=== PATIENT | male | born 1960 | race African-American/Black ===

== ENCOUNTER 2017-07-19 12:00 | Inpatient (IN) | payer OTHER ==
[2017-07-19 12:31] VITALS: BMI 27.0
--- NOTE | 2017-07-19 17:15 | HP ---
COWS - Scale Resting Pulse: 1= [place] 81-100 Sweatin=Flushed/Facial Moisture Restless Observation: 1= Difficult to Sit Still Pupil Size: 2= Moderately Dilated Bone or Joint Aches: 2= Severe Diffuse Aches Runny Nose/ Eye Tearin= Runny Nose/Eyes GI Upset > 30mins: 2= Nausea/Diarrhea Tremor Observation: 2= Slight Tremor Visible Yawning Observation: 1= 1-2x During Session Anxiety or Irritability: 2=Irritable/Anxious Goose Flesh Skin: 0=Smooth Skin COWS Score: 17 CIWA Score - CIWA Score Nausea/Vomitin Muscle Tremors: 4-Moderate,w/Arms Extend Anxiety: 4-Mod. Anxious/Guarded Agitation: 4-Moderately Restless Paroxysmal Sweats: 3 Orientation: 0-Oriented Tacttile Disturbances: 0-None Auditory Disturbances: 0-None Visual Disturbances: 0-None Headache: 0-None Present CIWA-Ar Total Score: 18 Admission ROS BHS - HPI Chief Complaint: Withdrawal sx. Allergies/Adverse Reactions: Allergies Allergy/AdvReac Type Severity Reaction Status Date / Time penicillin G Allergy Severe Hives Verified 07/19/17 16:27 tomato Allergy Severe Hives Verified 07/19/17 16:27 liver Allergy Severe Hives Uncoded 07/19/17 16:27 History of Present Illness: 56 y/o man with a long hx. of drug & alcohol dependence is admitted for detox. Pt. has been in previous detox, reports 7 yrs. drug free. Exam Limitations: No Limitations - Ebola screening Have you traveled outside of the country in the last 21 days: No Have you had contact with anyone from an Ebola affected area: No Have you been sick,other than usual withdrawal symptoms: No Do you have a fever: No - Review of Systems Constitutional: Diaphoresis EENT: reports: Nose Congestion Respiratory: reports: No Symptoms reported Cardiac: reports: No Symptoms Reported GI: reports: Nausea, Abdominal cramping : reports: No Symptoms Reported Musculoskeletal: reports: Back Pain, Joint Pain, Muscle Pain Integumentary: reports: Sweating Neuro: reports: Tremors Endocrine: reports: No Symptoms Reported Hematology: reports: No Symptoms Reported Psychiatric: reports: No Sypmtoms Reported Other Systems: Reviewed and Negative Patient History - Patient Medical History Hx Anemia: No Hx Asthma: Yes Hx Chronic Obstructive Pulmonary Disease (COPD): No Hx Cancer: No Hx Cardiac Disorders: No Hx Congestive Heart Failure: No Hx Hypertension: No Hx Hypercholesterolemia: No Hx Pacemaker: No HX Cerebrovascular Accident: No Hx Seizures: Yes (4 yrs ago) Hx Dementia: No Hx Diabetes: No Hx Gastrointestinal Disorders: No Hx Liver Disease: No Hx Genitourinary Disorders: No Hx Sexually Transmitted Disorders: No Hx Renal Disease (ESRD): No Hx Thyroid Disease: No Hx Human Immunodeficiency Virus (HIV): No Hx Hepatitis C: No Hx Depression: Yes (refuses psych consult) Hx Suicide Attempt: No Hx Bipolar Disorder: No Hx Schizophrenia: No - Patient Surgical History Past Surgical History: No Hx Neurologic Surgery: No Hx Cataract Extraction: No Hx Cardiac Surgery: No Hx Lung Surgery: No Hx Breast Surgery: No Hx Breast Biopsy: No Hx Abdominal Surgery: No Hx Appendectomy: No Hx Cholecystectomy: No Hx Genitourinary Surgery: No Hx Section: No Hx Orthopedic Surgery: No Anesthesia Reaction: No - PPD History Previous Implant?: Yes Documented Results: Negative w/proof Implanted On Prior [facility] Admission?: Yes Date: 10/26/14 Results: 0 mm PPD to be Administered?: Yes - Smoking Cessation Smoking history: Current every day smoker Have you smoked in the past 12 months: Yes Aproximately how many cigarettes per day: 2 Cigars Per Day: 0 Hx Chewing Tobacco Use: No Initiated information on smoking cessation: Yes 'Breaking Loose' booklet given: 07/19/17 - Substance & Tx. History Hx Alcohol Use: Yes Hx Substance Use: Yes Substance Use Type: Alcohol, Cocaine, Tranquilizers Hx Substance Use Treatment: Yes (Detox 2014) - Substances Abused Heroin Route: Inhalation Frequency: Daily Amount used: 10 bags Age of first use: 26 Date of Last Use: 07/19/17 Alcohol Route: Oral Frequency: Daily Amount used: vodka 1 pint Age of first use: 26 Date of Last Use: 07/19/17 Benzodiazepine (Klonopin) Route: Oral Frequency: Daily Amount used: 6 mg Age of first use: 52 Date of Last Use: 07/19/17 Family Disease History - Family Disease History Family Disease History: Diabetes: Mother (HTN), Heart Disease: Mother, Other: Father (alcohol,) Admission Physical Exam BHS - Vital Signs Vital Signs: Vital Signs - 24 hr 07/19/17 12:29 Temperature 96 F L Pulse Rate 93 H Respiratory 20 Rate Blood Pressure 146/86 - Physical General Appearance: Yes: Tremorous, Irritable, Sweating, Anxious HEENTM: Yes: Nasal Congestion, Rhinorrhea Respiratory: Yes: Chest Non-Tender, Lungs Clear, Normal Breath Sounds Neck: Yes: Supple Breast: Yes: Breast Exam Deferred Cardiology: Yes: Regular Rhythm, Regular Rate, S1, S2 Abdominal: Yes: Normal Bowel Sounds, Non Tender, Soft Genitourinary: Yes: Within Normal Limits Back: Yes: Within Normal Limits Musculoskeletal: Yes: Within Normal Limits Extremities: Yes: Tremors Neurological: Yes: Fully Oriented, Alert Integumentary: Yes: Within Normal Limits Lymphatic: Yes: Within Normal Limits - Diagnostic (1) Opioid dependence with withdrawal Current Visit: Yes Status: Acute (2) Alcohol dependence with uncomplicated withdrawal Current Visit: Yes Status: Acute (3) Sedative, hypnotic or anxiolytic dependence with withdrawal, uncomplicated Current Visit: Yes Status: Acute (4) Asthma Current Visit: Yes Status: Acute Qualifiers: Asthma severity: mild Asthma persistence: intermittent Asthma complication type: uncomplicated Qualified Code(s): J45.20 - Mild intermittent asthma, uncomplicated; J45.20 - Mild intermittent asthma, uncomplicated; J45.20 - Mild intermittent asthma, uncomplicated Cleared for Admission [facility] - Detox or Rehab [facility] Level of Care: Medically Managed Detox Regimen/Protocol: Methadone/Librium S Breath Alcohol Content Breath Alcohol Content: 0 Urine Drug Screen - Results Drug Screen Negative: No Urine Drug Screen Results: OPI-Opiates, BZO-Benzodiazepines
[2017-07-19] MEDS ORDERED: METHADONE HCL 10 MG TABLET (FOR DETOX USE ONLY) PO ONE ×2 (17:24→23:00)
[2017-07-19] MEDS ORDERED: MENTHOL/PHENOL 1 EACH UD MM PRN (17:24)
[2017-07-19] MEDS ORDERED: guaiFENesin/D-METHORPHAN HB 10 ML UNIT-DOSE CUPS PO PRN (17:24)
[2017-07-19] MEDS ORDERED: chlordiazePOXIDE HCL 25 MG CAPSULE PO PRN (17:24)
[2017-07-19] MEDS ORDERED: ACETAMINOPHEN 325 MG TABLET (FP) PO PRN (17:24)
[2017-07-19] MEDS ORDERED: NICOTINE POLACRILEX 2 MG GUM BC PRN (17:24)
[2017-07-19] MEDS ORDERED: chlordiazePOXIDE HCL 25 MG CAPSULE PO ONE (17:24)
[2017-07-19] MEDS ORDERED: hydrOXYzine PAMOATE 50 MG CAPSULE (FP) PO PRN (17:24)
[2017-07-19] MEDS ORDERED: LOPERAMIDE HCL 2 MG CAPSULE PO PRN (17:24)
[2017-07-19] MEDS ORDERED: MAGNESIUM HYDROX 2400MG/30ML ORAL SUSPENSION 30 ML CUP PO PRN (17:24)
[2017-07-19] MEDS ORDERED: MAGNESIUM CITRATE 300 ML BOTTLE PO PRN (17:24)
[2017-07-19] MEDS ORDERED: P-EPHED 60MG/TRIPROLIDI 2.5MG TABLET PO PRN (17:24)
[2017-07-19] MEDS ORDERED: diphenhydrAMINE HCL 50 MG CAPSULE PO PRN (17:24)
[2017-07-19] MEDS ORDERED: MAG HYDROX/AL HYDROX/SIMETH 30 ML UNIT-DOSE CUP PO PRN (17:24)
[2017-07-19] MEDS ORDERED: NICOTINE 14 MG/24 HOURS TOPICAL PATCH TD SCH (17:30)
[2017-07-19 21:48] LABS: URINE APPEARANCE CLEAR; URINE BILIRUBIN NEGATIVE (NEGATIVE); URINE BLOOD NEGATIVE (NEGATIVE); URINE COLOR LTYELLOW; URINE GLUCOSE (UA) NEGATIVE (NEGATIVE); URINE KETONE NEGATIVE (NEGATIVE); URINE NITRITE NEGATIVE (NEGATIVE); URINE PROTEIN NEGATIVE (NEGATIVE); URINE UROBILINOGEN NEGATIVE mg/dL (0.2-1.0)
[2017-07-19] MEDS: chlordiazePOXIDE HCL 25 MG CAPSULE PO SCH (23:03)
[2017-07-19] MEDS: THIAMINE HCL 100 MG TABLET (FP) PO SCH (23:05)
[2017-07-20] MEDS: chlordiazePOXIDE HCL 25 MG CAPSULE PO SCH ×4 (05:46→22:08)
[2017-07-20] MEDS ORDERED: METHADONE HCL 10 MG TABLET (FOR DETOX USE ONLY) PO SCH (10:00)
[2017-07-20 10:39] LABS: MCH 27.8 pg (25.7-33.7); MCHC 32.1 g/dl (32.0-35.9); MEAN CELL VOLUME 86.5 fl (80-96); MEAN PLT VOLUME 9.5 fl (7.5-11.1); PLATELET COUNT 258 K/MM3 (134-434); RDW 14.5 % (11.9-15.9); WHITE BLOOD COUNT 10.4 K/mm3 (4.0-10.0)
[2017-07-20 10:44] LABS: ALBUMIN 2.9 g/dl (3.4-5.0); ANION GAP 5 (8-16); BILIRUBIN,TOTAL 0.3 mg/dL (0.2-1.0); CALCIUM 8.5 mg/dL (8.5-10.1); CO2 29 mmol/L (21-32); GLUCOSE,RANDOM 136 mg/dL (74-106); SGOT/AST 12 U/L (15-37); SGPT/ALT 29 U/L (12-78); TOT PROT 5.4 g/dl (6.4-8.2)
[2017-07-20 10:45] LABS: ALK PHOS 73 U/L (45-117)
[2017-07-20] MEDS: PRENATAL VITAMINS W/ FOLIC ACID TABLET (FP) PO SCH (10:45)
--- NOTE | 2017-07-20 12:44 | EKG ---
Test Reason : Blood Pressure : / mmHG Vent. Rate : 077 BPM Atrial Rate : 077 BPM P-R Int : 146 ms QRS Dur : 088 ms QT Int : 400 ms P-R-T Axes : 075 067 058 degrees QTc Int : 452 ms SINUS RHYTHM OTHERWISE NORMAL ECG NO PREVIOUS ECGS AVAILABLE Confirmed by REX REINOSO MD ([id number]) on 07/20/2017 12:44:18 PM Referred By: Confirmed By:REX REINOSO MD
--- NOTE | 2017-07-20 14:10 | PN ---
S CIWA - CIWA Score Nausea/Vomitin Muscle Tremors: 4-Moderate,w/Arms Extend Anxiety: 4-Mod. Anxious/Guarded Agitation: 4-Moderately Restless Paroxysmal Sweats: 3 Orientation: 0-Oriented Tacttile Disturbances: 0-None Auditory Disturbances: 0-None Visual Disturbances: 0-None Headache: 0-None Present CIWA-Ar Total Score: 18 BHS COWS - Scale Resting Pulse: 1= [place] 81-100 Sweatin= Chills/Flushing Restless Observation: 1= Difficult to Sit Still Pupil Size: 1= Pupils >than Normal Bone or Joint Aches: 1= Mild Discomfort Runny Nose/ Eye Tearin= Nasal Congestion GI Upset > 30mins: 2= Nausea/Diarrhea Tremor Observation of Outstretched Hands: 2= Slight Tremor Visible Yawning Observation: 1= 1-2x During Session Anxiety or Irritability: 2=Irritable/Anxious Goose Flesh Skin: 3=Piloerection COWS Score: 16 S Progress Note (SOAP) Subjective: nausea, sweats, interrupted sleep, anxiety, tremors Objective: 07/20/17 14:09 Vital Signs - 24 hr 07/19/17 07/20/17 07/20/17 21:52 00:57 03:33 Temperature 97.2 F L Pulse Rate 87 Respiratory 19 18 18 Rate Blood Pressure 143/82 07/20/17 07/20/17 07/20/17 06:26 10:45 13:36 Temperature 97.4 F L 98.6 F 96.2 F L Pulse Rate 76 82 89 Respiratory 18 20 18 Rate Blood Pressure 137/74 139/82 152/61 Laboratory Tests 07/19/17 07/20/17 07/20/17 17:35 07:30 07:30 WBC 10.4 H RBC 4.87 Hgb 13.5 Hct 42.1 MCV 86.5 MCH 27.8 MCHC 32.1 RDW 14.5 Plt Count 258 MPV 9.5 Sodium 140 Potassium 4.3 Chloride 106 Carbon Dioxide 29 Anion Gap 5 L BUN 16 Creatinine 1.0 D Creat Clearance w eGFR > 60 Random Glucose 136 H Calcium 8.5 Total Bilirubin 0.3 D AST 12 L D ALT 29 Alkaline Phosphatase 73 D Total Protein 5.4 L Albumin 2.9 L Urine Color Ltyellow Urine Appearance Clear Urine pH 8.0 D Urine Protein Negative Urine Glucose (UA) Negative Urine Ketones Negative Urine Blood Negative Urine Nitrite Negative Urine Bilirubin Negative Urine Urobilinogen Negative RPR Titer 07/20/17 07:30 WBC RBC Hgb Hct MCV MCH MCHC RDW Plt Count MPV Sodium Potassium Chloride Carbon Dioxide Anion Gap BUN Creatinine Creat Clearance w eGFR Random Glucose Calcium Total Bilirubin AST ALT Alkaline Phosphatase Total Protein Albumin Urine Color Urine Appearance Urine pH Urine Protein Urine Glucose (UA) Urine Ketones Urine Blood Urine Nitrite Urine Bilirubin Urine Urobilinogen RPR Titer Nonreactive Assessment: 07/20/17 14:10 withdrawal sx Plan: cont detosx, fluids, encourage ambulation
[2017-07-20 14:19] LABS: URINE LEUK ESTERASE Negative (NEGATIVE)
[2017-07-20] MEDS: THIAMINE HCL 100 MG TABLET (FP) PO SCH (22:08)
[2017-07-21] MEDS: chlordiazePOXIDE HCL 25 MG CAPSULE PO SCH ×3 (06:17→17:00)
[2017-07-21] MEDS: METHADONE HCL 5 MG TABLET (FOR DETOX USE ONLY) PO SCH (10:35)
[2017-07-21] MEDS: PRENATAL VITAMINS W/ FOLIC ACID TABLET (FP) PO SCH (10:35)
--- NOTE | 2017-07-21 11:30 | PN ---
S CIWA - CIWA Score Nausea/Vomitin (DIARRHEA) Muscle Tremors: 4-Moderate,w/Arms Extend Anxiety: 4-Mod. Anxious/Guarded Agitation: 4-Moderately Restless Paroxysmal Sweats: 1-Minimal Palms Moist Orientation: 0-Oriented Tacttile Disturbances: 3-Moderate Itch/Numb/Burn Auditory Disturbances: 0-None Visual Disturbances: 0-None Headache: 0-None Present CIWA-Ar Total Score: 19 BHS COWS - Scale Resting Pulse: 1= [place] 81-100 Sweatin= Chills/Flushing Restless Observation: 3= Extraneous Movement Pupil Size: 0= Normal to Room Light Bone or Joint Aches: 4=Acute Joint/Muscle Pain Runny Nose/ Eye Tearin= Nasal Congestion GI Upset > 30mins: 2= Nausea/Diarrhea (DIARRHEA) Tremor Observation of Outstretched Hands: 1= Tremor [place], Not Seen Yawning Observation: 1= 1-2x During Session Anxiety or Irritability: 2=Irritable/Anxious Goose Flesh Skin: 0=Smooth Skin COWS Score: 16 [facility] Progress Note (SOAP) Subjective: ANXIETY,SWEATS,TREMORS,NAUSEA, DIARRHEA. Objective: 07/21/17 11:29 Vital Signs Temperature 98.6 F 07/21/17 10:03 Pulse Rate 93 H 07/21/17 10:03 Respiratory Rate 20 07/21/17 10:03 Blood Pressure 144/87 07/21/17 10:03 O2 Sat by Pulse Oximetry (%) Laboratory Last Values WBC 10.4 K/mm3 (4.0-10.0) H 07/20/17 07:30 RBC 4.87 M/mm3 (4.00-5.60) 07/20/17 07:30 Hgb 13.5 GM/dL (11.7-16.9) 07/20/17 07:30 Hct 42.1 % (35.4-49) 07/20/17 07:30 MCV 86.5 fl (80-96) 07/20/17 07:30 MCH 27.8 pg (25.7-33.7) 07/20/17 07:30 MCHC 32.1 g/dl (32.0-35.9) 07/20/17 07:30 RDW 14.5 % (11.9-15.9) 07/20/17 07:30 Plt Count 258 K/MM3 (134-434) 07/20/17 07:30 MPV 9.5 fl (7.5-11.1) 07/20/17 07:30 Sodium 140 mmol/L (136-145) 07/20/17 07:30 Potassium 4.3 mmol/L (3.5-5.1) 07/20/17 07:30 Chloride 106 mmol/L (98-107) 07/20/17 07:30 Carbon Dioxide 29 mmol/L (21-32) 07/20/17 07:30 Anion Gap 5 (8-16) L 07/20/17 07:30 BUN 16 mg/dL (7-18) 07/20/17 07:30 Creatinine 1.0 mg/dL (0.7-1.3) D 07/20/17 07:30 Creat Clearance w eGFR > 60 (>60) 07/20/17 07:30 Random Glucose 136 mg/dL (74-106) H 07/20/17 07:30 Calcium 8.5 mg/dL (8.5-10.1) 07/20/17 07:30 Total Bilirubin 0.3 mg/dL (0.2-1.0) D 07/20/17 07:30 AST 12 U/L (15-37) L D 07/20/17 07:30 ALT 29 U/L (12-78) 07/20/17 07:30 Alkaline Phosphatase 73 U/L (45-117) D 07/20/17 07:30 Total Protein 5.4 g/dl (6.4-8.2) L 07/20/17 07:30 Albumin 2.9 g/dl (3.4-5.0) L 07/20/17 07:30 Urine Color Ltyellow 07/19/17 17:35 Urine Appearance Clear 07/19/17 17:35 Urine pH 8.0 (5.0-8.0) D 07/19/17 17:35 Ur Specific [place] 1.015 (1.005-1.025) 07/19/17 17:35 Urine Protein Negative (NEGATIVE) 07/19/17 17:35 Urine Glucose (UA) Negative (NEGATIVE) 07/19/17 17:35 Urine Ketones Negative (NEGATIVE) 07/19/17 17:35 Urine Blood Negative (NEGATIVE) 07/19/17 17:35 Urine Nitrite Negative (NEGATIVE) 07/19/17 17:35 Urine Bilirubin Negative (NEGATIVE) 07/19/17 17:35 Urine Urobilinogen Negative mg/dL (0.2-1.0) 07/19/17 17:35 Ur Leukocyte Esterase Negative (NEGATIVE) 07/19/17 17:35 RPR Titer Nonreactive (NONREACTIVE) 07/20/17 07:30 Assessment: 07/21/17 11:30 WITHDRAWAL SX Plan: CONTINUE DETOX
[2017-07-21] MEDS: ALBUTEROL SO4 18 GM HFA INHALER IH PRN (15:50)
[2017-07-21] MEDS: IBUPROFEN 400 MG TABLET (FP) PO PRN (17:00)
[2017-07-21] MEDS: THIAMINE HCL 100 MG TABLET (FP) PO SCH (22:10)
[2017-07-21] MEDS: chlordiazePOXIDE 5 MG CAPSULE PO SCH (22:10)
[2017-07-22] MEDS: chlordiazePOXIDE 5 MG CAPSULE PO SCH ×3 (06:45→17:42)
[2017-07-22] MEDS: PRENATAL VITAMINS W/ FOLIC ACID TABLET (FP) PO SCH (10:43)
[2017-07-22] MEDS: METHADONE HCL 5 MG TABLET (FOR DETOX USE ONLY) PO SCH (10:43)
--- NOTE | 2017-07-22 11:36 | PN ---
S CIWA - CIWA Score Nausea/Vomitin Muscle Tremors: 4-Moderate,w/Arms Extend Anxiety: 5 Agitation: 4-Moderately Restless Paroxysmal Sweats: 1-Minimal Palms Moist Orientation: 0-Oriented Tacttile Disturbances: 3-Moderate Itch/Numb/Burn Auditory Disturbances: 0-None Visual Disturbances: 0-None Headache: 0-None Present CIWA-Ar Total Score: 20 BHS COWS - Scale Resting Pulse: 1= [place] 81-100 Sweatin= Chills/Flushing Restless Observation: 3= Extraneous Movement Pupil Size: 0= Normal to Room Light Bone or Joint Aches: 4=Acute Joint/Muscle Pain Runny Nose/ Eye Tearin= Nasal Congestion GI Upset > 30mins: 2= Nausea/Diarrhea Tremor Observation of Outstretched Hands: 1= Tremor [place], Not Seen Yawning Observation: 0= None Anxiety or Irritability: 2=Irritable/Anxious Goose Flesh Skin: 0=Smooth Skin COWS Score: 15 BHS Progress Note (SOAP) Subjective: PT C/O NAUSEA/VOMITING/DIARRHEA,IRRITABILITY,RESTLESSNESS,STOMACH CRAMPS, SLEEPING DISORDER. PT WAS TOLD TO SEE PSYCH CONSULT TODAY BUT HE WAS NOT INTERESTED THE SECOND TIME AROUND. (SEE ADMITTING NOTES). PT IS VERY ARGUMENTATIVE WHEN REMINDED TO FOLLOW UP WITH HIS NURSE FOR ORDERED MEDS E.G FOR DIARRHEA. HE APOLOGIZES AFTERWARDS AND EXPRESSES AWARENESS OF THE DISCOMFORT OF HIS WITHDRAWAL SX THAT MAY BE CAUSING ANXIETY REACTIONS. PT WAS REMINDED OF THE THERAPEUTIC SUPPORT AVAILABLE ONCE COMMUNICATED TO STAFF. Objective: 07/22/17 11:36 Vital Signs Temperature 99.2 F 07/22/17 09:54 Pulse Rate 100 H 07/22/17 09:54 Respiratory Rate 20 07/22/17 09:54 Blood Pressure 144/83 07/22/17 09:54 O2 Sat by Pulse Oximetry (%) Laboratory Last Values WBC 10.4 K/mm3 (4.0-10.0) H 07/20/17 07:30 RBC 4.87 M/mm3 (4.00-5.60) 07/20/17 07:30 Hgb 13.5 GM/dL (11.7-16.9) 07/20/17 07:30 Hct 42.1 % (35.4-49) 07/20/17 07:30 MCV 86.5 fl (80-96) 07/20/17 07:30 MCH 27.8 pg (25.7-33.7) 07/20/17 07:30 MCHC 32.1 g/dl (32.0-35.9) 07/20/17 07:30 RDW 14.5 % (11.9-15.9) 07/20/17 07:30 Plt Count 258 K/MM3 (134-434) 07/20/17 07:30 MPV 9.5 fl (7.5-11.1) 07/20/17 07:30 Sodium 140 mmol/L (136-145) 07/20/17 07:30 Potassium 4.3 mmol/L (3.5-5.1) 07/20/17 07:30 Chloride 106 mmol/L (98-107) 07/20/17 07:30 Carbon Dioxide 29 mmol/L (21-32) 07/20/17 07:30 Anion Gap 5 (8-16) L 07/20/17 07:30 BUN 16 mg/dL (7-18) 07/20/17 07:30 Creatinine 1.0 mg/dL (0.7-1.3) D 07/20/17 07:30 Creat Clearance w eGFR > 60 (>60) 07/20/17 07:30 Random Glucose 136 mg/dL (74-106) H 07/20/17 07:30 Calcium 8.5 mg/dL (8.5-10.1) 07/20/17 07:30 Total Bilirubin 0.3 mg/dL (0.2-1.0) D 07/20/17 07:30 AST 12 U/L (15-37) L D 07/20/17 07:30 ALT 29 U/L (12-78) 07/20/17 07:30 Alkaline Phosphatase 73 U/L (45-117) D 07/20/17 07:30 Total Protein 5.4 g/dl (6.4-8.2) L 07/20/17 07:30 Albumin 2.9 g/dl (3.4-5.0) L 07/20/17 07:30 Urine Color Ltyellow 07/19/17 17:35 Urine Appearance Clear 07/19/17 17:35 Urine pH 8.0 (5.0-8.0) D 07/19/17 17:35 Ur Specific [place] 1.015 (1.005-1.025) 07/19/17 17:35 Urine Protein Negative (NEGATIVE) 07/19/17 17:35 Urine Glucose (UA) Negative (NEGATIVE) 07/19/17 17:35 Urine Ketones Negative (NEGATIVE) 07/19/17 17:35 Urine Blood Negative (NEGATIVE) 07/19/17 17:35 Urine Nitrite Negative (NEGATIVE) 07/19/17 17:35 Urine Bilirubin Negative (NEGATIVE) 07/19/17 17:35 Urine Urobilinogen Negative mg/dL (0.2-1.0) 07/19/17 17:35 Ur Leukocyte Esterase Negative (NEGATIVE) 07/19/17 17:35 RPR Titer Nonreactive (NONREACTIVE) 07/20/17 07:30 Assessment: 07/22/17 11:36 WITHDRAWAL SX Plan: CONTINUE DETOX AMBIEN 10 MG PO HS X 2 NIGHTS
[2017-07-22] MEDS ORDERED: CYCLOBENZAPRINE HCL 10 MG TABLET (FP) PO ONE (11:39)
[2017-07-22] MEDS: CYCLOBENZAPRINE HCL 10 MG TABLET (FP) PO SCH ×2 (13:08→22:13)
[2017-07-22] MEDS: chlordiazePOXIDE HCL 10 MG CAPSULE PO SCH (22:13)
[2017-07-22] MEDS: ZOLPIDEM TARTRATE 10 MG TABLET (PARK CARE ONLY) PO PRN (22:13)
[2017-07-22] MEDS: BUDESONIDE/FORMETEROL FUMARATE 80/4.5 mcg INHALER IH SCH (22:13)
[2017-07-22] MEDS: THIAMINE HCL 100 MG TABLET (FP) PO SCH (22:13)
[2017-07-22] MEDS: IBUPROFEN 400 MG TABLET (FP) PO PRN (23:01)
--- NOTE | 2017-07-22 23:30 | PN ---
BHS Progress Note Note: ASKED TO SEE PT FOR C/O CHEST PAIN. PT REPORTS C.P 6/10. POINT TO R CHEST WALL AND THEN POINTING TO L CHEST WALL. STATES PAIN IS CONSTANT WORSE WITH MOVEMENT. EKG NSR B/P 140/76 P 98 O2 SAT 98 % VRA SEEN LYING IN BED NAD/ A/OX 3 CV TACHY C/O OF WORSENING PAIN ON PALPATION OF L CHEST WALL MUSCLE MUSCULOSKELETAL PAIN MOTRIN ORDERED CONT TO MONITOR
[2017-07-23] MEDS: chlordiazePOXIDE HCL 10 MG CAPSULE PO SCH ×3 (05:15→17:49)
[2017-07-23] MEDS: CYCLOBENZAPRINE HCL 10 MG TABLET (FP) PO SCH ×3 (05:15→22:16)
[2017-07-23] MEDS ORDERED: METHADONE HCL 10 MG TABLET (FOR DETOX USE ONLY) PO SCH (10:00)
[2017-07-23] MEDS: BUDESONIDE/FORMETEROL FUMARATE 80/4.5 mcg INHALER IH SCH ×2 (10:30→22:16)
[2017-07-23] MEDS: PRENATAL VITAMINS W/ FOLIC ACID TABLET (FP) PO SCH (10:30)
--- NOTE | 2017-07-23 10:50 | PN ---
S Progress Note (SOAP) Subjective: ANXIETY,SWEATS,DECREASED AGITATION TODAY,C/O "NO SLEEP- BUT ON AMBIEN. Objective: 07/23/17 10:49 Vital Signs Temperature 98.5 F 07/23/17 09:42 Pulse Rate 97 H 07/23/17 09:42 Respiratory Rate 18 07/23/17 09:42 Blood Pressure 118/73 07/23/17 09:42 O2 Sat by Pulse Oximetry (%) Laboratory Last Values WBC 10.4 K/mm3 (4.0-10.0) H 07/20/17 07:30 RBC 4.87 M/mm3 (4.00-5.60) 07/20/17 07:30 Hgb 13.5 GM/dL (11.7-16.9) 07/20/17 07:30 Hct 42.1 % (35.4-49) 07/20/17 07:30 MCV 86.5 fl (80-96) 07/20/17 07:30 MCH 27.8 pg (25.7-33.7) 07/20/17 07:30 MCHC 32.1 g/dl (32.0-35.9) 07/20/17 07:30 RDW 14.5 % (11.9-15.9) 07/20/17 07:30 Plt Count 258 K/MM3 (134-434) 07/20/17 07:30 MPV 9.5 fl (7.5-11.1) 07/20/17 07:30 Sodium 140 mmol/L (136-145) 07/20/17 07:30 Potassium 4.3 mmol/L (3.5-5.1) 07/20/17 07:30 Chloride 106 mmol/L (98-107) 07/20/17 07:30 Carbon Dioxide 29 mmol/L (21-32) 07/20/17 07:30 Anion Gap 5 (8-16) L 07/20/17 07:30 BUN 16 mg/dL (7-18) 07/20/17 07:30 Creatinine 1.0 mg/dL (0.7-1.3) D 07/20/17 07:30 Creat Clearance w eGFR > 60 (>60) 07/20/17 07:30 Random Glucose 136 mg/dL (74-106) H 07/20/17 07:30 Calcium 8.5 mg/dL (8.5-10.1) 07/20/17 07:30 Total Bilirubin 0.3 mg/dL (0.2-1.0) D 07/20/17 07:30 AST 12 U/L (15-37) L D 07/20/17 07:30 ALT 29 U/L (12-78) 07/20/17 07:30 Alkaline Phosphatase 73 U/L (45-117) D 07/20/17 07:30 Total Protein 5.4 g/dl (6.4-8.2) L 07/20/17 07:30 Albumin 2.9 g/dl (3.4-5.0) L 07/20/17 07:30 Urine Color Ltyellow 07/19/17 17:35 Urine Appearance Clear 07/19/17 17:35 Urine pH 8.0 (5.0-8.0) D 07/19/17 17:35 Ur Specific [place] 1.015 (1.005-1.025) 07/19/17 17:35 Urine Protein Negative (NEGATIVE) 07/19/17 17:35 Urine Glucose (UA) Negative (NEGATIVE) 07/19/17 17:35 Urine Ketones Negative (NEGATIVE) 07/19/17 17:35 Urine Blood Negative (NEGATIVE) 07/19/17 17:35 Urine Nitrite Negative (NEGATIVE) 07/19/17 17:35 Urine Bilirubin Negative (NEGATIVE) 07/19/17 17:35 Urine Urobilinogen Negative mg/dL (0.2-1.0) 07/19/17 17:35 Ur Leukocyte Esterase Negative (NEGATIVE) 07/19/17 17:35 RPR Titer Nonreactive (NONREACTIVE) 07/20/17 07:30 Assessment: 07/23/17 10:49 WITHDRAWAL SX Plan: CONTINUE DETOX
[2017-07-23] MEDS: ZOLPIDEM TARTRATE 10 MG TABLET (PARK CARE ONLY) PO PRN (22:16)
[2017-07-23] MEDS: THIAMINE HCL 100 MG TABLET (FP) PO SCH (22:16)
[2017-07-24] MEDS: CYCLOBENZAPRINE HCL 10 MG TABLET (FP) PO SCH (05:29)
[2017-07-24] MEDS: ALBUTEROL SO4 18 GM HFA INHALER IH PRN (05:29)
[2017-07-24] MEDS ORDERED: METHADONE HCL 5 MG TABLET (FOR DETOX USE ONLY) PO SCH (06:00)
[2017-07-24 06:36] VITALS: BP 120/74; PULSE 91; TEMP 96.2
[2017-07-24] MEDS: PRENATAL VITAMINS W/ FOLIC ACID TABLET (FP) PO SCH (09:11)
[2017-07-24] MEDS: BUDESONIDE/FORMETEROL FUMARATE 80/4.5 mcg INHALER IH SCH (09:11)
--- NOTE | 2017-07-24 13:16 | DS ---
[facility] Detox Discharge Summary Admission Date: 07/19/17 Discharge Date: 07/24/17 - History Present History: Alcohol Dependence, Opioid Dependence, Sedative Dependence Additional Comments: PATIENT GOING TO [facility] ([place], [place] FOR AFTERCARE. PATIENT WAS DISCHARGED FROM DETOX UNIT IN STABLE MEDICAL CONDITION. Pertinent Past History: Asthma, History of Seizures, Depression. - Physical Exam Results Vital Signs: Vital Signs Temperature 96.2 F L 07/24/17 06:35 Pulse Rate 91 H 07/24/17 06:35 Respiratory Rate 18 07/24/17 06:35 Blood Pressure 120/74 07/24/17 06:35 O2 Sat by Pulse Oximetry (%) Pertinent Admission Physical Exam Findings: WITHDRAWAL SYMPTOMS. Laboratory Tests 07/19/17 07/20/17 07/20/17 17:35 07:30 07:30 WBC 10.4 H RBC 4.87 Hgb 13.5 Hct 42.1 MCV 86.5 MCH 27.8 MCHC 32.1 RDW 14.5 Plt Count 258 MPV 9.5 Sodium 140 Potassium 4.3 Chloride 106 Carbon Dioxide 29 Anion Gap 5 L BUN 16 Creatinine 1.0 D Creat Clearance w eGFR > 60 Random Glucose 136 H Calcium 8.5 Total Bilirubin 0.3 D AST 12 L D ALT 29 Alkaline Phosphatase 73 D Total Protein 5.4 L Albumin 2.9 L Urine Color Ltyellow Urine Appearance Clear Urine pH 8.0 D Ur Specific [place] 1.015 Urine Protein Negative Urine Glucose (UA) Negative Urine Ketones Negative Urine Blood Negative Urine Nitrite Negative Urine Bilirubin Negative Urine Urobilinogen Negative Ur Leukocyte Esterase Negative RPR Titer 07/20/17 07:30 WBC RBC Hgb Hct MCV MCH MCHC RDW Plt Count MPV Sodium Potassium Chloride Carbon Dioxide Anion Gap BUN Creatinine Creat Clearance w eGFR Random Glucose Calcium Total Bilirubin AST ALT Alkaline Phosphatase Total Protein Albumin Urine Color Urine Appearance Urine pH Ur Specific [place] Urine Protein Urine Glucose (UA) Urine Ketones Urine Blood Urine Nitrite Urine Bilirubin Urine Urobilinogen Ur Leukocyte Esterase RPR Titer Nonreactive LABS NOTED. - Treatment Hospital Course: Detox Protocol Followed, Detoxed Safely, Responded well, Discharged Condition Good, Rehab Referral Accepted Patient has Accepted a Rehab Referral to: [facility] ([place] , [place] - Medication Discharge Medications: Ambulatory Orders Albuterol Sulfate Inhaler - [Ventolin HFA Inhaler -] 2 inh PO Q4H PRN 10/24/14 - Diagnosis (1) Alcohol dependence with uncomplicated withdrawal Status: Acute (2) Asthma Status: Chronic Qualifiers: Asthma severity: mild Asthma persistence: intermittent Asthma complication type: uncomplicated Qualified Code(s): J45.20 - Mild intermittent asthma, uncomplicated; J45.20 - Mild intermittent asthma, uncomplicated; J45.20 - Mild intermittent asthma, uncomplicated (3) Opioid dependence with withdrawal Status: Acute (4) Sedative, hypnotic or anxiolytic dependence with withdrawal, uncomplicated Status: Acute - AMA Did Patient Leave Against Medical Advice: No
--- NOTE | 2017-07-25 12:55 | EKG ---
Test Reason : Blood Pressure : / mmHG Vent. Rate : 100 BPM Atrial Rate : 100 BPM P-R Int : 144 ms QRS Dur : 082 ms QT Int : 358 ms P-R-T Axes : 067 031 042 degrees QTc Int : 461 ms NORMAL SINUS RHYTHM NORMAL ECG WHEN COMPARED WITH ECG OF 19-JUL-2017 18:04, NO SIGNIFICANT CHANGE WAS FOUND Confirmed by LOU EDMONDSON MD ([id number]) on 07/25/2017 12:55:25 PM Referred By: Confirmed By:LOU EDMONDSON MD
== END 2017-07-24 09:51 | disposition home or self-care (01) | DRG 773 ==
LOC: YASAS 12:00 → Y3N 16:26
PROVIDERS: ADMIT Internal Medicine; ATTEND Internal Medicine
PROC: HZ2ZZZZ Detoxification Services for Substance Abuse Treatment (ICD-10-PCS; principal; 2017-07-19)
DX: F11.23 Opioid dependence with withdrawal (principal); F13.230 Sedative, hypnotic or anxiolytic dependence with withdrawal, uncomplicated; F10.230 Alcohol dependence with withdrawal, uncomplicated; F17.210 Nicotine dependence, cigarettes, uncomplicated; J45.20 Mild intermittent asthma, uncomplicated; K21.9 Gastro-esophageal reflux disease without esophagitis; R07.89 Other chest pain; Z86.69 Personal history of other diseases of the nervous system and sense organs; Z88.0 Allergy status to penicillin; Z91.018 Allergy to other foods
CPT/HCPCS: 36415; 80053; 81003; 85027; 86593; 93005; 93010

== ENCOUNTER 2018-10-13 12:14 | Inpatient (IN) | payer OTHER ==
[2018-10-13 12:44] VITALS: BMI 33.7
--- NOTE | 2018-10-13 15:15 | HP ---
CIWA Score Nausea/Vomitin Muscle Tremors: 2 Anxiety: 2 Agitation: 2 Paroxysmal Sweats: 1-Minimal Palms Moist Orientation: 0-Oriented Tacttile Disturbances: 1-Very Mild Itch/Numbness Auditory Disturbances: 1-Very Mild Visual Disturbances: 0-None Headache: 2-Mild CIWA-Ar Total Score: 13 - Admission Criteria OASAS Guidelines: Admission for Medically Managed Detox: Requires at least one of the followin. CIWA greater than 12 2. Seizures within the past 24 hours 3. Delirium tremens within the past 24 hours 4. Hallucinations within the past 24 hours 5. Acute intervention needed for co occurring medical disorder 6. Acute intervention needed for co occurring psychiatric disorder 7. Severe withdrawal that cannot be handled at a lower level of care (continued vomiting, continued diarrhea, abnormal vital signs) requiring intravenous medication and/or fluids 8. Patient presents the following: CIWA greater than 12 Admission Criteria Met: Admission criteria met Admission ROS S - HPI Chief Complaint: i need help to stop drinking alcohol and klonopin Allergies/Adverse Reactions: Allergies Allergy/AdvReac Type Severity Reaction Status Date / Time penicillin G Allergy Severe Hives Verified 10/13/18 13:23 pork derived (porcine) Allergy Severe Hives Verified 10/13/18 13:23 tomato Allergy Severe Hives Verified 10/13/18 13:23 liver Allergy Severe Hives Uncoded 10/13/18 13:23 History of Present Illness: this 57 years old male with alcohol and klonopin dependence seeking detox, withdrawal symptom,last detox 07/19/17 to 07/24/17 nicotine dependence longest period of sobriety 5 years asthma,copd plan for rehab after detox - Ebola screening Have you traveled outside of the country in the last 21 days: No Have you had contact with anyone from an Ebola affected area: No Have you been sick,other than usual withdrawal symptoms: No Do you have a fever: No - Review of Systems Constitutional: Loss of Appetite, Malaise, Night Sweats, Changes in sleep, Weakness EENT: reports: Nose Congestion Respiratory: reports: Other (asthma,copd) Cardiac: reports: Palpitations GI: reports: Nausea, Vomiting, Abdominal cramping : reports: No Symptoms Reported Musculoskeletal: reports: Back Pain, Muscle Pain Integumentary: reports: Dryness Neuro: reports: Tremors Endocrine: reports: No Symptoms Reported Hematology: reports: No Symptoms Reported Psychiatric: reports: No Sypmtoms Reported, Judgement Intact, Mood/Affect Appropiate, Orientated x3 Patient History - Patient Medical History Hx Anemia: No Hx Asthma: Yes (on albuterol and symbicort) Hx Chronic Obstructive Pulmonary Disease (COPD): Yes Hx Cancer: No Hx Cardiac Disorders: No Hx Congestive Heart Failure: No Hx Hypertension: No Hx Hypercholesterolemia: No Hx Pacemaker: No HX Cerebrovascular Accident: No Hx Seizures: No Hx Dementia: No Hx Diabetes: No Hx Gastrointestinal Disorders: No Hx Liver Disease: No Hx Genitourinary Disorders: No Hx Sexually Transmitted Disorders: No Hx Renal Disease (ESRD): No Hx Thyroid Disease: No Hx Human Immunodeficiency Virus (HIV): No (last 2018 negative) Hx Hepatitis C: No Hx Depression: No Hx Suicide Attempt: No Hx Bipolar Disorder: No Hx Schizophrenia: No Other Medical History: no suicidal,no homicidal - Patient Surgical History Past Surgical History: No Hx Neurologic Surgery: No Hx Cataract Extraction: No Hx Cardiac Surgery: No Hx Lung Surgery: No Hx Breast Surgery: No Hx Breast Biopsy: No Hx Abdominal Surgery: No Hx Appendectomy: No Hx Cholecystectomy: No Hx Genitourinary Surgery: No Hx Section: No Hx Orthopedic Surgery: No Anesthesia Reaction: No - PPD History Previous Implant?: Yes Documented Results: Negative w/o proof Date: 07/21/17 Results: 0 mm PPD to be Administered?: Yes - Smoking Cessation Smoking history: Current some day smoker Have you smoked in the past 12 months: Yes Aproximately how many cigarettes per day: 1 Cigars Per Day: 0 Hx Chewing Tobacco Use: No Initiated information on smoking cessation: Yes 'Breaking Loose' booklet given: 10/13/18 - Substance & Tx. History Hx Alcohol Use: Yes Hx Substance Use: Yes Substance Use Type: Alcohol, Tranquilizers Hx Substance Use Treatment: Yes ([facility] 07/14/17 to 07/24/17) - Substances Abused Alcohol-vodka/beer Route: Oral Frequency: Daily Amount used: 4 pts./2-6 pks. Age of first use: 17 Date of Last Use: 10/13/18 Klonopin Route: Oral Frequency: 3-6 times per week Amount used: 4-6 mg. Age of first use: 49 Date of Last Use: 10/11/18 Family Disease History - Family Disease History Family Disease History: Diabetes: Mother (HTN), Heart Disease: Mother, Other: Father (alcohol,) Admission Physical Exam [facility] - Vital Signs Vital Signs: Vital Signs - 24 hr 10/13/18 10/13/18 12:40 12:44 Temperature 98.7 F 98.7 F Pulse Rate 106 H 106 H Respiratory 18 18 Rate Blood Pressure 146/78 146/78 - Physical General Appearance: Yes: Moderate Distress, Tremorous, Irritable, Sweating, Anxious HEENTM: Yes: Normal ENT Inspection, RUBEN, Pharynx Normal Respiratory: Yes: Lungs Clear, Normal Breath Sounds, No Respiratory Distress Neck: Yes: Within Normal Limits, Supple, Trachea in good position Breast: Yes: Within Normal Limits Cardiology: Yes: Tachycardia Abdominal: Yes: Within Normal Limits, Normal Bowel Sounds, Non Tender, Soft Genitourinary: Yes: Within Normal Limits Back: Yes: Muscle Spasm Musculoskeletal: Yes: Back pain, Muscle Pain Extremities: Yes: Tremors Neurological: Yes: right of way appraiser II-XII NML intact, Fully Oriented, Alert, Motor Strength 5/5 Integumentary: Yes: Dry - Diagnostic (1) Alcohol dependence with uncomplicated withdrawal Current Visit: No Status: Acute (2) Sedative, hypnotic or anxiolytic dependence with withdrawal, uncomplicated Current Visit: No Status: Acute (3) Syncope Current Visit: No Status: Acute (4) Asthma Current Visit: No Status: Chronic Qualifiers: Asthma severity: mild Asthma persistence: intermittent Asthma complication type: uncomplicated Qualified Code(s): J45.20 - Mild intermittent asthma, uncomplicated (5) COPD (chronic obstructive pulmonary disease) Current Visit: Yes Status: Acute Cleared for Admission [facility] - Detox or Rehab [facility] Level of Care: Medically Managed Detox Regimen/Protocol: Valium [facility] Breath Alcohol Content Breath Alcohol Content: 0.006 Urine Drug Screen - Results Drug Screen Negative: No Urine Drug Screen Results: BZO-Benzodiazepines
[2018-10-13] MEDS ORDERED: ACETAMINOPHEN 325 MG TABLET (FP) PO PRN (15:20)
[2018-10-13] MEDS ORDERED: MAG HYDROX/AL HYDROX/SIMETH 30 ML UNIT-DOSE CUP PO PRN (15:20)
[2018-10-13] MEDS ORDERED: MAGNESIUM HYDROX 2400MG/30ML ORAL SUSPENSION 30 ML CUP PO PRN (15:20)
[2018-10-13] MEDS ORDERED: MAGNESIUM CITRATE 300 ML BOTTLE PO PRN (15:20)
[2018-10-13] MEDS ORDERED: P-EPHED 60MG/TRIPROLIDI 2.5MG TABLET PO PRN (15:20)
[2018-10-13] MEDS ORDERED: guaiFENesin/D-METHORPHAN HB 10 ML UNIT-DOSE CUPS PO PRN (15:20)
[2018-10-13] MEDS ORDERED: LOPERAMIDE HCL 2 MG CAPSULE PO PRN (15:20)
[2018-10-13] MEDS ORDERED: MENTHOL/PHENOL 1 EACH UD MM PRN (15:20)
[2018-10-13] MEDS ORDERED: IBUPROFEN 400 MG TABLET (FP) PO PRN (15:20)
[2018-10-13] MEDS ORDERED: diazePAM 5 MG TABLET PO ONE (17:00)
[2018-10-13] MEDS: THIAMINE HCL 100 MG TABLET (FP) PO SCH (22:27)
[2018-10-13] MEDS: diazePAM 5 MG TABLET PO SCH (22:27)
[2018-10-13] MEDS: BUDESONIDE/FORMETEROL FUMARATE 80/4.5 mcg INHALER IH SCH (22:27)
[2018-10-14] MEDS: diazePAM 5 MG TABLET PO PRN ×2 (04:45→17:54)
[2018-10-14] MEDS: diazePAM 5 MG TABLET PO SCH ×3 (07:17→22:22)
[2018-10-14] MEDS ORDERED: NICOTINE POLACRILEX 2 MG GUM BUC PRN (07:37)
[2018-10-14] MEDS ORDERED: DIPHENOXYLATE 2.5/ATROPINE.025 1 COMBO TABLET PO ONE (08:38)
--- NOTE | 2018-10-14 09:05 | PN ---
[facility] CIWA - CIWA Score Nausea/Vomitin Muscle Tremors: 2 Anxiety: 2 Agitation: 2 Paroxysmal Sweats: 1-Minimal Palms Moist Orientation: 0-Oriented Tacttile Disturbances: 1-Very Mild Itch/Numbness Auditory Disturbances: 1-Very Mild Visual Disturbances: 0-None Headache: 2-Mild CIWA-Ar Total Score: 13 BHS Progress Note (SOAP) Subjective: alert,irritable,anxious,interrupted sleep,pain in the body and back,diarrhea, vomiting mentioned also using heroin abused Objective: 10/14/18 09:03 Vital Signs Temperature 97.7 F 10/14/18 06:00 Pulse Rate 115 H 10/14/18 06:00 Respiratory Rate 20 10/14/18 06:00 Blood Pressure 105/70 10/14/18 06:00 O2 Sat by Pulse Oximetry (%) 10/14/18 09:03 Vital Signs Temperature 97.7 F 10/14/18 06:00 Pulse Rate 115 H 10/14/18 06:00 Respiratory Rate 20 10/14/18 06:00 Blood Pressure 105/70 10/14/18 06:00 O2 Sat by Pulse Oximetry (%) labs pending Assessment: 10/14/18 09:04 withdrawal symptom Plan: continue detox,changed immodium to lomotil,flexeril 10 mgs po tid prn,clonidine 0.1 mg po bid close monitoring
[2018-10-14] MEDS: cloNIDine HCL 0.1 MG TABLET PO SCH ×2 (09:32→22:23)
[2018-10-14] MEDS: PRENATAL VITAMINS W/ FOLIC ACID TABLET (FP) PO SCH (09:32)
[2018-10-14] MEDS: CYCLOBENZAPRINE HCL 10 MG TABLET (FP) PO PRN (09:32)
[2018-10-14] MEDS: BUDESONIDE/FORMETEROL FUMARATE 80/4.5 mcg INHALER IH SCH ×2 (09:34→22:22)
[2018-10-14] MEDS: ALBUTEROL SO4 8 GM HFA INHALER IH PRN ×2 (09:37→22:24)
[2018-10-14 10:19] LABS: HEMATOCRIT 43.1 % (35.4-49); HEMOGLOBIN 13.5 GM/dL (11.7-16.9); MCHC 31.3 g/dl (32.0-35.9); MEAN CELL VOLUME 80.1 fl (80-96); MEAN PLT VOLUME 10.5 fl (7.5-11.1); PLATELET COUNT 242 K/MM3 (134-434); RBC 5.39 M/mm3 (4.00-5.60); RDW 15.5 % (11.9-15.9); WHITE BLOOD COUNT 12.2 K/mm3 (4.0-10.0)
[2018-10-14 10:27] LABS: ALBUMIN 3.6 g/dl (3.4-5.0); ALK PHOS 74 U/L (45-117); ANION GAP 9 MMOL/L (8-16); BILIRUBIN,TOTAL 0.3 mg/dL (0.2-1); BLOOD UREA NITROGEN 17 mg/dL (7-18); CALCIUM 8.7 mg/dL (8.5-10.1); CHLORIDE 106 mmol/L (98-107); CO2 27 mmol/L (21-32); GLUCOSE,RANDOM 100 mg/dL (74-106); POTASSIUM 4.6 mmol/L (3.5-5.1); SGOT/AST 31 U/L (15-37); SGPT/ALT 48 U/L (13-61); SODIUM 142 mmol/L (136-145); TOT PROT 6.8 g/dl (6.4-8.2)
[2018-10-14] MEDS: NICOTINE 21 MG/24 HOURS TOPICAL PATCH TD SCH (11:19)
[2018-10-14] MEDS: THIAMINE HCL 100 MG TABLET (FP) PO SCH (22:22)
[2018-10-14] MEDS: MELATONIN 5 MG TABLETS PO PRN (22:24)
[2018-10-15] MEDS: diazePAM 5 MG TABLET PO PRN ×4 (03:38→19:35)
[2018-10-15] MEDS: CYCLOBENZAPRINE HCL 10 MG TABLET (FP) PO PRN ×2 (07:03→22:20)
[2018-10-15] MEDS: diazePAM 5 MG TABLET PO SCH ×2 (10:21→22:18)
[2018-10-15] MEDS: ASPIRIN 81 MG CHEWABLE TABLETS PO SCH (10:21)
[2018-10-15] MEDS: BUDESONIDE/FORMETEROL FUMARATE 80/4.5 mcg INHALER IH SCH ×2 (10:21→22:18)
[2018-10-15] MEDS: cloNIDine HCL 0.1 MG TABLET PO SCH ×2 (10:21→22:18)
[2018-10-15] MEDS: PRENATAL VITAMINS W/ FOLIC ACID TABLET (FP) PO SCH (10:21)
[2018-10-15] MEDS: NICOTINE 21 MG/24 HOURS TOPICAL PATCH TD SCH (10:22)
--- NOTE | 2018-10-15 16:32 | PN ---
[facility] CIWA - CIWA Score Nausea/Vomitin-No Nausea/No Vomiting Muscle Tremors: None Anxiety: 3 Agitation: 2 Paroxysmal Sweats: No Perspiration Orientation: 0-Oriented Tacttile Disturbances: 2-Mild Itch/Numbness/Burn Auditory Disturbances: 2-Mild Harshness/Frighten Visual Disturbances: 2-Mild Sensitivity Headache: 0-None Present CIWA-Ar Total Score: 11 S Progress Note (SOAP) Subjective: Fatigue, Anxious, Nausea. Objective: PATIENT A & O X 3, OBSERVED AMBULATING ON UNIT. IN NO ACUTE DISTRESS. 10/15/18 16:25 Laboratory Tests 10/14/18 10/14/18 10/14/18 06:00 06:00 06:00 WBC 12.2 H RBC 5.39 Hgb 13.5 Hct 43.1 MCV 80.1 MCH 25.0 L D MCHC 31.3 L RDW 15.5 Plt Count 242 MPV 10.5 D Sodium 142 Potassium 4.6 Chloride 106 Carbon Dioxide 27 Anion Gap 9 BUN 17 Creatinine 1.0 Creat Clearance w eGFR > 60 Random Glucose 100 Calcium 8.7 Total Bilirubin 0.3 AST 31 ALT 48 Alkaline Phosphatase 74 Total Protein 6.8 Albumin 3.6 RPR Titer Nonreactive LABS NOTED. Assessment: 10/15/18 16:27 WITHDRAWAL SYMPTOMS. LEUKOCYTOSIS. 10/15/18 16:36 Plan: CONTINUE DETOX. REPEAT CBC TOMORROW AM FOR ELEVATED WBC COUNT. DURING TODAY'S AM ROUNDS ASSESSMENT, PATIENT REPORTS RECENT HISTORY OF ' VASCULAR SURGERY' TO RIGHT LEG THAT TOOK PLACE IN 09/2018. PATIENT RPEORTS THAT HE HAD BEEN PRESCRIBED PLAVIX AND ASPIRIN FOR FOLLOW-UP BY SURGEON. PER PHARMACIST AT PATIENT'S PHARMACY ([address]), PATIENT HAD BEEN PRESCRIBED PLAVIX, 75 MG PO HS ON 09/30/2018. PLAVIX, 75 MG PO HS AND ASPIRIN, 81 MG PO DAILY ORDERED. PATIENT ADVISED TO FOLLOW-UP WITH SURGEON WHO PERFORMED VASCULAR SURGERY AT [facility] IN [place], [place] AFTER DISCHARGE FROM DETOX UNIT FOR FURTHER EVALUATION. PATIENT VERBALIZED UNDERSTANDING OF RECOMMENDATION. PATIENT ALSO REPORTS THAT HE HAS BEEN MADE AWARE THAT BED MIGHT BECOME AVAILABLE TOMORROW AT [facility]. PATIENT NOTES THAT IF BED DOES BECOME AVAILABLE, HE IS INTENT ON GOING TO REHAB TOMORROW CURRENT WITHDRAWAL SYMPTOMS ARE MINIMAL IN SEVERITY FOR HIM.
[2018-10-15] MEDS: CLOPIDOGREL BISULFATE 75 MG TABLET (FP) PO SCH (22:18)
[2018-10-15] MEDS: THIAMINE HCL 100 MG TABLET (FP) PO SCH (22:18)
[2018-10-15] MEDS: ALBUTEROL SO4 8 GM HFA INHALER IH PRN (22:19)
[2018-10-15] MEDS: MELATONIN 5 MG TABLETS PO PRN (22:19)
[2018-10-16] MEDS: diazePAM 5 MG TABLET PO PRN ×2 (05:47→13:51)
--- NOTE | 2018-10-16 10:15 | PN ---
S Progress Note (SOAP) Subjective: alert,irritable,anxious,interrupted sleep Objective: 10/16/18 10:14 Vital Signs Temperature 97.4 F L 10/16/18 06:53 Pulse Rate 107 H 10/16/18 06:53 Respiratory Rate 18 10/16/18 06:53 Blood Pressure 123/66 10/16/18 06:53 O2 Sat by Pulse Oximetry (%) Assessment: 10/16/18 10:14 withdrawal symptom Plan: continue detox,discharge in am
[2018-10-16] MEDS: NICOTINE 21 MG/24 HOURS TOPICAL PATCH TD SCH (10:36)
[2018-10-16] MEDS: ASPIRIN 81 MG CHEWABLE TABLETS PO SCH (10:36)
[2018-10-16] MEDS: diazePAM 5 MG TABLET PO SCH ×2 (10:36→22:07)
[2018-10-16] MEDS: PRENATAL VITAMINS W/ FOLIC ACID TABLET (FP) PO SCH (10:36)
[2018-10-16] MEDS: CYCLOBENZAPRINE HCL 10 MG TABLET (FP) PO PRN ×3 (10:36→22:07)
[2018-10-16] MEDS: cloNIDine HCL 0.1 MG TABLET PO SCH ×2 (10:36→22:08)
[2018-10-16] MEDS: BUDESONIDE/FORMETEROL FUMARATE 80/4.5 mcg INHALER IH SCH ×2 (10:37→22:06)
[2018-10-16] MEDS: ALBUTEROL SO4 8 GM HFA INHALER IH PRN ×2 (10:40→22:07)
[2018-10-16] MEDS: DIPHENOXYLATE 2.5/ATROPINE.025 1 COMBO TABLET PO PRN ×2 (13:53→22:08)
[2018-10-16] MEDS: CLOPIDOGREL BISULFATE 75 MG TABLET (FP) PO SCH (22:07)
[2018-10-16] MEDS: THIAMINE HCL 100 MG TABLET (FP) PO SCH (22:07)
[2018-10-16] MEDS: MELATONIN 5 MG TABLETS PO PRN (22:08)
[2018-10-17] MEDS: ALBUTEROL SO4 8 GM HFA INHALER IH PRN (05:15)
[2018-10-17 09:51] VITALS: BP 111/75; PULSE 99; TEMP 98.2
[2018-10-17] MEDS ORDERED: diazePAM 5 MG TABLET PO SCH (10:00)
[2018-10-17] MEDS: CYCLOBENZAPRINE HCL 10 MG TABLET (FP) PO PRN (10:02)
[2018-10-17] MEDS: cloNIDine HCL 0.1 MG TABLET PO SCH (10:02)
[2018-10-17] MEDS: NICOTINE 21 MG/24 HOURS TOPICAL PATCH TD SCH (10:02)
[2018-10-17] MEDS: ASPIRIN 81 MG CHEWABLE TABLETS PO SCH (10:02)
[2018-10-17] MEDS: PRENATAL VITAMINS W/ FOLIC ACID TABLET (FP) PO SCH (10:02)
[2018-10-17] MEDS: BUDESONIDE/FORMETEROL FUMARATE 80/4.5 mcg INHALER IH SCH (10:04)
--- NOTE | 2018-10-17 10:22 | DS ---
[facility] Detox Discharge Summary Admission Date: 10/13/18 Discharge Date: 10/17/18 - History Present History: Alcohol Dependence Additional Comments: 57 years old male admitted on 10/13/18 for alcohol withdrawal stabilization completed detox regimen tolerated well alert no acute distress aftercare [facility] Physical Exam Results Vital Signs: Vital Signs Temperature 98.2 F 10/17/18 09:50 Pulse Rate 99 H 10/17/18 09:50 Respiratory Rate 16 10/17/18 09:50 Blood Pressure 111/75 10/17/18 09:50 O2 Sat by Pulse Oximetry (%) Pertinent Admission Physical Exam Findings: alcohol withdrawal sx Laboratory Last Values WBC 12.2 K/mm3 (4.0-10.0) H 10/14/18 06:00 RBC 5.39 M/mm3 (4.00-5.60) 10/14/18 06:00 Hgb 13.5 GM/dL (11.7-16.9) 10/14/18 06:00 Hct 43.1 % (35.4-49) 10/14/18 06:00 MCV 80.1 fl (80-96) 10/14/18 06:00 MCH 25.0 pg (25.7-33.7) L D 10/14/18 06:00 MCHC 31.3 g/dl (32.0-35.9) L 10/14/18 06:00 RDW 15.5 % (11.9-15.9) 10/14/18 06:00 Plt Count 242 K/MM3 (134-434) 10/14/18 06:00 MPV 10.5 fl (7.5-11.1) D 10/14/18 06:00 Sodium 142 mmol/L (136-145) 10/14/18 06:00 Potassium 4.6 mmol/L (3.5-5.1) 10/14/18 06:00 Chloride 106 mmol/L (98-107) 10/14/18 06:00 Carbon Dioxide 27 mmol/L (21-32) 10/14/18 06:00 Anion Gap 9 MMOL/L (8-16) 10/14/18 06:00 BUN 17 mg/dL (7-18) 10/14/18 06:00 Creatinine 1.0 mg/dL (0.55-1.3) 10/14/18 06:00 Creat Clearance w eGFR > 60 (>60) 10/14/18 06:00 Random Glucose 100 mg/dL (74-106) 10/14/18 06:00 Calcium 8.7 mg/dL (8.5-10.1) 10/14/18 06:00 Total Bilirubin 0.3 mg/dL (0.2-1) 10/14/18 06:00 AST 31 U/L (15-37) 10/14/18 06:00 ALT 48 U/L (13-61) 10/14/18 06:00 Alkaline Phosphatase 74 U/L (45-117) 10/14/18 06:00 Total Protein 6.8 g/dl (6.4-8.2) 10/14/18 06:00 Albumin 3.6 g/dl (3.4-5.0) 10/14/18 06:00 RPR Titer Nonreactive (NONREACTIVE) 10/14/18 06:00 lab noted - Treatment Hospital Course: Detox Protocol Followed, Detoxed Safely, Responded well, Discharged Condition Good, Rehab Referral Accepted Patient has Accepted a Rehab Referral to: [facility] - Medication Discharge Medications: Ambulatory Orders Fluticasone/Salmeterol [Advair 250-50 Diskus] 1 each IH BID 10/13/18 Albuterol Sulfate Inhaler - [Ventolin HFA Inhaler -] 2 inh PO Q4H PRN #1 inhaler 10/17/18 Budesonide/Formeterol Fumarate [SYMBICORT 80/4.5mcg -] 1 inh IH BID #1 inhaler 10/17/18 Clopidogrel Bisulfate [Plavix] 75 mg PO HS #30 tablet 10/17/18 cloNIDine HCL [Catapres -] 0.1 mg PO BID #30 tablet 10/17/18 - Diagnosis (1) Hypertension Status: Chronic Qualifiers: Hypertension type: essential hypertension Qualified Code(s): I10 - Essential (primary) hypertension (2) Alcohol dependence with uncomplicated withdrawal Status: Acute (3) Asthma Status: Chronic Qualifiers: Asthma severity: mild Asthma persistence: intermittent Asthma complication type: uncomplicated Qualified Code(s): J45.20 - Mild intermittent asthma, uncomplicated (4) Nicotine dependence Status: Acute Qualifiers: Nicotine product type: cigarettes Substance use status: in withdrawal Qualified Code(s): F17.213 - Nicotine dependence, cigarettes, with withdrawal - AMA Did Patient Leave Against Medical Advice: No
== END 2018-10-17 11:06 | disposition other institution (70) | DRG 775 ==
LOC: YASAS 12:14 → Y6N 15:29
PROC: HZ2ZZZZ Detoxification Services for Substance Abuse Treatment (ICD-10-PCS; principal; 2018-10-13)
DX: F10.230 Alcohol dependence with withdrawal, uncomplicated (principal); F13.230 Sedative, hypnotic or anxiolytic dependence with withdrawal, uncomplicated; F17.210 Nicotine dependence, cigarettes, uncomplicated; I10 Essential (primary) hypertension; J45.20 Mild intermittent asthma, uncomplicated; J44.9 Chronic obstructive pulmonary disease, unspecified; D72.829 Elevated white blood cell count, unspecified; R55 Syncope and collapse; Z98.890 Other specified postprocedural states; Z88.0 Allergy status to penicillin; Z91.018 Allergy to other foods
CPT/HCPCS: 36415; 80053; 85027; 86593; J0735

== ENCOUNTER 2018-10-17 11:18 | Inpatient (IN) | payer OTHER ==
--- NOTE | 2018-10-17 11:52 | HP ---
[facility] Rehab Assess/Revision - Admission History Admitted to Rehab from: [facility] [place] Date of Admission to Rehab: 10/17/18 - Findings Detox History & Physical reviewed: Yes Concur with findings: Yes Comments/Additional Findings: transferred from detox to rehab as per protocol Inpatient Rehab Admission - Initial Determination Are CD services needed?: Yes Free of communicable disease: Yes Not in need of hospitalization: Yes - Rehab Admission Criteria Previous failed treatment: Yes Poor recovery environment: Yes Comorbidities: Yes Lacks judgement: No Patient is meeting Inpatient Rehab admission criteria:: Yes
[2018-10-17] MEDS ORDERED: NICOTINE 14 MG/24 HOURS TOPICAL PATCH TD PRN (11:53)
[2018-10-17] MEDS ORDERED: MAGNESIUM CITRATE 300 ML BOTTLE PO PRN (11:53)
[2018-10-17] MEDS ORDERED: P-EPHED 60MG/TRIPROLIDI 2.5MG TABLET PO PRN (11:53)
[2018-10-17] MEDS ORDERED: LOPERAMIDE HCL 2 MG CAPSULE PO PRN (11:53)
[2018-10-17] MEDS ORDERED: ACETAMINOPHEN 325 MG TABLET (FP) PO PRN (11:53)
[2018-10-17] MEDS ORDERED: NICOTINE POLACRILEX 2 MG GUM BUC PRN (11:53)
[2018-10-17] MEDS ORDERED: IBUPROFEN 400 MG TABLET (FP) PO PRN (11:53)
[2018-10-17] MEDS ORDERED: MENTHOL/PHENOL 1 EACH UD MM PRN (11:53)
[2018-10-17] MEDS ORDERED: guaiFENesin/D-METHORPHAN HB 10 ML UNIT-DOSE CUPS PO PRN (11:53)
[2018-10-17] MEDS ORDERED: MAGNESIUM HYDROX 2400MG/30ML ORAL SUSPENSION 30 ML CUP PO PRN (11:53)
[2018-10-17] MEDS ORDERED: MAG HYDROX/AL HYDROX/SIMETH 30 ML UNIT-DOSE CUP PO PRN (11:53)
--- NOTE | 2018-10-17 18:42 | PN ---
S Progress Note Note: Called by nursing staff to order medication for newly admitted patient. Medication reconciliation done. Seroquel 300 mg po HS ordered
[2018-10-17] MEDS: CLOPIDOGREL BISULFATE 75 MG TABLET (FP) PO SCH (21:20)
[2018-10-17] MEDS: cloNIDine HCL 0.1 MG TABLET PO SCH (21:20)
[2018-10-17] MEDS: THIAMINE HCL 100 MG TABLET (FP) PO SCH (21:20)
[2018-10-17] MEDS: QUEtiapine FUMARATE 300 MG TABLET PO SCH (21:20)
[2018-10-17] MEDS: BUDESONIDE/FORMETEROL FUMARATE 80/4.5 mcg INHALER IH SCH (21:21)
[2018-10-17] MEDS ORDERED: MELATONIN 5 MG TABLETS PO PRN (22:00)
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
[2018-10-18] MEDS: PRENATAL VITAMINS W/ FOLIC ACID TABLET (FP) PO SCH (09:57)
[2018-10-18] MEDS: cloNIDine HCL 0.1 MG TABLET PO SCH ×2 (09:57→21:21)
[2018-10-18] MEDS: BUDESONIDE/FORMETEROL FUMARATE 80/4.5 mcg INHALER IH SCH ×2 (09:58→21:22)
[2018-10-18] MEDS ORDERED: PT OWN MED DRAWER 7, Y5N ONE (09:59)
[2018-10-18] MEDS: ALBUTEROL SO4 8 GM HFA INHALER IH PRN (10:00)
[2018-10-18] MEDS ORDERED: COLLOIDAL OATMEAL 1 BAR EACH TP PRN (15:21)
[2018-10-18] MEDS: SELENIUM SULFIDE 2.5% LOTION 4 OZ. TP SCH (16:13)
[2018-10-18] MEDS: hydrOXYzine PAMOATE 50 MG CAPSULE (FP) PO PRN (18:22)
[2018-10-18] MEDS: QUEtiapine FUMARATE 300 MG TABLET PO SCH (21:21)
[2018-10-18] MEDS: CLOPIDOGREL BISULFATE 75 MG TABLET (FP) PO SCH (21:21)
[2018-10-18] MEDS: THIAMINE HCL 100 MG TABLET (FP) PO SCH (21:21)
[2018-10-19] MEDS: hydrOXYzine PAMOATE 50 MG CAPSULE (FP) PO PRN ×2 (06:27→21:29)
[2018-10-19] MEDS: BUDESONIDE/FORMETEROL FUMARATE 80/4.5 mcg INHALER IH SCH ×2 (09:45→21:29)
[2018-10-19] MEDS: SELENIUM SULFIDE 2.5% LOTION 4 OZ. TP SCH (09:45)
[2018-10-19] MEDS: PRENATAL VITAMINS W/ FOLIC ACID TABLET (FP) PO SCH (09:46)
[2018-10-19] MEDS: cloNIDine HCL 0.1 MG TABLET PO SCH ×2 (09:46→21:29)
[2018-10-19] MEDS ORDERED: COLLOIDAL OATMEAL 1 BAR EACH TP PRN (09:50)
[2018-10-19] MEDS ORDERED: SELENIUM SULFIDE 2.25% 180 ML SHAMPOO TP SCH (10:00)
[2018-10-19] MEDS: ALBUTEROL SO4 8 GM HFA INHALER IH PRN (19:21)
[2018-10-19] MEDS: CLOPIDOGREL BISULFATE 75 MG TABLET (FP) PO SCH (21:29)
[2018-10-19] MEDS: QUEtiapine FUMARATE 300 MG TABLET PO SCH (21:29)
[2018-10-19] MEDS: THIAMINE HCL 100 MG TABLET (FP) PO SCH (21:29)
[2018-10-19] MEDS ORDERED: PT OWN MED DRAWER 7, Y5N ONE (21:29)
[2018-10-20] MEDS: ALBUTEROL SO4 8 GM HFA INHALER IH PRN ×2 (06:51→20:26)
[2018-10-20] MEDS: cloNIDine HCL 0.1 MG TABLET PO SCH ×2 (10:27→21:23)
[2018-10-20] MEDS: PRENATAL VITAMINS W/ FOLIC ACID TABLET (FP) PO SCH (10:27)
[2018-10-20] MEDS: hydrOXYzine PAMOATE 50 MG CAPSULE (FP) PO PRN ×2 (10:28→21:23)
[2018-10-20] MEDS: BUDESONIDE/FORMETEROL FUMARATE 80/4.5 mcg INHALER IH SCH ×2 (10:29→21:23)
[2018-10-20] MEDS: SELENIUM SULFIDE 2.5% LOTION 4 OZ. TP SCH (10:30)
[2018-10-20 11:18] VITALS: TEMP 97.4
--- NOTE | 2018-10-20 15:15 | PN ---
[facility] COWS - Scale Resting Pulse: 2= NH 101-120 Sweatin= Chills/Flushing Restless Observation: 3= Extraneous Movement Pupil Size: 0= Normal to Room Light Bone or Joint Aches: 4=Acute Joint/Muscle Pain Runny Nose/ Eye Tearin= Nasal Congestion GI Upset > 30mins: 1= Stomach Cramp (AND NAUSEA) Tremor Observation of Outstretched Hands: 2= Slight Tremor Visible Yawning Observation: 0= None Anxiety or Irritability: 2=Irritable/Anxious Goose Flesh Skin: 0=Smooth Skin COWS Score: 16 BHS Progress Note (SOAP) Subjective: PT C/O WITHDRAWAL SX-NAUSEA,STOMACH FLIPPING AND CRAVINGS FOR OPIATES, IRRITABLE AND WANTS SUBOXONE. PT DETOXED HERE FROM 10/13/18 - 10/17/18 FROM ALCOHOL REPORTING THAT HE HAD NO MONEY TO BUY HEROIN AND WAS USING BENZOS AND ALCOHOL BEFORE DETOX HENCE HIS UDT WAS NEGATIVE. PT REPORTS HE WAS ON METHADONE 110 MG PO DAILY IN 2011 - 2014. PT'S HX OF MAT IS SEEN BELOW IN THE [facility]. PT MET WITH HIS COUNSELOR AND WHEEL ALIGNER TODAY WHO SPOKE TO THE REFERRAL PROGRAM AT [facility] WHERE PT WILL BE GOING AFTER REHAB AND WILL CONTINUE SUBOXONE TREATMENT. Others' Prescriptions Patient Name: Claudio Davison Date: 1960 Address: [address] [place] [address] Sex: Male Rx Written Rx Dispensed Drug Quantity Days Supply Prescriber Name 10/04/2018 10/04/2018 zubsolv 0.7-0.18 mg tablet sl 7 4 LaksCarlo MD 09/28/2018 09/29/2018 zubsolv 1.4-0.36 mg tablet sl 8 8 LaksCarlo MD 09/20/2018 09/20/2018 zubsolv 0.7-0.18 mg tablet sl 12 6 LaksCarlo MD 09/16/2018 09/16/2018 zubsolv 0.7-0.18 mg tablet sl 6 6 LaksCarlo MD Objective: 10/20/18 15:31 Vital Signs - 24 hr 10/19/18 10/20/18 10/20/18 21:09 00:30 03:30 Temperature Pulse Rate 111 H Respiratory 18 18 18 Rate Blood Pressure 137/79 10/20/18 10/20/18 06:56 09:10 Temperature 97.7 F 97.4 F L Pulse Rate 112 H 115 H Respiratory 20 18 Rate Blood Pressure 127/74 143/82 Assessment: 10/20/18 15:31 OPIATE WITHDRAWAL SX Plan: SUBOXONE 2MG/0.5 MG SL NOW AND AT 10 PM RE-EVALUATE PT'S SYMPTOM IN A.M.
[2018-10-20] MEDS ORDERED: BUPRENORPHINE/NALOXONE 2 MG/0.5 MG FILM PACKET SL ONE ×2 (15:55→22:00)
[2018-10-20] MEDS: CLOPIDOGREL BISULFATE 75 MG TABLET (FP) PO SCH (21:23)
[2018-10-20] MEDS: QUEtiapine FUMARATE 300 MG TABLET PO SCH (21:23)
[2018-10-20] MEDS: THIAMINE HCL 100 MG TABLET (FP) PO SCH (21:25)
[2018-10-21] MEDS: ALBUTEROL SO4 8 GM HFA INHALER IH PRN (00:40)
[2018-10-21] MEDS ORDERED: ALBUTEROL SO4 2.5/IPRATROPIUM 0.5 INH SOL 3 ML VIAL.NEB. NEB PRN (00:41)
--- NOTE | 2018-10-21 00:44 | PN ---
S Progress Note Note: Patient reports SOB and respiratory distress Vital Signs Temperature 97.4 F L 10/20/18 09:10 Pulse Rate 118 H 10/20/18 21:31 Respiratory Rate 20 10/20/18 21:31 Blood Pressure 149/79 10/20/18 21:31 O2 Sat by Pulse Oximetry (%) Action: Duoneb 1 amp nebulizer q6h as needed ordered
[2018-10-21] MEDS ORDERED: ALBUTEROL SO4 2.5/IPRATROPIUM 0.5 INH SOL 3 ML VIAL.NEB. NEB ONE (01:08)
[2018-10-21 01:37] VITALS: BP 128/110; PULSE 126
--- NOTE | 2018-10-21 01:40 | PN ---
[facility] Progress Note Note: Patient remains in respiratory distress and reports prior hospitalization for Asthma/COPD. He has past medical history of GERD, Asthma, COPD, Hypertension, Alcohol related Seizure, Alcohol and Benzo dependence. He is able to answer questions but appears v guerrero anxious. He is not relieved with administration of Duoneb x 2. He is tachycardic, tachypnic, in severe distress and complains of chest tightness and feeling dizzy. Patient is to be transferred to ER for further evaluation. Endorsed to Dr. Barraza Vital Signs Temperature 97.4 F L 10/20/18 09:10 Pulse Rate 126 H 10/21/18 01:36 Respiratory Rate 24 H 10/21/18 01:03 Blood Pressure 128/110 H 10/21/18 01:36 O2 Sat by Pulse Oximetry (%) 96% oxygen at 2l/minvia N/C
== END 2018-10-21 02:15 | disposition short-term general hospital (02) | DRG 772 ==
LOC: YASAS 11:18 → Y3W 11:19
PROVIDERS: ADMIT Psychiatry & Neurology Psychiatry; ATTEND Psychiatry & Neurology Psychiatry
PROC: HZ42ZZZ Group Counseling for Substance Abuse Treatment, Cognitive-Behavioral (ICD-10-PCS; principal; 2018-10-17)
DX: F10.20 Alcohol dependence, uncomplicated (principal); F11.23 Opioid dependence with withdrawal; F13.20 Sedative, hypnotic or anxiolytic dependence, uncomplicated; F43.10 Post-traumatic stress disorder, unspecified; F19.280 Other psychoactive substance dependence with psychoactive substance-induced anxiety disorder; F19.282 Other psychoactive substance dependence with psychoactive substance-induced sleep disorder; I10 Essential (primary) hypertension; K21.9 Gastro-esophageal reflux disease without esophagitis; J44.9 Chronic obstructive pulmonary disease, unspecified; J45.20 Mild intermittent asthma, uncomplicated; R06.03 Acute respiratory distress; R00.0 Tachycardia, unspecified; R06.82 Tachypnea, not elsewhere classified; Z88.0 Allergy status to penicillin
CPT/HCPCS: 94640; J0735

== ENCOUNTER 2018-10-21 02:33 | Inpatient (IN) | payer OTHER ==
[~2018-10-21 02:33] MED LIST: EPINEPHrine/PF 1 MG/1 ML (1:1,000) AMPULE IM ONE; KETAMINE HCL 200 MG/20 ML VIAL IVPUSH ONE
[2018-10-21] MEDS ORDERED: SUCCINYLCHOLINE CHLORIDE 200 MG/10 ML VIAL IVPUSH ONE (02:35)
[2018-10-21] MEDS: ALBUTEROL SO4 0.083% IH SOL 2.5 MG/3 ML VIAL.NEB. NEB SCH ×8 (03:00→05:45)
[2018-10-21 03:05] LABS: VENOUS PC02 67.7 mmHg (38-52); VENOUS PH 7.27 (7.32-7.42); VENOUS PO2 41.6 mmHg (28-48)
[2018-10-21 03:06] LABS: BASO % 0.4 % (0-2.0); EOS % 1.7 % (0-4.5); HEMATOCRIT 38.9 % (35.4-49); HEMOGLOBIN 13.1 GM/dL (11.7-16.9); LYMPH % 16.3 % (8-40); MCH 26.6 pg (25.7-33.7); MCHC 33.8 g/dl (32.0-35.9); MEAN CELL VOLUME 78.7 fl (80-96); MEAN PLT VOLUME 8.8 fl (7.5-11.1); MONO % 12.5 % (3.8-10.2); NEUT % 69.1 % (42.8-82.8); PLATELET COUNT 216 K/MM3 (134-434); RBC 4.94 M/mm3 (4.00-5.60); RDW 16.3 % (11.9-15.9); WHITE BLOOD COUNT 11.2 K/mm3 (4.0-10.0)
[2018-10-21 03:16] LABS: INR 0.87 (0.83-1.09); PROTHROMBIN TIME (PATIENT) 10.3 SEC (9.7-13.0)
[2018-10-21 03:19] LABS: ACTIVATED PTT 26.1 SECONDS (25.2-36.5)
[2018-10-21] MEDS ORDERED: PROPOFOL 200 MG/20 ML VIAL IVPUSH ONE (03:25)
[2018-10-21 03:27] LABS: ALBUMIN 3.6 g/dl (3.4-5.0); ALK PHOS 75 U/L (45-117); ANION GAP 8 MMOL/L (8-16); BILIRUBIN,TOTAL 0.2 mg/dL (0.2-1); BLOOD UREA NITROGEN 23 mg/dL (7-18); CALCIUM 8.7 mg/dL (8.5-10.1); CHLORIDE 104 mmol/L (98-107); CO2 30 mmol/L (21-32); CREATININE 1.2 mg/dL (0.55-1.3); GLUCOSE,RANDOM 141 mg/dL (74-106); POTASSIUM 4.6 mmol/L (3.5-5.1); SGOT/AST 14 U/L (15-37); SGPT/ALT 26 U/L (13-61); SODIUM 142 mmol/L (136-145); TOT PROT 6.9 g/dl (6.4-8.2)
[2018-10-21] MEDS ORDERED: ALBUTEROL SO4 0.083% IH SOL 2.5 MG/3 ML VIAL.NEB. NEB ONE ×3 (03:27→05:12)
--- NOTE | 2018-10-21 03:45 | PDOC ---
History of Present Illness - General Chief Complaint: Respiratory Stated Complaint: ASTHMA History Source: Patient Exam Limitations: Clinical Condition - History of Present Illness Initial Comments: 10/21/18 03:46 Patient is 57M with history of GERD, COPD and history of alcohol-related seizure coming from [facility] in respiratory distress. EMS reports that patient was given 2g mg, decadron, 3 duonebs and started on cpap in the field. Patient is able to give short one word answers to questions about history, limited by clinical condition. Endorses chest pain, denies fevers. Denies intubation history but does state he has been hospitalized for copd/asthma in the past. Records indicate patient is active smoker. Coming from [facility] detoxing from alcohol and benzos. Past History - Past Medical History Allergies/Adverse Reactions: Allergies Allergy/AdvReac Type Severity Reaction Status Date / Time penicillin G Allergy Severe Hives Verified 10/21/18 02:58 pork derived (porcine) Allergy Severe Hives Verified 10/21/18 02:58 tomato Allergy Severe Hives Verified 10/21/18 02:58 liver Allergy Severe Hives Uncoded 10/21/18 02:58 Home Medications: Ambulatory Orders Fluticasone/Salmeterol [Advair 250-50 Diskus] 1 each IH BID 10/13/18 Albuterol Sulfate Inhaler - [Ventolin HFA Inhaler -] 2 inh PO Q4H PRN #1 inhaler 10/17/18 Budesonide/Formeterol Fumarate [SYMBICORT 80/4.5mcg -] 1 inh IH BID #1 inhaler 10/17/18 Clopidogrel Bisulfate [Plavix] 75 mg PO HS #30 tablet 10/17/18 Quetiapine Fumarate [Seroquel -] 300 mg PO HS 10/17/18 cloNIDine HCL [Catapres -] 0.1 mg PO BID #30 tablet 10/17/18 Anemia: No Asthma: Yes Cancer: No Cardiac Disorders: No CVA: No COPD: Yes CHF: No Dementia: No Diabetes: No GI Disorders: No Disorders: No HTN: Yes Hypercholesterolemia: No Kidney Stones: No Liver Disease: No Seizures: No Thyroid Disease: No - Surgical History Abdominal Surgery: No Appendectomy: No Cardiac Surgery: No Cholecystectomy: No Lung Surgery: No Neurologic Surgery: No Orthopedic Surgery: No - Reproductive History Testicular Surgery: No - Suicide/Smoking/Psychosocial Hx Smoking History: Former smoker Have you smoked in the past 12 months: No Number of Cigarettes Smoked Daily: 1 Cigars Per Day: 0 Information on smoking cessation initiated: No 'Breaking Loose' booklet given: 10/13/18 Hx Alcohol Use: Yes Drug/Substance Use Hx: Yes Substance Use Type: Alcohol (Started drinking alcohol at age 17, consumes 4 pints of vodks & 2x 6pk of beer daily. Last drank on ), Tranquilizers ( Started using klonopin at age 49, consumes 4-6 mg 306 times weekly. Last used on 10/11/18) Hx Substance Use Treatment: Yes (3 previous inpt detox @ [facility]) Review of Systems - Review of Systems Able to Perform ROS?: No (2/2 clinical condition) *Physical Exam - Vital Signs Last Vital Signs Temp Pulse Resp BP Pulse Ox 96.6 F L 131 H 16 129/99 100 10/21/18 02:33 10/21/18 02:33 10/21/18 03:36 10/21/18 02:33 10/21/18 02:45 - Physical Exam Comments: 10/21/18 03:52 GENERAL: Awake, alert, sleepy, in acute distress HEAD: No signs of trauma, normocephalic, atraumatic EYES: PERRLA, EOMI, sclera anicteric, conjunctiva clear ENT: Auricles normal inspection, hearing grossly normal, nares patent, oropharynx clear without exudates. Moist mucosa NECK: Normal ROM, supple, no lymphadenopathy, JVD, or masses LUNGS: In distress, loud wheezing bilaterally with little air movement HEART: Tachycardic, peripheral pulses normal and equal bilaterally. ABDOMEN: Soft, nontender, normoactive bowel sounds. No guarding, no rebound. No masses EXTREMITIES: Normal inspection, Normal range of motion, no edema. No clubbing or cyanosis. NEUROLOGICAL: Cranial nerves II through XII grossly intact. Normal speech, no focal sensorimotor deficits SKIN: Warm, Dry, normal turgor, no rashes or lesions noted. Moderate Sedation - Procedure Monitoring Vital Signs: Procedure Monitoring Vital Signs Temperature 96.6 F L 10/21/18 02:33 Pulse Rate 131 H 10/21/18 02:33 Respiratory Rate 16 10/21/18 03:36 Blood Pressure 129/99 10/21/18 02:33 O2 Sat by Pulse Oximetry (%) 100 10/21/18 02:45 Procedures - Intubation Intubation Method: orotracheal Blade used: Mac Tube Size (Fr): 7.5 Medications: Ketamine, Succinylcholine Tube position @ lip (cm): 23 Tube position confirmed by: Direct visualization, CO2 detector, Chest x-ray, Breath sounds Breath Sounds after Intubation: equal Intubation Complications: oralbleed Post Intubation Xray: Yes (placed appropriately) ED Treatment Course - LABORATORY CBC & Chemistry Diagram: 10/21/18 02:53 10/21/18 02:53 - ADDITIONAL ORDERS Additional order review: Laboratory Results 10/21/18 10/21/18 10/21/18 02:53 02:53 02:53 PT with INR INR PTT (Actin FS) VBG pH POC VBG pCO2 POC VBG pO2 Mixed VBG HCO3 Sodium 142 Potassium 4.6 Chloride 104 Carbon Dioxide 30 Anion Gap 8 BUN 23 H Creatinine 1.2 Creat Clearance w eGFR > 60 Random Glucose 141 H Lactic Acid 1.1 Calcium 8.7 Total Bilirubin 0.2 AST 14 L ALT 26 Alkaline Phosphatase 75 Troponin I < 0.02 Total Protein 6.9 Albumin 3.6 10/21/18 10/21/18 02:53 02:53 PT with INR 10.30 INR 0.87 PTT (Actin FS) 26.1 VBG pH 7.27 L POC VBG pCO2 67.7 H* POC VBG pO2 41.6 Mixed VBG HCO3 29.8 H Sodium Potassium Chloride Carbon Dioxide Anion Gap BUN Creatinine Creat Clearance w eGFR Random Glucose Lactic Acid Calcium Total Bilirubin AST ALT Alkaline Phosphatase Troponin I Total Protein Albumin 10/21/18 02:53 RBC 4.94 MCV 78.7 L MCHC 33.8 RDW 16.3 H MPV 8.8 D Neutrophils % 69.1 Lymphocytes % 16.3 Monocytes % 12.5 H Eosinophils % 1.7 Basophils % 0.4 - RADIOLOGY Radiology Studies Ordered: Category Date Time Status CXRPORT [CHEST X-RAY PORTABLE*] [RAD] Stat Radiology 10/21/18 03:41 Ordered Medical Decision Making - Critical Care Time Total Critical Care Time (minutes): 90 Critical Care Statement: The care of this patient involved high complexity decision making to prevent further life threatening deterioration of the patient 's condition and/or to evaluate & treat vital organ system(s) failure or risk of failure. - Medical Decision Making 10/21/18 03:56 Patient is 57M with history of COPD, etoh abuse, benzo abuse here from [facility] with respiratory distress. Vitals notable for tachycarida, tachypnea, satting 100%. Patient eyes not open spontaneously, tiring out. Given duonebs, continuous albuterol through bipap, IM epi, decadron, mag. Intubated to protect airway as per procedure note. Obstructive strategy chosen for patient has I:E ratios prolonged before intubation. PEEP 3, Rate 7, 100% O2. Follow up ABG ordered. Plateau pressure at 21, etco2 70, spo2 100%. Continuous albuterol running. CBC normal, CMP reassuring. Trop neg, VBG shows increase in pCO2 with acidosis. CXR shows no infiltrate, will cover in the setting of patient requiring intubation coming from inpatient facility. ICU, hospitalist paged. 10/21/18 04:41 ABG shows elevated pO2, pCO2. pH low to 7.12. O2 lowered to 60%, satting 98% now. ETCO2 pattern less obstructive. 10/21/18 04:55 D/w Dr Abbott, Dr Briggs, accepted to ICU, Dr Farmer and Dr Perez attendings. *DC/Admit/Observation/Transfer Diagnosis at time of Disposition: Respiratory failure - Discharge Dispostion Condition at time of disposition: Critical Decision to Admit order: Yes - Referrals Referrals: Ian Padilla MD [Primary Care Provider] - - Patient Instructions - Post Discharge Activity
[2018-10-21] MEDS ORDERED: PROPOFOL 1,000,000 MCG/100 ML VIAL IVPB ONE (03:50)
[2018-10-21] MEDS ORDERED: SODIUM CHLORIDE 0.9% 500 ML INFUS.BAG IV ONE (04:00)
[2018-10-21 04:22] LABS: ARTERIAL BLD GAS O2 SATURATION 98.5 % (90-98.9); ARTERIAL BLOOD GAS BASE EXCESS -3.8 meq/l (-2-2)
[2018-10-21 04:23] LABS: ALLENS TEST POSITIVE
[2018-10-21 04:31] LABS: ARTERIAL BLOOD GAS pH 7.12 (7.35-7.45)
[2018-10-21 04:32] LABS: ARTERIAL BLOOD GAS PCO2 90.6 mmHg (35-45)
[2018-10-21] MEDS ORDERED: FENTANYL INJECTION 500 MCG in DEXTROSE 5%-WATER - 90 ML IVPB SCH (05:00)
[2018-10-21] MEDS ORDERED: CLINDAMYCIN 600MG PREMIX IVPB 600 MG/50 ML BAG IVPB ONE (05:08)
[2018-10-21] MEDS ORDERED: MIDAZOLAM 100 MG in SODIUM CHLORIDE 100 ML IVPB SCH (05:15)
[2018-10-21] MEDS ORDERED: MIDAZOLAM HCL 2 MG/2 ML SINGLE DOSE VIAL IVPUSH ONE (05:21)
--- NOTE | 2018-10-21 05:31 | CONSULT ---
Consult Consult Specialty:: Pulm/CCM Referred by:: Dr. Barraza Reason for Consultation:: acute on chronic resp. hypercapnic failure - History of Present Illness History of Present Illness: Briefly, 57 yo M h/o GERD, COPD, asthma, alcohol and benzo abuse from [facility] admitted for shortness of breath. He was given steroid, duonebs and CPAP en route to ED here. Per ED, he was tachycardic, tachypneic, and in severe distress. Patient received continuous albuterol thrugh BiPAP, IM epi, decadron, magnesium and subsequently intubated for airway protection. Patient is now intubated and sedated. - Alcohol/Substance Use Hx Alcohol Use: Yes - Smoking History Smoking history: Former smoker Have you smoked in the past 12 months: No Aproximately how many cigarettes per day: 1 <Bridger Briggs - Last Filed: 10/21/18 08:49> Home Medications <Bridger Brgigs - Last Filed: 10/21/18 08:49> <Ian Padilla - Last Filed: 10/27/18 06:22> - Allergies Allergies/Adverse Reactions: Allergies Allergy/AdvReac Type Severity Reaction Status Date / Time penicillin G Allergy Severe Hives Verified 10/26/18 17:33 pork derived (porcine) Allergy Severe Hives Verified 10/26/18 17:33 tomato Allergy Severe Hives Verified 10/26/18 17:33 liver Allergy Severe Hives Uncoded 10/26/18 17:33 - Home Medications Home Medications: Ambulatory Orders Fluticasone/Salmeterol [Advair 250-50 Diskus] 1 each IH BID 10/13/18 Albuterol Sulfate Inhaler - [Ventolin HFA Inhaler -] 2 inh PO Q4H PRN #1 inhaler 10/17/18 Budesonide/Formeterol Fumarate [SYMBICORT 80/4.5mcg -] 1 inh IH BID #1 inhaler 10/17/18 Clopidogrel Bisulfate [Plavix] 75 mg PO HS #30 tablet 10/17/18 Quetiapine Fumarate [Seroquel -] 300 mg PO HS 10/17/18 cloNIDine HCL [Catapres -] 0.1 mg PO BID #30 tablet 10/17/18 Cefuroxime Axetil [Ceftin -] 500 mg PO BID 8 Days tablet 10/26/18 metroNIDAZOLE [Flagyl -] 500 mg PO TID 8 Days tablet 10/26/18 Family Disease History - Family Disease History Family Disease History: Diabetes: Mother (HTN), Heart Disease: Mother, Other: Father (alcohol,) <Bridger Briggs - Last Filed: 10/21/18 08:49> Review of Systems Unable to obtain ROS, reason: intubated and sedated <Bridger Briggs - Last Filed: 10/21/18 08:49> Physical Exam Vital Signs: Vital Signs Temperature 96.6 F L 10/21/18 02:33 Pulse Rate 135 H 10/21/18 04:49 Respiratory Rate 12 10/21/18 04:49 Blood Pressure 196/154 H 10/21/18 04:49 O2 Sat by Pulse Oximetry (%) 97 10/21/18 04:49 Constitutional: Yes: Severe Distress Eyes: Yes: Other (fixed, non-reactive) Cardiovascular: Yes: Tachycardia, Murmur, S1, S2 Respiratory: Yes: Mechanically Ventilated Gastrointestinal: Yes: Abdomen, Obese, Distention Edema: No Labs: CBC, BMP 10/21/18 02:53 10/21/18 02:53 <Bridger Briggs - Last Filed: 10/21/18 08:49> Vital Signs: Vital Signs Temperature 97.5 F L 10/26/18 14:35 Pulse Rate 83 10/26/18 14:35 Respiratory Rate 20 10/26/18 09:00 Blood Pressure 139/73 10/26/18 14:35 O2 Sat by Pulse Oximetry (%) 94 L 10/26/18 12:08 Labs: CBC, BMP 10/26/18 06:00 10/26/18 06:00 <Ian Padilla - Last Filed: 10/27/18 06:22> Assessment/Plan 57 yo M h/o GERD, COPD, asthma, alcohol and benzo abuse from [facility] admitted to the ICU s/p intubation due to acute on chronic hypercapnic respiratory failure. Pulm: Acute on chronic hypercapnic resp. failure 1. asthma vs. COPD exacerbation 2. ET tube re-positioned (26 to 23) and vent settings adjusted (increased flow rate and reduced Vt and RR) 3. add versed to achieve RASS -4 for vent synchrony 4. f/u repeat ABG, monitor PIP and Pplat 5. d/c continuous albuterol, start standing and PRN duonebs 6. medrol 60mg Q6H 7. receive levoquin and clindamycin in ED Neuro: sedated, intubated, alcohol withdrawal 1. maintain appropriately sedated 2. banana bag + daily folic and thiamine ppx: SCDS Dispo: admit to ICU Bridger Briggs PGY3 ICU resident <Bridger Briggs - Last Filed: 10/21/18 08:49> Visit type - Emergency Visit Emergency Visit: Yes ED Registration Date: 10/21/18 Care time: The patient presented to the Emergency Department on the above date and was hospitalized for further evaluation of their emergent condition. - New Patient This patient is new to me today: Yes Date on this admission: 10/21/18 - Critical Care Critical Care patient: Yes Total Critical Care Time (in minutes): 50 Critical Care Statement: The care of this patient involved high complexity decision making to prevent further life threatening deterioration of the patient 's condition and/or to evaluate & treat vital organ system(s) failure or risk of failure. <Bridger Briggs - Last Filed: 10/21/18 08:49>
--- NOTE | 2018-10-21 05:45 | PDOC ---
Attending Attestation - Resident Resident Name: Derick Barraza - ED Attending Attestation I have performed the following: I have examined & evaluated the patient, The case was reviewed & discussed with the resident, I agree w/resident's findings & plan, Exceptions are as noted - HPI HPI: 10/21/18 05:42 57M from [facility], pmh of GERD, COPD, etoh sz, arrived in severe acute respiratory distress. Mag 2gm, dex, combinebs x3 and cpap by EMS. Pt was visibly lethargic and in severe respiratory distress on arrival. - Physicial Exam PE: 10/21/18 05:43 Severe distress Increased wob Poor air intake +retractions Faint, diffuse wheezing - Critical Care Time Total Critical Care Time: 90 Critical Care Statement: The care of this patient involved high complexity decision making to prevent further life threatening deterioration of the patient 's condition and/or to evaluate & treat vital organ system(s) failure or risk of failure. - Medical Decision Making 10/21/18 05:44 Respiratory failure 2/2 copd exacerbation intubated/sedated f/u labs abx admit to icu
--- NOTE | 2018-10-21 05:57 | HP ---
CHIEF COMPLAINT: Chest Tightness, SOB PCP: HISTORY OF PRESENT ILLNESS: 57 y/o M with PMHx of Asthma, HTN, EtOH related Seizure, EtOH and Benzo dependence presents from [facility] after experiencing SOB. As per nursing staff at [facility] and EMR review, around 00:30 this morning, patient was found to be wheezing and given 2 Duoneb tx's; She was 96% on RA, BP 128/110, HR 126 at this time. Shortly after, patient felt chest tightness and dizziness and was sent to the ED for evaluation. Patient was given 2g Mag, Decadron, Duonebs x 2 and CPap by EMS. In the ED, the patient was using accessory muscles and intubated. Patient has denied any hx of intubations however has had multiple hospitalizations in the past for COPD and Asthma. Patient was already intubated and sedated prior to my interview. ER course was notable for: (1) Intubated, Sedated via Propofol (2) (3) Recent Travel: Unknown PAST MEDICAL HISTORY: GERD, Asthma, COPD, HTN, EtOH related Seizure, EtOH and Benzo dependence PAST SURGICAL HISTORY: Unknown Social History: Smoking: Unknown Alcohol: Unknown Drugs: Unknown Family History: Unknown Allergies penicillin G Allergy (Severe, Verified 10/21/18 02:58) Hives pork derived (porcine) Allergy (Severe, Verified 10/21/18 02:58) Hives tomato Allergy (Severe, Verified 10/21/18 02:58) Hives liver Allergy (Severe, Uncoded 10/21/18 02:58) Hives HOME MEDICATIONS: Home Medications Medication Instructions Recorded Fluticasone/Salmeterol [Advair 1 each IH BID 10/13/18 250-50 Diskus] Albuterol Sulfate Inhaler - 2 inh PO Q4H PRN #1 inhaler 10/17/18 [Ventolin HFA Inhaler -] Budesonide/Formeterol Fumarate 1 inh IH BID #1 inhaler 10/17/18 [SYMBICORT 80/4.5mcg -] Clopidogrel Bisulfate [Plavix] 75 mg PO HS #30 tablet 10/17/18 Quetiapine Fumarate [Seroquel -] 300 mg PO HS 10/17/18 cloNIDine HCL [Catapres -] 0.1 mg PO BID #30 tablet 10/17/18 REVIEW OF SYSTEMS Unable to Obtain PHYSICAL EXAMINATION Vital Signs - 24 hr 10/21/18 10/21/18 10/21/18 02:33 02:45 03:36 Temperature 96.6 F L Pulse Rate 131 H Pulse Rate [ Left] Respiratory 14 16 Rate Blood Pressure 129/99 Blood Pressure [Right Arm] O2 Sat by Pulse 100 100 Oximetry (%) 10/21/18 10/21/18 04:49 05:34 Temperature Pulse Rate Pulse Rate [ 135 H 134 H Left] Respiratory 12 12 Rate Blood Pressure Blood Pressure 196/154 H 202/181 H [Right Arm] O2 Sat by Pulse 97 98 Oximetry (%) GENERAL: Intubated and Sedated HEAD: NCAT EYES: Pupils Fixed and nonreactive LUNGS: Mechanical ventilation HEART: Tachycardic, normal S1 and S2 without murmur ABDOMEN: Obese, Soft, nontender, distended, + bowel sounds EXTREMITIES: No peripheral edema SKIN: Warm, dry Laboratory Results - last 24 hr 10/21/18 10/21/18 10/21/18 02:53 02:53 02:53 WBC 11.2 H RBC 4.94 Hgb 13.1 Hct 38.9 MCV 78.7 L MCH 26.6 MCHC 33.8 RDW 16.3 H Plt Count 216 MPV 8.8 D Absolute Neuts (auto) 7.8 Neutrophils % 69.1 Lymphocytes % 16.3 Monocytes % 12.5 H Eosinophils % 1.7 Basophils % 0.4 Nucleated RBC % 0 PT with INR 10.30 INR 0.87 PTT (Actin FS) 26.1 Anticoagulation Therapy Puncture Site ABG pH ABG pCO2 at Pt Temp ABG pO2 at Pt Temp ABG HCO3 ABG O2 Sat (Measured) ABG O2 Content ABG Base Excess Madhav Test VBG pH 7.27 L POC VBG pCO2 67.7 H* POC VBG pO2 41.6 Mixed VBG HCO3 29.8 H Carboxyhemoglobin Methemoglobin O2 Delivery Device Oxygen Flow Rate Vent Mode Vent Rate Mechanical Rate PEEP Pressure Support Vent Sodium Potassium Chloride Carbon Dioxide Anion Gap BUN Creatinine Creat Clearance w eGFR Random Glucose Lactic Acid Calcium Total Bilirubin AST ALT Alkaline Phosphatase Troponin I Total Protein Albumin Influenza A (Rapid) Influenza B (Rapid) 10/21/18 10/21/18 10/21/18 02:53 02:53 02:53 WBC RBC Hgb Hct MCV MCH MCHC RDW Plt Count MPV Absolute Neuts (auto) Neutrophils % Lymphocytes % Monocytes % Eosinophils % Basophils % Nucleated RBC % PT with INR INR PTT (Actin FS) Anticoagulation Therapy Puncture Site ABG pH ABG pCO2 at Pt Temp ABG pO2 at Pt Temp ABG HCO3 ABG O2 Sat (Measured) ABG O2 Content ABG Base Excess Madhav Test VBG pH POC VBG pCO2 POC VBG pO2 Mixed VBG HCO3 Carboxyhemoglobin Methemoglobin O2 Delivery Device Oxygen Flow Rate Vent Mode Vent Rate Mechanical Rate PEEP Pressure Support Vent Sodium 142 Potassium 4.6 Chloride 104 Carbon Dioxide 30 Anion Gap 8 BUN 23 H Creatinine 1.2 Creat Clearance w eGFR > 60 Random Glucose 141 H Lactic Acid 1.1 Calcium 8.7 Total Bilirubin 0.2 AST 14 L ALT 26 Alkaline Phosphatase 75 Troponin I < 0.02 Total Protein 6.9 Albumin 3.6 Influenza A (Rapid) Influenza B (Rapid) 10/21/18 10/21/18 10/21/18 03:51 03:52 04:58 WBC RBC Hgb Hct MCV MCH MCHC RDW Plt Count MPV Absolute Neuts (auto) Neutrophils % Lymphocytes % Monocytes % Eosinophils % Basophils % Nucleated RBC % PT with INR INR PTT (Actin FS) Anticoagulation Therapy No Result Required. Puncture Site Right radial ABG pH 7.12 L* ABG pCO2 at Pt Temp 90.6 H* ABG pO2 at Pt Temp 201.0 H* ABG HCO3 28.0 H ABG O2 Sat (Measured) 98.5 ABG O2 Content 18.4 ABG Base Excess -3.8 L Madhav Test Positive VBG pH POC VBG pCO2 POC VBG pO2 Mixed VBG HCO3 Carboxyhemoglobin 0.0 L Methemoglobin 0.7 O2 Delivery Device Vent Oxygen Flow Rate 100 Vent Mode A/c Vent Rate 7 Mechanical Rate No Result Required. PEEP 3.0 Pressure Support Vent No Result Required. Sodium Potassium Chloride Carbon Dioxide Anion Gap BUN Creatinine Creat Clearance w eGFR Random Glucose Lactic Acid Calcium Total Bilirubin AST ALT Alkaline Phosphatase Troponin I Total Protein Albumin Influenza A (Rapid) Negative Influenza B (Rapid) Negative ASSESSMENT/PLAN: 57 y/o M with PMHx of Asthma, HTN, EtOH related Seizure, EtOH and Benzo dependence presents from [facility] after experiencing SOB #Acute Hypercarpnic Respiratory Failure -Intubated and sedated (versed, propofol) in ED -Given Clindamycin 600, Levaquin 750 -Consult Pulmonology for vent management -Repeat ABG in AM -Duoneb QID and PRN, Solu-Medrol 60mg Q6H #Hx of EtOH and Benzo dependence -Was recently admitted to [facility] for detox on 10/13/18 -Start Thiamine, Folate, Banana bag -Consider Detox consult when appropriate -Sedation with Versed drip for continued asynchrony on vent and continued withdrawals #Chest Pain -Reported prior to intubation -Trop < 0.02 -EKG reveals sinus tachycardia, VR 135, QTc 435, No ARTI/STD -Consider ECHO, Trend Trops, EKG #Leukocytosis -In the setting of chronic Advair use; Possibly reactive to critical condition -Less likely infectious given AFebrile however Blood cx pending -Given Clindamycin 600, Levaquin 750 in ED -Trend #Elevated Blood Glucose -Consider checking A1c -Continue to monitor -Start ISS BGM's ACHS if remains elevated #FEN -Consider starting banana bag -Lytes WNL -NPO #PPx -DVT: SCDs -GI: Protonix Dispo: admit to ICU Visit type - Emergency Visit Emergency Visit: Yes ED Registration Date: 10/21/18 Care time: The patient presented to the Emergency Department on the above date and was hospitalized for further evaluation of their emergent condition. - New Patient This patient is new to me today: Yes Date on this admission: 10/25/18 - Critical Care Critical Care patient: No
[2018-10-21] MEDS ORDERED: fentaNYL CITRATE 250 MCG/5 ML VIAL ONE ×3 (06:03→21:11)
[2018-10-21] MEDS ORDERED: ALBUTEROL SO4 2.5/IPRATROPIUM 0.5 INH SOL 3 ML VIAL.NEB. NEB PRN (06:17)
[2018-10-21] MEDS ORDERED: MAGNESIUM SULF 50% (8.12 MEQ/2 ML-1 GM VIAL) IVPB ONE (06:21)
[2018-10-21] MEDS ORDERED: MIDAZOLAM 100 MG/100 ML MG IVPB ONE ×2 (06:26→20:59)
--- NOTE | 2018-10-21 06:33 | PN ---
Teaching Attending Note Name of Resident: Mau Mccarthy ATTENDING PHYSICIAN STATEMENT I saw and evaluated the patient. I reviewed the resident's note and discussed the case with the resident. I agree with the resident's findings and plan as documented. SUBJECTIVE: Seen and examined; please refer to resident note for further documentation. Briefly, this is a 57 y/o AAM presenting from [facility]. He has a h/o GERD, COPD, BZD Abuse, Alcohol abuse with seizure. He presented from [facility] with respiratory distress getting continuous albuterol through bipap. He was given 3 duonebs and a dose of dexamethasone en route. Couldn't provide any history due to clinical condition. Traumatic intubation with bougie in the ER with likely aspiration and on propofol; adding versed and following repeat ABG. ICU called and will be taking patient. Dx would be respiratory failure due to COPD exacerbation vs. withdrawal (though was NOT seizing and per ER documentation was able to answer questions). ER resident note states that he endorsed chest pain. Couldn't obtain ROS, FH, or confirm social history PMH and PSH reviwed OBJECTIVE: VS, labs, imaging reviewed Moderate distress on vent with abdominal flexion; vent settings in flux due to ICU consult so will update with new settings Tachycardic, no juliann murmurs Appears euvolemic NC AT EOMI PERRLA Moves all 4 extremities; per documentation was answering questions with one word answers prior to intubation. Labs, ABG, imaging personally reviewed ASSESSMENT AND PLAN: Patient presents for acute respiratory failure with hypercarbia and likely EtOH/ BZD WD, acidosis. Going to ICU 1) Acute Hypercarbic Respiratory Failure with likely aspiration during intubation 2) Likely EtOH/BZD WD 3) GERD 4) Chest Pain He will be admitted to the ICU; QTc is OK so IV abx and IV steroids for likely COPD exacebation underlying this; also with ATC nebs. Deferring vent management to pulmonary. Will place on clindamycin due to likely aspiration and levaquin due to his being intubated with COPD. He is on sedation with versed and propofol; titrate to RASS of 4 given his fighting the vent in the ER. Will place him on thiamine and folate; when extubated needs to talk to [facility] again for his substance abuse issues. IV protonix for GI ppx which will also help with his underlying GERD. In terms of the chest pain, this is all that we have on it (that it was mentioend to the ER). No significant ST-T changes. Can repeat EKG, trend trops, check echo for wmas.
[2018-10-21] MEDS: methylPREDNISolone NA SUCC 40 MG/1 ML VIAL IVPB SCH ×4 (06:46→21:01)
[2018-10-21 06:56] LABS: ARTERIAL BLOOD GAS BASE EXCESS -1.5 meq/l (-2-2)
[2018-10-21 06:57] LABS: ALLENS TEST POSITIVE
[2018-10-21 06:59] LABS: ARTERIAL BLOOD GAS PCO2 77.5 mmHg (35-45); ARTERIAL BLOOD GAS pH 7.19 (7.35-7.45)
[2018-10-21] MEDS ORDERED: FOLIC ACID INJECTION - 1 MG, THIAMINE HCL 100 MG, MULTIVIT INJECTION ADULT 10 ML in SOD... IVPB ONE (07:00)
[2018-10-21] MEDS: FENTANYL INJECTION 500 MCG in DEXTROSE 5%-WATER - 90 ML IVPB SCH ×2 (07:06→15:23)
[2018-10-21] MEDS: MIDAZOLAM 100 MG in SODIUM CHLORIDE 100 ML IVPB SCH (07:07)
--- NOTE | 2018-10-21 07:26 | PN ---
Physical Exam: SUBJECTIVE: Patient seen and examined. Intubated, sedated. OBJECTIVE: Vital Signs Period Temp Pulse Resp BP Sys/Whatley Pulse Ox Last 24 Hr 96.6 F 131-135 12-17 129-202/99-181 97-100 GENERAL: Intubated, sedated HEAD: No signs of trauma, normocephalic, atraumati EYES: EOMI, sclera anicteric, conjunctiva clear ENT: Hearing grossly normal, nares patent, oropharynx clear without exudates. ETT and OGT in place LUNGS: equal breath sounds, clear to auscultation bilaterally HEART: Tachycardic rate and regular rhythm, normal S1 and S2, no murmurs appreciated, peripheral pulses normal and equal bilaterally ABDOMEN: Soft, protuberant, non-distended, normoactive bowel sounds EXTREMITIES : Normal inspection, no edema. No clubbing or cyanosis NEUROLOGICAL: Sedated, pupils equal, pinpoint SKIN: Warm, Dry ASSESSMENT/PLAN: The pt is a 57M w/ a PMH of GERD, COPD, EtOH and benzo abuse from [facility] admitted to the ICU s/p intubation due to acute on chronic hypercapnic respiratory failure Neuro Sedation -Propofol -Fentanyl -Versed HEENT ETT in place CV HDS HTN -Clonidine 0.1mg PO BID PULM Acute on chronic respiratory failure -s/p intubation 10/21/2018 -Duoneb 1amp NEB RQID -Duoneb 1amp NEB Q4H PRN -Methylprednisolone 60mg IV Q6H GI Nutrition -NPO -Folate 1mg GT daily -Thiamine 100mg PO daily GERD -Protonix 40mg IV BID Lytes -S/p Banana bag and 1L LR -LR @ [address] HEME DVT Ppx -Heparin 5000u SQ TID ID Afebrile, no leukocytosis LTD ETT- 10/21/2018 [place]- 10/21/2018 PIV Dispo: Patient continues to require ICU level of care. Visit type - Emergency Visit Emergency Visit: Yes ED Registration Date: 10/21/18 Care time: The patient presented to the Emergency Department on the above date and was hospitalized for further evaluation of their emergent condition. - New Patient This patient is new to me today: Yes Date on this admission: 10/21/18 - Critical Care Critical Care patient: Yes Total Critical Care Time (in minutes): 40 Critical Care Statement: The care of this patient involved high complexity decision making to prevent further life threatening deterioration of the patient 's condition and/or to evaluate & treat vital organ system(s) failure or risk of failure.
[2018-10-21] MEDS ORDERED: PT OWN MED DRAWER 7, Y5N ONE ×2 (08:39→21:10)
[2018-10-21 09:00] LABS: BASO % 0.2 % (0-2.0); EOS % 0.1 % (0-4.5); HEMATOCRIT 40.9 % (35.4-49); HEMOGLOBIN 13.6 GM/dL (11.7-16.9); LYMPH % 2.8 % (8-40); MCH 26.4 pg (25.7-33.7); MCHC 33.3 g/dl (32.0-35.9); MEAN CELL VOLUME 79.3 fl (80-96); NEUT % 94.9 % (42.8-82.8); PLATELET COUNT 233 K/MM3 (134-434); RBC 5.15 M/mm3 (4.00-5.60); RDW 16.2 % (11.9-15.9); WHITE BLOOD COUNT 21.6 K/mm3 (4.0-10.0)
[2018-10-21] MEDS: ALBUTEROL SO4 2.5/IPRATROPIUM 0.5 INH SOL 3 ML VIAL.NEB. NEB SCH ×4 (09:06→20:50)
[2018-10-21 09:27] LABS: ANION GAP 6 MMOL/L (8-16); BLOOD UREA NITROGEN 25 mg/dL (7-18); CALCIUM 8.8 mg/dL (8.5-10.1); CHLORIDE 104 mmol/L (98-107); CO2 29 mmol/L (21-32); CREATININE 1.2 mg/dL (0.55-1.3); GLUCOSE,RANDOM 177 mg/dL (74-106); MAGNESIUM 2.8 mg/dL (1.8-2.4); POTASSIUM 5.6 mmol/L (3.5-5.1); SODIUM 139 mmol/L (136-145)
[2018-10-21] MEDS ORDERED: CLOPIDOGREL BISULFATE 75 MG TABLET (FP) PO SCH (10:00)
[2018-10-21] MEDS: PROPOFOL 1,000,000 MCG/100 ML VIAL IVPB SCH ×4 (10:40→19:12)
[2018-10-21 10:43] LABS: URINE APPEARANCE CLEAR; URINE BILIRUBIN NEGATIVE (<2.0 mg/dL); URINE COLOR LTYELLOW; URINE GLUCOSE (UA) 3+ (NEGATIVE); URINE KETONE NEGATIVE (NEGATIVE); URINE LEUK ESTERASE NEGATIVE (NEGATIVE); URINE NITRITE NEGATIVE (NEGATIVE); URINE PROTEIN NEGATIVE (NEGATIVE); URINE UROBILINOGEN NEGATIVE mg/dL (0.2-1.0)
[2018-10-21 10:46] LABS: ANISOCYTOSIS 1+; MACROCYTOSIS 0; PLATELET ESTIMATE NORMAL
[2018-10-21] MEDS ORDERED: PROPOFOL 2,000,000 MCG/200 ML VIAL ONE (10:53)
[2018-10-21] MEDS ORDERED: LACTATED RINGERS SOLUTION 1000 ML INFUS.BAG IV ONE (12:20)
[2018-10-21] MEDS ORDERED: LACTATED RINGERS SOLUTION 1,000 ML/1,000 ML INFUS.BAG IV SCH (12:30)
--- NOTE | 2018-10-21 12:45 | EKG ---
Test Reason : Blood Pressure : / mmHG Vent. Rate : 135 BPM Atrial Rate : 135 BPM P-R Int : 150 ms QRS Dur : 078 ms QT Int : 290 ms P-R-T Axes : 066 061 011 degrees QTc Int : 435 ms SINUS TACHYCARDIA OTHERWISE NORMAL ECG WHEN COMPARED WITH ECG OF 22-JUL-2017 22:55, T WAVE INVERSION NOW EVIDENT IN INFERIOR LEADS Confirmed by MESSI ARGUELLES MD ([id number]) on 10/21/2018 12:44:46 PM Referred By: Confirmed By:MESSI ARGUELLES MD
[2018-10-21] MEDS: PANTOPRAZOLE SODIUM 40 MG VIAL IVPUSH SCH ×2 (12:55→21:01)
--- NOTE | 2018-10-21 13:04 | PN ---
Teaching Attending Note Name of Resident: Prince Camacho ATTENDING PHYSICIAN STATEMENT I saw and evaluated the patient. I reviewed the resident's note and discussed the case with the resident. I agree with the resident's findings and plan as documented. SUBJECTIVE: Pt seen and examined in the ICU. Remains intubated, sedated. Last ABG still with acute on chronic respiratory acidosis. Vent settings adjusted. OBJECTIVE: Vital Signs Period Temp Pulse Resp BP Sys/Whatley Pulse Ox Last 24 Hr 96.6 F-99.2 F 122-135 12-20 129-202/94-181 97-100 Intake & Output 10/18/18 10/19/18 10/20/18 10/21/18 23:59 23:59 23:59 23:59 Intake Total 99.7 Balance 99.7 Weight 104.3 kg Gen: intubated, sedated Heart: tachycardic, regular Lung: distant breath sounds Abd: soft, nontender Ext: no edema CBC, BMP 10/21/18 08:30 10/21/18 08:30 Active Medications Albuterol/Ipratropium (Duoneb -) 1 amp NEB RQID KATH Last Admin: 10/21/18 09:06 Dose: 1 amp Albuterol/Ipratropium (Duoneb -) 1 amp NEB Q4H PRN PRN Reason: SHORTNESS OF BREATH Chlorhexidine Gluconate (Hibiclens For Decolonization -) 1 applic TP HS KATH Clonidine (Catapres -) 0.1 mg PO BID KATH Folic Acid (Folic Acid -) 1 mg GT DAILY [facility] Heparin Sodium (Porcine) (Heparin -) 5,000 unit SQ TID [facility] Propofol (Diprivan -) 1,000,000 mcg in 100 mls @ 7.484 mls/hr IVPB TITR ONE; Protocol Stop: 10/21/18 17:11 Last Titration: 10/21/18 12:06 Dose: 50 mcg/kg/min, 37.421 mls/hr Fentanyl 500 mcg/ Dextrose 100 mls @ 5 mls/hr IVPB TITR KATH; Protocol Last Titration: 10/21/18 07:24 Dose: 50 mcg/hr, 10 mls/hr Midazolam HCl 100 mg/ Sodium (Chloride) 100 mls @ 1 mls/hr IVPB TITR KATH; Protocol Last Titration: 10/21/18 12:07 Dose: 7 mg/hr, 7 mls/hr Folic Acid 1 mg/ Thiamine HCl 100 mg/ Multivitamins/Minerals 10 ml/ Sodium Chloride 1,000 mls @ 125 mls/hr IVPB ONCE ONE Stop: 10/21/18 14:59 Last Admin: 10/21/18 12:44 Dose: 125 mls/hr Lactated Ringer's (Lactated Ringers Solution) 1,000 ml in 1,000 mls @ 75 mls/ hr IV ASDIR KATH Lactated Ringer's (Lactated Ringers Solution) 1,000 ml IV ONCE ONE Stop: 10/21/18 12:21 Last Admin: 10/21/18 12:50 Dose: 1,000 ml Methylprednisolone Sodium Succinate (Solu-Medrol -) 60 mg IVPB Q6H-IV KATH Last Admin: 10/21/18 12:55 Dose: 60 mg Mupirocin (Bactroban Ointment (For Decolonization) -) 1 applic NS BID [facility] Stop: 10/26/18 09:59 Pantoprazole Sodium (Protonix Iv) 40 mg IVPUSH BID [facility] Last Admin: 10/21/18 12:55 Dose: 40 mg Thiamine HCl (Vitamin B1 -) 100 mg PO DAILY [facility] ASSESSMENT AND PLAN: Acute on Chronic Hypercapneic Respiratory Failure Acute COPD Exacerbation r/o Pneumonia Lactic Acidosis Alcohol/Benzo Abuse GERD - adjusted vent settings - monitor ABG - continue medrol - inhaled bronchodilators standing and PRN - taper Fio2 to keep SpO2 88-92% - sedate for better vent synchrony - monitor Ppeak, Pplat - IVF resuscitation - monitor urine output, creatinine - empiric antibiotics - f/u cultures - when ABG improved, can lighten sedation to assess mental status - spontaneous breathing trials as tolerated when mental status improved - DVT/GI prophylaxis - continue ICU monitoring critical care time spent in reviewing chart, evaluating patient and formulating plan 35 min
[2018-10-21 14:37] LABS: ARTERIAL BLOOD GAS BASE EXCESS 0.4 meq/l (-2-2); ARTERIAL BLOOD GAS PCO2 59.1 mmHg (35-45); ARTERIAL BLOOD GAS PO2 77.2 mmHg (80-100); ARTERIAL BLOOD GAS pH 7.29 (7.35-7.45)
--- NOTE | 2018-10-21 14:37 | PN ---
Physical Exam: SUBJECTIVE: Patient seen and examined this AM. Intubated and sedated. Does not follow commands or track around room. OBJECTIVE: Vital Signs Period Temp Pulse Resp BP Sys/Whatley Pulse Ox Last 24 Hr 96.6 F-99.8 F 112-135 12-20 129-202/94-181 97-100 GENERAL: Intubated and Sedated, HEAD: Normocephalic, atraumatic. EYES: PERRL, no scleral icterus EARS, NOSE, THROAT: oropharynx clear without exudates. Moist mucous membranes. NECK: supple without lymphadenopathy LUNGS: diffuse wheezes, delayed expiration, decreased breath sounds/air movement throughout HEART: Tachycardic, normal S1 and S2 without murmur ABDOMEN: Mild distension noted, though relaxes some on inspiration, normoactive bowel sounds EXTREMITIES: 2+ pulses, warm, well-perfused. No peripheral edema. NEUROLOGICAL: Sedated, nonresponsive to verbal or tactile SKIN: Warm, dry, no rashes or lesions noted Laboratory Results - last 24 hr 10/21/18 10/21/18 10/21/18 02:53 02:53 02:53 WBC 11.2 H RBC 4.94 Hgb 13.1 Hct 38.9 MCV 78.7 L MCH 26.6 MCHC 33.8 RDW 16.3 H Plt Count 216 MPV 8.8 D Absolute Neuts (auto) 7.8 Neutrophils % 69.1 Neutrophils % (Manual) Band Neutrophils % Lymphocytes % 16.3 Lymphocytes % (Manual) Monocytes % 12.5 H Monocytes % (Manual) Eosinophils % 1.7 Eosinophils % (Manual) Basophils % 0.4 Basophils % (Manual) Myelocytes % (Man) Promyelocytes % (Man) Blast Cells % (Manual) Nucleated RBC % 0 Metamyelocytes Hypochromia Platelet Estimate Polychromasia Poikilocytosis Anisocytosis Microcytosis Macrocytosis PT with INR 10.30 INR 0.87 PTT (Actin FS) 26.1 Anticoagulation Therapy Puncture Site ABG pH ABG pCO2 at Pt Temp ABG pO2 at Pt Temp ABG HCO3 ABG O2 Sat (Measured) ABG O2 Content ABG Base Excess Madhav Test VBG pH 7.27 L POC VBG pCO2 67.7 H* POC VBG pO2 41.6 Mixed VBG HCO3 29.8 H Carboxyhemoglobin Methemoglobin O2 Delivery Device Oxygen Flow Rate Vent Mode Vent Rate Mechanical Rate PEEP Pressure Support Vent Sodium Potassium Chloride Carbon Dioxide Anion Gap BUN Creatinine Creat Clearance w eGFR Random Glucose Lactic Acid Calcium Magnesium Total Bilirubin AST ALT Alkaline Phosphatase Troponin I Total Protein Albumin Urine Color Urine Appearance Urine pH Ur Specific Hamer Urine Protein Urine Glucose (UA) Urine Ketones Urine Blood Urine Nitrite Urine Bilirubin Urine Urobilinogen Ur Leukocyte Esterase Influenza A (Rapid) Influenza B (Rapid) 10/21/18 10/21/18 10/21/18 02:53 02:53 02:53 WBC RBC Hgb Hct MCV MCH MCHC RDW Plt Count MPV Absolute Neuts (auto) Neutrophils % Neutrophils % (Manual) Band Neutrophils % Lymphocytes % Lymphocytes % (Manual) Monocytes % Monocytes % (Manual) Eosinophils % Eosinophils % (Manual) Basophils % Basophils % (Manual) Myelocytes % (Man) Promyelocytes % (Man) Blast Cells % (Manual) Nucleated RBC % Metamyelocytes Hypochromia Platelet Estimate Polychromasia Poikilocytosis Anisocytosis Microcytosis Macrocytosis PT with INR INR PTT (Actin FS) Anticoagulation Therapy Puncture Site ABG pH ABG pCO2 at Pt Temp ABG pO2 at Pt Temp ABG HCO3 ABG O2 Sat (Measured) ABG O2 Content ABG Base Excess Madhav Test VBG pH POC VBG pCO2 POC VBG pO2 Mixed VBG HCO3 Carboxyhemoglobin Methemoglobin O2 Delivery Device Oxygen Flow Rate Vent Mode Vent Rate Mechanical Rate PEEP Pressure Support Vent Sodium 142 Potassium 4.6 Chloride 104 Carbon Dioxide 30 Anion Gap 8 BUN 23 H Creatinine 1.2 Creat Clearance w eGFR > 60 Random Glucose 141 H Lactic Acid 1.1 Calcium 8.7 Magnesium Total Bilirubin 0.2 AST 14 L ALT 26 Alkaline Phosphatase 75 Troponin I < 0.02 Total Protein 6.9 Albumin 3.6 Urine Color Urine Appearance Urine pH Ur Specific Hamer Urine Protein Urine Glucose (UA) Urine Ketones Urine Blood Urine Nitrite Urine Bilirubin Urine Urobilinogen Ur Leukocyte Esterase Influenza A (Rapid) Influenza B (Rapid) 10/21/18 10/21/18 10/21/18 03:51 03:52 04:58 WBC RBC Hgb Hct MCV MCH MCHC RDW Plt Count MPV Absolute Neuts (auto) Neutrophils % Neutrophils % (Manual) Band Neutrophils % Lymphocytes % Lymphocytes % (Manual) Monocytes % Monocytes % (Manual) Eosinophils % Eosinophils % (Manual) Basophils % Basophils % (Manual) Myelocytes % (Man) Promyelocytes % (Man) Blast Cells % (Manual) Nucleated RBC % Metamyelocytes Hypochromia Platelet Estimate Polychromasia Poikilocytosis Anisocytosis Microcytosis Macrocytosis PT with INR INR PTT (Actin FS) Anticoagulation Therapy No Result Required. Puncture Site Right radial ABG pH 7.12 L* ABG pCO2 at Pt Temp 90.6 H* ABG pO2 at Pt Temp 201.0 H* ABG HCO3 28.0 H ABG O2 Sat (Measured) 98.5 ABG O2 Content 18.4 ABG Base Excess -3.8 L Madhav Test Positive VBG pH POC VBG pCO2 POC VBG pO2 Mixed VBG HCO3 Carboxyhemoglobin 0.0 L Methemoglobin 0.7 O2 Delivery Device Vent Oxygen Flow Rate 100 Vent Mode A/c Vent Rate 7 Mechanical Rate No Result Required. PEEP 3.0 Pressure Support Vent No Result Required. Sodium Potassium Chloride Carbon Dioxide Anion Gap BUN Creatinine Creat Clearance w eGFR Random Glucose Lactic Acid Calcium Magnesium Total Bilirubin AST ALT Alkaline Phosphatase Troponin I Total Protein Albumin Urine Color Urine Appearance Urine pH Ur Specific Hamer Urine Protein Urine Glucose (UA) Urine Ketones Urine Blood Urine Nitrite Urine Bilirubin Urine Urobilinogen Ur Leukocyte Esterase Influenza A (Rapid) Negative Influenza B (Rapid) Negative 10/21/18 10/21/18 10/21/18 06:50 08:30 08:30 WBC 21.6 H RBC 5.15 Hgb 13.6 Hct 40.9 MCV 79.3 L MCH 26.4 MCHC 33.3 RDW 16.2 H Plt Count 233 MPV 9.0 Absolute Neuts (auto) 20.5 H Neutrophils % 94.9 H D Neutrophils % (Manual) 93.3 H Band Neutrophils % 0.9 Lymphocytes % 2.8 L D Lymphocytes % (Manual) 2.9 L Monocytes % 2.0 L D Monocytes % (Manual) 3 L Eosinophils % 0.1 D Eosinophils % (Manual) 0.0 Basophils % 0.2 Basophils % (Manual) 0.0 Myelocytes % (Man) 0 Promyelocytes % (Man) 0 Blast Cells % (Manual) 0 Nucleated RBC % 0 Metamyelocytes 0 Hypochromia 0 Platelet Estimate Normal Polychromasia 1+ Poikilocytosis 0 Anisocytosis 1+ Microcytosis 1+ Macrocytosis 0 PT with INR INR PTT (Actin FS) Anticoagulation Therapy Puncture Site Right radial ABG pH 7.19 L* ABG pCO2 at Pt Temp 77.5 H* ABG pO2 at Pt Temp 103.0 H D ABG HCO3 28.5 H ABG O2 Sat (Measured) 96.0 ABG O2 Content 17.7 ABG Base Excess -1.5 Madhav Test Positive VBG pH POC VBG pCO2 POC VBG pO2 Mixed VBG HCO3 Carboxyhemoglobin Methemoglobin O2 Delivery Device M.vent Oxygen Flow Rate 60 Vent Mode A/c Vent Rate 12 Mechanical Rate Y PEEP 5.0 Pressure Support Vent 400 Sodium Potassium Chloride Carbon Dioxide Anion Gap BUN Creatinine Creat Clearance w eGFR Random Glucose Lactic Acid 2.1 H Calcium Magnesium Total Bilirubin AST ALT Alkaline Phosphatase Troponin I Total Protein Albumin Urine Color Urine Appearance Urine pH Ur Specific Hamer Urine Protein Urine Glucose (UA) Urine Ketones Urine Blood Urine Nitrite Urine Bilirubin Urine Urobilinogen Ur Leukocyte Esterase Influenza A (Rapid) Influenza B (Rapid) 10/21/18 10/21/18 08:30 08:50 WBC RBC Hgb Hct MCV MCH MCHC RDW Plt Count MPV Absolute Neuts (auto) Neutrophils % Neutrophils % (Manual) Band Neutrophils % Lymphocytes % Lymphocytes % (Manual) Monocytes % Monocytes % (Manual) Eosinophils % Eosinophils % (Manual) Basophils % Basophils % (Manual) Myelocytes % (Man) Promyelocytes % (Man) Blast Cells % (Manual) Nucleated RBC % Metamyelocytes Hypochromia Platelet Estimate Polychromasia Poikilocytosis Anisocytosis Microcytosis Macrocytosis PT with INR INR PTT (Actin FS) Anticoagulation Therapy Puncture Site ABG pH ABG pCO2 at Pt Temp ABG pO2 at Pt Temp ABG HCO3 ABG O2 Sat (Measured) ABG O2 Content ABG Base Excess Madhav Test VBG pH POC VBG pCO2 POC VBG pO2 Mixed VBG HCO3 Carboxyhemoglobin Methemoglobin O2 Delivery Device Oxygen Flow Rate Vent Mode Vent Rate Mechanical Rate PEEP Pressure Support Vent Sodium 139 Potassium 5.6 H Chloride 104 Carbon Dioxide 29 Anion Gap 6 L BUN 25 H Creatinine 1.2 Creat Clearance w eGFR > 60 Random Glucose 177 H Lactic Acid Calcium 8.8 Magnesium 2.8 H Total Bilirubin AST ALT Alkaline Phosphatase Troponin I Total Protein Albumin Urine Color Ltyellow Urine Appearance Clear Urine pH 5.0 D Ur Specific Hamer 1.013 Urine Protein Negative Urine Glucose (UA) 3+ H Urine Ketones Negative Urine Blood Negative Urine Nitrite Negative Urine Bilirubin Negative Urine Urobilinogen Negative Ur Leukocyte Esterase Negative Influenza A (Rapid) Influenza B (Rapid) Active Medications Generic Name Dose Route Start Last Admin Trade Name Miguel A PRN Reason Stop Dose Admin Albuterol/Ipratropium 1 amp 10/21/18 08:00 10/21/18 09:06 Duoneb - NEB 1 amp RQID KATH Administration Albuterol/Ipratropium 1 amp 10/21/18 06:17 Duoneb - NEB Q4H PRN SHORTNESS OF BREATH Chlorhexidine Gluconate 1 applic 10/21/18 22:00 Hibiclens For Decolonization - TP HS KATH Clonidine 0.1 mg 10/21/18 14:15 Catapres - PO BID KATH Folic Acid 1 mg 10/22/18 10:00 Folic Acid - GT DAILY [facility] Heparin Sodium (Porcine) 5,000 unit 10/21/18 14:30 Heparin - SQ TID [facility] Fentanyl 500 mcg/ Dextrose 100 mls @ 5 mls/hr 10/21/18 06:00 10/21/18 07:24 IVPB 50 mcg/hr TITR KATH 10 mls/hr Titration Protocol 25 MCG/HR Midazolam HCl 100 mg/ Sodium 100 mls @ 1 mls/hr 10/21/18 06:30 10/21/18 12:07 Chloride IVPB 7 mg/hr TITR KATH 7 mls/hr Titration Protocol 1 MG/HR Folic Acid 1 mg/ Thiamine HCl 1,000 mls @ 125 mls/hr 10/21/18 07:00 10/21/18 12:44 100 mg/ Multivitamins/Minerals IVPB 10/21/18 14:59 125 mls/hr 10 ml/ Sodium Chloride ONCE ONE Administration Lactated Ringer's 1,000 ml in 1,000 mls @ 75 mls/hr 10/21/18 12:30 10/21/18 13:58 Lactated Ringers Solution IV 75 mls/hr ASDIR KATH Administration Propofol 1,000,000 mcg in 100 mls @ 31.29 mls/hr 10/21/18 13:30 10/21/18 13: 31 Diprivan - IVPB 50 mcg/kg/min TITR KATH 31.29 mls/hr Administration Protocol 50 MCG/KG/MIN Methylprednisolone Sodium Succinate 60 mg 10/21/18 06:30 10/21/18 12:55 Solu-Medrol - IVPB 60 mg Q6H-IV KATH Administration Mupirocin 1 applic 10/21/18 10:00 Bactroban Ointment (For Decolonization) - NS 10/26/18 09:59 BID KATH Pantoprazole Sodium 40 mg 10/21/18 10:00 10/21/18 12:55 Protonix Iv IVPUSH 40 mg BID KATH Administration Thiamine HCl 100 mg 10/22/18 10:00 Vitamin B1 - PO DAILY KATH ASSESSMENT/PLAN: 57 y/o M with PMHx of Asthma, HTN, EtOH related Seizure, EtOH and Benzo dependence from [facility] admitted with asthma vs COPD exacerbation and SIRS with unknown source required intubation in ED for increased work of breathing. SIRS, source unknown -Elevated WBC count 21, Temp 96.6 on admission now improved, Tachycardic to 130s -Possible aspiration pneumonitis with possible traumatic intubation. Monitor CXR for worsening -Possible aspiration pneumonia early in development if pt aspirated prior to [facility] admission, known alcohol abuse -With possible abdominal distension, monitor and consider KUB if worsens -UA negative -Blood cultures pending Asthma vs COPD -Intubated, will attempt to wean once ABG improves and pt more likely to sustain extubation -DuoNebs RQID -Albuterol NEBs Q4 PRN -SoluMedrol 60 mg Q6 IV HTN -Clonidine 0.1 mg PO BID can receive via OG Tube -Initial HTN urgency could have been due to reactive HTN without clonidine being given -Continue to monitor b.p. (improved for now) EtOH/Benzo dependence/abuse -Presented from [facility], had completed detox on this admission -Urine toxicology pending -Monitor for further signs of benzo withdrawal as could be anticipated > 1 week after last use DVT Prophylaxis -Heparin 5000 units SQ TID FEN -Fluids: LR @ 75 cc/hr -Electrolytes: No electrolyte abnormalities, BMP in AM -Nutrition: NPO Disposition ICU Visit type - Emergency Visit Emergency Visit: Yes ED Registration Date: 10/21/18 Care time: The patient presented to the Emergency Department on the above date and was hospitalized for further evaluation of their emergent condition. - New Patient This patient is new to me today: Yes Date on this admission: 10/21/18 - Critical Care Critical Care patient: Yes Total Critical Care Time (in minutes): 40 Critical Care Statement: The care of this patient involved high complexity decision making to prevent further life threatening deterioration of the patient 's condition and/or to evaluate & treat vital organ system(s) failure or risk of failure.
[2018-10-21] MEDS ORDERED: ALBUTEROL SO4 0.042% IH SOL 1.25 MG/3 ML VIAL.NEB NEB PRN (14:58)
[2018-10-21 15:23] LABS: ALLENS TEST POSITIVE
[2018-10-21] MEDS: cloNIDine HCL 0.1 MG TABLET PO SCH ×2 (15:26→21:01)
[2018-10-21] MEDS: HEPARIN NA (PORCINE) 5,000 UNITS/ML 1ML VIAL SQ SCH ×2 (15:26→21:01)
[2018-10-21] MEDS ORDERED: SODIUM POLYSTYRENE SULFONATE 15 GM/60 ML BOTTLE PO ONE (16:30)
[2018-10-21] MEDS: SODIUM CHLORIDE 1,000 ML IV SCH (16:59)
--- NOTE | 2018-10-21 18:22 | PN ---
Teaching Attending Note Name of Resident: Chito Mitchell ATTENDING PHYSICIAN STATEMENT I saw and evaluated the patient. I reviewed the resident's note and discussed the case with the resident. I agree with the resident's findings and plan as documented. SUBJECTIVE: Patient is intubated and sedated. OBJECTIVE: Vital Signs Period Temp Pulse Resp BP Sys/Whatley Pulse Ox Last 24 Hr 96.6 F-99.8 F 112-135 12-22 115-202/83-181 97-100 HEART: S1S2, tachycardic LUNGS: Clear anteriorly ABDOMEN: Obese, soft, distended, normal BS EXTREMITIES: No edema Laboratory Results - last 24 hr 10/21/18 10/21/18 10/21/18 02:53 02:53 02:53 WBC 11.2 H RBC 4.94 Hgb 13.1 Hct 38.9 MCV 78.7 L MCH 26.6 MCHC 33.8 RDW 16.3 H Plt Count 216 MPV 8.8 D Absolute Neuts (auto) 7.8 Neutrophils % 69.1 Neutrophils % (Manual) Band Neutrophils % Lymphocytes % 16.3 Lymphocytes % (Manual) Monocytes % 12.5 H Monocytes % (Manual) Eosinophils % 1.7 Eosinophils % (Manual) Basophils % 0.4 Basophils % (Manual) Myelocytes % (Man) Promyelocytes % (Man) Blast Cells % (Manual) Nucleated RBC % 0 Metamyelocytes Hypochromia Platelet Estimate Polychromasia Poikilocytosis Anisocytosis Microcytosis Macrocytosis PT with INR 10.30 INR 0.87 PTT (Actin FS) 26.1 Anticoagulation Therapy Puncture Site ABG pH ABG pCO2 at Pt Temp ABG pO2 at Pt Temp ABG HCO3 ABG O2 Sat (Measured) ABG O2 Content ABG Base Excess Madhav Test VBG pH 7.27 L POC VBG pCO2 67.7 H* POC VBG pO2 41.6 Mixed VBG HCO3 29.8 H Carboxyhemoglobin Methemoglobin O2 Delivery Device Oxygen Flow Rate Vent Mode Vent Rate Mechanical Rate PEEP Pressure Support Vent Sodium Potassium Chloride Carbon Dioxide Anion Gap BUN Creatinine Creat Clearance w eGFR Random Glucose Lactic Acid Calcium Magnesium Total Bilirubin AST ALT Alkaline Phosphatase Troponin I Total Protein Albumin Urine Color Urine Appearance Urine pH Ur Specific [place] Urine Protein Urine Glucose (UA) Urine Ketones Urine Blood Urine Nitrite Urine Bilirubin Urine Urobilinogen Ur Leukocyte Esterase Influenza A (Rapid) Influenza B (Rapid) 10/21/18 10/21/18 10/21/18 02:53 02:53 02:53 WBC RBC Hgb Hct MCV MCH MCHC RDW Plt Count MPV Absolute Neuts (auto) Neutrophils % Neutrophils % (Manual) Band Neutrophils % Lymphocytes % Lymphocytes % (Manual) Monocytes % Monocytes % (Manual) Eosinophils % Eosinophils % (Manual) Basophils % Basophils % (Manual) Myelocytes % (Man) Promyelocytes % (Man) Blast Cells % (Manual) Nucleated RBC % Metamyelocytes Hypochromia Platelet Estimate Polychromasia Poikilocytosis Anisocytosis Microcytosis Macrocytosis PT with INR INR PTT (Actin FS) Anticoagulation Therapy Puncture Site ABG pH ABG pCO2 at Pt Temp ABG pO2 at Pt Temp ABG HCO3 ABG O2 Sat (Measured) ABG O2 Content ABG Base Excess Madhav Test VBG pH POC VBG pCO2 POC VBG pO2 Mixed VBG HCO3 Carboxyhemoglobin Methemoglobin O2 Delivery Device Oxygen Flow Rate Vent Mode Vent Rate Mechanical Rate PEEP Pressure Support Vent Sodium 142 Potassium 4.6 Chloride 104 Carbon Dioxide 30 Anion Gap 8 BUN 23 H Creatinine 1.2 Creat Clearance w eGFR > 60 Random Glucose 141 H Lactic Acid 1.1 Calcium 8.7 Magnesium Total Bilirubin 0.2 AST 14 L ALT 26 Alkaline Phosphatase 75 Troponin I < 0.02 Total Protein 6.9 Albumin 3.6 Urine Color Urine Appearance Urine pH Ur Specific [place] Urine Protein Urine Glucose (UA) Urine Ketones Urine Blood Urine Nitrite Urine Bilirubin Urine Urobilinogen Ur Leukocyte Esterase Influenza A (Rapid) Influenza B (Rapid) 10/21/18 10/21/18 10/21/18 03:51 03:52 04:58 WBC RBC Hgb Hct MCV MCH MCHC RDW Plt Count MPV Absolute Neuts (auto) Neutrophils % Neutrophils % (Manual) Band Neutrophils % Lymphocytes % Lymphocytes % (Manual) Monocytes % Monocytes % (Manual) Eosinophils % Eosinophils % (Manual) Basophils % Basophils % (Manual) Myelocytes % (Man) Promyelocytes % (Man) Blast Cells % (Manual) Nucleated RBC % Metamyelocytes Hypochromia Platelet Estimate Polychromasia Poikilocytosis Anisocytosis Microcytosis Macrocytosis PT with INR INR PTT (Actin FS) Anticoagulation Therapy No Result Required. Puncture Site Right radial ABG pH 7.12 L* ABG pCO2 at Pt Temp 90.6 H* ABG pO2 at Pt Temp 201.0 H* ABG HCO3 28.0 H ABG O2 Sat (Measured) 98.5 ABG O2 Content 18.4 ABG Base Excess -3.8 L Madhav Test Positive VBG pH POC VBG pCO2 POC VBG pO2 Mixed VBG HCO3 Carboxyhemoglobin 0.0 L Methemoglobin 0.7 O2 Delivery Device Vent Oxygen Flow Rate 100 Vent Mode A/c Vent Rate 7 Mechanical Rate No Result Required. PEEP 3.0 Pressure Support Vent No Result Required. Sodium Potassium Chloride Carbon Dioxide Anion Gap BUN Creatinine Creat Clearance w eGFR Random Glucose Lactic Acid Calcium Magnesium Total Bilirubin AST ALT Alkaline Phosphatase Troponin I Total Protein Albumin Urine Color Urine Appearance Urine pH Ur Specific [place] Urine Protein Urine Glucose (UA) Urine Ketones Urine Blood Urine Nitrite Urine Bilirubin Urine Urobilinogen Ur Leukocyte Esterase Influenza A (Rapid) Negative Influenza B (Rapid) Negative 10/21/18 10/21/18 10/21/18 06:50 08:30 08:30 WBC 21.6 H RBC 5.15 Hgb 13.6 Hct 40.9 MCV 79.3 L MCH 26.4 MCHC 33.3 RDW 16.2 H Plt Count 233 MPV 9.0 Absolute Neuts (auto) 20.5 H Neutrophils % 94.9 H D Neutrophils % (Manual) 93.3 H Band Neutrophils % 0.9 Lymphocytes % 2.8 L D Lymphocytes % (Manual) 2.9 L Monocytes % 2.0 L D Monocytes % (Manual) 3 L Eosinophils % 0.1 D Eosinophils % (Manual) 0.0 Basophils % 0.2 Basophils % (Manual) 0.0 Myelocytes % (Man) 0 Promyelocytes % (Man) 0 Blast Cells % (Manual) 0 Nucleated RBC % 0 Metamyelocytes 0 Hypochromia 0 Platelet Estimate Normal Polychromasia 1+ Poikilocytosis 0 Anisocytosis 1+ Microcytosis 1+ Macrocytosis 0 PT with INR INR PTT (Actin FS) Anticoagulation Therapy Puncture Site Right radial ABG pH 7.19 L* ABG pCO2 at Pt Temp 77.5 H* ABG pO2 at Pt Temp 103.0 H D ABG HCO3 28.5 H ABG O2 Sat (Measured) 96.0 ABG O2 Content 17.7 ABG Base Excess -1.5 Madhav Test Positive VBG pH POC VBG pCO2 POC VBG pO2 Mixed VBG HCO3 Carboxyhemoglobin Methemoglobin O2 Delivery Device M.vent Oxygen Flow Rate 60 Vent Mode A/c Vent Rate 12 Mechanical Rate Y PEEP 5.0 Pressure Support Vent 400 Sodium Potassium Chloride Carbon Dioxide Anion Gap BUN Creatinine Creat Clearance w eGFR Random Glucose Lactic Acid 2.1 H Calcium Magnesium Total Bilirubin AST ALT Alkaline Phosphatase Troponin I Total Protein Albumin Urine Color Urine Appearance Urine pH Ur Specific [place] Urine Protein Urine Glucose (UA) Urine Ketones Urine Blood Urine Nitrite Urine Bilirubin Urine Urobilinogen Ur Leukocyte Esterase Influenza A (Rapid) Influenza B (Rapid) 10/21/18 10/21/18 10/21/18 08:30 08:50 15:00 WBC RBC Hgb Hct MCV MCH MCHC RDW Plt Count MPV Absolute Neuts (auto) Neutrophils % Neutrophils % (Manual) Band Neutrophils % Lymphocytes % Lymphocytes % (Manual) Monocytes % Monocytes % (Manual) Eosinophils % Eosinophils % (Manual) Basophils % Basophils % (Manual) Myelocytes % (Man) Promyelocytes % (Man) Blast Cells % (Manual) Nucleated RBC % Metamyelocytes Hypochromia Platelet Estimate Polychromasia Poikilocytosis Anisocytosis Microcytosis Macrocytosis PT with INR INR PTT (Actin FS) Anticoagulation Therapy Puncture Site No Result Required. ABG pH 7.29 L ABG pCO2 at Pt Temp 59.1 H D ABG pO2 at Pt Temp 77.2 L D ABG HCO3 27.6 H ABG O2 Sat (Measured) 94.0 ABG O2 Content 16.5 ABG Base Excess 0.4 Madhav Test Positive VBG pH POC VBG pCO2 POC VBG pO2 Mixed VBG HCO3 Carboxyhemoglobin Methemoglobin O2 Delivery Device Oxygen Flow Rate 30 Vent Mode Vent Rate Mechanical Rate PEEP Pressure Support Vent Sodium 139 Potassium 5.6 H Chloride 104 Carbon Dioxide 29 Anion Gap 6 L BUN 25 H Creatinine 1.2 Creat Clearance w eGFR > 60 Random Glucose 177 H Lactic Acid Calcium 8.8 Magnesium 2.8 H Total Bilirubin AST ALT Alkaline Phosphatase Troponin I Total Protein Albumin Urine Color Ltyellow Urine Appearance Clear Urine pH 5.0 D Ur Specific [place] 1.013 Urine Protein Negative Urine Glucose (UA) 3+ H Urine Ketones Negative Urine Blood Negative Urine Nitrite Negative Urine Bilirubin Negative Urine Urobilinogen Negative Ur Leukocyte Esterase Negative Influenza A (Rapid) Influenza B (Rapid) Current Medications Generic Name Dose Route Start Last Admin Trade Name Freq PRN Reason Stop Dose Admin Albuterol Sulfate 1 amp 10/21/18 14:58 Ventolin 0.042trength) - NEB Q4H PRN SHORT OF BREATH/WHEEZING Albuterol/Ipratropium 1 amp 10/21/18 08:00 10/21/18 17:47 Duoneb - NEB 1 amp RQID KATH Administration Chlorhexidine Gluconate 1 applic 10/21/18 22:00 Hibiclens For Decolonization - TP HS KATH Clonidine 0.1 mg 10/21/18 14:15 10/21/18 15:26 Catapres - PO 0.1 mg BID KATH Administration Folic Acid 1 mg 10/22/18 10:00 Folic Acid - GT DAILY [facility] Heparin Sodium (Porcine) 5,000 unit 10/21/18 14:30 10/21/18 15:26 Heparin - SQ 5,000 unit TID KATH Administration Fentanyl 500 mcg/ Dextrose 100 mls @ 5 mls/hr 10/21/18 06:00 10/21/18 15:23 IVPB 50 mcg/hr TITR KATH 10 mls/hr Administration Protocol 25 MCG/HR Midazolam HCl 100 mg/ Sodium 100 mls @ 1 mls/hr 10/21/18 06:30 10/21/18 12:07 Chloride IVPB 7 mg/hr TITR KATH 7 mls/hr Titration Protocol 1 MG/HR Propofol 1,000,000 mcg in 100 mls @ 31.29 mls/hr 10/21/18 13:30 10/21/18 16: 49 Diprivan - IVPB 50 mcg/kg/min TITR KATH 31.29 mls/hr Administration Protocol 50 MCG/KG/MIN Sodium Chloride 1,000 mls @ 75 mls/hr 10/21/18 17:00 10/21/18 16:59 Normal Saline - IV 75 mls/hr ASDIR [facility] Administration Methylprednisolone Sodium Succinate 60 mg 10/21/18 06:30 10/21/18 17:50 Solu-Medrol - IVPB 60 mg Q6H-IV KATH Administration Mupirocin 1 applic 10/21/18 10:00 Bactroban Ointment (For Decolonization) - NS 10/26/18 09:59 BID KATH Pantoprazole Sodium 40 mg 10/21/18 10:00 10/21/18 12:55 Protonix Iv IVPUSH 40 mg BID KATH Administration Thiamine HCl 100 mg 10/22/18 10:00 Vitamin B1 - PO DAILY KATH ASSESSMENT AND PLAN: This is a 57 year old man with a history of asthma, HTN, alcohol related seizure , alcohol and benzodiazepine dependence who presented to the ED from [facility] with SOB. 1. Acute on chronic hypercapnic respiratory failure secondary to acute exacerbation of COPD, possible pneumonia - Intubated - vent management as per ICU team - Sedated with Versed, Propofol, Fentanyl - Continue SoluMedrol, DuoNeb, albuterol as needed 2. Possible sepsis secondary to pneumonia - Levaquin, Clindamycin given in ED - No definite infiltrate seen on CXR - Blood, urine cultures pending 3. Lactic acidosis - IV fluid - Monitor lactic acid 4. Alcohol and benzodiazepine dependence - Completed detox and started rehab at [facility] on 10/17 - Continue thiamine, folic acid - On Versed IV drip 5. HTN - Possibly secondary to withdrawal, rebound from discontinuing Clonidine - Restart Clonidine 6. GERD - Continue Protonix 7. DVT prophylaxis - SCDs, heparin subq 8. Stress ulcer prophylaxis - On Protonix The care of this patient involved high complexity decision making to prevent further life threatening deterioration of the patient's condition and/or to evaluate & treat vital organ system(s) failure or risk of failure. Critical care time spent in reviewing chart, evaluating patient and formulating plan - 35 minutes.
[2018-10-21 19:08] LABS: COCAINE, UR NEGATIVE ng/ml (CUTOFF=300); METHADONE, UR NEGATIVE ng/ml (CUTOFF=300); OPIATES, URI NEGATIVE ng/ml (CUTOFF=300); PHENCYCLIDINE,URINE NEGATIVE ng/ml (CUTOFF=25); URINE AMPHETAMINES NEGATIVE ng/ml (CUTOFF=500); URINE BARBITURATES NEGATIVE ng/ml (CUTOFF=200)
[2018-10-21 19:14] LABS: URINE BENZODIAZEPINES POSITIVE ng/ml (CUTOFF=200)
[2018-10-21] MEDS: MUPIROCIN 2% TOPICAL OINTMENT FOR DECOLONIZATION NS SCH (21:13)
[2018-10-21] MEDS: CHLORHEXIDINE GLUCONATE 4% CLEANSER FOR DECOLONIZATION TP SCH (21:13)
[2018-10-22] MEDS: methylPREDNISolone NA SUCC 40 MG/1 ML VIAL IVPB SCH ×4 (03:52→21:35)
[2018-10-22] MEDS ORDERED: PT OWN MED DRAWER 7, Y5N ONE (06:00)
[2018-10-22] MEDS: HEPARIN NA (PORCINE) 5,000 UNITS/ML 1ML VIAL SQ SCH ×3 (06:30→21:42)
[2018-10-22] MEDS: FENTANYL INJECTION 500 MCG in DEXTROSE 5%-WATER - 90 ML IVPB SCH ×2 (06:30→14:27)
[2018-10-22] MEDS: MIDAZOLAM 100 MG in SODIUM CHLORIDE 100 ML IVPB SCH (06:31)
[2018-10-22 06:32] LABS: BASO % 0.3 % (0-2.0); EOS % 0.1 % (0-4.5); HEMATOCRIT 37.4 % (35.4-49); HEMOGLOBIN 11.7 GM/dL (11.7-16.9); LYMPH % 4.1 % (8-40); MCH 25.1 pg (25.7-33.7); MCHC 31.4 g/dl (32.0-35.9); MEAN CELL VOLUME 79.9 fl (80-96); MEAN PLT VOLUME 9.1 fl (7.5-11.1); MONO % 5.7 % (3.8-10.2); NEUT % 89.8 % (42.8-82.8); PLATELET COUNT 204 K/MM3 (134-434); RBC 4.68 M/mm3 (4.00-5.60); RDW 16.4 % (11.9-15.9); WHITE BLOOD COUNT 17.2 K/mm3 (4.0-10.0)
[2018-10-22 07:13] LABS: ALBUMIN 2.8 g/dl (3.4-5.0); ALK PHOS 64 U/L (45-117); ANION GAP 4 MMOL/L (8-16); BILIRUBIN,TOTAL 0.2 mg/dL (0.2-1); BLOOD UREA NITROGEN 26 mg/dL (7-18); CHLORIDE 104 mmol/L (98-107); CO2 31 mmol/L (21-32); CREATININE 1.2 mg/dL (0.55-1.3); GLUCOSE,RANDOM 160 mg/dL (74-106); MAGNESIUM 2.5 mg/dL (1.8-2.4); PHOSPHOROUS 3.6 mg/dL (2.5-4.9); POTASSIUM 4.7 mmol/L (3.5-5.1); SGOT/AST 15 U/L (15-37); SGPT/ALT 32 U/L (13-61); SODIUM 139 mmol/L (136-145); TOT PROT 5.9 g/dl (6.4-8.2)
[2018-10-22 07:16] LABS: ARTERIAL BLD GAS O2 SATURATION 92.7 % (90-98.9); ARTERIAL BLOOD GAS BASE EXCESS 1.8 meq/l (-2-2); ARTERIAL BLOOD GAS PCO2 50.7 mmHg (35-45); ARTERIAL BLOOD GAS PO2 68.7 mmHg (80-100); ARTERIAL BLOOD GAS pH 7.35 (7.35-7.45)
[2018-10-22 07:21] LABS: ALLENS TEST POSITIVE
[2018-10-22] MEDS: ALBUTEROL SO4 2.5/IPRATROPIUM 0.5 INH SOL 3 ML VIAL.NEB. NEB SCH ×4 (07:30→21:29)
--- NOTE | 2018-10-22 08:03 | PN ---
Physical Exam: SUBJECTIVE: Patient seen and examined. intubated, sedated OBJECTIVE: Vital Signs Period Temp Pulse Resp BP Sys/Whatley Pulse Ox Last 24 Hr 98.1 F-99.8 F 109-128 10-26 115-158/66-100 92 GENERAL: Intubated, sedated HEAD: No signs of trauma, normocephalic, atraumati EYES: EOMI, sclera anicteric, conjunctiva clear ENT: Hearing grossly normal, nares patent, oropharynx clear without exudates. ETT and OGT in place LUNGS: equal breath sounds, clear to auscultation bilaterally HEART: Tachycardic rate and regular rhythm, normal S1 and S2, no murmurs appreciated, peripheral pulses normal and equal bilaterally ABDOMEN: Soft, protuberant, non-distended, normoactive bowel sounds EXTREMITIES : Normal inspection, no edema. No clubbing or cyanosis NEUROLOGICAL: Sedated, pupils equal, pinpoint SKIN: Warm, Dry ASSESSMENT/PLAN: The pt is a 57M w/ a PMH of GERD, COPD, EtOH and benzo abuse from [facility] admitted to the ICU s/p intubation due to acute on chronic hypercapnic respiratory failure Neuro Sedation -Propofol -Fentanyl -Versed HEENT ETT in place CV HTN -Clonidine 0.1mg PO BID -Improved from yesterday PULM Acute on chronic respiratory failure -s/p intubation 10/21/2018 -Duoneb 1amp NEB RQID -Duoneb 1amp NEB Q4H PRN -Methylprednisolone 60mg IV Q6H -Plan to wean towards extubaiton today Likely aspiration during intubation -Empiric abx --Rocephin and Flagyl GI Nutrition -NPO -Folate 1mg GT daily -Thiamine 100mg PO daily GERD -Protonix 40mg IV BID Lytes -LR @ [address] Adequate Uop Tox screen neg HEME DVT Ppx -Heparin 5000u SQ TID ID Afebrile -Blood cultures neg @ 24hrs LTD ETT- 10/21/2018 OGT- 10/21/2018 [place]- 10/21/2018 PIV Dispo: Patient continues to require ICU level of care. Visit type - Emergency Visit Emergency Visit: Yes ED Registration Date: 10/21/18 Care time: The patient presented to the Emergency Department on the above date and was hospitalized for further evaluation of their emergent condition. - New Patient This patient is new to me today: No - Critical Care Critical Care patient: Yes Total Critical Care Time (in minutes): 35 Critical Care Statement: The care of this patient involved high complexity decision making to prevent further life threatening deterioration of the patient 's condition and/or to evaluate & treat vital organ system(s) failure or risk of failure.
[2018-10-22] MEDS ORDERED: DEXTROSE 5%-WATER - 50 ML IVPB ONE (08:54)
[2018-10-22] MEDS ORDERED: cefTRIAXone SODIUM 1 GM VIAL ONE (08:54)
[2018-10-22 09:24] LABS: ACANTHOCYTES 1+; ANISOCYTOSIS 2+; MACROCYTOSIS 0; OVALOCYTE 1+; PLATELET ESTIMATE NORMAL; TEAR DROP CELLS 1+
[2018-10-22] MEDS: CEFTRIAXONE 1 GM in DEXTROSE 5%-WATER - 50 ML IVPB SCH (09:46)
[2018-10-22] MEDS: PANTOPRAZOLE SODIUM 40 MG VIAL IVPUSH SCH ×2 (09:49→21:43)
[2018-10-22] MEDS: MUPIROCIN 2% TOPICAL OINTMENT FOR DECOLONIZATION NS SCH ×2 (09:49→21:42)
[2018-10-22] MEDS: FOLIC ACID 1 MG TABLET (FP) GT SCH (09:49)
[2018-10-22] MEDS: cloNIDine HCL 0.1 MG TABLET PO SCH ×2 (09:49→21:42)
[2018-10-22] MEDS: THIAMINE HCL 100 MG TABLET (FP) PO SCH (09:50)
[2018-10-22] MEDS: PROPOFOL 1,000,000 MCG/100 ML VIAL IVPB SCH ×2 (10:00→16:52)
[2018-10-22] MEDS ORDERED: CLINDAMYCIN 600MG PREMIX IVPB 600 MG/50 ML BAG IVPB SCH (10:00)
[2018-10-22] MEDS ORDERED: THIAMINE HCL 200 MG/2 ML VIAL IVPB SCH (10:00)
[2018-10-22 12:36] LABS: CARBOXYHEMOGLOBIN 1.1 gm% (0.5-2.0)
--- NOTE | 2018-10-22 13:02 | PN ---
Teaching Attending Note Name of Resident: Prince Camacho ATTENDING PHYSICIAN STATEMENT I saw and evaluated the patient. I reviewed the resident's note and discussed the case with the resident. I agree with the resident's findings and plan as documented. SUBJECTIVE: Patient seen and examined in the ICU. Remains intubated, sedated. ABGs are improving. No pressors. AC Mode of vent, 30% FiO2. CXR: ETT in place / RLL infiltrates OBJECTIVE: Intake & Output 10/19/18 10/20/18 10/21/18 10/22/18 23:59 23:59 23:59 23:59 Intake Total 2621.7 1324.3 Output Total 1999 1850 Balance 621.7 -525.7 Weight 229 lb 15.074 oz 233 lb 3.985 oz Last Vital Signs Temp Pulse Resp BP Pulse Ox 99.7 F H 106 H 17 126/77 95 10/22/18 10:00 10/22/18 11:57 10/22/18 11:57 10/22/18 11:57 10/22/18 11:51 Active Medications Albuterol Sulfate (Ventolin 0.042trength) -) 1 amp NEB Q4H PRN PRN Reason: SHORT OF BREATH/WHEEZING Albuterol/Ipratropium (Duoneb -) 1 amp NEB RQID [facility] Last Admin: 10/22/18 11:30 Dose: 1 amp Chlorhexidine Gluconate (Hibiclens For Decolonization -) 1 applic TP HS [facility] Last Admin: 10/21/18 21:13 Dose: 1 applic Clonidine (Catapres -) 0.1 mg PO BID [facility] Last Admin: 10/22/18 09:49 Dose: 0.1 mg Folic Acid (Folic Acid -) 1 mg GT DAILY [facility] Last Admin: 10/22/18 09:49 Dose: 1 mg Heparin Sodium (Porcine) (Heparin -) 5,000 unit SQ TID [facility] Last Admin: 10/22/18 06:30 Dose: 5,000 unit Fentanyl 500 mcg/ Dextrose 100 mls @ 5 mls/hr IVPB TITR [facility]; Protocol Last Titration: 10/22/18 06:32 Dose: 50 mcg/hr, 10 mls/hr Midazolam HCl 100 mg/ Sodium (Chloride) 100 mls @ 1 mls/hr IVPB TITR [facility]; Protocol Last Titration: 10/22/18 06:31 Dose: 5 mg/hr, 5 mls/hr Propofol (Diprivan -) 1,000,000 mcg in 100 mls @ 31.29 mls/hr IVPB TITR KATH; Protocol Last Admin: 10/21/18 19:12 Dose: 50 mcg/kg/min, 31.29 mls/hr Sodium Chloride (Normal Saline -) 1,000 mls @ 75 mls/hr IV ASDIR KATH Last Admin: 10/21/18 16:59 Dose: 75 mls/hr Ceftriaxone Sodium 1 gm/ (Dextrose) 50 mls @ 100 mls/hr IVPB DAILY [facility] Last Admin: 10/22/18 09:46 Dose: 100 mls/hr Metronidazole (Flagyl 500mg Premixed Ivpb -) 500 mg in 100 mls @ 100 mls/hr IVPB Q8H-IV KATH Last Admin: 10/22/18 09:46 Dose: 100 mls/hr Methylprednisolone Sodium Succinate (Solu-Medrol -) 60 mg IVPB Q6H-IV [facility] Last Admin: 10/22/18 09:45 Dose: 60 mg Mupirocin (Bactroban Ointment (For Decolonization) -) 1 applic NS BID [facility] Stop: 10/26/18 09:59 Last Admin: 10/22/18 09:49 Dose: 1 applic Pantoprazole Sodium (Protonix Iv) 40 mg IVPUSH BID [facility] Last Admin: 10/22/18 09:49 Dose: 40 mg Thiamine HCl (Vitamin B1 -) 100 mg PO DAILY [facility] Last Admin: 10/22/18 09:50 Dose: 100 mg Gen: intubated, sedated Heart: tachycardic, regular Lung: distant breath sounds Abd: soft, nontender Ext: no edema Laboratory Results - last 24 hr 10/21/18 10/21/18 10/21/18 08:50 15:00 17:00 WBC RBC Hgb Hct MCV MCH MCHC RDW Plt Count MPV Absolute Neuts (auto) Neutrophils % Neutrophils % (Manual) Band Neutrophils % Lymphocytes % Lymphocytes % (Manual) Monocytes % Monocytes % (Manual) Eosinophils % Eosinophils % (Manual) Basophils % Basophils % (Manual) Myelocytes % (Man) Promyelocytes % (Man) Blast Cells % (Manual) Nucleated RBC % Metamyelocytes Hypochromia Platelet Estimate Polychromasia Poikilocytosis Anisocytosis Microcytosis Macrocytosis Tear Drop Cells Ovalocytes Acanthocytes (Spur) Puncture Site No Result Required. ABG pH 7.29 L ABG pCO2 at Pt Temp 59.1 H D ABG pO2 at Pt Temp 77.2 L D ABG HCO3 27.6 H ABG O2 Sat (Measured) 94.0 ABG O2 Content 16.5 ABG Base Excess 0.4 Madhav Test Positive Carboxyhemoglobin 1.1 Methemoglobin 0.6 O2 Delivery Device Oxygen Flow Rate 30 Vent Rate Mechanical Rate PEEP Pressure Support Vent Sodium Potassium Chloride Carbon Dioxide Anion Gap BUN Creatinine Creat Clearance w eGFR Random Glucose Calcium Phosphorus Magnesium Total Bilirubin AST ALT Alkaline Phosphatase Total Protein Albumin Opiates Screen Negative Methadone Screen Negative Barbiturate Screen Negative Phencyclidine Screen Negative Ur Amphetamines Screen Negative MDMA (Ecstasy) Screen Negative Benzodiazepines Screen Positive A* Cocaine Screen Negative U Marijuana (THC) Screen Negative 10/22/18 10/22/18 10/22/18 05:30 05:30 06:00 WBC 17.2 H RBC 4.68 Hgb 11.7 Hct 37.4 MCV 79.9 L MCH 25.1 L MCHC 31.4 L RDW 16.4 H Plt Count 204 MPV 9.1 Absolute Neuts (auto) 15.4 H Neutrophils % 89.8 H Neutrophils % (Manual) 92.9 H Band Neutrophils % 0.0 Lymphocytes % 4.1 L D Lymphocytes % (Manual) 2.0 L D Monocytes % 5.7 D Monocytes % (Manual) 4 Eosinophils % 0.1 Eosinophils % (Manual) 0.0 Basophils % 0.3 Basophils % (Manual) 0.0 Myelocytes % (Man) 0 Promyelocytes % (Man) 0 Blast Cells % (Manual) 0 Nucleated RBC % 0 Metamyelocytes 0 Hypochromia 0 Platelet Estimate Normal Polychromasia 1+ Poikilocytosis 0 Anisocytosis 2+ Microcytosis 0 Macrocytosis 0 Tear Drop Cells 1+ Ovalocytes 1+ Acanthocytes (Spur) 1+ Puncture Site Right radial ABG pH 7.35 ABG pCO2 at Pt Temp 50.7 H ABG pO2 at Pt Temp 68.7 L ABG HCO3 27.5 H ABG O2 Sat (Measured) 92.7 ABG O2 Content 14.6 L ABG Base Excess 1.8 Madhav Test Positive Carboxyhemoglobin Methemoglobin O2 Delivery Device Vent Oxygen Flow Rate 30% Vent Rate 20 Mechanical Rate Yes PEEP 5.0 Pressure Support Vent 400 Sodium 139 Potassium 4.7 Chloride 104 Carbon Dioxide 31 Anion Gap 4 L BUN 26 H Creatinine 1.2 Creat Clearance w eGFR > 60 Random Glucose 160 H Calcium 8.0 L Phosphorus 3.6 Magnesium 2.5 H Total Bilirubin 0.2 AST 15 ALT 32 Alkaline Phosphatase 64 Total Protein 5.9 L Albumin 2.8 L Opiates Screen Methadone Screen Barbiturate Screen Phencyclidine Screen Ur Amphetamines Screen MDMA (Ecstasy) Screen Benzodiazepines Screen Cocaine Screen U Marijuana (THC) Screen ASSESSMENT AND PLAN: Acute on Chronic Hypercapneic Respiratory Failure Acute COPD Exacerbation r/o Pneumonia Lactic Acidosis Alcohol/Benzo Abuse GERD - SBTs as tolerated - continue medrol - inhaled bronchodilators standing and PRN - taper Fio2 to keep SpO2 88-92% - Sedation vacations - IVF resuscitation - monitor urine output, creatinine - empiric antibiotics - Will need to monitor for withdrawal - DVT/GI prophylaxis - continue ICU monitoring Dr Rodriguez Critical care time spent in reviewing chart, evaluating patient and formulating plan 35 min
[2018-10-22] MEDS ORDERED: fentaNYL CITRATE 250 MCG/5 ML VIAL ONE (14:15)
[2018-10-22] MEDS: SODIUM CHLORIDE 1,000 ML IV SCH (17:28)
--- NOTE | 2018-10-22 18:06 | PN ---
Teaching Attending Note Name of Resident: Chito Mitchell ATTENDING PHYSICIAN STATEMENT I saw and evaluated the patient. I reviewed the resident's note and discussed the case with the resident. I agree with the resident's findings and plan as documented. SUBJECTIVE: Patient is sedated on vent. OBJECTIVE: Vital Signs Period Temp Pulse Resp BP Sys/Whatley Pulse Ox Last 24 Hr 98.1 F-99.8 F 102-117 10-26 121-159/66-86 92-95 HEART: S1S2, tachycardic LUNGS: Clear anteriorly ABDOMEN: Obese, soft, non-distended, normal BS EXTREMITIES: No edema Laboratory Results - last 24 hr 10/21/18 10/21/18 10/22/18 08:50 17:00 05:30 WBC 17.2 H RBC 4.68 Hgb 11.7 Hct 37.4 MCV 79.9 L MCH 25.1 L MCHC 31.4 L RDW 16.4 H Plt Count 204 MPV 9.1 Absolute Neuts (auto) 15.4 H Neutrophils % 89.8 H Neutrophils % (Manual) 92.9 H Band Neutrophils % 0.0 Lymphocytes % 4.1 L D Lymphocytes % (Manual) 2.0 L D Monocytes % 5.7 D Monocytes % (Manual) 4 Eosinophils % 0.1 Eosinophils % (Manual) 0.0 Basophils % 0.3 Basophils % (Manual) 0.0 Myelocytes % (Man) 0 Promyelocytes % (Man) 0 Blast Cells % (Manual) 0 Nucleated RBC % 0 Metamyelocytes 0 Hypochromia 0 Platelet Estimate Normal Polychromasia 1+ Poikilocytosis 0 Anisocytosis 2+ Microcytosis 0 Macrocytosis 0 Tear Drop Cells 1+ Ovalocytes 1+ Acanthocytes (Spur) 1+ Puncture Site ABG pH ABG pCO2 at Pt Temp ABG pO2 at Pt Temp ABG HCO3 ABG O2 Sat (Measured) ABG O2 Content ABG Base Excess Madhav Test Carboxyhemoglobin 1.1 Methemoglobin 0.6 O2 Delivery Device Oxygen Flow Rate Vent Rate Mechanical Rate PEEP Pressure Support Vent Sodium Potassium Chloride Carbon Dioxide Anion Gap BUN Creatinine Creat Clearance w eGFR Random Glucose Calcium Phosphorus Magnesium Total Bilirubin AST ALT Alkaline Phosphatase Total Protein Albumin Opiates Screen Negative Methadone Screen Negative Barbiturate Screen Negative Phencyclidine Screen Negative Ur Amphetamines Screen Negative MDMA (Ecstasy) Screen Negative Benzodiazepines Screen Positive A* Cocaine Screen Negative U Marijuana (THC) Screen Negative 10/22/18 10/22/18 05:30 06:00 WBC RBC Hgb Hct MCV MCH MCHC RDW Plt Count MPV Absolute Neuts (auto) Neutrophils % Neutrophils % (Manual) Band Neutrophils % Lymphocytes % Lymphocytes % (Manual) Monocytes % Monocytes % (Manual) Eosinophils % Eosinophils % (Manual) Basophils % Basophils % (Manual) Myelocytes % (Man) Promyelocytes % (Man) Blast Cells % (Manual) Nucleated RBC % Metamyelocytes Hypochromia Platelet Estimate Polychromasia Poikilocytosis Anisocytosis Microcytosis Macrocytosis Tear Drop Cells Ovalocytes Acanthocytes (Spur) Puncture Site Right radial ABG pH 7.35 ABG pCO2 at Pt Temp 50.7 H ABG pO2 at Pt Temp 68.7 L ABG HCO3 27.5 H ABG O2 Sat (Measured) 92.7 ABG O2 Content 14.6 L ABG Base Excess 1.8 Madhav Test Positive Carboxyhemoglobin Methemoglobin O2 Delivery Device Vent Oxygen Flow Rate 30% Vent Rate 20 Mechanical Rate Yes PEEP 5.0 Pressure Support Vent 400 Sodium 139 Potassium 4.7 Chloride 104 Carbon Dioxide 31 Anion Gap 4 L BUN 26 H Creatinine 1.2 Creat Clearance w eGFR > 60 Random Glucose 160 H Calcium 8.0 L Phosphorus 3.6 Magnesium 2.5 H Total Bilirubin 0.2 AST 15 ALT 32 Alkaline Phosphatase 64 Total Protein 5.9 L Albumin 2.8 L Opiates Screen Methadone Screen Barbiturate Screen Phencyclidine Screen Ur Amphetamines Screen MDMA (Ecstasy) Screen Benzodiazepines Screen Cocaine Screen U Marijuana (THC) Screen Current Medications Generic Name Dose Route Start Last Admin Trade Name Freq PRN Reason Stop Dose Admin Albuterol Sulfate 1 amp 10/21/18 14:58 Ventolin 0.042trength) - NEB Q4H PRN SHORT OF BREATH/WHEEZING Albuterol/Ipratropium 1 amp 10/21/18 08:00 10/22/18 15:45 Duoneb - NEB 1 amp RQID KATH Administration Chlorhexidine Gluconate 1 applic 10/21/18 22:00 10/21/18 21:13 Hibiclens For Decolonization - TP 1 applic HS KATH Administration Clonidine 0.1 mg 10/21/18 14:15 10/22/18 09:49 Catapres - PO 0.1 mg BID KATH Administration Folic Acid 1 mg 10/22/18 10:00 10/22/18 09:49 Folic Acid - GT 1 mg DAILY KATH Administration Heparin Sodium (Porcine) 5,000 unit 10/21/18 14:30 10/22/18 14:28 Heparin - SQ 5,000 unit TID KATH Administration Fentanyl 500 mcg/ Dextrose 100 mls @ 5 mls/hr 10/21/18 06:00 10/22/18 14:27 IVPB 50 mcg/hr TITR KATH 10 mls/hr Administration Protocol 25 MCG/HR Midazolam HCl 100 mg/ Sodium 100 mls @ 1 mls/hr 10/21/18 06:30 10/22/18 06:31 Chloride IVPB 5 mg/hr TITR KATH 5 mls/hr Titration Protocol 1 MG/HR Propofol 1,000,000 mcg in 100 mls @ 31.29 mls/hr 10/21/18 13:30 10/22/18 16: 52 Diprivan - IVPB 50 mcg/kg/min TITR KATH 31.29 mls/hr Administration Protocol 50 MCG/KG/MIN Sodium Chloride 1,000 mls @ 75 mls/hr 10/21/18 17:00 10/22/18 17:28 Normal Saline - IV 75 mls/hr ASDIR KATH Administration Ceftriaxone Sodium 1 gm/ 50 mls @ 100 mls/hr 10/22/18 10:00 10/22/18 09:46 Dextrose IVPB 100 mls/hr DAILY KATH Administration Metronidazole 500 mg in 100 mls @ 100 mls/hr 10/22/18 10:00 10/22/18 17:26 Flagyl 500mg Premixed Ivpb - IVPB 100 mls/hr Q8H-IV KATH Administration Methylprednisolone Sodium Succinate 60 mg 10/21/18 06:30 10/22/18 16:00 Solu-Medrol - IVPB 60 mg Q6H-IV KATH Administration Mupirocin 1 applic 10/21/18 10:00 10/22/18 09:49 Bactroban Ointment (For Decolonization) - NS 10/26/18 09:59 1 applic BID KATH Administration Pantoprazole Sodium 40 mg 10/21/18 10:00 10/22/18 09:49 Protonix Iv IVPUSH 40 mg BID KATH Administration Thiamine HCl 100 mg 10/22/18 10:00 10/22/18 09:50 Vitamin B1 - PO 100 mg DAILY KATH Administration ASSESSMENT AND PLAN: This is a 57 year old man with a history of asthma, HTN, alcohol related seizure , alcohol and benzodiazepine dependence who presented to the ED from [facility] with SOB. 1. Acute on chronic hypercapnic respiratory failure secondary to acute exacerbation of COPD, possible pneumonia - Intubated - vent management as per ICU team - Sedated with Versed, Propofol, Fentanyl - Continue SoluMedrol, DuoNeb, albuterol as needed - Continue ceftriaxone, Flagyl for possible aspiration pneumonia 2. Possible sepsis secondary to pneumonia - Levaquin, Clindamycin given in ED - Continue ceftriaxone, Flagyl for possible aspiration pneumonia - Blood cultures negative after 24 hrs - Urine culture negative 3. Lactic acidosis - Continue IV fluid - Monitor lactic acid 4. Alcohol and benzodiazepine dependence - Completed detox and started rehab at [facility] on 10/17 - Continue thiamine, folic acid - On Versed IV drip 5. HTN - Possibly secondary to withdrawal, rebound from discontinuing Clonidine - Restart Clonidine 6. GERD - Continue Protonix 7. DVT prophylaxis - SCDs, heparin subq 8. Stress ulcer prophylaxis - On Protonix The care of this patient involved high complexity decision making to prevent further life threatening deterioration of the patient's condition and/or to evaluate & treat vital organ system(s) failure or risk of failure. Critical care time spent in reviewing chart, evaluating patient and formulating plan - 30 minutes.
[2018-10-22] MEDS ORDERED: MIDAZOLAM 100 MG/100 ML MG IVPB ONE (18:24)
[2018-10-22] MEDS: CHLORHEXIDINE GLUCONATE 4% CLEANSER FOR DECOLONIZATION TP SCH (21:47)
[2018-10-23] MEDS ORDERED: fentaNYL CITRATE 250 MCG/5 ML VIAL ONE (02:14)
[2018-10-23] MEDS: methylPREDNISolone NA SUCC 40 MG/1 ML VIAL IVPB SCH ×3 (03:20→17:57)
[2018-10-23] MEDS: HEPARIN NA (PORCINE) 5,000 UNITS/ML 1ML VIAL SQ SCH ×3 (06:50→22:16)
[2018-10-23 06:55] LABS: BASO % 0.2 % (0-2.0); HEMATOCRIT 35.3 % (35.4-49); HEMOGLOBIN 11.1 GM/dL (11.7-16.9); LYMPH % 2.7 % (8-40); MCH 25.2 pg (25.7-33.7); MCHC 31.4 g/dl (32.0-35.9); MEAN CELL VOLUME 80.4 fl (80-96); MEAN PLT VOLUME 9.3 fl (7.5-11.1); MONO % 5.4 % (3.8-10.2); NEUT % 91.7 % (42.8-82.8); PLATELET COUNT 171 K/MM3 (134-434); RDW 16.5 % (11.9-15.9); WHITE BLOOD COUNT 17.8 K/mm3 (4.0-10.0)
[2018-10-23 07:12] LABS: ALBUMIN 2.5 g/dl (3.4-5.0); ALK PHOS 54 U/L (45-117); ANION GAP 7 MMOL/L (8-16); BILIRUBIN,TOTAL 0.2 mg/dL (0.2-1); BLOOD UREA NITROGEN 26 mg/dL (7-18); CALCIUM 7.5 mg/dL (8.5-10.1); CHLORIDE 105 mmol/L (98-107); CO2 29 mmol/L (21-32); CREATININE 0.9 mg/dL (0.55-1.3); GLUCOSE,RANDOM 153 mg/dL (74-106); MAGNESIUM 2.7 mg/dL (1.8-2.4); PHOSPHOROUS 4.2 mg/dL (2.5-4.9); POTASSIUM 4.7 mmol/L (3.5-5.1); SGOT/AST 15 U/L (15-37); SGPT/ALT 23 U/L (13-61); SODIUM 140 mmol/L (136-145); TOT PROT 5.4 g/dl (6.4-8.2)
[2018-10-23] MEDS: ALBUTEROL SO4 2.5/IPRATROPIUM 0.5 INH SOL 3 ML VIAL.NEB. NEB SCH ×4 (07:25→20:30)
[2018-10-23] MEDS: SODIUM CHLORIDE 1,000 ML IV SCH ×2 (07:32→18:06)
[2018-10-23 09:13] LABS: ANISOCYTOSIS 1+; MACROCYTOSIS 0; PLATELET ESTIMATE NORMAL
[2018-10-23] MEDS ORDERED: DEXTROSE 5%-WATER - 50 ML IVPB ONE (09:30)
[2018-10-23] MEDS ORDERED: cefTRIAXone SODIUM 1 GM VIAL ONE (09:30)
[2018-10-23] MEDS: PROPOFOL 1,000,000 MCG/100 ML VIAL IVPB SCH (09:36)
[2018-10-23] MEDS: THIAMINE HCL 100 MG TABLET (FP) PO SCH (09:37)
[2018-10-23] MEDS: FOLIC ACID 1 MG TABLET (FP) GT SCH (09:37)
[2018-10-23] MEDS: cloNIDine HCL 0.1 MG TABLET PO SCH ×2 (09:37→22:22)
[2018-10-23] MEDS: PANTOPRAZOLE SODIUM 40 MG VIAL IVPUSH SCH ×2 (09:37→22:16)
[2018-10-23] MEDS: MUPIROCIN 2% TOPICAL OINTMENT FOR DECOLONIZATION NS SCH ×3 (09:39→22:22)
[2018-10-23] MEDS: FENTANYL INJECTION 500 MCG in DEXTROSE 5%-WATER - 90 ML IVPB SCH (10:07)
[2018-10-23] MEDS: CEFTRIAXONE 1 GM in DEXTROSE 5%-WATER - 50 ML IVPB SCH (10:08)
--- NOTE | 2018-10-23 11:37 | PN ---
Progress Note (short form) - Note Progress Note: Seen and examined in ICU Remains intubated deeply sedated BP stable low grade fever Current Medications Albuterol Sulfate (Ventolin 0.042trength) -) 1 amp NEB Q4H PRN PRN Reason: SHORT OF BREATH/WHEEZING Albuterol/Ipratropium (Duoneb -) 1 amp NEB RQID KATH Last Admin: 10/23/18 07:25 Dose: 1 amp Chlorhexidine Gluconate (Hibiclens For Decolonization -) 1 applic TP HS [facility] Last Admin: 10/22/18 21:47 Dose: 1 applic Clonidine (Catapres -) 0.1 mg PO BID KATH Last Admin: 10/23/18 09:37 Dose: 0.1 mg Folic Acid (Folic Acid -) 1 mg GT DAILY [facility] Last Admin: 10/23/18 09:37 Dose: 1 mg Heparin Sodium (Porcine) (Heparin -) 5,000 unit SQ TID KATH Last Admin: 10/23/18 06:50 Dose: 5,000 unit Fentanyl 500 mcg/ Dextrose 100 mls @ 5 mls/hr IVPB TITR [facility]; Protocol Last Admin: 10/23/18 10:07 Dose: Not Given Midazolam HCl 100 mg/ Sodium (Chloride) 100 mls @ 1 mls/hr IVPB TITR [facility]; Protocol Last Titration: 10/22/18 06:31 Dose: 5 mg/hr, 5 mls/hr Propofol (Diprivan -) 1,000,000 mcg in 100 mls @ 31.29 mls/hr IVPB TITR [facility]; Protocol Last Admin: 10/23/18 09:36 Dose: 50 mcg/kg/min, 31.29 mls/hr Sodium Chloride (Normal Saline -) 1,000 mls @ 75 mls/hr IV ASDIR KATH Last Admin: 10/23/18 07:32 Dose: 75 mls/hr Ceftriaxone Sodium 1 gm/ (Dextrose) 50 mls @ 100 mls/hr IVPB DAILY [facility] Last Admin: 10/23/18 10:08 Dose: 100 mls/hr Metronidazole (Flagyl 500mg Premixed Ivpb -) 500 mg in 100 mls @ 100 mls/hr IVPB Q8H-IV KATH Last Admin: 10/23/18 09:37 Dose: 100 mls/hr Methylprednisolone Sodium Succinate (Solu-Medrol -) 60 mg IVPB Q6H-IV [facility] Last Admin: 10/23/18 09:46 Dose: 60 mg Mupirocin (Bactroban Ointment (For Decolonization) -) 1 applic NS BID [facility] Stop: 10/26/18 09:59 Last Admin: 10/23/18 09:41 Dose: 1 applic Pantoprazole Sodium (Protonix Iv) 40 mg IVPUSH BID [facility] Last Admin: 10/23/18 09:37 Dose: 40 mg Thiamine HCl (Vitamin B1 -) 100 mg PO DAILY [facility] Last Admin: 10/23/18 09:37 Dose: 100 mg Vital Signs Period Temp Pulse Resp BP Sys/Whatley Pulse Ox Last 24 Hr 97.6 F-99.8 F 79-113 16-24 126-149/67-77 95-98 Intake & Output 10/20/18 10/21/18 10/22/18 10/23/18 23:59 23:59 23:59 23:59 Intake Total 2621.7 2822.3 971.5 Output Total 1999 3350 900 Balance 621.7 -527.7 71.5 Weight 104.3 kg 105.8 kg 105.2 kg Exam: General: intubated and sedated w/o distress HEENT: PERRL, ETT secure Pulm: diminished in bases otherwise clear CV: RRR Abd: SNTND, obese Neuro: RASS -5 CBC, BMP 10/23/18 05:30 10/23/18 05:30 CXR: bilateral LL consolidation. ETT in ok position. ASSESSMENT AND PLAN: Acute on Chronic Hypercapneic Respiratory Failure Acute COPD Exacerbation r/o Pneumonia Lactic Acidosis Alcohol/Benzo Abuse GERD - SBTs as tolerated, hopefully extubation today - wean medrol q6->8 - inhaled bronchodilators standing and PRN - taper Fio2 to keep SpO2 88-92% - Sedation vacation today - cont IVF - cont thiamine and folic acid - cont antiHTN meds - monitor urine output, creatinine - empiric antibiotics for aspiration PNA - Will need to monitor for withdrawal - DVT/GI prophylaxis - continue ICU monitoring Boerem ACNP Critical care time spent in reviewing chart, evaluating patient and formulating plan 35 min
[2018-10-23] MEDS ORDERED: PROPOFOL 1,000,000 MCG/100 ML VIAL ONE (12:07)
--- NOTE | 2018-10-23 13:26 | PN ---
Progress Note (short form) - Note Progress Note: patent is extubated he is on ventimask no distress and breathing comfortably at this time v Vital Signs Period Temp Pulse Resp BP Sys/Whatley Pulse Ox Last 24 Hr 97.6 F-99.8 F 79-113 16-24 127-149/67-77 93-98 Heent mask on face neck supple lungs elizabeth rales and coarse bs elizabeth heart normal heart sounds ext no edema neuro he is alert and awake and moving all extremities CBC, BMP 10/23/18 05:30 10/23/18 05:30 Laboratory Results - last 24 hr 10/23/18 10/23/18 10/23/18 05:30 05:30 05:30 WBC 17.8 H RBC 4.40 Hgb 11.1 L Hct 35.3 L MCV 80.4 MCH 25.2 L MCHC 31.4 L RDW 16.5 H Plt Count 171 MPV 9.3 Absolute Neuts (auto) 16.3 H Neutrophils % 91.7 H Neutrophils % (Manual) 90.8 H Band Neutrophils % 0.0 Lymphocytes % 2.7 L D Lymphocytes % (Manual) 6.1 L D Monocytes % 5.4 Monocytes % (Manual) 3 L Eosinophils % 0.0 D Eosinophils % (Manual) 0.0 Basophils % 0.2 Basophils % (Manual) 0.0 Myelocytes % (Man) 0 Promyelocytes % (Man) 0 Blast Cells % (Manual) 0 Nucleated RBC % 0 Metamyelocytes 0 Hypochromia 0 Platelet Estimate Normal Polychromasia 1+ Poikilocytosis 0 Anisocytosis 1+ Microcytosis 1+ Macrocytosis 0 Sodium 140 Potassium 4.7 Chloride 105 Carbon Dioxide 29 Anion Gap 7 L BUN 26 H Creatinine 0.9 Creat Clearance w eGFR > 60 Random Glucose 153 H Lactic Acid 2.3 H* Calcium 7.5 L Phosphorus 4.2 Magnesium 2.7 H Total Bilirubin 0.2 AST 15 ALT 23 Alkaline Phosphatase 54 Total Protein 5.4 L Albumin 2.5 L chest x rays noted and it is before the extubation Current Medications Albuterol Sulfate (Ventolin 0.042trength) -) 1 amp NEB Q4H PRN PRN Reason: SHORT OF BREATH/WHEEZING Albuterol/Ipratropium (Duoneb -) 1 amp NEB RQID KATH Last Admin: 10/23/18 11:35 Dose: 1 amp Chlorhexidine Gluconate (Hibiclens For Decolonization -) 1 applic TP HS [facility] Last Admin: 10/22/18 21:47 Dose: 1 applic Clonidine (Catapres -) 0.1 mg PO BID [facility] Last Admin: 10/23/18 09:37 Dose: 0.1 mg Folic Acid (Folic Acid -) 1 mg GT DAILY [facility] Last Admin: 10/23/18 09:37 Dose: 1 mg Heparin Sodium (Porcine) (Heparin -) 5,000 unit SQ TID [facility] Last Admin: 10/23/18 06:50 Dose: 5,000 unit Sodium Chloride (Normal Saline -) 1,000 mls @ 75 mls/hr IV ASDIR [facility] Last Admin: 10/23/18 07:32 Dose: 75 mls/hr Ceftriaxone Sodium 1 gm/ (Dextrose) 50 mls @ 100 mls/hr IVPB DAILY [facility] Last Admin: 10/23/18 10:08 Dose: 100 mls/hr Metronidazole (Flagyl 500mg Premixed Ivpb -) 500 mg in 100 mls @ 100 mls/hr IVPB Q8H-IV [facility] Last Admin: 10/23/18 09:37 Dose: 100 mls/hr Lorazepam (Ativan Injection -) 2 mg IVPUSH Q4H PRN PRN Reason: moderate withdrawal/ Anxiety Methylprednisolone Sodium Succinate (Solu-Medrol -) 60 mg IVPB Q8H-IV [facility] Mupirocin (Bactroban Ointment (For Decolonization) -) 1 applic NS BID [facility] Stop: 10/26/18 09:59 Last Admin: 10/23/18 09:41 Dose: 1 applic Pantoprazole Sodium (Protonix Iv) 40 mg IVPUSH BID [facility] Last Admin: 10/23/18 09:37 Dose: 40 mg Thiamine HCl (Vitamin B1 -) 100 mg PO DAILY [facility] Last Admin: 10/23/18 09:37 Dose: 100 mg ASSESSMENT AND PLAN: This is a 57 year old man with a history of asthma, HTN, alcohol related seizure , alcohol and benzodiazepine dependence who presented to the ED from [facility] with SOB. 1. Acute on chronic hypercapnic respiratory failure secondary to acute exacerbation of COPD, possible pneumonia - Continue SoluMedrol, DuoNeb, albuterol as needed - Continue ceftriaxone, Flagyl 2. Possible sepsis secondary to pneumonia - Levaquin, Clindamycin given in ED - Continue ceftriaxone, Flagyl for possible aspiration pneumonia 3. Lactic acidosis - Continue IV fluid - Monitor lactic acid 4. Alcohol and benzodiazepine dependence - Completed detox and started rehab at [facility] on 10/17 - Continue thiamine, folic acid 5. HTN - Possibly secondary to withdrawal, rebound from discontinuing Clonidine - Restart Clonidine 6. GERD - Continue Protonix 7. DVT prophylaxis - SCDs, heparin subq 8. Stress ulcer prophylaxis - On Protonix
[2018-10-23 14:59] VITALS: BMI 35.1
[2018-10-23] MEDS ORDERED: LORazepam 2 MG/ML SDV VIAL IVPUSH PRN (15:09)
[2018-10-23] MEDS: CHLORHEXIDINE GLUCONATE 4% CLEANSER FOR DECOLONIZATION TP SCH (22:22)
[2018-10-24] MEDS: methylPREDNISolone NA SUCC 40 MG/1 ML VIAL IVPB SCH (02:27)
[2018-10-24] MEDS: HEPARIN NA (PORCINE) 5,000 UNITS/ML 1ML VIAL SQ SCH ×3 (06:31→21:17)
[2018-10-24 06:54] LABS: HEMATOCRIT 36.6 % (35.4-49); HEMOGLOBIN 11.6 GM/dL (11.7-16.9); MCH 25.3 pg (25.7-33.7); MCHC 31.7 g/dl (32.0-35.9); MEAN CELL VOLUME 79.7 fl (80-96); MEAN PLT VOLUME 9.4 fl (7.5-11.1); PLATELET COUNT 170 K/MM3 (134-434); RBC 4.59 M/mm3 (4.00-5.60); RDW 16.2 % (11.9-15.9); WHITE BLOOD COUNT 14.9 K/mm3 (4.0-10.0)
[2018-10-24 06:59] LABS: ANION GAP 7 MMOL/L (8-16); BLOOD UREA NITROGEN 32 mg/dL (7-18); CALCIUM 7.6 mg/dL (8.5-10.1); CHLORIDE 108 mmol/L (98-107); CO2 28 mmol/L (21-32); CREATININE 0.9 mg/dL (0.55-1.3); GLUCOSE,RANDOM 148 mg/dL (74-106); MAGNESIUM 2.8 mg/dL (1.8-2.4); PHOSPHOROUS 2.8 mg/dL (2.5-4.9); POTASSIUM 4.2 mmol/L (3.5-5.1); SODIUM 142 mmol/L (136-145)
[2018-10-24] MEDS: ALBUTEROL SO4 2.5/IPRATROPIUM 0.5 INH SOL 3 ML VIAL.NEB. NEB SCH ×3 (07:03→15:54)
--- NOTE | 2018-10-24 07:33 | PN ---
Progress Note (short form) - Note Progress Note: Seen and examined in the ICU Patient extubated yesterday and weaned to NC weaned steroids required ativan prn for agitation Current Medications Albuterol Sulfate (Ventolin 0.042trength) -) 1 amp NEB Q4H PRN PRN Reason: SHORT OF BREATH/WHEEZING Albuterol/Ipratropium (Duoneb -) 1 amp NEB RQID [facility] Last Admin: 10/24/18 07:03 Dose: 1 amp Chlorhexidine Gluconate (Hibiclens For Decolonization -) 1 applic TP HS [facility] Last Admin: 10/23/18 22:22 Dose: 1 applic Clonidine (Catapres -) 0.1 mg PO BID [facility] Last Admin: 10/23/18 22:22 Dose: 0.1 mg Folic Acid (Folic Acid -) 1 mg GT DAILY [facility] Last Admin: 10/23/18 09:37 Dose: 1 mg Heparin Sodium (Porcine) (Heparin -) 5,000 unit SQ TID [facility] Last Admin: 10/24/18 06:31 Dose: 5,000 unit Sodium Chloride (Normal Saline -) 1,000 mls @ 75 mls/hr IV ASDIR [facility] Last Admin: 10/23/18 18:06 Dose: 75 mls/hr Ceftriaxone Sodium 1 gm/ (Dextrose) 50 mls @ 100 mls/hr IVPB DAILY [facility] Last Admin: 10/23/18 10:08 Dose: 100 mls/hr Metronidazole (Flagyl 500mg Premixed Ivpb -) 500 mg in 100 mls @ 100 mls/hr IVPB Q8H-IV [facility] Last Admin: 10/24/18 02:26 Dose: 100 mls/hr Lorazepam (Ativan Injection -) 2 mg IVPUSH Q4H PRN PRN Reason: moderate withdrawal/ Anxiety Mupirocin (Bactroban Ointment (For Decolonization) -) 1 applic NS BID [facility] Stop: 10/26/18 09:59 Last Admin: 10/23/18 22:22 Dose: 1 applic Thiamine HCl (Vitamin B1 -) 100 mg PO DAILY [facility] Last Admin: 10/23/18 09:37 Dose: 100 mg Vital Signs Period Temp Pulse Resp BP Sys/Whatley Pulse Ox Last 24 Hr 98 F-98.9 F 52-112 11-24 128-161/69-91 93-97 Intake & Output 10/21/18 10/22/18 10/23/18 10/24/18 23:59 23:59 23:59 23:59 Intake Total 2621.7 2822.3 2789.5 1240 Output Total 1999 3350 3430 1100 Balance 621.7 -527.7 -640.5 140 Weight 104.3 kg 105.8 kg 104.78 kg Exam: General:awake, alert w/o distress HEENT: PERRL, ETT secure Pulm: CTA CV: RRR Abd: SNTND, obese Neuro: RASS -0, CN grossly intact CBC, BMP 10/24/18 05:30 10/24/18 05:30 CXR: bilateral LL consolidation ASSESSMENT AND PLAN: Resolved Acute on Chronic Hypercapneic Respiratory Failure Acute COPD Exacerbation r/o Pneumonia Lactic Acidosis Alcohol/Benzo Abuse GERD - o2 as need for sat 88-90% - incentive purvi - wean medrol off today - inhaled bronchodilators standing and PRN - ativan prn for withdrawal - cont IVF - cont thiamine and folic acid - cont antiHTN meds - monitor urine output, creatinine - empiric antibiotics for aspiration PNA - d/c GI prophylaxis now that he is extubated - PT--> OOB to chair - DVT prophylaxis - stable for floor transfer Alex ACNP Critical care time spent in reviewing chart, evaluating patient and formulating plan 35 min
[2018-10-24] MEDS ORDERED: DEXTROSE 5%-WATER - 50 ML IVPB ONE (09:28)
[2018-10-24] MEDS ORDERED: cefTRIAXone SODIUM 1 GM VIAL ONE (09:28)
[2018-10-24] MEDS: CEFTRIAXONE 1 GM in DEXTROSE 5%-WATER - 50 ML IVPB SCH (09:37)
[2018-10-24] MEDS: FOLIC ACID 1 MG TABLET (FP) GT SCH (09:37)
[2018-10-24] MEDS: cloNIDine HCL 0.1 MG TABLET PO SCH ×2 (09:37→21:16)
[2018-10-24] MEDS: THIAMINE HCL 100 MG TABLET (FP) PO SCH (09:37)
[2018-10-24] MEDS: MUPIROCIN 2% TOPICAL OINTMENT FOR DECOLONIZATION NS SCH (09:38)
--- NOTE | 2018-10-24 11:11 | PN ---
Physical Exam: SUBJECTIVE: Patient seen and examined. Off ventimask, now on NC. Awake, tolerating diet. Unsure why he presented in hospital. C/o of sorethroat (post intubation) and generalized weakness. OBJECTIVE: Vital Signs Period Temp Pulse Resp BP Sys/Whatley Pulse Ox Last 24 Hr 98 F-98.9 F 52-112 11-24 128-161/69-91 93-94 Vital Signs Temp 97.6 F 10/24/18 17:00 Pulse 79 10/24/18 17:00 Resp 20 10/24/18 17:00 BP 149/70 10/24/18 17:00 Pulse Ox 94 L 10/24/18 09:00 Intake & Output 10/23/18 10/24/18 10/24/18 23:59 11:59 23:59 Intake Total 1818 1240 1240 Output Total 2530 1100 1100 Balance -712 140 140 Weight 104.78 kg Intake: IV 1158 900 700 DIPRIVAN - 1,000,000 mcg 170 In 100 ml @ 50 MCG/KG/MIN 31.29 mls/hr IVPB TITR KATH Rx#:[id number] Normal Saline - 1,000 ml 900 900 700 @ 75 mls/hr IV ASDIR KATH Rx#:[id number] Sublimaze Injection - 500 50 Mcg In D5w - 90 ml @ 25 MCG/HR 5 mls/hr IVPB TITR KATH Rx#:[id number] Versed - 100 mg In Normal 28 Saline - 100 ml @ 1 MG/ HR 1 mls/hr IVPB TITR KATH Rx#:[id number] saline lock 10 IVPB 300 100 300 Oral 360 240 240 Output: Urine 2530 1100 1100 [place] 2500 Void 30 1100 1100 Other: Voiding Method Urinal Urinal Urinal Bowel Movement No No No Height 1.73 m Body Mass Index (BMI) 35.1 GENERAL: The patient is awake, alert, and fully oriented, in no acute respiratory distress. HEAD: Normal with no signs of trauma. EYES: PERRL, extraocular movements intact ENT: moist mucous membranes. NECK: full range of motion, supple. LUNGS: Breath sounds equal, clear to auscultation bilaterally, no wheezes, no crackles HEART: Regular rate and rhythm, S1, S2 without murmur ABDOMEN: Firm, nontender, nondistended, normoactive bowel sounds, no guarding EXTREMITIES: 2+ pulses, warm, well-perfused, no edema. NEUROLOGICAL: Cranial nerves II through XII grossly intact. No facial asymmetry , 5/5 muscle strength B/L UE and LE. Normal speech, gait not observed. Normal tone and sensations. CBC, BMP 10/24/18 05:30 10/24/18 05:30 Laboratory Results - last 24 hr 10/24/18 10/24/18 05:30 05:30 WBC 14.9 H RBC 4.59 Hgb 11.6 L Hct 36.6 MCV 79.7 L MCH 25.3 L MCHC 31.7 L RDW 16.2 H Plt Count 170 MPV 9.4 Sodium 142 Potassium 4.2 Chloride 108 H Carbon Dioxide 28 Anion Gap 7 L BUN 32 H Creatinine 0.9 Creat Clearance w eGFR > 60 Random Glucose 148 H Calcium 7.6 L Phosphorus 2.8 Magnesium 2.8 H Active Medications Generic Name Dose Route Start Last Admin Trade Name Freq PRN Reason Stop Dose Admin Albuterol Sulfate 1 amp 10/21/18 14:58 Ventolin 0.042trength) - NEB Q4H PRN SHORT OF BREATH/WHEEZING Albuterol/Ipratropium 1 amp 10/21/18 08:00 10/24/18 07:03 Duoneb - NEB 1 amp RQID KATH Administration Benzocaine/Menthol 1 each 10/24/18 11:06 Cepacol Lozenge - MM Q6H PRN SORE THROAT Chlorhexidine Gluconate 1 applic 10/21/18 22:00 10/23/18 22:22 Hibiclens For Decolonization - TP 1 applic HS KATH Administration Clonidine 0.1 mg 10/21/18 14:15 10/24/18 09:37 Catapres - PO 0.1 mg BID KATH Administration Folic Acid 1 mg 10/22/18 10:00 10/24/18 09:37 Folic Acid - GT 1 mg DAILY KATH Administration Heparin Sodium (Porcine) 5,000 unit 10/21/18 14:30 10/24/18 06:31 Heparin - SQ 5,000 unit TID KATH Administration Ceftriaxone Sodium 1 gm/ 50 mls @ 100 mls/hr 10/22/18 10:00 10/24/18 09:37 Dextrose IVPB 100 mls/hr DAILY KATH Administration Metronidazole 500 mg in 100 mls @ 100 mls/hr 10/22/18 10:00 10/24/18 09:37 Flagyl 500mg Premixed Ivpb - IVPB 100 mls/hr Q8H-IV KATH Administration Lorazepam 2 mg 10/23/18 15:09 Ativan Injection - IVPUSH Q4H PRN moderate withdrawal/ Anxiety Mupirocin 1 applic 10/21/18 10:00 10/24/18 09:38 Bactroban Ointment (For Decolonization) - NS 10/26/18 09:59 1 applic BID KATH Administration Thiamine HCl 100 mg 10/22/18 10:00 10/24/18 09:37 Vitamin B1 - PO 100 mg DAILY KATH Administration Ambulatory Orders Fluticasone/Salmeterol [Advair 250-50 Diskus] 1 each IH BID 10/13/18 Albuterol Sulfate Inhaler - [Ventolin HFA Inhaler -] 2 inh PO Q4H PRN #1 inhaler 10/17/18 Budesonide/Formeterol Fumarate [SYMBICORT 80/4.5mcg -] 1 inh IH BID #1 inhaler 10/17/18 Clopidogrel Bisulfate [Plavix] 75 mg PO HS #30 tablet 10/17/18 Quetiapine Fumarate [Seroquel -] 300 mg PO HS 10/17/18 cloNIDine HCL [Catapres -] 0.1 mg PO BID #30 tablet 10/17/18 Current Medications Albuterol Sulfate (Ventolin 0.042trength) -) 1 amp NEB Q4H PRN PRN Reason: SHORT OF BREATH/WHEEZING Albuterol/Ipratropium (Duoneb -) 1 amp NEB RQID [facility] Last Admin: 10/24/18 15:54 Dose: 1 amp Benzocaine/Menthol (Cepacol Lozenge -) 1 each MM Q6H PRN PRN Reason: SORE THROAT Chlorhexidine Gluconate (Hibiclens For Decolonization -) 1 applic TP HS [facility] Last Admin: 10/23/18 22:22 Dose: 1 applic Clonidine (Catapres -) 0.1 mg PO BID [facility] Last Admin: 10/24/18 09:37 Dose: 0.1 mg Folic Acid (Folic Acid -) 1 mg GT DAILY [facility] Last Admin: 10/24/18 09:37 Dose: 1 mg Heparin Sodium (Porcine) (Heparin -) 5,000 unit SQ TID [facility] Last Admin: 10/24/18 14:11 Dose: 5,000 unit Ceftriaxone Sodium 1 gm/ (Dextrose) 50 mls @ 100 mls/hr IVPB DAILY [facility] Last Admin: 10/24/18 09:37 Dose: 100 mls/hr Metronidazole (Flagyl 500mg Premixed Ivpb -) 500 mg in 100 mls @ 100 mls/hr IVPB Q8H-IV [facility] Last Admin: 10/24/18 17:20 Dose: 100 mls/hr Mupirocin (Bactroban Ointment (For Decolonization) -) 1 applic NS BID [facility] Stop: 10/26/18 09:59 Last Admin: 10/24/18 09:38 Dose: 1 applic Thiamine HCl (Vitamin B1 -) 100 mg PO DAILY [facility] Last Admin: 10/24/18 09:37 Dose: 100 mg CXR- B/l basal atelectasis/infiltrates ASSESSMENT/PLAN: 57 y/o M with PMHx of Asthma, HTN, EtOH related Seizure, EtOH and Benzo dependence from [facility] admitted with asthma vs COPD exacerbation and SIRS with unknown source required intubation in ED for increased work of breathing. #Acute on chronic hypercapnic hypoxic respiratory failure secondary to likely aspiration PNA -Improved, S/p extubation -Cont antibiotics -Stop IVf #SIRS, Likely aspiration PNA -Elevated WBC count 21, Temp 96.6 on admission now improved, Tachycardic to 130s -Possible aspiration pneumonitis with possible traumatic intubation. Monitor CXR for worsening -Possible aspiration pneumonia early in development if pt aspirated prior to [facility] admission, known alcohol abuse -With possible abdominal distension, monitor and consider KUB if worsens -UA negative -Blood cultures pending #Sorethroat -s/p extubation -cepachol lozenges #Asthma vs COPD -Intubated, will attempt to wean once ABG improves and pt more likely to sustain extubation -DuoNebs RQID -Albuterol NEBs Q4 PRN -SoluMedrol 60 mg Q6 IV #HTN -Clonidine 0.1 mg PO BID can receive via OG Tube -Initial HTN urgency could have been due to reactive HTN without clonidine being given -Continue to monitor b.p. (improved for now) #EtOH/Benzo dependence/abuse -Presented from [facility] rehab, had completed detox on this admission -Urine toxicology pending -Monitor for further signs of benzo withdrawal as could be anticipated > 1 week after last use #DVT Prophylaxis -Heparin 5000 units SQ TID #FEN -Fluids stop fluids pt tolerating PO -Electrolytes:monitor lytes replete as needed -Nutrition: Diet #Dispo -Transfer to floors Visit type - Emergency Visit Emergency Visit: Yes ED Registration Date: 10/21/18 Care time: The patient presented to the Emergency Department on the above date and was hospitalized for further evaluation of their emergent condition. - New Patient This patient is new to me today: Yes Date on this admission: 10/24/18 - Critical Care Critical Care patient: No - Discharge Referral Referred to [facility] No
--- NOTE | 2018-10-24 11:53 | PN ---
Teaching Attending Note Name of Resident: Nicole Grace ATTENDING PHYSICIAN STATEMENT I saw and evaluated the patient. I reviewed the resident's note and discussed the case with the resident. I agree with the resident's findings and plan as documented. SUBJECTIVE:He is extubated talking and eating and c/o weakness no sob OBJECTIVE: Vital Signs Period Temp Pulse Resp BP Sys/Whatley Pulse Ox Last 24 Hr 98 F-98.9 F 52-112 11-22 128-161/69-91 93-94 Heent nad neck supple lungs coarse bs elizabeth heart no change ext no edema neuro non focal Laboratory Results - last 24 hr 10/24/18 10/24/18 05:30 05:30 WBC 14.9 H RBC 4.59 Hgb 11.6 L Hct 36.6 MCV 79.7 L MCH 25.3 L MCHC 31.7 L RDW 16.2 H Plt Count 170 MPV 9.4 Sodium 142 Potassium 4.2 Chloride 108 H Carbon Dioxide 28 Anion Gap 7 L BUN 32 H Creatinine 0.9 Creat Clearance w eGFR > 60 Random Glucose 148 H Calcium 7.6 L Phosphorus 2.8 Magnesium 2.8 H Current Medications Albuterol Sulfate (Ventolin 0.042trength) -) 1 amp NEB Q4H PRN PRN Reason: SHORT OF BREATH/WHEEZING Albuterol/Ipratropium (Duoneb -) 1 amp NEB RQID [facility] Last Admin: 10/24/18 11:49 Dose: 1 amp Benzocaine/Menthol (Cepacol Lozenge -) 1 each MM Q6H PRN PRN Reason: SORE THROAT Chlorhexidine Gluconate (Hibiclens For Decolonization -) 1 applic TP HS [facility] Last Admin: 10/23/18 22:22 Dose: 1 applic Clonidine (Catapres -) 0.1 mg PO BID [facility] Last Admin: 10/24/18 09:37 Dose: 0.1 mg Folic Acid (Folic Acid -) 1 mg GT DAILY [facility] Last Admin: 10/24/18 09:37 Dose: 1 mg Heparin Sodium (Porcine) (Heparin -) 5,000 unit SQ TID [facility] Last Admin: 10/24/18 06:31 Dose: 5,000 unit Ceftriaxone Sodium 1 gm/ (Dextrose) 50 mls @ 100 mls/hr IVPB DAILY [facility] Last Admin: 01/13/19 09:37 Dose: 100 mls/hr Metronidazole (Flagyl 500mg Premixed Ivpb -) 500 mg in 100 mls @ 100 mls/hr IVPB Q8H-IV [facility] Last Admin: 10/24/18 09:37 Dose: 100 mls/hr Lorazepam (Ativan Injection -) 2 mg IVPUSH Q4H PRN PRN Reason: moderate withdrawal/ Anxiety Mupirocin (Bactroban Ointment (For Decolonization) -) 1 applic NS BID [facility] Stop: 10/26/18 09:59 Last Admin: 10/24/18 09:38 Dose: 1 applic Thiamine HCl (Vitamin B1 -) 100 mg PO DAILY [facility] Last Admin: 10/24/18 09:37 Dose: 100 mg ASSESSMENT AND PLAN: Resolved Acute on Chronic Hypercapneic Respiratory Failure Acute COPD Exacerbation possible aspiration Pneumonia or atalectesis on cxr Lactic Acidosis Alcohol/Benzo Abuse GERD he is much better , his cxr is no pneumonia he ate well wbc is coming down continue abx and transfer to floor and start pt
[2018-10-24] MEDS ORDERED: ALBUTEROL SO4 0.083% IH SOL 2.5 MG/3 ML VIAL.NEB. NEB PRN (20:01)
[2018-10-24] MEDS ORDERED: PT OWN MED DRAWER 7, Y5N ONE (20:53)
[2018-10-24] MEDS: BENZOCAINE/MENTH/CETYLPYRD CL 1 EACH LOZENGE MM PRN (21:17)
[2018-10-24] MEDS ORDERED: CHLORHEXIDINE GLUCONATE 4% CLEANSER FOR DECOLONIZATION TP SCH (22:00)
[2018-10-24] MEDS ORDERED: MUPIROCIN 2% TOPICAL OINTMENT FOR DECOLONIZATION NS SCH (22:00)
[2018-10-25] MEDS ORDERED: PT OWN MED DRAWER 7, Y5N ONE ×2 (05:53→20:49)
[2018-10-25] MEDS: BENZOCAINE/MENTH/CETYLPYRD CL 1 EACH LOZENGE MM PRN ×2 (05:56→21:07)
[2018-10-25] MEDS: HEPARIN NA (PORCINE) 5,000 UNITS/ML 1ML VIAL SQ SCH ×3 (05:58→21:05)
[2018-10-25] MEDS: ALBUTEROL SO4 2.5/IPRATROPIUM 0.5 INH SOL 3 ML VIAL.NEB. NEB SCH ×4 (07:15→21:18)
[2018-10-25 07:22] LABS: HEMATOCRIT 37.6 % (35.4-49); HEMOGLOBIN 11.7 GM/dL (11.7-16.9); MCH 24.8 pg (25.7-33.7); MCHC 31.1 g/dl (32.0-35.9); MEAN CELL VOLUME 79.6 fl (80-96); MEAN PLT VOLUME 8.7 fl (7.5-11.1); PLATELET COUNT 148 K/MM3 (134-434); RBC 4.72 M/mm3 (4.00-5.60); RDW 16.3 % (11.9-15.9); WHITE BLOOD COUNT 11.5 K/mm3 (4.0-10.0)
[2018-10-25 08:29] LABS: ALBUMIN 2.7 g/dl (3.4-5.0); ALK PHOS 54 U/L (45-117); ANION GAP 3 MMOL/L (8-16); BILIRUBIN,TOTAL 0.5 mg/dL (0.2-1); BLOOD UREA NITROGEN 30 mg/dL (7-18); CHLORIDE 108 mmol/L (98-107); CO2 33 mmol/L (21-32); CREATININE 0.9 mg/dL (0.55-1.3); GLUCOSE,RANDOM 91 mg/dL (74-106); POTASSIUM 3.9 mmol/L (3.5-5.1); SGOT/AST 20 U/L (15-37); SGPT/ALT 27 U/L (13-61); SODIUM 144 mmol/L (136-145); TOT PROT 5.4 g/dl (6.4-8.2)
[2018-10-25] MEDS ORDERED: DEXTROSE 5%-WATER - 50 ML IVPB ONE (09:17)
[2018-10-25] MEDS ORDERED: cefTRIAXone SODIUM 1 GM VIAL ONE (09:17)
[2018-10-25] MEDS: CEFTRIAXONE 1 GM in DEXTROSE 5%-WATER - 50 ML IVPB SCH (09:24)
[2018-10-25] MEDS: FOLIC ACID 1 MG TABLET (FP) GT SCH (09:25)
[2018-10-25] MEDS: cloNIDine HCL 0.1 MG TABLET PO SCH ×2 (09:25→21:05)
[2018-10-25] MEDS: THIAMINE HCL 100 MG TABLET (FP) PO SCH (09:25)
--- NOTE | 2018-10-25 12:56 | PN ---
Progress Note (short form) - Note Progress Note: PULMONARY States breathing better but not at baseline. Still some chest tightness. c/o throat discomfort. Vital Signs Period Temp Pulse Resp BP Sys/Whatley Pulse Ox Last 24 Hr 97.6 F-98.0 F 69-82 20-22 123-150/66-95 94-94 Gen: NAD at rest Heart: RRR Lung: decreased breath sounds at the bases Abd: soft, nontender Ext: no edema CBC, BMP 10/25/18 06:45 10/25/18 06:45 ABG Results ABG pH 7.35 (7.35-7.45) 10/22/18 06:00 ABG pCO2 at Pt Temp 50.7 mmHg (35-45) H 10/22/18 06:00 ABG pO2 at Pt Temp 68.7 mmHg (80-100) L 10/22/18 06:00 ABG HCO3 27.5 meq/L (22-26) H 10/22/18 06:00 ABG O2 Sat (Measured) 92.7 % (90-98.9) 10/22/18 06:00 ABG O2 Content 14.6 % vol (15-22) L 10/22/18 06:00 ABG Base Excess 1.8 meq/l (-2-2) 10/22/18 06:00 Active Medications Albuterol Sulfate (Ventolin 0.083% Nebulizer Soln -) 1 amp NEB Q4H PRN PRN Reason: SHORT OF BREATH/WHEEZING Albuterol/Ipratropium (Duoneb -) 1 amp NEB RQID [facility] Last Admin: 10/25/18 11:20 Dose: 1 amp Benzocaine/Menthol (Cepacol Lozenge -) 1 each MM Q6H PRN PRN Reason: SORE THROAT Last Admin: 10/25/18 05:56 Dose: 1 each Clonidine (Catapres -) 0.1 mg PO BID [facility] Last Admin: 10/25/18 09:25 Dose: 0.1 mg Folic Acid (Folic Acid -) 1 mg GT DAILY [facility] Last Admin: 10/25/18 09:25 Dose: 1 mg Heparin Sodium (Porcine) (Heparin -) 5,000 unit SQ TID [facility] Last Admin: 10/25/18 05:58 Dose: 5,000 unit Ceftriaxone Sodium 1 gm/ (Dextrose) 50 mls @ 100 mls/hr IVPB DAILY [facility] Last Admin: 10/25/18 09:24 Dose: 100 mls/hr Metronidazole (Flagyl 500mg Premixed Ivpb -) 500 mg in 100 mls @ 100 mls/hr IVPB Q8H-IV [facility] Last Admin: 10/25/18 09:24 Dose: 100 mls/hr Thiamine HCl (Vitamin B1 -) 100 mg PO DAILY [facility] Last Admin: 10/25/18 09:25 Dose: 100 mg A/P Acute on Chronic Hypercapneic Respiratory Failure Acute COPD Exacerbation Pneumonia Alcohol/Benzo Abuse GERD - will continue medrol - inhaled bronchodilators standing and PRN - O2 to keep SpO2 88-92% - complete antibiotics - when ready for discharge, will need to check ambulatory SpO2 on room air to assess for home O2 - DVT prophylaxis
[2018-10-25] MEDS: methylPREDNISolone NA SUCC 40 MG/1 ML VIAL IVPUSH SCH ×2 (13:36→21:07)
--- NOTE | 2018-10-25 14:36 | PN ---
Physical Exam: SUBJECTIVE: Patient seen and examined this AM. He states he is feeling better but is still fairly SOB and weak. OBJECTIVE: Vital Signs Period Temp Pulse Resp BP Sys/Whatley Pulse Ox Last 24 Hr 97.6 F-98.0 F 69-82 20-22 123-150/69-95 94-94 GENERAL: Alert and Oriented, no acute distress HEAD: Normocephalic, atraumatic. EYES: PERRL, no scleral icterus EARS, NOSE, THROAT: oropharynx clear without exudates. Moist mucous membranes. NECK: supple without lymphadenopathy LUNGS: diffuse wheezes, delayed expiration HEART: Tachycardic, normal S1 and S2 without murmur ABDOMEN: Soft nontender, nondistended, normoactive bowel sounds EXTREMITIES: warm, well-perfused. No peripheral edema. SKIN: Warm, dry, no rashes or lesions noted Laboratory Results - last 24 hr 10/25/18 10/25/18 10/25/18 06:45 06:45 10:55 WBC 11.5 H RBC 4.72 Hgb 11.7 Hct 37.6 MCV 79.6 L MCH 24.8 L MCHC 31.1 L RDW 16.3 H Plt Count 148 MPV 8.7 Sodium 144 Potassium 3.9 Chloride 108 H Carbon Dioxide 33 H Anion Gap 3 L BUN 30 H Creatinine 0.9 Creat Clearance w eGFR > 60 Random Glucose 91 Lactic Acid 1.0 Calcium 8.0 L Total Bilirubin 0.5 AST 20 ALT 27 Alkaline Phosphatase 54 Total Protein 5.4 L Albumin 2.7 L Active Medications Generic Name Dose Route Start Last Admin Trade Name Freq PRN Reason Stop Dose Admin Albuterol Sulfate 1 amp 10/24/18 20:01 Ventolin 0.083% Nebulizer Soln - NEB Q4H PRN SHORT OF BREATH/WHEEZING Albuterol/Ipratropium 1 amp 10/25/18 08:00 10/25/18 11:20 Duoneb - NEB 1 amp RQID KATH Administration Benzocaine/Menthol 1 each 10/24/18 11:06 10/25/18 05:56 Cepacol Lozenge - MM 1 each Q6H PRN Administration SORE THROAT Clonidine 0.1 mg 10/24/18 22:00 10/25/18 09:25 Catapres - PO 0.1 mg BID KATH Administration Folic Acid 1 mg 10/25/18 10:00 10/25/18 09:25 Folic Acid - GT 1 mg DAILY KATH Administration Heparin Sodium (Porcine) 5,000 unit 10/24/18 22:00 10/25/18 13:36 Heparin - SQ 5,000 unit TID KATH Administration Ceftriaxone Sodium 1 gm/ 50 mls @ 100 mls/hr 10/25/18 10:00 10/25/18 09:24 Dextrose IVPB 100 mls/hr DAILY KATH Administration Metronidazole 500 mg in 100 mls @ 100 mls/hr 10/25/18 02:00 10/25/18 09:24 Flagyl 500mg Premixed Ivpb - IVPB 100 mls/hr Q8H-IV KATH Administration Methylprednisolone Sodium Succinate 40 mg 10/25/18 13:45 10/25/18 13:36 Solu-Medrol - IVPUSH 40 mg BID KATH Administration Thiamine HCl 100 mg 10/25/18 10:00 10/25/18 09:25 Vitamin B1 - PO 100 mg DAILY KATH Administration ASSESSMENT/PLAN: 57 y/o M with PMHx of Asthma, HTN, EtOH related Seizure, EtOH and Benzo dependence from [facility] admitted with asthma vs COPD exacerbation and SIRS with unknown source required intubation in ED for increased work of breathing. SIRS, source unknown -Elevated WBC count 21 (improved to 11), Temp 96.6 on admission now improved, Tachycardic to 130s (improved) -Possible aspiration pneumonitis with possible traumatic intubation. Monitor CXR for worsening -Possible aspiration pneumonia early in development if pt aspirated prior to [facility] admission, known alcohol abuse -UA negative -Blood cultures negative Asthma vs COPD -Successfully extubated and saturating well on 2L NC, will attempt to wean -DuoNebs RQID -Albuterol NEBs Q4 PRN -SoluMedrol 40 mg BID IV HTN -Clonidine 0.1 mg PO BID can receive via OG Tube -Initial HTN urgency could have been due to reactive HTN without clonidine being given -Continue to monitor b.p. (improved for now) EtOH/Benzo dependence/abuse -Presented from [facility] rehab, had completed detox on this admission -Urine toxicology only positive for benzo, but on versed drip at that time as Utox was uncollected in ED -Monitor for further signs of benzo withdrawal as could be anticipated > 1 week after last use DVT Prophylaxis -Heparin 5000 units SQ TID FEN -Fluids: none -Electrolytes: No electrolyte abnormalities, BMP in AM -Nutrition: Regular Diet Disposition Med/Surg Visit type - Emergency Visit Emergency Visit: Yes ED Registration Date: 10/21/18 Care time: The patient presented to the Emergency Department on the above date and was hospitalized for further evaluation of their emergent condition. - New Patient This patient is new to me today: No - Critical Care Critical Care patient: No
--- NOTE | 2018-10-25 18:26 | PN ---
Teaching Attending Note Name of Resident: Chito Mitchell ATTENDING PHYSICIAN STATEMENT I saw and evaluated the patient. I reviewed the resident's note and discussed the case with the resident. I agree with the resident's findings and plan as documented. SUBJECTIVE: Feels better, some mild SOB. No fever/chills. OBJECTIVE: Afebrile, Hemodynamically Stable. Last Vital Signs Temp Pulse Resp BP Pulse Ox 98.1 F 90 20 129/90 94 L 10/25/18 14:33 10/25/18 14:33 10/25/18 10:00 10/25/18 14:33 10/25/18 10:00 HEENT - Atraumatic, Normocephalic. Heart - S1, S2, RRR Lungs few basal crackles. Abdomen - High BMI, soft, non-tender. Extremities - no calf tenderness. Laboratory Results - last 24 hr 10/25/18 10/25/18 10/25/18 06:45 06:45 10:55 WBC 11.5 H RBC 4.72 Hgb 11.7 Hct 37.6 MCV 79.6 L MCH 24.8 L MCHC 31.1 L RDW 16.3 H Plt Count 148 MPV 8.7 Sodium 144 Potassium 3.9 Chloride 108 H Carbon Dioxide 33 H Anion Gap 3 L BUN 30 H Creatinine 0.9 Creat Clearance w eGFR > 60 Random Glucose 91 Lactic Acid 1.0 Calcium 8.0 L Total Bilirubin 0.5 AST 20 ALT 27 Alkaline Phosphatase 54 Total Protein 5.4 L Albumin 2.7 L Current Medications Generic Name Dose Route Start Last Admin Trade Name Freq PRN Reason Stop Dose Admin Albuterol Sulfate 1 amp 10/24/18 20:01 Ventolin 0.083% Nebulizer Soln - NEB Q4H PRN SHORT OF BREATH/WHEEZING Albuterol/Ipratropium 1 amp 10/25/18 08:00 10/25/18 16:00 Duoneb - NEB 1 amp RQID KATH Administration Benzocaine/Menthol 1 each 10/24/18 11:06 10/25/18 05:56 Cepacol Lozenge - MM 1 each Q6H PRN Administration SORE THROAT Clonidine 0.1 mg 10/24/18 22:00 10/25/18 09:25 Catapres - PO 0.1 mg BID KATH Administration Folic Acid 1 mg 10/25/18 10:00 10/25/18 09:25 Folic Acid - GT 1 mg DAILY KATH Administration Heparin Sodium (Porcine) 5,000 unit 10/24/18 22:00 10/25/18 13:36 Heparin - SQ 5,000 unit TID KATH Administration Ceftriaxone Sodium 1 gm/ 50 mls @ 100 mls/hr 10/25/18 10:00 10/25/18 09:24 Dextrose IVPB 100 mls/hr DAILY KATH Administration Metronidazole 500 mg in 100 mls @ 100 mls/hr 10/25/18 02:00 10/25/18 17:04 Flagyl 500mg Premixed Ivpb - IVPB 100 mls/hr Q8H-IV KATH Administration Methylprednisolone Sodium Succinate 40 mg 10/25/18 13:45 10/25/18 13:36 Solu-Medrol - IVPUSH 40 mg BID KATH Administration Thiamine HCl 100 mg 10/25/18 10:00 10/25/18 09:25 Vitamin B1 - PO 100 mg DAILY KATH Administration ASSESSMENT AND PLAN: 57 year old Male with a history of asthma, HTN, alcohol related seizure, alcohol and benzodiazepine dependence who presented to the ED from [facility] with SOB. 1. Acute on chronic hypercapnic respiratory failure and severe sepsis secondary to acute exacerbation of COPD, possible pneumonia - Resolved. Intubated/Extubated Continue SoluMedrol, DuoNeb, albuterol as needed Continue ceftriaxone, Flagyl for possible aspiration pneumonia - for switch to po Abx tomorrow. SpO2 94% on 2L - for slow weaning off O2. 2. History of Alcohol and benzodiazepine dependence Completed detox and started rehab at [facility] on 10/17 Continue thiamine, folic acid 3. HTN - resumed on Clonidine. 4. GERD - Continue Protonix kyra while on steroid. DVT Px - Heparin SQ Dispo - consider [facility].
[2018-10-25] MEDS: PANTOPRAZOLE 40 MG TABLET (FP) PO SCH (18:35)
[2018-10-26] MEDS: HEPARIN NA (PORCINE) 5,000 UNITS/ML 1ML VIAL SQ SCH ×2 (06:08→14:17)
[2018-10-26] MEDS: ALBUTEROL SO4 2.5/IPRATROPIUM 0.5 INH SOL 3 ML VIAL.NEB. NEB SCH ×3 (07:30→17:42)
[2018-10-26 07:52] LABS: HEMATOCRIT 40.3 % (35.4-49); HEMOGLOBIN 13.5 GM/dL (11.7-16.9); MCH 26.3 pg (25.7-33.7); MCHC 33.6 g/dl (32.0-35.9); MEAN CELL VOLUME 78.4 fl (80-96); MEAN PLT VOLUME 9.2 fl (7.5-11.1); PLATELET COUNT 160 K/MM3 (134-434); RBC 5.14 M/mm3 (4.00-5.60); RDW 16.2 % (11.9-15.9); WHITE BLOOD COUNT 13.8 K/mm3 (4.0-10.0)
[2018-10-26 08:20] LABS: ANION GAP 10 MMOL/L (8-16); BLOOD UREA NITROGEN 25 mg/dL (7-18); CALCIUM 8.6 mg/dL (8.5-10.1); CHLORIDE 102 mmol/L (98-107); CO2 27 mmol/L (21-32); CREATININE 0.8 mg/dL (0.55-1.3); GLUCOSE,RANDOM 106 mg/dL (74-106); POTASSIUM 4.5 mmol/L (3.5-5.1); SODIUM 139 mmol/L (136-145)
[2018-10-26] MEDS ORDERED: cefTRIAXone SODIUM 1 GM VIAL ONE (09:48)
[2018-10-26] MEDS ORDERED: DEXTROSE 5%-WATER - 50 ML IVPB ONE (09:48)
[2018-10-26] MEDS: CEFTRIAXONE 1 GM in DEXTROSE 5%-WATER - 50 ML IVPB SCH (09:53)
[2018-10-26] MEDS: PANTOPRAZOLE 40 MG TABLET (FP) PO SCH (09:55)
[2018-10-26] MEDS: THIAMINE HCL 100 MG TABLET (FP) PO SCH (09:55)
[2018-10-26] MEDS: FOLIC ACID 1 MG TABLET (FP) GT SCH (09:55)
[2018-10-26] MEDS: methylPREDNISolone NA SUCC 40 MG/1 ML VIAL IVPUSH SCH (09:55)
[2018-10-26] MEDS: cloNIDine HCL 0.1 MG TABLET PO SCH (09:56)
--- NOTE | 2018-10-26 12:22 | PN ---
Progress Note (short form) - Note Progress Note: PULMONARY States breathing better with steroids. Feels unsteady on feet. Vital Signs Period Temp Pulse Resp BP Sys/Whatley Pulse Ox Last 24 Hr 97.4 F-98.7 F 77-90 20-20 129-140/68-90 94-97 Gen: NAD at rest Heart: RRR Lung: decreased breath sounds at the bases Abd: soft, nontender Ext: no edema CBC, BMP 10/26/18 06:00 10/26/18 06:00 Active Medications Albuterol Sulfate (Ventolin 0.083% Nebulizer Soln -) 1 amp NEB Q4H PRN PRN Reason: SHORT OF BREATH/WHEEZING Albuterol/Ipratropium (Duoneb -) 1 amp NEB RQID [facility] Last Admin: 10/25/18 21:18 Dose: 1 amp Benzocaine/Menthol (Cepacol Lozenge -) 1 each MM Q6H PRN PRN Reason: SORE THROAT Last Admin: 10/25/18 21:07 Dose: 1 each Clonidine (Catapres -) 0.1 mg PO BID [facility] Last Admin: 10/26/18 09:56 Dose: 0.1 mg Folic Acid (Folic Acid -) 1 mg GT DAILY [facility] Last Admin: 10/26/18 09:55 Dose: 1 mg Heparin Sodium (Porcine) (Heparin -) 5,000 unit SQ TID [facility] Last Admin: 10/26/18 06:08 Dose: 5,000 unit Ceftriaxone Sodium 1 gm/ (Dextrose) 50 mls @ 100 mls/hr IVPB DAILY [facility] Last Admin: 10/26/18 09:53 Dose: 100 mls/hr Metronidazole (Flagyl 500mg Premixed Ivpb -) 500 mg in 100 mls @ 100 mls/hr IVPB Q8H-IV [facility] Last Admin: 10/26/18 09:56 Dose: 100 mls/hr Methylprednisolone Sodium Succinate (Solu-Medrol -) 40 mg IVPUSH BID [facility] Last Admin: 10/26/18 09:55 Dose: 40 mg Pantoprazole Sodium (Protonix -) 40 mg PO DAILY [facility] Last Admin: 10/26/18 09:55 Dose: 40 mg Thiamine HCl (Vitamin B1 -) 100 mg PO DAILY [facility] Last Admin: 10/26/18 09:55 Dose: 100 mg A/P Acute on Chronic Hypercapneic Respiratory Failure Acute COPD Exacerbation Pneumonia Alcohol/Benzo Abuse GERD - continue medrol, can likely change to PO prednisone 40mg daily in AM if continues to improve - inhaled bronchodilators standing and PRN - O2 to keep SpO2 88-92% - complete antibiotics - when ready for discharge, will need to check ambulatory SpO2 on room air to assess for home O2 - rehab/PT - DVT prophylaxis
[2018-10-26 14:36] VITALS: BP 139/73; PULSE 83; TEMP 97.5
--- NOTE | 2018-10-26 15:05 | PN ---
Teaching Attending Note Name of Resident: Chito Mitchell ATTENDING PHYSICIAN STATEMENT I saw and evaluated the patient. I reviewed the resident's note and discussed the case with the resident. I agree with the resident's findings and plan as documented. SUBJECTIVE: Feels better. No fever/chills. OBJECTIVE: Afebrile, Hemodynamically Stable. Last Vital Signs Temp Pulse Resp BP Pulse Ox 97.5 F L 83 20 139/73 94 L 10/26/18 14:35 10/26/18 14:35 10/26/18 09:00 10/26/18 14:35 10/26/18 12:08 HEENT - Atraumatic, Normocephalic. Heart - S1, S2, RRR Lungs few basal crackles. Abdomen - High BMI, soft, non-tender. Extremities - no calf tenderness. Laboratory Results - last 24 hr 10/26/18 10/26/18 06:00 06:00 WBC 13.8 H RBC 5.14 Hgb 13.5 Hct 40.3 MCV 78.4 L MCH 26.3 MCHC 33.6 RDW 16.2 H Plt Count 160 MPV 9.2 Sodium 139 Potassium 4.5 Chloride 102 Carbon Dioxide 27 Anion Gap 10 BUN 25 H Creatinine 0.8 Creat Clearance w eGFR > 60 Random Glucose 106 Calcium 8.6 Current Medications Generic Name Dose Route Start Last Admin Trade Name Freq PRN Reason Stop Dose Admin Albuterol Sulfate 1 amp 10/24/18 20:01 Ventolin 0.083% Nebulizer Soln - NEB Q4H PRN SHORT OF BREATH/WHEEZING Albuterol/Ipratropium 1 amp 10/25/18 08:00 10/26/18 13:07 Duoneb - NEB 1 amp RQID KATH Administration Benzocaine/Menthol 1 each 10/24/18 11:06 10/25/18 21:07 Cepacol Lozenge - MM 1 each Q6H PRN Administration SORE THROAT Cefuroxime Axetil 500 mg 10/26/18 22:00 Ceftin - PO BID KATH Clonidine 0.1 mg 10/24/18 22:00 10/26/18 09:56 Catapres - PO 0.1 mg BID KATH Administration Folic Acid 1 mg 10/25/18 10:00 10/26/18 09:55 Folic Acid - GT 1 mg DAILY KATH Administration Heparin Sodium (Porcine) 5,000 unit 10/24/18 22:00 10/26/18 14:17 Heparin - SQ 5,000 unit TID KATH Administration Methylprednisolone Sodium Succinate 40 mg 10/25/18 13:45 10/26/18 09:55 Solu-Medrol - IVPUSH 40 mg BID KATH Administration Metronidazole 500 mg 10/26/18 22:00 Flagyl - PO TID KATH Pantoprazole Sodium 40 mg 10/25/18 18:30 10/26/18 09:55 Protonix - PO 40 mg DAILY KATH Administration Thiamine HCl 100 mg 10/25/18 10:00 10/26/18 09:55 Vitamin B1 - PO 100 mg DAILY KATH Administration ASSESSMENT AND PLAN: 57 year old Male with a history of asthma, HTN, alcohol related seizure, alcohol and benzodiazepine dependence who presented to the ED from [facility] with SOB. 1. Acute on Chronic Hypercapnic respiratory failure and severe sepsis secondary to acute exacerbation of COPD, possible pneumonia - Resolved. Intubated/Extubated 10/23 Continue DuoNebs. Solumedrol changed to Prednisone for 5 additional days. Received ceftriaxone, Flagyl for possible aspiration pneumonia - for switch to po cephalosporin and Flagyl for total 10 days. Weaned off O2 and medically stable for discharge with Pulmonary follow up. 2. History of Alcohol and benzodiazepine dependence Completed detox and started rehab at [facility] on 10/17 Continue thiamine, folic acid 3. HTN - resumed on Clonidine. This can be weaned and other anti-hypertensive meds introduced slowly as out-patient. 4. GERD - Continue Protonix kyra while on steroid. 5. Leukocytosis - sec to steroid. Afebrile/Hemodynamically Stable, clinically improved, medically optimized for discharge.
--- NOTE | 2018-10-26 15:15 | DS ---
Physical Exam: SUBJECTIVE: Patient seen and examined this AM. He states he is feeling much better today than yesterday. says he is feeling less weak and would like to return to [facility] rehab. OBJECTIVE: Vital Signs Period Temp Pulse Resp BP Sys/Whatley Pulse Ox Last 24 Hr 97.4 F-98.7 F 77-88 20-20 138-140/68-88 94-97 PHYSICAL EXAM GENERAL: Alert and Oriented, no acute distress HEAD: Normocephalic, atraumatic. EYES: PERRL, no scleral icterus EARS, NOSE, THROAT: oropharynx clear without exudates. Moist mucous membranes. NECK: supple without lymphadenopathy LUNGS: minimal diffuse wheezes, improved from yesterday HEART: Tachycardic, normal S1 and S2 without murmur ABDOMEN: Soft nontender, nondistended, normoactive bowel sounds EXTREMITIES: warm, well-perfused. No peripheral edema. SKIN: Warm, dry, no rashes or lesions noted LABS Laboratory Results - last 24 hr 10/26/18 10/26/18 06:00 06:00 WBC 13.8 H RBC 5.14 Hgb 13.5 Hct 40.3 MCV 78.4 L MCH 26.3 MCHC 33.6 RDW 16.2 H Plt Count 160 MPV 9.2 Sodium 139 Potassium 4.5 Chloride 102 Carbon Dioxide 27 Anion Gap 10 BUN 25 H Creatinine 0.8 Creat Clearance w eGFR > 60 Random Glucose 106 Calcium 8.6 HOSPITAL COURSE: Date of Admission:10/21/18 Date of Discharge: 10/26/18 HPI on Admission: 57 y/o M with PMHx of Asthma, HTN, EtOH related Seizure, EtOH and Benzo dependence presents from [facility] after experiencing SOB. As per nursing staff at [facility] and EMR review, around 00:30 this morning, patient was found to be wheezing and given 2 Duoneb tx's; She was 96% on RA, BP 128/110, HR 126 at this time. Shortly after, patient felt chest tightness and dizziness and was sent to the ED for evaluation. Patient was given 2g Mag, Decadron, Duonebs x 2 and CPap by EMS. In the ED, the patient was using accessory muscles and intubated. Patient has denied any hx of intubations however has had multiple hospitalizations in the past for COPD and Asthma. Patient was already intubated and sedated prior to my interview. Hospital Course: He was intubated in the ED due to concerns of increased work of breathing and accessory muscle use. He was treated in the ICU and given inhaled bronchodilators. There was a concern that he may have had an aspiration pneumonia, and he was started on Ceftriaxone and Flagyl which was converted to PO Flagyl and Ceftin for a total of 10 days abx once tolerated. He clinically improved and requested to return to [facility] Rehab upon discharge. He was instructed to follow up with primary doctor and pulmonology upon discharge. Minutes to complete discharge: 40 Discharge Summary Reason For Visit: RESPIRATORY FAILURE Current Active Problems Alcohol dependence (Chronic) Condition: Stable - Instructions Diet, Activity, Other Instructions: You were admitted for an exacerbation of your asthma likely secondary to a pneumonia. You were initially intubated and put on a breathing machine in the ICU, however after two days the breathing tube was successfully removed. You were treated with antibiotics and breathing treatments and weaned off of your supplemental oxygen. At this time you are medically stable for discharge and can return back to [facility] rehab. You should continue all of your home medications as they are prescribed You should also take Ceftin (antibiotic) 500 mg BID (once in the morning and once at night) for 8 more days. You should also take Flagyl (antibiotic) 500 mg Q8H (3 times a day, once early in the morning, once in the middle of the day and once at night) for 8 more days as well. You should be seen by your primary doctor within one week of discharge from the hospital You should follow up with a fabric cutter (lung doctor) within 2 weeks of discharge for further management of your asthma/COPD. If you have any high fevers or difficulty breathing you should be evaluated by a doctor or return to the emergency department. Referrals: Anders Bolanos MD [Staff Physician] - Ian Padilla MD [Primary Care Provider] - Harman Farmer MD, MD [Staff Physician] - 2 Weeks Disposition: HOME - Home Medications Comprehensive Discharge Medication List: Ambulatory Orders Fluticasone/Salmeterol [Advair 250-50 Diskus] 1 each IH BID 10/13/18 Albuterol Sulfate Inhaler - [Ventolin HFA Inhaler -] 2 inh PO Q4H PRN #1 inhaler 10/17/18 Budesonide/Formeterol Fumarate [SYMBICORT 80/4.5mcg -] 1 inh IH BID #1 inhaler 10/17/18 Clopidogrel Bisulfate [Plavix] 75 mg PO HS #30 tablet 10/17/18 Quetiapine Fumarate [Seroquel -] 300 mg PO HS 10/17/18 cloNIDine HCL [Catapres -] 0.1 mg PO BID #30 tablet 10/17/18 Cefuroxime Axetil [Ceftin -] 500 mg PO BID 8 Days tablet 10/26/18 metroNIDAZOLE [Flagyl -] 500 mg PO TID 8 Days tablet 10/26/18 This patient is new to me today: No Emergency Visit: Yes ED Registration Date: 10/21/18 Care time: The patient presented to the Emergency Department on the above date and was hospitalized for further evaluation of their emergent condition. Critical Care patient: No - Discharge Referral Referred to [facility] Med P.C.: No
[2018-10-26] MEDS ORDERED: BISACODYL 10 MG SUPP.RECT PR PRN (15:25)
[2018-10-26] MEDS ORDERED: metroNIDAZOLE 250 MG TABLET PO SCH (22:00)
[2018-10-26] MEDS ORDERED: CEFUROXIME AXETIL 500 MG TABLET PO SCH (22:00)
--- NOTE | 2018-10-27 08:11 | PN ---
[facility] Progress Note Note: PT RETURNED FROM THE [facility] YESTERDAY AFTER HOSPITALIZATION FROM TO 10/26/18. PT COMPLETED DETOX ON [address] [place] [address] ON 10/17/18 THEN REFERRED TO REHAB [facility] WHERE HE HAD RESPIRATORY DISTRESS AND WAS TRANSFERRED TO [facility] ER.
== END 2018-10-26 16:58 | disposition home or self-care (01) | DRG 133 ==
LOC: JER 02:33 → JERBED 04:56 → JICU 05:46 → J6S 10-24 16:50
PROVIDERS: ADMIT Internal Medicine
PROC: 5A1945Z Respiratory Ventilation, 24-96 Consecutive Hours (ICD-10-PCS; principal; 2018-10-21)
PROC: 0CHY7BZ Insertion of Airway into Mouth and Throat, Via Natural or Artificial Opening (ICD-10-PCS; 2018-10-21)
PROC: 3E0F7GC Introduction of Other Therapeutic Substance into Respiratory Tract, Via Natural or Artificial Opening (ICD-10-PCS; 2018-10-21)
PROC: 5A09357 Assistance with Respiratory Ventilation, Less than 24 Consecutive Hours, Continuous Positive Airway Pressure (ICD-10-PCS; 2018-10-21)
DX: J96.22 Acute and chronic respiratory failure with hypercapnia (principal); J69.0 Pneumonitis due to inhalation of food and vomit; J96.21 Acute and chronic respiratory failure with hypoxia; J44.1 Chronic obstructive pulmonary disease with (acute) exacerbation; E87.2 Acidosis; F13.20 Sedative, hypnotic or anxiolytic dependence, uncomplicated; K21.9 Gastro-esophageal reflux disease without esophagitis; I10 Essential (primary) hypertension; Z87.891 Personal history of nicotine dependence; F10.230 Alcohol dependence with withdrawal, uncomplicated; E66.9 Obesity, unspecified; Z68.33 Body mass index [BMI] 33.0-33.9, adult; J02.9 Acute pharyngitis, unspecified
CPT/HCPCS: 36415; 36600; 70450-TC; 71045-TC-FY; 80048; 80053; 80307; 81003; 82375; 82803; 83050; 83605; 83735; 84100; 84484; 85025; 85027; 85610; 85730; 87040; 87086; 87804; 93005; 93010; 94640; 94761; 97116-GP; 97161-GP; 99285-25; J0735; J1644; J7030

== ENCOUNTER 2018-10-26 17:16 | Inpatient (IN) | payer OTHER ==
--- NOTE | 2018-10-26 21:26 | HP ---
[facility] Rehab Assess/Revision - Admission History Ad[facility]hab [facility]: [facility]
[2018-10-26] MEDS ORDERED: LOPERAMIDE HCL 2 MG CAPSULE PO PRN (21:30)
[2018-10-26] MEDS ORDERED: guaiFENesin/D-METHORPHAN HB 10 ML UNIT-DOSE CUPS PO PRN (21:30)
[2018-10-26] MEDS ORDERED: P-EPHED 60MG/TRIPROLIDI 2.5MG TABLET PO PRN (21:30)
[2018-10-26] MEDS ORDERED: IBUPROFEN 400 MG TABLET (FP) PO PRN (21:30)
[2018-10-26] MEDS ORDERED: NICOTINE POLACRILEX 2 MG GUM BUC PRN (21:30)
[2018-10-26] MEDS ORDERED: MENTHOL/PHENOL 1 EACH UD MM PRN (21:30)
[2018-10-26] MEDS ORDERED: MAG HYDROX/AL HYDROX/SIMETH 30 ML UNIT-DOSE CUP PO PRN (21:30)
[2018-10-26] MEDS ORDERED: MAGNESIUM CITRATE 300 ML BOTTLE PO PRN (21:30)
[2018-10-26] MEDS ORDERED: MAGNESIUM HYDROX 2400MG/30ML ORAL SUSPENSION 30 ML CUP PO PRN (21:30)
--- NOTE | 2018-10-26 21:30 | HP ---
[facility] Rehab Assess/Revision - Admission History Admitted to Rehab from: [facility] - Vital signs Vital Signs: Vital Signs Temperature 98 F 10/26/18 21:31 Pulse Rate 65 10/26/18 21:31 Respiratory Rate 18 10/26/18 21:31 Blood Pressure 125/74 10/26/18 21:31 O2 Sat by Pulse Oximetry (%) - Findings Detox History & Physical reviewed: Yes Concur with findings: Yes
[2018-10-26] MEDS ORDERED: MELATONIN 5 MG TABLETS PO PRN (22:00)
[2018-10-26] MEDS: CLOPIDOGREL BISULFATE 75 MG TABLET (FP) PO SCH (22:06)
[2018-10-26] MEDS: cloNIDine HCL 0.1 MG TABLET PO SCH (22:06)
[2018-10-26] MEDS: THIAMINE HCL 100 MG TABLET (FP) PO SCH (22:06)
[2018-10-26] MEDS: BUDESONIDE/FORMETEROL FUMARATE 80/4.5 mcg INHALER IH SCH (22:06)
[2018-10-27] MEDS: ACETAMINOPHEN 325 MG TABLET (FP) PO PRN (06:17)
--- NOTE | 2018-10-27 08:13 | PN ---
[facility] Progress Note Note: PT RETURNED FROM THE [facility] YESTERDAY AFTER HOSPITALIZATION FROM TO 10/26/18. PT COMPLETED DETOX ON [address] [place] [address] ON 10/17/18 THEN REFERRED TO REHAB [facility] WHERE HE HAD RESPIRATORY DISTRESS AND WAS TRANSFERRED TO [facility] ER.
[2018-10-27] MEDS: NICOTINE 14 MG/24 HOURS TOPICAL PATCH TD SCH (10:24)
[2018-10-27] MEDS: PRENATAL VITAMINS W/ FOLIC ACID TABLET (FP) PO SCH (10:25)
[2018-10-27] MEDS: cloNIDine HCL 0.1 MG TABLET PO SCH ×2 (10:25→21:45)
[2018-10-27] MEDS: BUDESONIDE/FORMETEROL FUMARATE 80/4.5 mcg INHALER IH SCH ×2 (10:25→21:45)
--- NOTE | 2018-10-27 11:53 | PN ---
Psychiatric Progress Note Vital Signs: Vital Signs Period Temp Pulse Resp BP Sys/Whatley Pulse Ox Last 24 Hr 97.3 F-98 F 65-87 18-18 115-125/74-74 Date of Session: 10/27/18 Chief Complaint:: Readmission Note HPI: Patient addressing Alcohol and Sedative Dependence comorbid with Posttraumatic Stress Disorder, Substance-Induced Anxiety Disorder and Substance- Induced Sleep Disorder ROS: Asthma/COPD, HTN, GERD Current Medications: Active Medications Generic Name Dose Route Start Last Admin Trade Name Freq PRN Reason Stop Dose Admin Acetaminophen 650 mg 10/26/18 21:30 10/27/18 06:17 Tylenol - PO 650 mg Q4H PRN Administration FEVER Al Hydroxide/Mg Hydroxide 30 ml 10/26/18 21:30 Mylanta Oral Suspension - PO Q6H PRN DYSPEPSIA Albuterol Sulfate 2 puff 10/26/18 21:31 Ventolin Hfa Inhaler - IH Q4H PRN ASTHMA Budesonide/Formoterol Fumarate 1 puff 10/26/18 22:00 10/27/18 10:25 Symbicort 80/4.5mcg - IH 1 puff BID KATH Administration Clonidine 0.1 mg 10/26/18 22:00 10/27/18 10:25 Catapres - PO 0.1 mg BID KATH Administration Clopidogrel Bisulfate 75 mg 10/26/18 22:00 10/26/18 22:06 Plavix - PO 75 mg HS KATH Administration Eucalyptus/Menthol/Phenol/Sorbitol 1 each 10/26/18 21:30 10/27/18 03:39 Cepastat Lozenge - MM 1 each Q4H PRN Administration SORE THROAT Guaifenesin 10 ml 10/26/18 21:30 Robitussin Dm - PO Q6H PRN COUGH Loperamide HCl 4 mg 10/26/18 21:30 Imodium - PO Q6H PRN DIARRHEA Magnesium Citrate 300 ml 10/26/18 21:30 Citroma - PO Q48H PRN CONSTIPATION Magnesium Hydroxide 30 ml 10/26/18 21:30 Milk Of Magnesia - PO DAILY PRN CONSTIPATION Melatonin 5 mg 10/26/18 22:00 Melatonin PO HS PRN INSOMNIA Nicotine 14 mg 10/27/18 10:00 10/27/18 10:24 Nicoderm Patch - TD Not Given DAILY KATH Nicotine Polacrilex 2 mg 10/26/18 21:30 Nicorette Gum - BUC Q2H PRN NICOTINE REPLACEMENT RX Multivit/Folic Acid/Iron 1 tab 10/27/18 10:00 10/27/18 10:25 Vitamins (Sjr) - PO 1 tab DAILY KATH Administration Pseudoephedrine/Triprolidine 1 combo 10/26/18 21:30 Actifed - PO TID PRN NASAL CONGESTION Quetiapine Fumarate 300 mg 10/27/18 22:00 Seroquel - PO HS KATH Thiamine HCl 100 mg 10/26/18 22:00 10/26/18 22:06 Vitamin B1 - PO 100 mg HS KATH Administration Current Side Effect: No Lab tests ordered: Yes Lab tests reviewed: Yes Provider note:: Patient was transferred back from [facility] where he ws referred on 10/21/18 for respiratory distress. After evaluation and treatment, he was transferred back with the diagnosis of exacerbation of asthma likely secondary to pneumonia. Total face to face time:: 25 Mental Status Exam - Mental Status Exam Alert and Oriented to: Time, Place, Person Cognitive Function: Fair Patient Appearance: Well Groomed Mood: Hopeful, Euthymic Affect: Appropriate Patient Behavior: Cooperative Speech Pattern: Clear Voice Loudness: Normal Thought Process: Intact Thought Disorder: Not Present Hallucinations: Denies Suicidal Ideation: Denies Homicidal Ideation: Denies Insight/Judgement: Fair Sleep: Poorly Muscle strength/Tone: Normal Gait/Station: Normal Psychiatric Treatment Plan - Problem List (1) Alcohol dependence Current Visit: No (2) Sedative hypnotic or anxiolytic dependence Current Visit: Yes (3) PTSD (post-traumatic stress disorder) Current Visit: No (4) Substance-induced anxiety disorder Current Visit: Yes (5) Substance-induced sleep disorder Current Visit: Yes (6) Asthma Current Visit: No Qualifiers: Asthma severity: mild Asthma persistence: intermittent Asthma complication type: uncomplicated Qualified Code(s): J45.20 - Mild intermittent asthma, uncomplicated (7) COPD (chronic obstructive pulmonary disease) Current Visit: No Qualifiers: COPD type: unspecified COPD Qualified Code(s): J44.9 - Chronic obstructive pulmonary disease, unspecified (8) Hypertension Current Visit: No Qualifiers: Hypertension type: essential hypertension Qualified Code(s): I10 - Essential (primary) hypertension Initial treatment plan: 1) Continue Seroquel 300 mg po HS. 2) Monitor progress
[2018-10-27] MEDS: CLOPIDOGREL BISULFATE 75 MG TABLET (FP) PO SCH (21:45)
[2018-10-27] MEDS: THIAMINE HCL 100 MG TABLET (FP) PO SCH (21:45)
[2018-10-27] MEDS: QUEtiapine FUMARATE 300 MG TABLET PO SCH (21:45)
[2018-10-28] MEDS: ACETAMINOPHEN 325 MG TABLET (FP) PO PRN (07:00)
[2018-10-28] MEDS: PRENATAL VITAMINS W/ FOLIC ACID TABLET (FP) PO SCH (10:47)
[2018-10-28] MEDS: NICOTINE 14 MG/24 HOURS TOPICAL PATCH TD SCH (10:47)
[2018-10-28] MEDS: BUDESONIDE/FORMETEROL FUMARATE 80/4.5 mcg INHALER IH SCH ×2 (10:47→22:06)
[2018-10-28] MEDS: cloNIDine HCL 0.1 MG TABLET PO SCH ×2 (10:47→21:55)
[2018-10-28] MEDS ORDERED: CEFUROXIME AXETIL 500 MG TABLET PO ONE (11:03)
--- NOTE | 2018-10-28 11:32 | PN ---
[facility] Progress Note Note: PT REPORTS HE IS A LITTLE FATIGUED TODAY AND WANTS TO TAKE IT EASY. PT WANTS TO GO TO GROUP BUT ALSO WANTS TO REST NEEDED. PT IS OOB AMBULATING WITH NAD. DENIES SOB. Vital Signs - 24 hr 10/27/18 10/28/18 10/28/18 21:00 00:30 03:30 Temperature Pulse Rate 89 Respiratory 20 18 Rate Blood Pressure 128/75 10/28/18 07:19 Temperature 98.9 F Pulse Rate 112 H Respiratory 18 Rate Blood Pressure 134/66 LUNGS;CTA CARDIAC S! S2 RRR DI:S/O INTUBATION PNEUMONIA PLAN: MONITOR PT'S STATUE ALLOW PT REST NEEDED ORAL HYDRATION TOLERATED CONTINUE WITH ANTIBIOTICS RECOMMENDED AT [facility] ON DISCHARGE.
[2018-10-28] MEDS: ASPIRIN COATED 81 MG TABLET.EC PO SCH (12:12)
[2018-10-28] MEDS: metroNIDAZOLE 250 MG TABLET PO SCH ×2 (14:21→21:58)
[2018-10-28] MEDS: QUEtiapine FUMARATE 300 MG TABLET PO SCH (21:55)
[2018-10-28] MEDS: CLOPIDOGREL BISULFATE 75 MG TABLET (FP) PO SCH (21:55)
[2018-10-28] MEDS: THIAMINE HCL 100 MG TABLET (FP) PO SCH (21:55)
[2018-10-28] MEDS: CEFUROXIME AXETIL 500 MG TABLET PO SCH (22:00)
[2018-10-29] MEDS: metroNIDAZOLE 250 MG TABLET PO SCH ×3 (06:26→22:03)
[2018-10-29] MEDS: BUDESONIDE/FORMETEROL FUMARATE 80/4.5 mcg INHALER IH SCH ×2 (10:34→22:03)
[2018-10-29] MEDS: PRENATAL VITAMINS W/ FOLIC ACID TABLET (FP) PO SCH (10:35)
[2018-10-29] MEDS: cloNIDine HCL 0.1 MG TABLET PO SCH ×2 (10:35→22:02)
[2018-10-29] MEDS: ASPIRIN COATED 81 MG TABLET.EC PO SCH (10:35)
[2018-10-29] MEDS: NICOTINE 14 MG/24 HOURS TOPICAL PATCH TD SCH (10:36)
[2018-10-29] MEDS: CEFUROXIME AXETIL 500 MG TABLET PO SCH ×2 (10:36→22:04)
[2018-10-29] MEDS: QUEtiapine FUMARATE 300 MG TABLET PO SCH (22:02)
[2018-10-29] MEDS: CLOPIDOGREL BISULFATE 75 MG TABLET (FP) PO SCH (22:02)
[2018-10-29] MEDS: THIAMINE HCL 100 MG TABLET (FP) PO SCH (22:02)
[2018-10-30] MEDS: metroNIDAZOLE 250 MG TABLET PO SCH ×3 (06:56→22:09)
[2018-10-30] MEDS: BUDESONIDE/FORMETEROL FUMARATE 80/4.5 mcg INHALER IH SCH ×2 (10:26→22:09)
[2018-10-30] MEDS: NICOTINE 14 MG/24 HOURS TOPICAL PATCH TD SCH (10:26)
[2018-10-30] MEDS: CEFUROXIME AXETIL 500 MG TABLET PO SCH ×2 (10:27→22:24)
[2018-10-30] MEDS: ASPIRIN COATED 81 MG TABLET.EC PO SCH (10:27)
[2018-10-30] MEDS: cloNIDine HCL 0.1 MG TABLET PO SCH ×2 (10:27→22:07)
[2018-10-30] MEDS: PRENATAL VITAMINS W/ FOLIC ACID TABLET (FP) PO SCH (10:27)
[2018-10-30] MEDS: ACETAMINOPHEN 325 MG TABLET (FP) PO PRN (11:52)
[2018-10-30] MEDS ORDERED: QUEtiapine FUMARATE 100 MG TABLET (FP) ONE (20:33)
[2018-10-30] MEDS: CLOPIDOGREL BISULFATE 75 MG TABLET (FP) PO SCH (22:07)
[2018-10-30] MEDS: QUEtiapine FUMARATE 300 MG TABLET PO SCH (22:08)
[2018-10-30] MEDS: THIAMINE HCL 100 MG TABLET (FP) PO SCH (22:24)
[2018-10-31] MEDS: ACETAMINOPHEN 325 MG TABLET (FP) PO PRN (05:14)
[2018-10-31] MEDS: metroNIDAZOLE 250 MG TABLET PO SCH ×3 (07:07→21:47)
[2018-10-31] MEDS: PRENATAL VITAMINS W/ FOLIC ACID TABLET (FP) PO SCH (10:43)
[2018-10-31] MEDS: cloNIDine HCL 0.1 MG TABLET PO SCH ×2 (10:43→21:46)
[2018-10-31] MEDS: BUDESONIDE/FORMETEROL FUMARATE 80/4.5 mcg INHALER IH SCH ×2 (10:43→21:47)
[2018-10-31] MEDS: CEFUROXIME AXETIL 500 MG TABLET PO SCH ×2 (10:44→21:47)
[2018-10-31] MEDS: NICOTINE 14 MG/24 HOURS TOPICAL PATCH TD SCH (10:45)
[2018-10-31] MEDS: ASPIRIN COATED 81 MG TABLET.EC PO SCH (10:57)
[2018-10-31] MEDS ORDERED: QUEtiapine FUMARATE 100 MG TABLET (FP) ONE (20:29)
[2018-10-31] MEDS: THIAMINE HCL 100 MG TABLET (FP) PO SCH (21:46)
[2018-10-31] MEDS: CLOPIDOGREL BISULFATE 75 MG TABLET (FP) PO SCH (21:46)
[2018-10-31] MEDS: QUEtiapine FUMARATE 300 MG TABLET PO SCH (21:47)
[2018-11-01] MEDS: metroNIDAZOLE 250 MG TABLET PO SCH ×3 (06:20→22:11)
[2018-11-01] MEDS: ALBUTEROL SO4 8 GM HFA INHALER IH PRN (06:22)
[2018-11-01] MEDS: cloNIDine HCL 0.1 MG TABLET PO SCH ×2 (10:20→22:11)
[2018-11-01] MEDS: PRENATAL VITAMINS W/ FOLIC ACID TABLET (FP) PO SCH (10:20)
[2018-11-01] MEDS: NICOTINE 14 MG/24 HOURS TOPICAL PATCH TD SCH (10:20)
[2018-11-01] MEDS: ASPIRIN COATED 81 MG TABLET.EC PO SCH (10:20)
[2018-11-01] MEDS: BUDESONIDE/FORMETEROL FUMARATE 80/4.5 mcg INHALER IH SCH ×2 (10:21→22:12)
[2018-11-01] MEDS: CEFUROXIME AXETIL 500 MG TABLET PO SCH ×2 (12:22→22:18)
[2018-11-01] MEDS ORDERED: QUEtiapine FUMARATE 100 MG TABLET (FP) ONE (20:45)
[2018-11-01] MEDS ORDERED: PT OWN MED DRAWER 7, Y5N ONE (20:46)
[2018-11-01] MEDS: CLOPIDOGREL BISULFATE 75 MG TABLET (FP) PO SCH (22:11)
[2018-11-01] MEDS: QUEtiapine FUMARATE 300 MG TABLET PO SCH (22:12)
[2018-11-01] MEDS: THIAMINE HCL 100 MG TABLET (FP) PO SCH (22:12)
[2018-11-02] MEDS: metroNIDAZOLE 250 MG TABLET PO SCH ×3 (06:51→21:57)
[2018-11-02] MEDS: NICOTINE 14 MG/24 HOURS TOPICAL PATCH TD SCH (10:42)
[2018-11-02] MEDS: CEFUROXIME AXETIL 500 MG TABLET PO SCH ×2 (10:42→21:56)
[2018-11-02] MEDS: PRENATAL VITAMINS W/ FOLIC ACID TABLET (FP) PO SCH (10:42)
[2018-11-02] MEDS: cloNIDine HCL 0.1 MG TABLET PO SCH (10:42)
[2018-11-02] MEDS: BUDESONIDE/FORMETEROL FUMARATE 80/4.5 mcg INHALER IH SCH ×2 (10:42→21:57)
[2018-11-02] MEDS: ASPIRIN COATED 81 MG TABLET.EC PO SCH (10:42)
[2018-11-02] MEDS ORDERED: cloNIDine HCL 0.1 MG TABLET PO PRN (11:09)
[2018-11-02] MEDS: QUEtiapine FUMARATE 300 MG TABLET PO SCH (21:56)
[2018-11-02] MEDS: CLOPIDOGREL BISULFATE 75 MG TABLET (FP) PO SCH (21:56)
[2018-11-02] MEDS: THIAMINE HCL 100 MG TABLET (FP) PO SCH (21:56)
[2018-11-03] MEDS: metroNIDAZOLE 250 MG TABLET PO SCH ×3 (06:42→21:57)
[2018-11-03] MEDS ORDERED: PT OWN MED DRAWER 7, Y5N ONE (10:17)
[2018-11-03] MEDS: BUDESONIDE/FORMETEROL FUMARATE 80/4.5 mcg INHALER IH SCH ×2 (10:37→21:57)
[2018-11-03] MEDS: CEFUROXIME AXETIL 500 MG TABLET PO SCH ×2 (10:38→21:57)
[2018-11-03] MEDS: PRENATAL VITAMINS W/ FOLIC ACID TABLET (FP) PO SCH (10:38)
[2018-11-03] MEDS: ASPIRIN COATED 81 MG TABLET.EC PO SCH (10:38)
[2018-11-03] MEDS: NICOTINE 14 MG/24 HOURS TOPICAL PATCH TD SCH (10:38)
[2018-11-03] MEDS: THIAMINE HCL 100 MG TABLET (FP) PO SCH (21:56)
[2018-11-03] MEDS: CLOPIDOGREL BISULFATE 75 MG TABLET (FP) PO SCH (21:56)
[2018-11-03] MEDS: QUEtiapine FUMARATE 300 MG TABLET PO SCH (21:56)
[2018-11-04] MEDS: metroNIDAZOLE 250 MG TABLET PO SCH (06:50)
[2018-11-04] MEDS: ACETAMINOPHEN 325 MG TABLET (FP) PO PRN (06:52)
[2018-11-04] MEDS: NICOTINE 14 MG/24 HOURS TOPICAL PATCH TD SCH (10:51)
[2018-11-04] MEDS: CEFUROXIME AXETIL 500 MG TABLET PO SCH (10:51)
[2018-11-04] MEDS: ASPIRIN COATED 81 MG TABLET.EC PO SCH (10:51)
[2018-11-04] MEDS: PRENATAL VITAMINS W/ FOLIC ACID TABLET (FP) PO SCH (10:52)
[2018-11-04] MEDS: BUDESONIDE/FORMETEROL FUMARATE 80/4.5 mcg INHALER IH SCH ×2 (10:52→21:54)
[2018-11-04] MEDS: QUEtiapine FUMARATE 300 MG TABLET PO SCH (21:54)
[2018-11-04] MEDS: THIAMINE HCL 100 MG TABLET (FP) PO SCH (21:54)
[2018-11-04] MEDS: CLOPIDOGREL BISULFATE 75 MG TABLET (FP) PO SCH (21:54)
[2018-11-05] MEDS: ACETAMINOPHEN 325 MG TABLET (FP) PO PRN (06:56)
[2018-11-05] MEDS: ALBUTEROL SO4 8 GM HFA INHALER IH PRN (06:57)
[2018-11-05] MEDS: NICOTINE 14 MG/24 HOURS TOPICAL PATCH TD SCH (10:48)
[2018-11-05] MEDS: PRENATAL VITAMINS W/ FOLIC ACID TABLET (FP) PO SCH (10:48)
[2018-11-05] MEDS: ASPIRIN COATED 81 MG TABLET.EC PO SCH (10:48)
[2018-11-05] MEDS: BUDESONIDE/FORMETEROL FUMARATE 80/4.5 mcg INHALER IH SCH ×2 (10:50→21:59)
[2018-11-05] MEDS: CLOPIDOGREL BISULFATE 75 MG TABLET (FP) PO SCH (21:59)
[2018-11-05] MEDS: QUEtiapine FUMARATE 300 MG TABLET PO SCH (21:59)
[2018-11-05] MEDS: THIAMINE HCL 100 MG TABLET (FP) PO SCH (21:59)
[2018-11-06] MEDS: BUDESONIDE/FORMETEROL FUMARATE 80/4.5 mcg INHALER IH SCH ×2 (10:43→21:47)
[2018-11-06] MEDS: ASPIRIN COATED 81 MG TABLET.EC PO SCH (10:43)
[2018-11-06] MEDS: NICOTINE 14 MG/24 HOURS TOPICAL PATCH TD SCH (10:43)
[2018-11-06] MEDS: PRENATAL VITAMINS W/ FOLIC ACID TABLET (FP) PO SCH (10:43)
[2018-11-06] MEDS: QUEtiapine FUMARATE 300 MG TABLET PO SCH (21:47)
[2018-11-06] MEDS: THIAMINE HCL 100 MG TABLET (FP) PO SCH (21:47)
[2018-11-06] MEDS: CLOPIDOGREL BISULFATE 75 MG TABLET (FP) PO SCH (21:47)
[2018-11-07] MEDS: BUDESONIDE/FORMETEROL FUMARATE 80/4.5 mcg INHALER IH SCH ×2 (10:24→21:44)
[2018-11-07] MEDS: ASPIRIN COATED 81 MG TABLET.EC PO SCH (10:24)
[2018-11-07] MEDS: PRENATAL VITAMINS W/ FOLIC ACID TABLET (FP) PO SCH (10:24)
[2018-11-07] MEDS: NICOTINE 14 MG/24 HOURS TOPICAL PATCH TD SCH (10:24)
[2018-11-07] MEDS: THIAMINE HCL 100 MG TABLET (FP) PO SCH (21:45)
[2018-11-07] MEDS: CLOPIDOGREL BISULFATE 75 MG TABLET (FP) PO SCH (21:45)
[2018-11-07] MEDS: QUEtiapine FUMARATE 300 MG TABLET PO SCH (21:45)
[2018-11-08] MEDS ORDERED: ONDANSETRON *ODT* 4 MG TABLET SL PRN (09:28)
[2018-11-08] MEDS: BUDESONIDE/FORMETEROL FUMARATE 80/4.5 mcg INHALER IH SCH ×2 (10:51→21:54)
[2018-11-08] MEDS: PRENATAL VITAMINS W/ FOLIC ACID TABLET (FP) PO SCH (10:55)
[2018-11-08] MEDS: NICOTINE 14 MG/24 HOURS TOPICAL PATCH TD SCH (10:55)
[2018-11-08] MEDS: ASPIRIN COATED 81 MG TABLET.EC PO SCH (11:04)
[2018-11-08] MEDS: CLOPIDOGREL BISULFATE 75 MG TABLET (FP) PO SCH (21:54)
[2018-11-08] MEDS: THIAMINE HCL 100 MG TABLET (FP) PO SCH (21:54)
[2018-11-08] MEDS: QUEtiapine FUMARATE 300 MG TABLET PO SCH (21:54)
[2018-11-09 06:58] VITALS: BP 127/74; PULSE 112; TEMP 97.3
--- NOTE | 2018-11-09 08:29 | PN ---
[facility] Progress Note Note: PT COMPLETED REHAB. ALERT O X 3. PT MET WITH COUNSELOR [facility] PT REPORTS HE HAS A PMD BUT DOES NOT REMEMBER [facility] NAME ON HIS CARD. PREVIOUSLY WITH NICHOLAS MIR. PT INSTRUCTED TO FOLLOW UP WITH NEW DOCTOR ASSIGNED FOR MEDICAL MANAGEMENT. PT HAS RX IN HIS PHARMACY. Vital Signs - 24 hr 11/09/18 11/09/18 11/09/18 00:30 03:30 06:57 Temperature 97.3 F L Pulse Rate 112 H Respiratory 18 18 20 Rate Blood Pressure 127/74 NAD PLAN:FOLLOW UP WITH AFTERCARE RECOMMENDED FOLLOW UP WITH YOUR PRIMARY CARE FOR MEDICAL MANAGEMENT OF COMORBID CONDITIONS WITHIN 1-2 WEEKS AFTER DISCHARGE.
[2018-11-09] MEDS: BUDESONIDE/FORMETEROL FUMARATE 80/4.5 mcg INHALER IH SCH (09:32)
[2018-11-09] MEDS: NICOTINE 14 MG/24 HOURS TOPICAL PATCH TD SCH (09:32)
[2018-11-09] MEDS: PRENATAL VITAMINS W/ FOLIC ACID TABLET (FP) PO SCH (09:32)
[2018-11-09] MEDS: ASPIRIN COATED 81 MG TABLET.EC PO SCH (09:32)
== END 2018-11-09 09:45 | disposition home or self-care (01) | DRG 772 ==
LOC: YASAS 17:16 → Y5N 17:48
PROVIDERS: ADMIT Psychiatry & Neurology Psychiatry; ATTEND Psychiatry & Neurology Psychiatry
PROC: HZ42ZZZ Group Counseling for Substance Abuse Treatment, Cognitive-Behavioral (ICD-10-PCS; principal; 2018-10-26)
DX: F10.20 Alcohol dependence, uncomplicated (principal); F13.20 Sedative, hypnotic or anxiolytic dependence, uncomplicated; F43.10 Post-traumatic stress disorder, unspecified; F19.280 Other psychoactive substance dependence with psychoactive substance-induced anxiety disorder; F19.282 Other psychoactive substance dependence with psychoactive substance-induced sleep disorder; I10 Essential (primary) hypertension; J45.20 Mild intermittent asthma, uncomplicated; J44.9 Chronic obstructive pulmonary disease, unspecified; K21.9 Gastro-esophageal reflux disease without esophagitis; J18.9 Pneumonia, unspecified organism
CPT/HCPCS: J0735

== ENCOUNTER 2019-01-31 23:19 | Inpatient (IN) | payer OTHER ==
--- NOTE | 2019-02-01 03:46 | HP ---
CIWA Score Nausea/Vomitin Muscle Tremors: 3 Anxiety: 3 Agitation: 3 Paroxysmal Sweats: 3 Orientation: 0-Oriented Tacttile Disturbances: 0-None Auditory Disturbances: 0-None Visual Disturbances: 0-None Headache: 0-None Present CIWA-Ar Total Score: 14 - Admission Criteria OASAS Guidelines: Admission for Medically Managed Detox: Requires at least one of the followin. CIWA greater than 12 2. Seizures within the past 24 hours 3. Delirium tremens within the past 24 hours 4. Hallucinations within the past 24 hours 5. Acute intervention needed for co occurring medical disorder 6. Acute intervention needed for co occurring psychiatric disorder 7. Severe withdrawal that cannot be handled at a lower level of care (continued vomiting, continued diarrhea, abnormal vital signs) requiring intravenous medication and/or fluids 8. Admission ROS [facility] Chief Complaint: Alcohol and benzo. withdrawal symptoms Allergies/Adverse Reactions: Allergies Allergy/AdvReac Type Severity Reaction Status Date / Time penicillin G Allergy Severe Hives Verified 10/26/18 17:33 pork derived (porcine) Allergy Severe Hives Verified 10/26/18 17:33 tomato Allergy Severe Hives Verified 10/26/18 17:33 liver Allergy Severe Hives Uncoded 10/26/18 17:33 History of Present Illness: 58 years old male with a long history of alcohol and benzo. dependence is seeking admission to detox. Patient has been in detox multiple times and reports insignificant period of sobriety. He has medical history medical history of GERD, Asthma, COPD, Hypertension, Alcohol related Seizure, Alcohol and Benzo dependence. He denies suicide attempt and or suicidal ideation at this time. Exam Limitations: No Limitations - Ebola screening Have you traveled outside of the country in the last 21 days: No (N) Have you had contact with anyone from an Ebola affected area: No Do you have a fever: No - Review of Systems Constitutional: Chills, Loss of Appetite, Night Sweats EENT: reports: No Symptoms Reported Respiratory: reports: No Symptoms reported Cardiac: reports: No Symptoms Reported GI: reports: Diarrhea (x 2), Poor Appetite, Poor Fluid Intake, Abdominal cramping : reports: No Symptoms Reported Integumentary: reports: Dryness, Flushing Neuro: reports: Headache, Tremors Endocrine: reports: No Symptoms Reported Hematology: reports: No Symptoms Reported Psychiatric: reports: Mood/Affect Appropiate, Orientated x3, Depressed Other Systems: Reviewed and Negative Patient History - Patient Medical History Hx Anemia: No Hx Asthma: Yes (Albuterol) Hx Chronic Obstructive Pulmonary Disease (COPD): Yes (Symbicort) Hx Cancer: No Hx Cardiac Disorders: No Hx Congestive Heart Failure: No Hx Hypertension: No Hx Hypercholesterolemia: No Hx Pacemaker: No HX Cerebrovascular Accident: No Hx Seizures: No Hx Dementia: No Hx Diabetes: No Hx Gastrointestinal Disorders: No Hx Liver Disease: No Hx Genitourinary Disorders: No Hx Sexually Transmitted Disorders: No Hx Renal Disease (ESRD): No Hx Thyroid Disease: No Hx Human Immunodeficiency Virus (HIV): No (last 2018 negative) Hx Hepatitis C: No Hx Depression: Yes (Not on medication) Hx Suicide Attempt: No (Denies suicidal ideation at this time) Hx Bipolar Disorder: No Hx Schizophrenia: No - Patient Surgical History Past Surgical History: Yes Hx Neurologic Surgery: No Hx Cataract Extraction: No Hx Cardiac Surgery: No Hx Lung Surgery: No Hx Breast Surgery: No Hx Breast Biopsy: No Hx Abdominal Surgery: No Hx Appendectomy: No Hx Cholecystectomy: No Hx Genitourinary Surgery: No Hx Section: No Hx Orthopedic Surgery: No Other Surgical History: pt. reported blood clot removed from right leg in Anesthesia Reaction: No - PPD History Previous Implant?: Yes Documented Results: Negative w/proof Implanted On Prior [facility] Admission?: Yes Date: 10/15/18 Results: 0 mm. PPD to be Administered?: No - Reproductive History Patient is a Female of Child Bearing Age (11 -55 yrs old): No (Male) - Smoking Cessation Smoking history: Former smoker Have you smoked in the past 12 months: No Aproximately how many cigarettes per day: 1 If you are a former smoker, when did you quit?: 2013 Cigars Per Day: 0 Hx Chewing Tobacco Use: No Initiated information on smoking cessation: No - Substance & Tx. History Hx Alcohol Use: Yes Hx Substance Use: Yes Substance Use Type: Alcohol Hx Substance Use Treatment: Yes ([facility]) - Substances abused Alcohol Other (specify): VODKA Substance route: Oral Amount used: A FIFTH Age of first use: 17 Date of last use: 01/31/19 Benzodiazepine (Klonopin) Substance route: Oral Frequency: 3-6 times per week Amount used: 6 tablets Age of first use: 26 Date of last use: 01/31/19 Family Disease History - Family Disease History Family Disease History: Diabetes: Mother (HTN), Heart Disease: Mother, Other: Father (alcohol,) Admission Physical Exam [facility] - Physical General Appearance: Yes: Moderate Distress, Tremorous, Irritable, Sweating, Anxious HEENTM: Yes: EOMI, Normal ENT Inspection, Normal Voice, RUBEN Respiratory: Yes: Lungs Clear, Normal Breath Sounds, No Respiratory Distress Neck: Yes: Supple, Trachea in good position Breast: Yes: Within Normal Limits Cardiology: Yes: Regular Rhythm, Regular Rate Abdominal: Yes: Normal Bowel Sounds Genitourinary: Yes: Within Normal Limits Back: Yes: Normal Inspection Musculoskeletal: Yes: Within Normal Limits, full range of Motion Extremities: Yes: Tremors Neurological: Yes: Alert, Normal Mood/Affect Integumentary: Yes: Warm Lymphatic: Yes: Within Normal Limits - Diagnostic (1) Sedative hypnotic or anxiolytic dependence Current Visit: Yes Status: Acute (2) Alcohol dependence with uncomplicated withdrawal Current Visit: Yes Status: Chronic (3) Asthma Current Visit: No Status: Chronic Qualifiers: Asthma severity: mild Asthma persistence: intermittent Asthma complication type: uncomplicated Qualified Code(s): J45.20 - Mild intermittent asthma, uncomplicated (4) COPD (chronic obstructive pulmonary disease) Current Visit: Yes Status: Chronic Qualifiers: COPD type: unspecified COPD Qualified Code(s): J44.9 - Chronic obstructive pulmonary disease, unspecified (5) Nicotine dependence Current Visit: No Status: Chronic Qualifiers: Nicotine product type: cigarettes Substance use status: uncomplicated Qualified Code(s): F17.210 - Nicotine dependence, cigarettes, uncomplicated Cleared for Admission [facility] - Detox or Rehab [facility] Level of Care: Medically Managed Detox Regimen/Protocol: Valium Claeared for Rehab Admission: Yes Inpatient Rehab Admission - Rehab Decision to Admit Inpatient rehab admission?: No
[2019-02-01] MEDS ORDERED: MAGNESIUM HYDROX 2400MG/30ML ORAL SUSPENSION 30 ML CUP PO PRN (04:13)
[2019-02-01] MEDS ORDERED: BISMUTH SUBSALICYLATE 524 MG/30 ML UD PO PRN (04:13)
[2019-02-01] MEDS ORDERED: chlordiazePOXIDE HCL 25 MG CAPSULE PO PRN (04:13)
[2019-02-01] MEDS ORDERED: IBUPROFEN 400 MG TABLET (FP) PO PRN (04:13)
[2019-02-01] MEDS ORDERED: hydrOXYzine PAMOATE 25 MG CAPSULE (FP) PO PRN (04:13)
[2019-02-01] MEDS ORDERED: MAG HYDROX/AL HYDROX/SIMETH 30 ML UNIT-DOSE CUP PO PRN (04:13)
[2019-02-01] MEDS ORDERED: MAGNESIUM CITRATE 300 ML BOTTLE PO PRN (04:13)
[2019-02-01] MEDS ORDERED: METHOCARBAMOL 500 MG TABLET PO PRN (04:13)
[2019-02-01] MEDS ORDERED: MELATONIN 5 MG TABLETS PO PRN (04:13)
[2019-02-01] MEDS ORDERED: MENTHOL/PHENOL 1 EACH UD MM PRN (04:13)
[2019-02-01] MEDS ORDERED: ACETAMINOPHEN 325 MG TABLET (FP) PO PRN ×2 (04:13)
[2019-02-01] MEDS ORDERED: ALBUTEROL SO4 8 GM HFA INHALER IH PRN (04:15)
--- NOTE | 2019-02-01 04:21 | HP ---
CIWA Score Nausea/Vomitin Muscle Tremors: 3 Anxiety: 3 Agitation: 3 Paroxysmal Sweats: 3 Orientation: 0-Oriented Tacttile Disturbances: 0-None Auditory Disturbances: 0-None Visual Disturbances: 0-None Headache: 0-None Present CIWA-Ar Total Score: 14 - Admission Criteria OASAS Guidelines: Admission for Medically Managed Detox: Requires at least one of the followin. CIWA greater than 12 2. Seizures within the past 24 hours 3. Delirium tremens within the past 24 hours 4. Hallucinations within the past 24 hours 5. Acute intervention needed for co occurring medical disorder 6. Acute intervention needed for co occurring psychiatric disorder 7. Severe withdrawal that cannot be handled at a lower level of care (continued vomiting, continued diarrhea, abnormal vital signs) requiring intravenous medication and/or fluids 8. Admission [facility] - HPI Allergies/Adverse Reactions: Allergies Allergy/AdvReac Type Severity Reaction Status Date / Time penicillin G Allergy Severe Hives Verified 10/26/18 17:33 pork derived (porcine) Allergy Severe Hives Verified 10/26/18 17:33 tomato Allergy Severe Hives Verified 10/26/18 17:33 liver Allergy Severe Hives Uncoded 10/26/18 17:33 - Ebola screening Have you traveled outside of the country in the last 21 days: No (N) Have you had contact with anyone from an Ebola affected area: No Do you have a fever: No Patient History - Patient Medical History Hx Anemia: No Hx Asthma: Yes (Albuterol) Hx Chronic Obstructive Pulmonary Disease (COPD): Yes (Symbicort) Hx Cancer: No Hx Cardiac Disorders: No Hx Congestive Heart Failure: No Hx Hypertension: No Hx Hypercholesterolemia: No Hx Pacemaker: No HX Cerebrovascular Accident: No Hx Seizures: No Hx Dementia: No Hx Diabetes: No Hx Gastrointestinal Disorders: No Hx Liver Disease: No Hx Genitourinary Disorders: No Hx Sexually Transmitted Disorders: No Hx Renal Disease (ESRD): No Hx Thyroid Disease: No Hx Human Immunodeficiency Virus (HIV): No (last 2018 negative) Hx Hepatitis C: No Hx Depression: Yes (Not on medication) Hx Suicide Attempt: No (Denies suicidal ideation at this time) Hx Bipolar Disorder: No Hx Schizophrenia: No - Patient Surgical History Past Surgical History: Yes Hx Neurologic Surgery: No Hx Cataract Extraction: No Hx Cardiac Surgery: No Hx Lung Surgery: No Hx Breast Surgery: No Hx Breast Biopsy: No Hx Abdominal Surgery: No Hx Appendectomy: No Hx Cholecystectomy: No Hx Genitourinary Surgery: No Hx Section: No Hx Orthopedic Surgery: No Other Surgical History: pt. reported blood clot removed from right leg in Anesthesia Reaction: No - PPD History Previous Implant?: Yes Documented Results: Negative w/proof Implanted On Prior [facility] Admission?: Yes Date: 10/15/18 Results: 0 mm. - Smoking Cessation Smoking history: Former smoker Have you smoked in the past 12 months: No Aproximately how many cigarettes per day: 1 If you are a former smoker, when did you quit?: 2013 Cigars Per Day: 0 Hx Chewing Tobacco Use: No Initiated information on smoking cessation: No - Substances abused Alcohol Other (specify): VODKA Substance route: Oral Amount used: A FIFTH Age of first use: 17 Date of last use: 01/31/19 Benzodiazepine (Klonopin) Substance route: Oral Frequency: 3-6 times per week Amount used: 6 tablets Age of first use: 26 Date of last use: 01/31/19 Family Disease History - Family Disease History Family Disease History: Diabetes: Mother (HTN), Heart Disease: Mother, Other: Father (alcohol,) Admission Physical Exam [facility] - Diagnostic (1) Sedative hypnotic or anxiolytic dependence Current Visit: Yes Status: Acute (2) Alcohol dependence with uncomplicated withdrawal Current Visit: Yes Status: Chronic (3) Asthma Current Visit: No Status: Chronic Qualifiers: Asthma severity: mild Asthma persistence: intermittent Asthma complication type: uncomplicated Qualified Code(s): J45.20 - Mild intermittent asthma, uncomplicated (4) COPD (chronic obstructive pulmonary disease) Current Visit: Yes Status: Chronic Qualifiers: COPD type: unspecified COPD Qualified Code(s): J44.9 - Chronic obstructive pulmonary disease, unspecified (5) Nicotine dependence Current Visit: No Status: Chronic Qualifiers: Nicotine product type: cigarettes Substance use status: uncomplicated Qualified Code(s): F17.210 - Nicotine dependence, cigarettes, uncomplicated Vital Signs - Vital Signs Temperature: 97.2 F Temperature source: Oral Pulse Rate: 84 Respiratory Rate: 18 Blood Pressure: 147/82 - Height Height: 5 ft 7 in - Weight Weight: 218 lb - BMI Body Mass Index (BMI): 34.1 - Bowel Function Bowel Movement: Yes Inpatient Rehab Admission - Rehab Decision to Admit Inpatient rehab admission?: No
[2019-02-01] MEDS ORDERED: chlordiazePOXIDE HCL 25 MG CAPSULE PO SCH (05:00)
[2019-02-01] MEDS: ASPIRIN COATED 81 MG TABLET.EC PO SCH (10:14)
[2019-02-01] MEDS: BUDESONIDE/FORMETEROL FUMARATE 80/4.5 mcg INHALER IH SCH ×2 (10:14→22:45)
[2019-02-01] MEDS: PRENATAL VITAMINS W/ FOLIC ACID TABLET (FP) PO SCH (10:14)
[2019-02-01] MEDS: diazePAM 5 MG TABLET PO PRN (11:59)
--- NOTE | 2019-02-01 13:15 | PN ---
S CIWA - CIWA Score Nausea/Vomitin-No Nausea/No Vomiting Muscle Tremors: 4-Moderate,w/Arms Extend Anxiety: 3 Agitation: 3 Paroxysmal Sweats: 2 Orientation: 0-Oriented Tacttile Disturbances: 0-None Auditory Disturbances: 0-None Visual Disturbances: 0-None Headache: 0-None Present CIWA-Ar Total Score: 12 [facility] Progress Note (SOAP) Subjective: anxiety sweats shakes interrupted sleep body aches Objective: 02/01/19 13:15 Vital Signs Temperature 97.9 F 02/01/19 13:12 Pulse Rate 90 02/01/19 13:12 Respiratory Rate 18 02/01/19 13:12 Blood Pressure 134/65 02/01/19 13:12 O2 Sat by Pulse Oximetry (%) labs pending aaox3 ambulating no acute distress Assessment: 02/01/19 13:15 withdrawal sx Plan: continue detox increase fluids
[2019-02-01] MEDS: diazePAM 5 MG TABLET PO SCH (15:05)
[2019-02-01] MEDS: THIAMINE HCL 100 MG TABLET (FP) PO SCH (22:44)
[2019-02-01] MEDS: CLOPIDOGREL BISULFATE 75 MG TABLET (FP) PO SCH (22:44)
[2019-02-02] MEDS ORDERED: chlordiazePOXIDE HCL 25 MG CAPSULE PO SCH (05:00)
[2019-02-02] MEDS: diazePAM 5 MG TABLET PO SCH ×3 (06:52→18:15)
[2019-02-02] MEDS: BUDESONIDE/FORMETEROL FUMARATE 80/4.5 mcg INHALER IH SCH ×2 (10:51→23:07)
[2019-02-02] MEDS: ASPIRIN COATED 81 MG TABLET.EC PO SCH (10:54)
[2019-02-02] MEDS: PRENATAL VITAMINS W/ FOLIC ACID TABLET (FP) PO SCH (10:54)
[2019-02-02] MEDS: diazePAM 5 MG TABLET PO PRN (10:56)
--- NOTE | 2019-02-02 10:57 | PN ---
S CIWA - CIWA Score Nausea/Vomitin-No Nausea/No Vomiting Muscle Tremors: 3 Anxiety: 3 Agitation: 3 Paroxysmal Sweats: 2 Orientation: 0-Oriented Tacttile Disturbances: 0-None Auditory Disturbances: 0-None Visual Disturbances: 0-None Headache: 0-None Present CIWA-Ar Total Score: 11 [facility] Progress Note (SOAP) Subjective: sweats interrupted sleep body aches Objective: 02/02/19 10:56 Vital Signs Temperature 97.8 F 02/02/19 10:27 Pulse Rate 99 H 02/02/19 10:27 Respiratory Rate 18 02/02/19 10:27 Blood Pressure 125/67 02/02/19 10:27 O2 Sat by Pulse Oximetry (%) labs pending aaox3 ambulating no acute distress Assessment: 02/02/19 10:58 withdrawal sx Plan: continue detox increase fluids labs pending
[2019-02-02 12:03] LABS: HEMATOCRIT 39.5 % (35.4-49); HEMOGLOBIN 12.9 GM/dL (11.7-16.9); MCH 26.4 pg (25.7-33.7); MCHC 32.8 g/dl (32.0-35.9); MEAN CELL VOLUME 80.5 fl (80-96); MEAN PLT VOLUME 9.1 fl (7.5-11.1); PLATELET COUNT 222 K/MM3 (134-434); RDW 19.1 % (11.9-15.9); WHITE BLOOD COUNT 12.3 K/mm3 (4.0-10.0)
[2019-02-02 12:17] LABS: ALBUMIN 2.7 g/dl (3.4-5.0); ALK PHOS 66 U/L (45-117); ANION GAP 6 MMOL/L (8-16); BILIRUBIN,TOTAL 0.2 mg/dL (0.2-1); BLOOD UREA NITROGEN 18 mg/dL (7-18); CHLORIDE 104 mmol/L (98-107); CO2 31 mmol/L (21-32); CREATININE 0.8 mg/dL (0.55-1.3); GLUCOSE,RANDOM 93 mg/dL (74-106); POTASSIUM 4.2 mmol/L (3.5-5.1); SGOT/AST 11 U/L (15-37); SGPT/ALT 22 U/L (13-61); SODIUM 141 mmol/L (136-145); TOT PROT 5.2 g/dl (6.4-8.2)
[2019-02-02 18:09] VITALS: BP 128/72; PULSE 68; TEMP 98.3
--- NOTE | 2019-02-02 20:26 | PN ---
[facility] Progress Note Note: Vital Signs Temperature 98.3 F 02/02/19 18:06 Pulse Rate 68 02/02/19 18:06 Respiratory Rate 19 02/02/19 18:06 Blood Pressure 128/72 02/02/19 18:06 O2 Sat by Pulse Oximetry (%) Patient is a 58 yo male with hx of HTN, GERD, HX odf DVT 08/2018, Respiratroy failure 10/2018 is here for alcohol detox c/o of chest pain sharp 04/20 constant , non- reproducible, started about 30 minutes ago, denies FRANKS, SOB or parethesia Aox3 no distress s1 s2, no JVD lungs clear through out not adventitious breath sounds BS x4 , non-tender skin intact full ROM ambulatory Chest pain EKG ordered: sinus tachycardia 101 bpm ASA 81 mg Patient sent to [facility] for further evaluation, transported via [facility] , multiple attempts made to endorse patient at [facility] without any success.
[2019-02-02] MEDS ORDERED: ASPIRIN COATED 81 MG TABLET.EC PO ONE (20:27)
[2019-02-02] MEDS ORDERED: ASPIRIN COATED 81 MG TABLET.EC PO SCH (20:30)
[2019-02-02] MEDS: CLOPIDOGREL BISULFATE 75 MG TABLET (FP) PO SCH (23:06)
[2019-02-02] MEDS: THIAMINE HCL 100 MG TABLET (FP) PO SCH (23:07)
[2019-02-03] MEDS ORDERED: chlordiazePOXIDE HCL 10 MG CAPSULE PO SCH (05:00)
[2019-02-03] MEDS ORDERED: chlordiazePOXIDE HCL 10 MG CAPSULE PO PRN (05:00)
[2019-02-03] MEDS ORDERED: diazePAM 5 MG TABLET PO ONE (06:00)
--- NOTE | 2019-02-03 06:36 | PN ---
[facility] Progress Note Note: Dr Camacho from [facility] ER reports that patient is medically cleared but told his team that he had suicidal ideation. Patient is to be evaluated by Psych. team
[2019-02-03] MEDS: diazePAM 5 MG TABLET PO SCH (08:41)
--- NOTE | 2019-02-03 09:20 | PN ---
[facility] Progress Note Note: pt has completed his detox at [facility] and will be d/c from our detox unit. Pt referral to [facility] rehab or [facility] rehab for further treatment.
--- NOTE | 2019-02-03 09:22 | DS ---
[facility] Detox Discharge Summary Admission Date: 02/01/19 Discharge Date: 02/03/19 - History Present History: Alcohol Dependence, Opioid Dependence, Sedative Dependence - Physical Exam Results Vital Signs: Vital Signs Temperature 98.3 F 02/02/19 18:06 Pulse Rate 68 02/02/19 18:06 Respiratory Rate 19 02/02/19 18:06 Blood Pressure 128/72 02/02/19 18:06 O2 Sat by Pulse Oximetry (%) - Treatment Hospital Course: Detox Protocol Followed, Detoxed Safely, Responded well, Discharged Condition Good, Rehab Referral Accepted - Medication Discharge Medications: Ambulatory Orders Fluticasone/Salmeterol [Advair 250-50 Diskus] 1 each IH BID 10/13/18 Albuterol Sulfate Inhaler - [Ventolin HFA Inhaler -] 2 inh PO Q4H PRN #1 inhaler 10/17/18 Budesonide/Formeterol Fumarate [SYMBICORT 80/4.5mcg -] 1 inh IH BID #1 inhaler 10/17/18 Clopidogrel Bisulfate [Plavix] 75 mg PO HS #30 tablet 10/17/18 Quetiapine Fumarate [Seroquel -] 300 mg PO HS 10/17/18 cloNIDine HCL [Catapres -] 0.1 mg PO BID #30 tablet 10/17/18 Cefuroxime Axetil [Ceftin -] 500 mg PO BID 8 Days tablet 10/26/18 metroNIDAZOLE [Flagyl -] 500 mg PO TID 8 Days tablet 10/26/18 Aspirin [Aspirin EC] 81 mg PO DAILY 10/28/18 - Diagnosis (1) Chest pain Current Visit: No Status: Acute Qualifiers: Chest pain type: unspecified Qualified Code(s): R07.9 - Chest pain, unspecified (2) Sedative hypnotic or anxiolytic dependence Current Visit: Yes Status: Acute (3) Alcohol dependence with uncomplicated withdrawal Current Visit: Yes Status: Chronic (4) COPD (chronic obstructive pulmonary disease) Current Visit: No Status: Chronic Qualifiers: COPD type: unspecified COPD Qualified Code(s): J44.9 - Chronic obstructive pulmonary disease, unspecified (5) Substance-induced anxiety disorder Current Visit: No Status: Acute (6) Substance-induced sleep disorder Current Visit: No Status: Acute (7) Alcohol-induced sleep disorder Current Visit: No Status: Chronic (8) Asthma Current Visit: No Status: Chronic Qualifiers: Asthma severity: mild Asthma persistence: intermittent Asthma complication type: uncomplicated Qualified Code(s): J45.20 - Mild intermittent asthma, uncomplicated (9) Chronic obstructive pulmonary disease Current Visit: No Status: Chronic (10) Depression Current Visit: No Status: Chronic (11) Gastroesophageal reflux disease Current Visit: Yes Status: Chronic Qualifiers: Esophagitis presence: without esophagitis Qualified Code(s): K21.9 - Gastro -esophageal reflux disease without esophagitis (12) History of vascular surgery Current Visit: No Status: Chronic (13) Hypertension Current Visit: No Status: Chronic Qualifiers: Hypertension type: essential hypertension Qualified Code(s): I10 - Essential (primary) hypertension (14) Nicotine dependence Current Visit: No Status: Chronic Qualifiers: Nicotine product type: cigarettes Substance use status: uncomplicated Qualified Code(s): F17.210 - Nicotine dependence, cigarettes, uncomplicated (15) Opioid dependence with withdrawal Current Visit: Yes Status: Chronic (16) PTSD (post-traumatic stress disorder) Current Visit: No Status: Chronic (17) Leukocytosis Current Visit: No Status: Resolved Qualifiers: Leukocytosis type: unspecified Qualified Code(s): D72.829 - Elevated white blood cell count, unspecified (18) Respiratory failure Current Visit: No Status: Resolved (19) Seizure Current Visit: No Status: Ruled-out (20) Syncope Current Visit: No Status: Inactive Qualifiers: Syncope type: unspecified Qualified Code(s): R55 - Syncope and collapse - AMA Did Patient Leave Against Medical Advice: No (referreal to rehab)
[2019-02-03] MEDS: BUDESONIDE/FORMETEROL FUMARATE 80/4.5 mcg INHALER IH SCH (10:36)
[2019-02-03] MEDS: PRENATAL VITAMINS W/ FOLIC ACID TABLET (FP) PO SCH (10:36)
--- NOTE | 2019-02-03 12:10 | EKG ---
Test Reason : Blood Pressure : / mmHG Vent. Rate : 101 BPM Atrial Rate : 101 BPM P-R Int : 136 ms QRS Dur : 074 ms QT Int : 352 ms P-R-T Axes : 069 035 042 degrees QTc Int : 456 ms SINUS TACHYCARDIA OTHERWISE NORMAL ECG WHEN COMPARED WITH ECG OF 21-OCT-2018 03:21, NONSPECIFIC T WAVE ABNORMALITY HAS REPLACED INVERTED T WAVES IN INFERIOR LEADS Confirmed by BLANE COWART, MESSI ([id number]) on 02/03/2019 12:10:38 PM Referred By: AJIT BEE Confirmed By:MESSI ARGUELLES MD
[2019-02-03] MEDS ORDERED: ASPIRIN 81 MG CHEWABLE TABLETS PO SCH (20:30)
[2019-02-04] MEDS ORDERED: chlordiazePOXIDE HCL 10 MG CAPSULE PO SCH (05:00)
== END 2019-02-03 15:05 | disposition short-term general hospital (02) | DRG 773 ==
LOC: YASAS 23:19 → Y6N 02-01 03:19
PROVIDERS: ADMIT Surgery; ATTEND Surgery
PROC: HZ2ZZZZ Detoxification Services for Substance Abuse Treatment (ICD-10-PCS; principal; 2019-02-01)
DX: F11.23 Opioid dependence with withdrawal (principal); F10.230 Alcohol dependence with withdrawal, uncomplicated; F13.230 Sedative, hypnotic or anxiolytic dependence with withdrawal, uncomplicated; F17.210 Nicotine dependence, cigarettes, uncomplicated; F10.282 Alcohol dependence with alcohol-induced sleep disorder; F19.280 Other psychoactive substance dependence with psychoactive substance-induced anxiety disorder; F10.280 Alcohol dependence with alcohol-induced anxiety disorder; F43.10 Post-traumatic stress disorder, unspecified; R07.9 Chest pain, unspecified; I10 Essential (primary) hypertension; J44.9 Chronic obstructive pulmonary disease, unspecified; J45.20 Mild intermittent asthma, uncomplicated; K21.9 Gastro-esophageal reflux disease without esophagitis; Z87.09 Personal history of other diseases of the respiratory system; Z86.69 Personal history of other diseases of the nervous system and sense organs; Z98.890 Other specified postprocedural states
CPT/HCPCS: 36415; 80053; 85027; 86593; 93005; 93010

== ENCOUNTER 2019-02-02 21:15 | Observation (INO) | payer OTHER ==
[2019-02-02 21:40] VITALS: BMI 34.9
[2019-02-02] MEDS ORDERED: methylPREDNISolone NA SUCC 125 MG/2 ML VIAL IVPB ONE (22:17)
[2019-02-02] MEDS ORDERED: ALBUTEROL SO4 2.5/IPRATROPIUM 0.5 INH SOL 3 ML VIAL.NEB. NEB SCH (22:30)
[2019-02-02] MEDS ORDERED: LEVALBUTEROL HCL 0.63 MG/3 ML VIAL.NEB. IH PRN (22:32)
[2019-02-02] MEDS ORDERED: methylPREDNISolone NA SUCC 125 MG/2 ML VIAL ONE (22:45)
--- NOTE | 2019-02-02 22:55 | PDOC ---
History of Present Illness - General Chief Complaint: Chest Pain Stated Complaint: CHEST PAIN Time Seen by Provider: 02/02/19 22:11 - History of Present Illness Initial Comments: The pt is a 58M w/ a history of HTN, asthma/COPD, PAD who presents for approximately 2 hours of chest pain and SOB. The pt reports sharp, mid-chest, non-radiating, intermittent chest pain that is worse with deep inspiration and has begun to improve since it began. He was given nitro and ASA at [facility] w/ no relief. He denies using his inhaler at [facility] and reports pain feels similar to that of his previous asthma exacerbations. He endorses productive cough w/ clear sputum. Denies fevers/chills, FRANKS, vision changes, abdominal pain, N/V/C/D, dysuria, hematuria, blood in his stool, or changes in sensation 02/02/19 22:48 Past History - Past Medical History Allergies/Adverse Reactions: Allergies Allergy/AdvReac Type Severity Reaction Status Date / Time penicillin G Allergy Severe Hives Verified 02/02/19 21:40 pork derived (porcine) Allergy Severe Hives Verified 02/02/19 21:40 tomato Allergy Severe Hives Verified 02/02/19 21:40 liver Allergy Severe Hives Uncoded 02/02/19 21:40 Home Medications: Ambulatory Orders Fluticasone/Salmeterol [Advair 250-50 Diskus] 1 each IH BID 10/13/18 Albuterol Sulfate Inhaler - [Ventolin HFA Inhaler -] 2 inh PO Q4H PRN #1 inhaler 10/17/18 Budesonide/Formeterol Fumarate [SYMBICORT 80/4.5mcg -] 1 inh IH BID #1 inhaler 10/17/18 Quetiapine Fumarate [Seroquel -] 300 mg PO HS 10/17/18 cloNIDine HCL [Catapres -] 0.1 mg PO BID #30 tablet 10/17/18 Aspirin [Aspirin EC] 81 mg PO DAILY 10/28/18 Clopidogrel Bisulfate [Plavix] 75 mg PO HS #30 tablet 02/03/19 Folic Acid - 1 mg PO DAILY tablet 02/03/19 Thiamine HCl [Vitamin B1 -] 100 mg PO DAILY tablet 02/03/19 Anemia: No Asthma: Yes (Albuterol) Cancer: No Cardiac Disorders: No CVA: No COPD: Yes (Symbicort) CHF: No Dementia: No Diabetes: No GI Disorders: No Disorders: No HTN: No Hypercholesterolemia: No Kidney Stones: No Liver Disease: No Seizures: No Thyroid Disease: No - Surgical History Abdominal Surgery: No Appendectomy: No Cardiac Surgery: No Cholecystectomy: No Lung Surgery: No Neurologic Surgery: No Orthopedic Surgery: No - Reproductive History Testicular Surgery: No - Suicide/Smoking/Psychosocial Hx Smoking History: Current some day smoker Have you smoked in the past 12 months: Yes Number of Cigarettes Smoked Daily: 1 If you are a former smoker, when did you quit?: 2013 Cigars Per Day: 0 Information on smoking cessation initiated: No 'Breaking Loose' booklet given: 10/13/18 Hx Alcohol Use: Yes Drug/Substance Use Hx: Yes (Benzodiazepines) Substance Use Type: Alcohol Hx Substance Use Treatment: Yes ([facility]) Review of Systems - Review of Systems Able to Perform ROS?: Yes Comments:: GENERAL/CONSTITUTIONAL: No fever or chills. No weakness HEAD, EYES, EARS, NOSE AND THROAT: No change in vision. No ear pain or discharge. No sore throat CARDIOVASCULAR: +chest pain RESPIRATORY: Denies hemoptysis GASTROINTESTINAL: No nausea, vomiting, diarrhea or constipation GENITOURINARY: No dysuria, frequency, or change in urination MUSCULOSKELETAL: No joint or muscle swelling or pain. No neck or back pain SKIN: No rash NEUROLOGIC: No headache, vertigo, loss of consciousness, or change in strength/ sensation ENDOCRINE: No increased thirst. No abnormal weight change HEMATOLOGIC/LYMPHATIC: +PAD ALLERGIC/IMMUNOLOGIC: No hives or skin allergy 02/02/19 22:55 Is the patient limited Salvadorean proficient: No *Physical Exam - Vital Signs Last Vital Signs Temp Pulse Resp BP Pulse Ox 98.1 F 96 H 19 128/79 98 02/02/19 21:15 02/02/19 21:15 02/02/19 21:15 02/02/19 21:15 02/02/19 21:15 - Physical Exam Comments: GENERAL: Awake, alert, and oriented to person/place/time, in no acute distress HEAD: No signs of trauma, normocephalic, atraumatic EYES: PERRLA, EOMI, sclera anicteric, conjunctiva clear ENT: Hearing grossly normal, nares patent, oropharynx clear without exudates. Moist mucosa LUNGS: Poor inspiratory effort, mild wheeze b/l, speaks in full sentences HEART: Regular rate and rhythm, normal S1 and S2, no murmurs appreciated ABDOMEN: Soft, nontender, normoactive bowel sounds. No guarding, no rebound. No masses EXTREMITIES: Normal inspection, Normal range of motion, no edema. No clubbing or cyanosis NEUROLOGICAL: Cranial nerves II through XII grossly intact. Normal speech, no focal sensorimotor deficits SKIN: Warm, Dry 02/02/19 22:56 ED Treatment Course - LABORATORY CBC & Chemistry Diagram: 02/03/19 07:20 02/03/19 07:20 - RADIOLOGY Radiology Studies Ordered: Category Date Time Status CHEST PA & LAT [RAD] Stat Radiology 02/02/19 22:16 Ordered Medical Decision Making - Medical Decision Making The pt is a 58M w/ a history of asthma/COPD, ED Course Labs sent Xopenex x3 Solumedrol 125mg IV once Trop I neg Lytes wnl CXR w/o evidence of PNA Plan for Tele obs for ACS/asthma *DC/Admit/Observation/Transfer Diagnosis at time of Disposition: Chest pain, Alcohol dependence Chronic obstructive pulmonary disease Qualifiers: COPD type: unspecified COPD Qualified Code(s): J44.9 - Chronic obstructive pulmonary disease, unspecified - Discharge Dispostion Disposition: TRANSFER ACUTE CARE/OTHER HOSP Condition at time of disposition: Stable Decision to Admit order: Yes - Referrals - Patient Instructions - Post Discharge Activity
--- NOTE | 2019-02-03 00:30 | PDOC ---
Documentation entered by Randy Jenkins SCRIBE, acting as scribe for Vickie Villanueva DO. Vickie Villanueva DO: This documentation has been prepared by the Alice reed Matthew, SCRIBE, under my direction and personally reviewed by me in its entirety. I confirm that the documentation accurately reflects all work, treatment, procedures, and medical decision making performed by me. Attending Attestation - Resident Resident Name: Prince Camacho - ED Attending Attestation I have performed the following: I have examined & evaluated the patient, The case was reviewed & discussed with the resident, I agree w/resident's findings & plan - HPI HPI: 02/02/19 22:33 Patient is a 58 year old male with a significant past medical history of COPD, Asthma, Seizure disorder, GERD, who presents to the ED with complaints of chest pain that began earlier this morning. Patient reports experiencing chest pain that he states is a constant sharp stabbing mid sternal chest pain that he states increases in intensity with deep inspiration. He reports experiencing chest pain feels similar to past experiences of asthma/ copd exacerbation. Patient states he has been in [facility] since thursday. Denies chest pain, sob. Denies nausea, vomiting. Denies fevers, chills. Denies contact with sick individuals, out of state travelling. Denies constipation, diarrhea. Denies dysuria, hematuria. Denies any other symptoms. Allergies: Penicillin Social history: No smoking. Alcohol abuse. No illicit drugs. Surgical history: None PMD: None - Physicial Exam PE: 02/02/19 22:33 Agree with residents Physical Exam. - Medical Decision Making 02/03/19 00:30 58-year-old male sent from inpatient alcohol detox with chest pain EKG shows no significant changes Plan for chest x-ray labs and admission to medical service for serial enzymes/ rule out ACS
[2019-02-03 00:36] LABS: BASO % 0.3 % (0-2.0); EOS % 1.1 % (0-4.5); HEMATOCRIT 38.5 % (35.4-49); HEMOGLOBIN 12.7 GM/dL (11.7-16.9); LYMPH % 8.3 % (8-40); MCH 26.2 pg (25.7-33.7); MEAN CELL VOLUME 79.3 fl (80-96); MEAN PLT VOLUME 8.6 fl (7.5-11.1); MONO % 5.9 % (3.8-10.2); NEUT % 84.4 % (42.8-82.8); PLATELET COUNT 221 K/MM3 (134-434); RBC 4.86 M/mm3 (4.00-5.60); WHITE BLOOD COUNT 15.8 K/mm3 (4.0-10.0)
[2019-02-03 01:09] LABS: ALBUMIN 2.8 g/dl (3.4-5.0); ALK PHOS 71 U/L (45-117); ANION GAP 7 MMOL/L (8-16); BILIRUBIN,TOTAL 0.2 mg/dL (0.2-1); BLOOD UREA NITROGEN 21 mg/dL (7-18); CALCIUM 8.1 mg/dL (8.5-10.1); CHLORIDE 106 mmol/L (98-107); CO2 26 mmol/L (21-32); CREATININE 0.8 mg/dL (0.55-1.3); GLUCOSE,RANDOM 125 mg/dL (74-106); POTASSIUM 4.5 mmol/L (3.5-5.1); SGOT/AST 13 U/L (15-37); SGPT/ALT 25 U/L (13-61); SODIUM 139 mmol/L (136-145); TOT PROT 5.7 g/dl (6.4-8.2)
--- NOTE | 2019-02-03 03:45 | HP ---
CHIEF COMPLAINT: Chest Pain HISTORY OF PRESENT ILLNESS: Pt is a 58 y/o gentleman with a significant past medical history COPD, ASTHMA, Seizure, HTN, DVT 08/2018, Respiratory failure s/p intubation 10/2018, seizure d/ o whom presented to [facility] from [facility] yesterday morning due to chest pain. Pt states he was lying down in bed when he suddenly developed acute chest pain, 10/10 in pain severity, nonradiating, and exacerbated w/ deep inspiration. Pt states he did not take any medication for his pain. Pt currently at detox program at [facility] and being treated for alcohol and benzodiazapine abuse. Denies any cocaine or heroine use. Upon further questioning in ED, pt endorses he does hear voices and that he is suicidal. PMH Per above SocialHx- Smoked 2 PPD x 36 year, Alcohol abuse SurgHx- Right lower extremity angioplasty w/ stent ([facility]) ER course was notable for: (1) Solumedrol 125 once (2) 1st Trop negative (3) CIWA 18 in ED Allergies penicillin G Allergy (Severe, Verified 02/02/19 21:40) Hives pork derived (porcine) Allergy (Severe, Verified 02/02/19 21:40) Hives tomato Allergy (Severe, Verified 02/02/19 21:40) Hives liver Allergy (Severe, Uncoded 02/02/19 21:40) Hives HOME MEDICATIONS: Home Medications Medication Instructions Recorded Fluticasone/Salmeterol [Advair 1 each IH BID 10/13/18 250-50 Diskus] Albuterol Sulfate Inhaler - 2 inh PO Q4H PRN #1 inhaler 10/17/18 [Ventolin HFA Inhaler -] Budesonide/Formeterol Fumarate 1 inh IH BID #1 inhaler 10/17/18 [SYMBICORT 80/4.5mcg -] Clopidogrel Bisulfate [Plavix] 75 mg PO HS #30 tablet 10/17/18 Quetiapine Fumarate [Seroquel -] 300 mg PO HS 10/17/18 cloNIDine HCL [Catapres -] 0.1 mg PO BID #30 tablet 10/17/18 Cefuroxime Axetil [Ceftin -] 500 mg PO BID 8 Days tablet 10/26/18 metroNIDAZOLE [Flagyl -] 500 mg PO TID 8 Days tablet 10/26/18 Aspirin [Aspirin EC] 81 mg PO DAILY 10/28/18 REVIEW OF SYSTEMS CONSTITUTIONAL: PRESENT diaphoresis HEENT: Absent: rhinorrhea, nasal congestion, throat pain, throat swelling, difficulty swallowing, mouth swelling, ear pain, eye pain, visual changes CARDIOVASCULAR: PRESENT chest pain RESPIRATORY: Absent: cough, shortness of breath, dyspnea with exertion, orthopnea, wheezing, stridor, hemoptysis GASTROINTESTINAL: Absent: abdominal pain, abdominal distension, nausea, vomiting, diarrhea, constipation, melena, hematochezia GENITOURINARY: Absent: dysuria, frequency, urgency, hesitancy, hematuria, flank pain, genital pain MUSCULOSKELETAL: Absent: myalgia, arthralgia, joint swelling, back pain, neck pain SKIN: PRESENT: itching HEMATOLOGIC/IMMUNOLOGIC: Absent: easy bleeding, easy bruising, lymphadenopathy, frequent infections ENDOCRINE: Absent: unexplained weight gain, unexplained weight loss, heat intolerance, cold intolerance NEUROLOGIC: Absent: headache, focal weakness or paresthesias, dizziness, unsteady gait, seizure, mental status changes, bladder or bowel incontinence PSYCHIATRIC: PRESENT anxiety, depression, suicidal or homicidal ideation, hallucinations. PHYSICAL EXAMINATION Vital Signs - 24 hr 02/02/19 21:15 Temperature 98.1 F Pulse Rate 96 H Respiratory 19 Rate Blood Pressure 128/79 O2 Sat by Pulse 98 Oximetry (%) GENERAL: Anxious, irritable HEAD: Normal with no signs of trauma. EYES: EOMI Sclera Clear EARS, NOSE, THROAT: MMM NECK:Supple LUNGS: CTAB HEART: RRR NL S1S2 ABDOMEN: TTP Epigastric area MUSCULOSKELETAL: FROM UPPER EXTREMITIES: Hand tremors b/l. LOWER EXTREMITIES: No CCE NEUROLOGICAL: Cranial nerves II-XII intact. Normal speech. PSYCHIATRIC: Irritable, anxious. SKIN: No rashes or lesions appreciated Laboratory Results - last 24 hr 02/03/19 02/03/19 00:25 00:25 WBC 15.8 H RBC 4.86 Hgb 12.7 Hct 38.5 MCV 79.3 L MCH 26.2 MCHC 33.0 RDW 19.0 H Plt Count 221 MPV 8.6 Absolute Neuts (auto) 13.4 H Neutrophils % 84.4 H Lymphocytes % 8.3 D Monocytes % 5.9 Eosinophils % 1.1 D Basophils % 0.3 Nucleated RBC % 0 Sodium 139 Potassium 4.5 Chloride 106 Carbon Dioxide 26 Anion Gap 7 L BUN 21 H Creatinine 0.8 Creat Clearance w eGFR 100.00 Random Glucose 125 H Calcium 8.1 L Total Bilirubin 0.2 AST 13 L ALT 25 Alkaline Phosphatase 71 Troponin I < 0.02 Total Protein 5.7 L Albumin 2.8 L ASSESSMENT/PLAN: Pt is a 58 y/o gentleman with a significant past medical history COPD, asthma, Seizure, HTN, DVT 08/2018, Respiratory failure s/p intubation 10/2018, seizure d/ o whom presented to [facility] from [facility] yesterday morning due to chest pain. #Atypical Chest Pain - Initial Troponin < 0.02. Repeat Troponin Q6H. - Pt denies any Cocaine Use. EKG w/ no TWI or ST elevations/depressions. -Day team to consider Cardiology consult -Echocardiogram -Tele #Leukocystosis 2/2 unknown etiology - Chest XRAY negative for any acute pathology -Will check urine for any signs of UTI. Will not start antibiotics at this juncture. Elevated WBC may be 2/2 Solumedrol. # Alcohol/Benzodiazapine Withdrawal -Current CIWA 18 - Pt was placed on Valium at [facility]. Will place on Ativan 1 mg PRN. Consult Detox. -Continue Detox protocol while at [facility]. Will transfer back to [facility] when medically stable. -Pt states he is suicidal. Will place on 1:1 observation and consult psychiatry. # COPD C/W home medications. Day team to reconcile medications in am. # Previous DVT -C/w ASA and Plavix # FEN No Fluids Monitor Electrolytes Low Salt Diet #DVT ppx HEPSQTID #Dispo Tele Visit type - Emergency Visit Emergency Visit: Yes ED Registration Date: 02/03/19 Care time: The patient presented to the Emergency Department on the above date and was hospitalized for further evaluation of their emergent condition. - New Patient This patient is new to me today: Yes Date on this admission: 02/03/19 - Critical Care Critical Care patient: No
--- NOTE | 2019-02-03 04:59 | PN ---
Teaching Attending Note Name of Resident: Silas Pinon ATTENDING PHYSICIAN STATEMENT I saw and evaluated the patient. I reviewed the resident's note and discussed the case with the resident. I agree with the resident's findings and plan as documented. SUBJECTIVE: Patient is a 58 year old man with a significant past medical history of alcohol abuse (drinks Vodka daily), penicillin allergy, COPD, Asthma, Seizure disorder, GERD, who presents to the ER with complaints of chest pain that began earlier this morning. Patient reports experiencing chest pain that he states is a constant sharp stabbing mid sternal chest pain that he states increases in intensity with deep inspiration. He reports experiencing chest pain feels similar to past experiences of asthma/ COPD exacerbation. Patient states he has been in [facility] for alcohol detox since thursday. Denies SOB, nausea, vomiting, fevers, chills, contact with sick individuals, out of state travelling, constipation, diarrhea, dysuria or hematuria. OBJECTIVE: Alert Vital Signs Period Temp Pulse Resp BP Sys/Whatley Pulse Ox Last 24 Hr 98.1 F-98.1 F 87-96 19 111-128/57-79 98-99 HEENT: No Jaundice, eye redness or discharge, PERRLA, EOMI. Normocephalic, atraumatic. External ears are normal and hearing is grossly intact. No nasal discharge. Neck: Supple, nontender. No palpable adenopathy or thyromegaly. No JVD Chest: Good effort. Prolonged expiration. Point tenderness. Heart: Regular. No S3, rub or murmur Abdomen: Not distended, soft, nontender and no HSM. No rebound or guarding. Normal bowel sounds. Ext: Peripheral pulses intact. No leg edema. Skin: Warm and dry. No petechiae, rash or ecchymosis. Neuro: Alert. Oriented x3. Tremulous. CN 2-12 grossly intact. Sensation grossly intact in all four extremities and DTR are symmetric. Psych: Appropriate mood and affect. Good insight. has suicidal ideation but no homicidal ideation. Current Medications Generic Name Dose Route Start Last Admin Trade Name Freq PRN Reason Stop Dose Admin Levalbuterol HCl 0.63 mg 02/02/19 22:32 02/03/19 00:06 Xopenex IH 0.63 mg Q8H PRN Administration ASTHMA Home Medications Medication Instructions Recorded Fluticasone/Salmeterol [Advair 1 each IH BID 10/13/18 250-50 Diskus] Albuterol Sulfate Inhaler - 2 inh PO Q4H PRN #1 inhaler 10/17/18 [Ventolin HFA Inhaler -] Budesonide/Formeterol Fumarate 1 inh IH BID #1 inhaler 10/17/18 [SYMBICORT 80/4.5mcg -] Clopidogrel Bisulfate [Plavix] 75 mg PO HS #30 tablet 10/17/18 Quetiapine Fumarate [Seroquel -] 300 mg PO HS 10/17/18 cloNIDine HCL [Catapres -] 0.1 mg PO BID #30 tablet 10/17/18 Cefuroxime Axetil [Ceftin -] 500 mg PO BID 8 Days tablet 10/26/18 metroNIDAZOLE [Flagyl -] 500 mg PO TID 8 Days tablet 10/26/18 Aspirin [Aspirin EC] 81 mg PO DAILY 10/28/18 Abnormal Lab Results 02/03/19 02/03/19 00:25 00:25 WBC 15.8 H MCV 79.3 L RDW 19.0 H Absolute Neuts (auto) 13.4 H Neutrophils % 84.4 H Anion Gap 7 L BUN 21 H Random Glucose 125 H Calcium 8.1 L AST 13 L Total Protein 5.7 L Albumin 2.8 L ASSESSMENT AND PLAN: 1. Chest pain - Pain is atypical, reproducible. No acute abnormality on CXR and EKG is NSR with no acute ST-T wave changes. Will treat with inhalational bronchodilators and admit to telemetry to rule out ACS. Etiology of leukocytosis is unclear. UA pending. Will repeat CBC, but withhold antibiotics for now - may be due to inhaled steroids. Check HbA1c. 2. Hypoalbuminemia - Possibly due to combined effects of malnutrition and inflammation associated with comorbid chronic conditions. Will ensure adequate dietary protein intake and also consult [employer]. 3. Obesity Counseled on the risks associated with obesity. Will provide patient all the necessary assistance, counseling and positive reinforcement to facilitate weight loss. 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 4. Alcohol withdrawal/Suicidal ideation - Implement [facility] alcohol withdrawal protocol and do neurochecks. Implement seizure, fall and aspiration precautions. Treat with thiamine and folic acid and monitor electrolytes (Ca,Mg, K,P). Counseled patient about abstaining from alcohol. Will consult maintenance specialist and refer to alcohol detox upon discharge. Patient being placed on 1 to 1 monitoring and will consult psychiatry. 5. DVT prophylaxis - Lovenox 40 mg SQ q 24 hours. 6. Advance directives - Full code
[2019-02-03] MEDS ORDERED: diazePAM 5 MG TABLET PO PRN ×2 (05:28→12:32)
[2019-02-03] MEDS ORDERED: LEVALBUTEROL HCL 0.63 MG/3 ML VIAL.NEB. IH PRN (05:45)
[2019-02-03] MEDS ORDERED: LORazepam 2 MG/ML SDV VIAL IVPUSH PRN (05:47)
[2019-02-03 06:13] LABS: ANISOCYTOSIS 0; HELMET CELLS 0; HOWELL-JOLLY BODIES 0; MACROCYTOSIS 0; OVALOCYTE 0; PLATELET ESTIMATE NORMAL; ROULEAU 0; SICKELED CELLS 0; TARGET CELLS 0; TEAR DROP CELLS 0; TOXIC GRANULATION 0
[2019-02-03] MEDS ORDERED: LORazepam 2 MG/ML SDV VIAL ONE (06:35)
[2019-02-03 08:25] LABS: BASO % 0.3 % (0-2.0); HEMATOCRIT 40.3 % (35.4-49); HEMOGLOBIN 13.5 GM/dL (11.7-16.9); LYMPH % 4.4 % (8-40); MCH 26.2 pg (25.7-33.7); MCHC 33.5 g/dl (32.0-35.9); MEAN CELL VOLUME 78.3 fl (80-96); MEAN PLT VOLUME 8.5 fl (7.5-11.1); MONO % 1.9 % (3.8-10.2); NEUT % 93.4 % (42.8-82.8); PLATELET COUNT 249 K/MM3 (134-434); RBC 5.15 M/mm3 (4.00-5.60); RDW 18.6 % (11.9-15.9); WHITE BLOOD COUNT 20.3 K/mm3 (4.0-10.0)
[2019-02-03 08:39] LABS: INR 0.89 (0.83-1.09); PROTHROMBIN TIME (PATIENT) 10.5 SEC (9.7-13.0)
[2019-02-03 08:57] LABS: ALBUMIN 3.2 g/dl (3.4-5.0); ALK PHOS 81 U/L (45-117); ANION GAP 6 MMOL/L (8-16); BILIRUBIN,TOTAL 0.2 mg/dL (0.2-1); BLOOD UREA NITROGEN 20 mg/dL (7-18); CHLORIDE 104 mmol/L (98-107); CHOLESTEROL 207 mg/dL (50-200); CO2 28 mmol/L (21-32); CREATININE 0.9 mg/dL (0.55-1.3); GLUCOSE,RANDOM 185 mg/dL (74-106); HDL CHOLESTEROL 84 mg/dL (40-60); MAGNESIUM 2.4 mg/dL (1.8-2.4); PHOSPHOROUS 3.6 mg/dL (2.5-4.9); SGOT/AST 10 U/L (15-37); SGPT/ALT 27 U/L (13-61); SODIUM 138 mmol/L (136-145); TOT PROT 6.3 g/dl (6.4-8.2); TRIGLYCERIDES 95 mg/dL (0-150)
[2019-02-03] MEDS ORDERED: THIAMINE HCL 100 MG TABLET (FP) PO SCH (10:00)
[2019-02-03] MEDS ORDERED: ACYCLOVIR INJECTION 1,000 MG in DEXTROSE 5%-WATER - 100 ML IVPB SCH (10:00)
[2019-02-03] MEDS ORDERED: FOLIC ACID 1 MG TABLET (FP) PO SCH (10:00)
[2019-02-03 11:20] LABS: ANISOCYTOSIS 1+; OVALOCYTE 1+; PLATELET ESTIMATE NORMAL
--- NOTE | 2019-02-03 12:06 | EKG ---
Test Reason : Blood Pressure : / mmHG Vent. Rate : 085 BPM Atrial Rate : 085 BPM P-R Int : 144 ms QRS Dur : 076 ms QT Int : 360 ms P-R-T Axes : 056 004 044 degrees QTc Int : 428 ms NORMAL SINUS RHYTHM NORMAL ECG WHEN COMPARED WITH ECG OF 02-FEB-2019 19:13, NO SIGNIFICANT CHANGE WAS FOUND Confirmed by MESSI ARGEULLES MD ([id number]) on 02/03/2019 12:06:04 PM Referred By: Confirmed By:MESSI ARGUELLES MD
--- NOTE | 2019-02-03 12:49 | PN ---
Teaching Attending Note Name of Resident: Nelly Werner ATTENDING PHYSICIAN STATEMENT I saw and evaluated the patient. I reviewed the resident's note and discussed the case with the resident. I agree with the resident's findings and plan as documented. SUBJECTIVE: Patient has no complaints. He says he feels better. He denies chest pain, SOB, suicidal thoughts. OBJECTIVE: Vital Signs Period Temp Pulse Resp BP Sys/Whatley Pulse Ox Last 24 Hr 98.0 F-98.1 F 87-97 16-19 111-133/57-86 98-100 HEART: S1S2, tachycardic LUNGS: Clear ABDOMEN: Obese, soft, non-tender, non-distended, normal BS EXTREMITIES: No edema Laboratory Results - last 24 hr 02/03/19 02/03/19 02/03/19 00:25 00:25 07:20 WBC 15.8 H 20.3 H RBC 4.86 5.15 Hgb 12.7 13.5 Hct 38.5 40.3 MCV 79.3 L 78.3 L MCH 26.2 26.2 MCHC 33.0 33.5 RDW 19.0 H 18.6 H Plt Count 221 249 MPV 8.6 8.5 Absolute Neuts (auto) 13.4 H 19.0 H Neutrophils % 84.4 H 93.4 H Neutrophils % (Manual) 80.0 94.0 H Band Neutrophils % 1.0 1.0 Lymphocytes % 8.3 D 4.4 L D Lymphocytes % (Manual) 12.0 D 3.0 L D Monocytes % 5.9 1.9 L Monocytes % (Manual) 0 L D 1 L D Eosinophils % 1.1 D 0.0 D Eosinophils % (Manual) 0.0 0.0 Basophils % 0.3 0.3 Basophils % (Manual) 0.0 0.0 Myelocytes % (Man) 0 0 Promyelocytes % (Man) 0 0 Blast Cells % (Manual) 0 0 Nucleated RBC % 0 0 Metamyelocytes 0 1 D Hypochromia 0 Toxic Granulation 0 Dohle Bodies 0 Platelet Estimate Normal Normal Polychromasia 0 Poikilocytosis 0 1+ Basophilic Stippling 0 Anisocytosis 0 1+ Microcytosis 0 1+ Macrocytosis 0 Spherocytes 0 Sickle Cells 0 Target Cells 0 Tear Drop Cells 0 Ovalocytes 0 1+ Stomatocytes 0 Helmet Cells 0 Dwyer-Seboyeta Bodies 0 [place] Rings 0 Fern Cells 0 Acanthocytes (Spur) 0 Rouleaux 0 Fragmented RBCs 0 Schistocytes 0 PT with INR INR PTT (Actin FS) Sodium 139 Potassium 4.5 Chloride 106 Carbon Dioxide 26 Anion Gap 7 L BUN 21 H Creatinine 0.8 Creat Clearance w eGFR 100.00 Random Glucose 125 H Hemoglobin A1c % Calcium 8.1 L Phosphorus Magnesium Total Bilirubin 0.2 AST 13 L ALT 25 Alkaline Phosphatase 71 Troponin I < 0.02 Total Protein 5.7 L Albumin 2.8 L Triglycerides Cholesterol Total LDL Cholesterol HDL Cholesterol 02/03/19 02/03/19 02/03/19 07:20 07:20 07:20 WBC RBC Hgb Hct MCV MCH MCHC RDW Plt Count MPV Absolute Neuts (auto) Neutrophils % Neutrophils % (Manual) Band Neutrophils % Lymphocytes % Lymphocytes % (Manual) Monocytes % Monocytes % (Manual) Eosinophils % Eosinophils % (Manual) Basophils % Basophils % (Manual) Myelocytes % (Man) Promyelocytes % (Man) Blast Cells % (Manual) Nucleated RBC % Metamyelocytes Hypochromia Toxic Granulation Dohle Bodies Platelet Estimate Polychromasia Poikilocytosis Basophilic Stippling Anisocytosis Microcytosis Macrocytosis Spherocytes Sickle Cells Target Cells Tear Drop Cells Ovalocytes Stomatocytes Helmet Cells Dwyer-Seboyeta Bodies [place] Rings [place] Cells Acanthocytes (Spur) Rouleaux Fragmented RBCs Schistocytes PT with INR 10.50 INR 0.89 PTT (Actin FS) 26.0 Sodium 138 Potassium 5.0 Chloride 104 Carbon Dioxide 28 Anion Gap 6 L BUN 20 H Creatinine 0.9 Creat Clearance w eGFR 87.29 Random Glucose 185 H Hemoglobin A1c % 6.6 H Calcium 9.0 Phosphorus 3.6 Magnesium 2.4 Total Bilirubin 0.2 AST 10 L ALT 27 Alkaline Phosphatase 81 Troponin I < 0.02 Total Protein 6.3 L Albumin 3.2 L Triglycerides 95 Cholesterol 207 H Total LDL Cholesterol 111 H HDL Cholesterol 84 H Current Medications Generic Name Dose Route Start Last Admin Trade Name Freq PRN Reason Stop Dose Admin Diazepam 5 mg 02/03/19 14:00 Valium - PO 02/04/19 06:01 TID KATH Diazepam 5 mg 02/04/19 14:00 Valium - PO 02/04/19 22:01 1400,2200 KATH Diazepam 5 mg 02/05/19 06:00 Valium - PO 02/05/19 06:01 ONCE ONE Diazepam 10 mg 02/03/19 12:32 Valium - PO 02/06/19 12:31 Q4H PRN WITHDRAWAL(CONT SUBST) Folic Acid 1 mg 02/03/19 10:00 02/03/19 10:34 Folic Acid - PO 1 mg DAILY KATH Administration Levalbuterol HCl 0.63 mg 02/03/19 05:45 Xopenex IH Q8H PRN SHORTNESS OF BREATH Thiamine HCl 100 mg 02/03/19 10:00 02/03/19 10:34 Vitamin B1 - PO 100 mg DAILY KATH Administration ASSESSMENT AND PLAN: This is a 58 year old man with a history of HTN, COPD, asthma, seizure disorder , DVT who presented to the ED from [facility] with chest pain. 1. Chest pain, atypical - Resolved - Troponin negative x2 - Echo shows normal LV, normal RV, trace TR 2. Leukocytosis - No obvious infection - UA not done - Chronic - WBC 10.4-21.6 over the last 4 years - Should have hematology evaluation as outpatient 3. Suicidal ideation - Awaiting psychiatry 4. Alcohol/benzodiazepine dependence with withdrawal - Continue detox with Valium - Continue thiamine, folic acid 5. COPD/asthma - Stable 6. Seizure disorder 7. History of DVT 8. Disposition - Return to [facility] once cleared by psychiatry
[2019-02-03] MEDS ORDERED: diazePAM 5 MG TABLET PO SCH (14:00)
[2019-02-03] MEDS ORDERED: diazePAM 5 MG TABLET ONE (14:29)
[2019-02-03 14:34] VITALS: BP 134/98; PULSE 96; TEMP 97.6
--- NOTE | 2019-02-03 14:34 | ECHO ---
Name: MAIK SHRESTHA Exam:Adult Echocardiogram Study Date: 02/03/2019 09:19 AM Age: 58 yrs Reason For Study: R/O ACS Height: 68 in Weight: 230 lb BSA: 2.2 m2 MMode/2D Measurements & Calculations IVSd: 1.00 cm Ao root diam: 2.2 cm LVIDd: 4.0 cm LA dimension: 3.5 cm LVIDs: 2.5 cm LVPWd: 1.2 cm LVPWs: 1.4 cm EDV(Teich): 68.7 ml ESV(Teich): 21.8 ml LVOT diam: 2.0 cm Doppler Measurements & Calculations MV E max romulo: 68.1 cm/sec Ao V2 max: 128.2 cm/sec MV A max romulo: 71.1 cm/sec Ao max P.6 mmHg MV E/A: 0.96 Ao V2 mean: 82.6 cm/sec MV dec time: 0.12 sec Ao mean P.2 mmHg Ao V2 VTI: 22.3 cm Med Peak E' Romulo: 8.3 cm/sec Med E/e': 8.2 Lat Peak E' Romulo: 9.7 cm/sec Lat E/e': 7.1 Procedure A complete two-dimensional transthoracic echocardiogram was performed (2D, M-mode, Doppler and color flow Doppler). Left Ventricle The left ventricular size, thickness and function are normal. The left ventricular ejection fraction is normal. Ejection Fraction = 60-65%. The left ventricular wall motion is normal. Right Ventricle The right ventricle is normal in size and function. Atria Normal left and right atrial size and function. Mitral Valve There is no mitral regurgitation noted. Tricuspid Valve There is trace tricuspid regurgitation. There was insufficient TR detected to calculate RV systolic p ressure. Aortic Valve The aortic valve is trileaflet. No hemodynamically significant valvular aortic stenosis. No aortic regurgitation is present. Pulmonic Valve There is no pulmonic valvular regurgitation. Great Vessels The aortic root is normal size. Pericardium/Pleura There is no pericardial effusion. Interpretation Summary The left ventricular size, thickness and function are normal The right ventricle is normal in size and function. There is trace tricuspid regurgitation. MD Esvin Lassiter 02/03/2019 02:34 PM
--- NOTE | 2019-02-03 15:54 | CON.PSY ---
Psychiatry Consult Chief Complaint: I never said I was suicidal. They misunderstood me. - Previous Psychiatric Treatment Outpatient: None Inpatient: None - Previous Substance Abuse Treatment Outpatient: Less than 6 mos ago Inpatient: Within the last 12 months - Reason for Previous Treatment Reason for Previous Treatment: Alcohol Abuse, Other Drugs - Current Medications Current Medications: Active Medications Diazepam (Valium -) 5 mg PO TID [facility] Stop: 02/04/19 06:01 Last Admin: 02/03/19 14:30 Dose: 5 mg Diazepam (Valium -) 5 mg PO 1400,2200 [facility] Stop: 02/04/19 22:01 Diazepam (Valium -) 5 mg PO ONCE ONE Stop: 02/05/19 06:01 Diazepam (Valium -) 10 mg PO Q4H PRN PRN Reason: WITHDRAWAL(CONT SUBST) Stop: 02/06/19 12:31 Folic Acid (Folic Acid -) 1 mg PO DAILY [facility] Last Admin: 02/03/19 10:34 Dose: 1 mg Levalbuterol HCl (Xopenex) 0.63 mg IH Q8H PRN PRN Reason: SHORTNESS OF BREATH Thiamine HCl (Vitamin B1 -) 100 mg PO DAILY [facility] Last Admin: 02/03/19 10:34 Dose: 100 mg - Allergies Allergies: Allergies Allergy/AdvReac Type Severity Reaction Status Date / Time penicillin G Allergy Severe Hives Verified 02/02/19 21:40 pork derived (porcine) Allergy Severe Hives Verified 02/02/19 21:40 tomato Allergy Severe Hives Verified 02/02/19 21:40 liver Allergy Severe Hives Uncoded 02/02/19 21:40 - Current Living Status Usual Living Arrangement: Alone - Current Mental Status Evaluation Appearance: Well Groomed Attitude: Cooperative - Affect Affect: Full Range Appropriateness: Appropriate to Content - Mood Mood: Euthymic - Speech/Language Expressive: Coherent - Psychomotor Activity Psychomotor Activity: Normal - Thought Process Thought Process: Intact - Thought Content Hallucinations: Absent Delusions: Absent - Self Perception Self Perception: No Impairment - Cognition Attention: Alert Orientation: Time Memory, Immediate Recall: Intact Memory, Short Term: 3/3 Memory, Remote with Promptin/3 - Concentration Simple Calculations Intact: Yes - Abstraction Proverb Interpretation: Intact Judgement: Intact - Insight Insight: Intact - Impulse Control Impulse Control: Good Control - Suicidal Ideation Suicidal Ideation: No - Homicidal Ideation Homicidal Ideation: No Assessment/Plan 1) Patient is not suicidal at this time. 2) discharge from ER when medically stable.
--- NOTE | 2019-02-03 17:41 | DS ---
Physical Exam: SUBJECTIVE: Patient seen and examined at bedside this morning. Patient sitting comfortably in bed, has no complaints and just wants to go back to [facility]. Patient denies that he is suicidal, reporting he was just misunderstood as he was just trying to express himself because he was in so much pain. He denies chest pain, SOB, abdominal pain, diarrhea, fever, chills, nausea, vomiting. OBJECTIVE: Vital Signs Temperature 97.6 F 02/03/19 14:33 Pulse Rate 96 H 02/03/19 14:33 Respiratory Rate 18 02/03/19 14:33 Blood Pressure 134/98 02/03/19 14:33 O2 Sat by Pulse Oximetry (%) 98 02/03/19 14:33 PHYSICAL EXAM GENERAL: The patient is awake, alert, and fully oriented, in no acute distress. HEAD: Normal with no signs of trauma. EYES: PERRLa, EOMI, sclera anicteric, conjunctiva clear. ENT: oropharynx clear without exudates, moist mucous membranes. NECK: Trachea midline, full range of motion, supple. LUNGS: Breath sounds equal, clear to auscultation bilaterally. HEART: Regular rate and rhythm, S1, S2 without murmur, rub or gallop. ABDOMEN: Soft, nontender, nondistended, normoactive bowel sounds. EXTREMITIES: 2+ pulses, warm, well-perfused, no edema. NEUROLOGICAL: Cranial nerves II through XII grossly intact. Normal speech, normal gait. PSYCH: Normal mood, normal affect. SKIN: Warm, dry, normal turgor, no rashes or lesions noted. LABS Laboratory Results - last 24 hr 02/03/19 02/03/19 02/03/19 00:25 00:25 07:20 WBC 15.8 H 20.3 H RBC 4.86 5.15 Hgb 12.7 13.5 Hct 38.5 40.3 MCV 79.3 L 78.3 L MCH 26.2 26.2 MCHC 33.0 33.5 RDW 19.0 H 18.6 H Plt Count 221 249 MPV 8.6 8.5 Absolute Neuts (auto) 13.4 H 19.0 H Neutrophils % 84.4 H 93.4 H Neutrophils % (Manual) 80.0 94.0 H Band Neutrophils % 1.0 1.0 Lymphocytes % 8.3 D 4.4 L D Lymphocytes % (Manual) 12.0 D 3.0 L D Monocytes % 5.9 1.9 L Monocytes % (Manual) 0 L D 1 L D Eosinophils % 1.1 D 0.0 D Eosinophils % (Manual) 0.0 0.0 Basophils % 0.3 0.3 Basophils % (Manual) 0.0 0.0 Myelocytes % (Man) 0 0 Promyelocytes % (Man) 0 0 Blast Cells % (Manual) 0 0 Nucleated RBC % 0 0 Metamyelocytes 0 1 D Hypochromia 0 Toxic Granulation 0 Dohle Bodies 0 Platelet Estimate Normal Normal Polychromasia 0 Poikilocytosis 0 1+ Basophilic Stippling 0 Anisocytosis 0 1+ Microcytosis 0 1+ Macrocytosis 0 Spherocytes 0 Sickle Cells 0 Target Cells 0 Tear Drop Cells 0 Ovalocytes 0 1+ Stomatocytes 0 Helmet Cells 0 [place] Bodies 0 [place] Rings 0 [place] Cells 0 Acanthocytes (Spur) 0 Rouleaux 0 Fragmented RBCs 0 Schistocytes 0 PT with INR INR PTT (Actin FS) Sodium 139 Potassium 4.5 Chloride 106 Carbon Dioxide 26 Anion Gap 7 L BUN 21 H Creatinine 0.8 Creat Clearance w eGFR 100.00 Random Glucose 125 H Hemoglobin A1c % Calcium 8.1 L Phosphorus Magnesium Total Bilirubin 0.2 AST 13 L ALT 25 Alkaline Phosphatase 71 Troponin I < 0.02 Total Protein 5.7 L Albumin 2.8 L Triglycerides Cholesterol Total LDL Cholesterol HDL Cholesterol 02/03/19 02/03/19 02/03/19 07:20 07:20 07:20 WBC RBC Hgb Hct MCV MCH MCHC RDW Plt Count MPV Absolute Neuts (auto) Neutrophils % Neutrophils % (Manual) Band Neutrophils % Lymphocytes % Lymphocytes % (Manual) Monocytes % Monocytes % (Manual) Eosinophils % Eosinophils % (Manual) Basophils % Basophils % (Manual) Myelocytes % (Man) Promyelocytes % (Man) Blast Cells % (Manual) Nucleated RBC % Metamyelocytes Hypochromia Toxic Granulation Dohle Bodies Platelet Estimate Polychromasia Poikilocytosis Basophilic Stippling Anisocytosis Microcytosis Macrocytosis Spherocytes Sickle Cells Target Cells Tear Drop Cells Ovalocytes Stomatocytes Helmet Cells [place] Bodies [place] Rings Fern Cells Acanthocytes (Spur) Rouleaux Fragmented RBCs Schistocytes PT with INR 10.50 INR 0.89 PTT (Actin FS) 26.0 Sodium 138 Potassium 5.0 Chloride 104 Carbon Dioxide 28 Anion Gap 6 L BUN 20 H Creatinine 0.9 Creat Clearance w eGFR 87.29 Random Glucose 185 H Hemoglobin A1c % 6.6 H Calcium 9.0 Phosphorus 3.6 Magnesium 2.4 Total Bilirubin 0.2 AST 10 L ALT 27 Alkaline Phosphatase 81 Troponin I < 0.02 Total Protein 6.3 L Albumin 3.2 L Triglycerides 95 Cholesterol 207 H Total LDL Cholesterol 111 H HDL Cholesterol 84 H HOSPITAL COURSE: Date of Admission:02/03/19 Date of Discharge: 02/03/19 Patient is a 58 year old male with past medical history of COPD, asthma, seizure , HTN, DVT and seizure disorder presented from [facility] due to chest pain. Trops, EKG and echo were all normal. During his hospital stay, patient became agitated and was reported to have suicidal thoughts, which patient denied in the morning. Psychiatry was consulted and patient was cleared for discharge. He was discharged back to [facility] to complete Detox. Minutes to complete discharge: 40 Discharge Summary Reason For Visit: ALCOHOL DEPEMDENCE,DEPRESSION,CHEST PAIN Current Active Problems COPD (chronic obstructive pulmonary disease) (Chronic) Condition: Stable - Instructions Diet, Activity, Other Instructions: Your visit You were admitted to the hospital because you were having chest pain. Several tests were done and were negative of any concerns. You will be sent back to [facility] to continue detox. Please have a repeat CBC in 1 week. You were noted to have an elevated white blood cell count which you had been having for months. It is important that you follow this up as outpatient with your primary care doctor and sheet turner for further work-up. Medications Please continue your home medications. Follow up Please follow up with your primary care physician within 1 week. Please follow up with the sheet turner (Dr. Sands) within 1 week. Please call the office to schedule an appointment Disposition Call 911 or go the ED if with any worsening fever, chills, headache, dizziness, chest pain, shortness of breath, belly pain, bloody urine or stools or any new concerns noted. Referrals: [facility] [place] [Provider Group] Shavon Bennett MD [Staff Physician] - Sofia Barraza DO [Staff Physician] - Disposition: TRANSFER ACUTE CARE/OTHER HOSP - Home Medications Comprehensive Discharge Medication List: Ambulatory Orders Fluticasone/Salmeterol [Advair 250-50 Diskus] 1 each IH BID 10/13/18 Albuterol Sulfate Inhaler - [Ventolin HFA Inhaler -] 2 inh PO Q4H PRN #1 inhaler 10/17/18 Budesonide/Formeterol Fumarate [SYMBICORT 80/4.5mcg -] 1 inh IH BID #1 inhaler 10/17/18 Quetiapine Fumarate [Seroquel -] 300 mg PO HS 10/17/18 cloNIDine HCL [Catapres -] 0.1 mg PO BID #30 tablet 10/17/18 Aspirin [Aspirin EC] 81 mg PO DAILY 10/28/18 Clopidogrel Bisulfate [Plavix] 75 mg PO HS #30 tablet 02/03/19 Folic Acid - 1 mg PO DAILY tablet 02/03/19 Thiamine HCl [Vitamin B1 -] 100 mg PO DAILY tablet 02/03/19 This patient is new to me today: Yes Date on this admission: 02/03/19 Emergency Visit: Yes ED Registration Date: 02/03/19 Care time: The patient presented to the Emergency Department on the above date and was hospitalized for further evaluation of their emergent condition. Critical Care patient: No - Discharge Referral Referred to [facility] No
[2019-02-04] MEDS ORDERED: diazePAM 5 MG TABLET PO SCH ×2 (06:00→14:00)
[2019-02-05] MEDS ORDERED: diazePAM 5 MG TABLET PO ONE ×2 (06:00)
== END 2019-02-03 13:35 | disposition other institution (70) ==
LOC: JER 21:15 → JERBED 02-03 03:13 → INTOOBSV 02-03 03:13
PROVIDERS: ADMIT Internal Medicine; ATTEND Internal Medicine
PROC: 3E0333Z Introduction of Anti-inflammatory into Peripheral Vein, Percutaneous Approach (ICD-10-PCS; principal; 2019-02-03)
PROC: 3E033NZ Introduction of Analgesics, Hypnotics, Sedatives into Peripheral Vein, Percutaneous Approach (ICD-10-PCS; 2019-02-03)
PROC: 3E0337Z Introduction of Electrolytic and Water Balance Substance into Peripheral Vein, Percutaneous Approach (ICD-10-PCS; 2019-02-03)
PROC: 3E0F7GC Introduction of Other Therapeutic Substance into Respiratory Tract, Via Natural or Artificial Opening (ICD-10-PCS; 2019-02-03)
DX: R07.89 Other chest pain (principal); F10.230 Alcohol dependence with withdrawal, uncomplicated; F13.230 Sedative, hypnotic or anxiolytic dependence with withdrawal, uncomplicated; F17.210 Nicotine dependence, cigarettes, uncomplicated; J44.9 Chronic obstructive pulmonary disease, unspecified; I10 Essential (primary) hypertension; F32.9 Major depressive disorder, single episode, unspecified; I73.9 Peripheral vascular disease, unspecified; G40.909 Epilepsy, unspecified, not intractable, without status epilepticus; R00.0 Tachycardia, unspecified; D72.829 Elevated white blood cell count, unspecified; E88.09 Other disorders of plasma-protein metabolism, not elsewhere classified; E66.9 Obesity, unspecified; Z68.35 Body mass index [BMI] 35.0-35.9, adult; Z88.0 Allergy status to penicillin; Z86.718 Personal history of other venous thrombosis and embolism
CPT/HCPCS: 36415; 71046-TC-FY; 80053; 80061; 83036; 83721; 83735; 84100; 84484; 85025; 85610; 85730; 93005; 93010; 93306-TC; 99285-25; G0378

== ENCOUNTER 2019-02-03 19:17 | Inpatient (IN) | payer OTHER ==
[2019-02-03 19:32] VITALS: BMI 33.6
[2019-02-03] MEDS ORDERED: ACETAMINOPHEN 325 MG TABLET (FP) PO PRN (19:45)
[2019-02-03] MEDS ORDERED: P-EPHED 60MG/TRIPROLIDI 2.5MG TABLET PO PRN (19:45)
[2019-02-03] MEDS ORDERED: MAGNESIUM CITRATE 300 ML BOTTLE PO PRN (19:45)
[2019-02-03] MEDS ORDERED: MAGNESIUM HYDROX 2400MG/30ML ORAL SUSPENSION 30 ML CUP PO PRN (19:45)
[2019-02-03] MEDS ORDERED: MAG HYDROX/AL HYDROX/SIMETH 30 ML UNIT-DOSE CUP PO PRN (19:45)
[2019-02-03] MEDS ORDERED: MENTHOL/PHENOL 1 EACH UD MM PRN (19:45)
[2019-02-03] MEDS ORDERED: LOPERAMIDE HCL 2 MG CAPSULE PO PRN (19:45)
[2019-02-03] MEDS ORDERED: hydrOXYzine PAMOATE 25 MG CAPSULE (FP) PO PRN (19:45)
[2019-02-03] MEDS ORDERED: guaiFENesin 200 MG/10 ML 10 ML UNIT-DOSE CUPS PO PRN (19:45)
[2019-02-03] MEDS ORDERED: ALBUTEROL SO4 8 GM HFA INHALER IH PRN (19:47)
--- NOTE | 2019-02-03 20:03 | HP ---
[facility] Rehab Assess/Revision - Admission History Admitted to Rehab from: Emergency Department Date of Admission to Rehab: 02/03/19 - Vital signs Vital Signs: Vital Signs Period Temp Pulse Resp BP Sys/[place]ley Pulse Ox Last 24 Hr 96.9 F 91 18 139/87 - Findings Detox History & Physical reviewed: Yes Concur with findings: Yes Comments/Additional Findings: Patient was transferred fron detox 02/02/19 and evalauted at [facility] 02/02/19 -02/03/19 for c/o of chest pain. Patient medically cleared. Patient appropriate for rehab. Patient to follow up with PCP and racing secretary upon discharge. Inpatient Rehab Admission - Rehab Decision to Admit Inpatient rehab admission?: Yes - Initial Determination Are CD services needed?: Yes Free of communicable disease: Yes Not in need of hospitalization: Yes - Rehab Admission Criteria Previous failed treatment: Yes Poor recovery environment: Yes Comorbidities: Yes Lacks judgement: Yes Patient is meeting Inpatient Rehab admission criteria:: Yes
[2019-02-03] MEDS: CLOPIDOGREL BISULFATE 75 MG TABLET (FP) PO SCH (21:17)
[2019-02-03] MEDS: cloNIDine HCL 0.1 MG TABLET PO SCH (21:17)
[2019-02-03] MEDS: BUDESONIDE/FORMETEROL FUMARATE 80/4.5 mcg INHALER IH SCH (21:17)
[2019-02-03] MEDS ORDERED: THIAMINE HCL 100 MG TABLET (FP) PO SCH (22:00)
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
[2019-02-04 09:57] LABS: HEMATOCRIT 40.5 % (35.4-49); MCH 25.8 pg (25.7-33.7); MEAN CELL VOLUME 80.6 fl (80-96); MEAN PLT VOLUME 9.4 fl (7.5-11.1); PLATELET COUNT 253 K/MM3 (134-434); RBC 5.02 M/mm3 (4.00-5.60); RDW 18.8 % (11.9-15.9); WHITE BLOOD COUNT 23.3 K/mm3 (4.0-10.0)
[2019-02-04] MEDS: PRENATAL VITAMINS W/ FOLIC ACID TABLET (FP) PO SCH (10:03)
[2019-02-04] MEDS: ASPIRIN COATED 81 MG TABLET.EC PO SCH (10:03)
[2019-02-04] MEDS: cloNIDine HCL 0.1 MG TABLET PO SCH ×2 (10:03→21:46)
[2019-02-04] MEDS: THIAMINE HCL 100 MG TABLET (FP) PO SCH (10:04)
[2019-02-04] MEDS: BUDESONIDE/FORMETEROL FUMARATE 80/4.5 mcg INHALER IH SCH ×2 (10:05→21:48)
[2019-02-04 10:10] LABS: ALBUMIN 3.2 g/dl (3.4-5.0); ALK PHOS 77 U/L (45-117); ANION GAP 9 MMOL/L (8-16); BILIRUBIN,TOTAL 0.2 mg/dL (0.2-1); BLOOD UREA NITROGEN 23 mg/dL (7-18); CALCIUM 8.6 mg/dL (8.5-10.1); CHLORIDE 104 mmol/L (98-107); CO2 27 mmol/L (21-32); CREATININE 1.1 mg/dL (0.55-1.3); GLUCOSE,RANDOM 220 mg/dL (74-106); POTASSIUM 4.2 mmol/L (3.5-5.1); SGOT/AST 9 U/L (15-37); SGPT/ALT 27 U/L (13-61); SODIUM 139 mmol/L (136-145); TOT PROT 6.4 g/dl (6.4-8.2)
[2019-02-04] MEDS: CLOPIDOGREL BISULFATE 75 MG TABLET (FP) PO SCH (21:46)
[2019-02-04] MEDS: MELATONIN 5 MG TABLETS PO PRN (21:46)
[2019-02-05] MEDS: THIAMINE HCL 100 MG TABLET (FP) PO SCH (09:56)
[2019-02-05] MEDS: ASPIRIN COATED 81 MG TABLET.EC PO SCH (09:56)
[2019-02-05] MEDS: PRENATAL VITAMINS W/ FOLIC ACID TABLET (FP) PO SCH (09:56)
[2019-02-05] MEDS: cloNIDine HCL 0.1 MG TABLET PO SCH ×2 (09:56→21:13)
[2019-02-05] MEDS: BUDESONIDE/FORMETEROL FUMARATE 80/4.5 mcg INHALER IH SCH ×2 (09:57→21:13)
[2019-02-05 10:27] LABS: HEMATOCRIT 39.7 % (35.4-49); MCH 26.5 pg (25.7-33.7); MCHC 32.8 g/dl (32.0-35.9); MEAN PLT VOLUME 9.5 fl (7.5-11.1); PLATELET COUNT 201 K/MM3 (134-434); RBC 4.91 M/mm3 (4.00-5.60); RDW 19.3 % (11.9-15.9); WHITE BLOOD COUNT 13.9 K/mm3 (4.0-10.0)
[2019-02-05 11:04] LABS: ALK PHOS 68 U/L (45-117); ANION GAP 7 MMOL/L (8-16); BILIRUBIN,TOTAL 0.2 mg/dL (0.2-1); BLOOD UREA NITROGEN 22 mg/dL (7-18); CALCIUM 8.5 mg/dL (8.5-10.1); CHLORIDE 104 mmol/L (98-107); CO2 29 mmol/L (21-32); CREATININE 0.9 mg/dL (0.55-1.3); GLUCOSE,RANDOM 154 mg/dL (74-106); POTASSIUM 4.7 mmol/L (3.5-5.1); SGOT/AST 10 U/L (15-37); SGPT/ALT 29 U/L (13-61); SODIUM 139 mmol/L (136-145)
[2019-02-05] MEDS: CLOPIDOGREL BISULFATE 75 MG TABLET (FP) PO SCH (21:13)
[2019-02-05] MEDS: MELATONIN 5 MG TABLETS PO PRN (21:14)
[2019-02-06] MEDS: THIAMINE HCL 100 MG TABLET (FP) PO SCH (09:57)
[2019-02-06] MEDS: BUDESONIDE/FORMETEROL FUMARATE 80/4.5 mcg INHALER IH SCH ×2 (09:57→21:09)
[2019-02-06] MEDS: PRENATAL VITAMINS W/ FOLIC ACID TABLET (FP) PO SCH (09:57)
[2019-02-06] MEDS: cloNIDine HCL 0.1 MG TABLET PO SCH ×2 (09:57→21:09)
[2019-02-06] MEDS: ASPIRIN COATED 81 MG TABLET.EC PO SCH (09:57)
[2019-02-06] MEDS ORDERED: COLLOIDAL OATMEAL 1 BAR EACH TP PRN (11:01)
[2019-02-06] MEDS: CLOPIDOGREL BISULFATE 75 MG TABLET (FP) PO SCH (21:09)
[2019-02-06] MEDS: MELATONIN 5 MG TABLETS PO PRN (21:09)
[2019-02-07] MEDS: ASPIRIN COATED 81 MG TABLET.EC PO SCH (09:48)
[2019-02-07] MEDS: cloNIDine HCL 0.1 MG TABLET PO SCH ×2 (09:48→21:29)
[2019-02-07] MEDS: PRENATAL VITAMINS W/ FOLIC ACID TABLET (FP) PO SCH (09:48)
[2019-02-07] MEDS: BUDESONIDE/FORMETEROL FUMARATE 80/4.5 mcg INHALER IH SCH ×2 (09:49→21:29)
[2019-02-07] MEDS: THIAMINE HCL 100 MG TABLET (FP) PO SCH (09:49)
--- NOTE | 2019-02-07 11:18 | PN ---
[facility] Progress Note Note: LAB REVIEW: Vital Signs (72 hours) 02/04/19 02/05/19 02/05/19 16:04 00:30 03:30 Temperature Pulse Rate 78 Respiratory 18 18 18 Rate Blood Pressure 140/80 02/05/19 02/05/19 02/05/19 06:29 10:00 21:00 Temperature 97.4 F L Pulse Rate 81 87 91 H Respiratory 20 Rate Blood Pressure 127/85 128/68 121/79 02/06/19 02/06/19 02/06/19 06:47 10:00 20:37 Temperature 98.0 F Pulse Rate 91 H 93 H 98 H Respiratory 18 Rate Blood Pressure 136/77 124/75 115/70 02/07/19 02/07/19 02/07/19 00:30 03:37 07:01 Temperature 97.7 F Pulse Rate 88 Respiratory 18 18 18 Rate Blood Pressure 122/92 Laboratory Tests 02/04/19 02/04/19 02/05/19 06:45 06:45 05:30 WBC 23.3 H 13.9 H RBC 5.02 4.91 Hgb 13.0 13.0 Hct 40.5 39.7 MCV 80.6 81.0 MCH 25.8 26.5 MCHC 32.0 32.8 RDW 18.8 H 19.3 H Plt Count 253 201 D MPV 9.4 D 9.5 Sodium 139 Potassium 4.2 Chloride 104 Carbon Dioxide 27 Anion Gap 9 BUN 23 H Creatinine 1.1 Creat Clearance w eGFR 69.24 Random Glucose 220 H Calcium 8.6 Total Bilirubin 0.2 AST 9 L ALT 27 Alkaline Phosphatase 77 Total Protein 6.4 Albumin 3.2 L 02/05/19 05:30 WBC RBC Hgb Hct MCV MCH MCHC RDW Plt Count MPV Sodium 139 Potassium 4.7 Chloride 104 Carbon Dioxide 29 Anion Gap 7 L BUN 22 H Creatinine 0.9 Creat Clearance w eGFR 87.29 Random Glucose 154 H Calcium 8.5 Total Bilirubin 0.2 AST 10 L ALT 29 Alkaline Phosphatase 68 Total Protein 6.0 L Albumin 3.0 L ELEVATED WBC 23.3 ON 02/04/19 REPEATED WBC IMPROVED TO 13.9 ON 02/05/19 HX LEUKOCYTOSIS IN 10/2018 ADMISSION WHICH RESOLVED. AFEBRILE ASYMPTOMATIC PLAN:INCREASE PO FLUIDS REPEAT CBC ON 02/09/19
[2019-02-07] MEDS: CLOPIDOGREL BISULFATE 75 MG TABLET (FP) PO SCH (21:28)
[2019-02-07] MEDS: MELATONIN 5 MG TABLETS PO PRN (21:29)
[2019-02-08] MEDS: cloNIDine HCL 0.1 MG TABLET PO SCH ×2 (10:03→21:39)
[2019-02-08] MEDS: PRENATAL VITAMINS W/ FOLIC ACID TABLET (FP) PO SCH (10:03)
[2019-02-08] MEDS: ASPIRIN COATED 81 MG TABLET.EC PO SCH (10:03)
[2019-02-08] MEDS: BUDESONIDE/FORMETEROL FUMARATE 80/4.5 mcg INHALER IH SCH ×2 (10:03→21:39)
[2019-02-08] MEDS: THIAMINE HCL 100 MG TABLET (FP) PO SCH (10:04)
[2019-02-08] MEDS: CLOPIDOGREL BISULFATE 75 MG TABLET (FP) PO SCH (21:39)
[2019-02-08] MEDS: MELATONIN 5 MG TABLETS PO PRN (21:42)
[2019-02-09] MEDS: BUDESONIDE/FORMETEROL FUMARATE 80/4.5 mcg INHALER IH SCH ×2 (09:55→21:13)
[2019-02-09] MEDS: cloNIDine HCL 0.1 MG TABLET PO SCH ×2 (09:55→21:12)
[2019-02-09] MEDS: PRENATAL VITAMINS W/ FOLIC ACID TABLET (FP) PO SCH (09:55)
[2019-02-09] MEDS: THIAMINE HCL 100 MG TABLET (FP) PO SCH (09:55)
[2019-02-09] MEDS: ASPIRIN COATED 81 MG TABLET.EC PO SCH (09:55)
[2019-02-09 10:16] LABS: HEMOGLOBIN 13.4 GM/dL (11.7-16.9); MCH 25.9 pg (25.7-33.7); MEAN CELL VOLUME 80.9 fl (80-96); MEAN PLT VOLUME 9.3 fl (7.5-11.1); PLATELET COUNT 194 K/MM3 (134-434); RBC 5.19 M/mm3 (4.00-5.60); RDW 19.3 % (11.9-15.9); WHITE BLOOD COUNT 13.7 K/mm3 (4.0-10.0)
[2019-02-09] MEDS: CLOPIDOGREL BISULFATE 75 MG TABLET (FP) PO SCH (21:12)
[2019-02-09] MEDS: MELATONIN 5 MG TABLETS PO PRN (21:12)
[2019-02-10] MEDS: BUDESONIDE/FORMETEROL FUMARATE 80/4.5 mcg INHALER IH SCH ×2 (10:00→21:18)
[2019-02-10] MEDS: PRENATAL VITAMINS W/ FOLIC ACID TABLET (FP) PO SCH (10:00)
[2019-02-10] MEDS: ASPIRIN COATED 81 MG TABLET.EC PO SCH (10:00)
[2019-02-10] MEDS: THIAMINE HCL 100 MG TABLET (FP) PO SCH (10:01)
[2019-02-10] MEDS: cloNIDine HCL 0.1 MG TABLET PO SCH ×2 (10:01→21:18)
--- NOTE | 2019-02-10 11:53 | PN ---
[facility] Progress Note Note: REPEAT LAB REVIEWED. Laboratory Tests 02/04/19 02/04/19 02/05/19 06:45 06:45 05:30 WBC 23.3 H 13.9 H RBC 5.02 4.91 Hgb 13.0 13.0 Hct 40.5 39.7 MCV 80.6 81.0 MCH 25.8 26.5 MCHC 32.0 32.8 RDW 18.8 H 19.3 H Plt Count 253 201 D MPV 9.4 D 9.5 Sodium 139 Potassium 4.2 Chloride 104 Carbon Dioxide 27 Anion Gap 9 BUN 23 H Creatinine 1.1 Creat Clearance w eGFR 69.24 Random Glucose 220 H Calcium 8.6 Total Bilirubin 0.2 AST 9 L ALT 27 Alkaline Phosphatase 77 Total Protein 6.4 Albumin 3.2 L 02/05/19 02/09/19 05:30 08:00 WBC 13.7 H RBC 5.19 Hgb 13.4 Hct 42.0 MCV 80.9 MCH 25.9 MCHC 32.0 RDW 19.3 H Plt Count 194 MPV 9.3 Sodium 139 Potassium 4.7 Chloride 104 Carbon Dioxide 29 Anion Gap 7 L BUN 22 H Creatinine 0.9 Creat Clearance w eGFR 87.29 Random Glucose 154 H Calcium 8.5 Total Bilirubin 0.2 AST 10 L ALT 29 Alkaline Phosphatase 68 Total Protein 6.0 L Albumin 3.0 L ELEVATED BLOOD SUGAR PT WILL FOLLOW UP WITH PCP WITH COPY OF LAB RESULTS AFTER DISCHARGE FOR CONTINUING MEDICAL MANAGEMENT.
[2019-02-10] MEDS: MELATONIN 5 MG TABLETS PO PRN (21:18)
[2019-02-10] MEDS: CLOPIDOGREL BISULFATE 75 MG TABLET (FP) PO SCH (21:18)
[2019-02-11] MEDS: PRENATAL VITAMINS W/ FOLIC ACID TABLET (FP) PO SCH (09:40)
[2019-02-11] MEDS: ASPIRIN COATED 81 MG TABLET.EC PO SCH (09:40)
[2019-02-11] MEDS: THIAMINE HCL 100 MG TABLET (FP) PO SCH (09:40)
[2019-02-11] MEDS: cloNIDine HCL 0.1 MG TABLET PO SCH ×2 (09:40→21:34)
[2019-02-11] MEDS: BUDESONIDE/FORMETEROL FUMARATE 80/4.5 mcg INHALER IH SCH ×2 (09:40→21:35)
[2019-02-11] MEDS: CLOPIDOGREL BISULFATE 75 MG TABLET (FP) PO SCH (21:34)
[2019-02-11] MEDS: MELATONIN 5 MG TABLETS PO PRN (21:34)
[2019-02-12 07:28] VITALS: TEMP 97.2
[2019-02-12] MEDS: THIAMINE HCL 100 MG TABLET (FP) PO SCH (10:24)
[2019-02-12] MEDS: BUDESONIDE/FORMETEROL FUMARATE 80/4.5 mcg INHALER IH SCH (10:24)
[2019-02-12] MEDS: ASPIRIN COATED 81 MG TABLET.EC PO SCH (10:24)
[2019-02-12] MEDS: cloNIDine HCL 0.1 MG TABLET PO SCH (10:24)
[2019-02-12] MEDS: PRENATAL VITAMINS W/ FOLIC ACID TABLET (FP) PO SCH (10:24)
--- NOTE | 2019-02-12 11:25 | PN ---
[facility] Progress Note Note: Called to floor by RN because patient requesting jewell leave. Pt stated he found out his sister last week and burial is tomorrow so "I have to leave to go bury her". Pt is A & O x 3, in no acute distress, gait is steady. pt states he only needs plavix, i have the albuterol and don't need any other prescriptions. Prescriptions of symbicort and plavix will be sent to his pharmacy, [facility] on [facility] [facility] per pt request. VS - 114/68, P - 86, r - 18, refused temp. Pt understands to follow up with his PMD within the week
[2019-02-12 11:33] VITALS: BP 125/75; PULSE 96
== END 2019-02-12 11:34 | disposition home or self-care (01) | DRG 772 ==
LOC: YASAS 19:17 → Y5N 19:27
PROVIDERS: ADMIT Neuromusculoskeletal Medicine & OMM; ATTEND Neuromusculoskeletal Medicine & OMM
PROC: HZ42ZZZ Group Counseling for Substance Abuse Treatment, Cognitive-Behavioral (ICD-10-PCS; principal; 2019-02-03)
DX: F10.20 Alcohol dependence, uncomplicated (principal); F13.20 Sedative, hypnotic or anxiolytic dependence, uncomplicated; F43.10 Post-traumatic stress disorder, unspecified; F32.9 Major depressive disorder, single episode, unspecified; I10 Essential (primary) hypertension; J44.9 Chronic obstructive pulmonary disease, unspecified; K21.9 Gastro-esophageal reflux disease without esophagitis; J45.20 Mild intermittent asthma, uncomplicated; D72.829 Elevated white blood cell count, unspecified; R73.9 Hyperglycemia, unspecified
CPT/HCPCS: 36415; 80053; 85027; J0735

== ENCOUNTER 2019-05-10 18:38 | Inpatient (IN) | payer OTHER | END 2019-05-15 17:05 | disposition other institution (70) | LOC: Y6N 05-11 01:10 → YASAS 18:38 ==

== ENCOUNTER 2019-05-15 17:19 | Inpatient (IN) | payer OTHER ==
--- NOTE | 2019-05-15 20:11 | HP ---
[facility] Rehab Assess/Revision - Admission History Admitted to Rehab from: [facility] Date of Admission to Rehab: 05/15/19 - Findings Detox History & Physical reviewed: Yes Concur with findings: Yes Comments/Additional Findings: for rehab as protocol Inpatient Rehab Admission - Rehab Decision to Admit Inpatient rehab admission?: Yes - Initial Determination Are CD services needed?: Yes Free of communicable disease: Yes Not in need of hospitalization: Yes - Rehab Admission Criteria Previous failed treatment: Yes Poor recovery environment: Yes Comorbidities: Yes Lacks judgement: No Patient is meeting Inpatient Rehab admission criteria:: Yes
[2019-05-15] MEDS ORDERED: ACETAMINOPHEN 325 MG TABLET (FP) PO PRN (20:12)
[2019-05-15] MEDS ORDERED: MENTHOL/PHENOL 1 EACH UD MM PRN (20:12)
[2019-05-15] MEDS ORDERED: P-EPHED 60MG/TRIPROLIDI 2.5MG TABLET PO PRN (20:12)
[2019-05-15] MEDS ORDERED: guaiFENesin 200 MG/10 ML 10 ML UNIT-DOSE CUPS PO PRN (20:12)
[2019-05-15] MEDS ORDERED: ALBUTEROL SO4 8 GM HFA INHALER IH PRN (20:12)
[2019-05-15] MEDS ORDERED: MAGNESIUM HYDROX 2400MG/30ML ORAL SUSPENSION 30 ML CUP PO PRN (20:12)
[2019-05-15] MEDS ORDERED: MAGNESIUM CITRATE 300 ML BOTTLE PO PRN (20:12)
[2019-05-15] MEDS ORDERED: hydrOXYzine PAMOATE 50 MG CAPSULE (FP) PO PRN (20:12)
[2019-05-15] MEDS ORDERED: LOPERAMIDE HCL 2 MG CAPSULE PO PRN (20:12)
[2019-05-15] MEDS ORDERED: MELATONIN 5 MG TABLETS PO PRN (22:00)
[2019-05-15] MEDS: THIAMINE HCL 100 MG TABLET (FP) PO SCH (22:18)
[2019-05-15] MEDS: BUDESONIDE/FORMETEROL FUMARATE 80/4.5 mcg INHALER IH SCH (22:18)
[2019-05-15] MEDS: QUEtiapine FUMARATE 300 MG TABLET PO SCH (22:18)
[2019-05-15] MEDS: cloNIDine HCL 0.1 MG TABLET PO SCH (22:18)
[2019-05-15] MEDS ORDERED: ALBUTEROL SO4 0.083% IH SOL 2.5 MG/3 ML VIAL.NEB. NEB ONE (23:42)
[2019-05-16] MEDS: BUDESONIDE/FORMETEROL FUMARATE 80/4.5 mcg INHALER IH SCH ×2 (09:50→21:14)
[2019-05-16] MEDS: ASPIRIN COATED 81 MG TABLET.EC PO SCH (09:51)
[2019-05-16] MEDS: PRENATAL VITAMINS W/ FOLIC ACID TABLET (FP) PO SCH (09:51)
[2019-05-16] MEDS: CLOPIDOGREL BISULFATE 75 MG TABLET (FP) PO SCH (09:51)
[2019-05-16] MEDS: cloNIDine HCL 0.1 MG TABLET PO SCH ×2 (10:46→21:14)
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
[2019-05-16] MEDS: THIAMINE HCL 100 MG TABLET (FP) PO SCH (21:14)
[2019-05-16] MEDS: QUEtiapine FUMARATE 300 MG TABLET PO SCH (21:14)
[2019-05-17] MEDS: ALBUTEROL SO4 0.083% IH SOL 2.5 MG/3 ML VIAL.NEB. NEB PRN ×2 (02:46→23:19)
[2019-05-17] MEDS: BUDESONIDE/FORMETEROL FUMARATE 80/4.5 mcg INHALER IH SCH ×2 (09:54→21:10)
[2019-05-17] MEDS: ASPIRIN COATED 81 MG TABLET.EC PO SCH (09:55)
[2019-05-17] MEDS: PRENATAL VITAMINS W/ FOLIC ACID TABLET (FP) PO SCH (09:55)
[2019-05-17] MEDS: CLOPIDOGREL BISULFATE 75 MG TABLET (FP) PO SCH (09:55)
[2019-05-17] MEDS: cloNIDine HCL 0.1 MG TABLET PO SCH ×2 (09:55→21:10)
[2019-05-17] MEDS: THIAMINE HCL 100 MG TABLET (FP) PO SCH (21:09)
[2019-05-17] MEDS: QUEtiapine FUMARATE 300 MG TABLET PO SCH (21:09)
[2019-05-17] MEDS: MAG HYDROX/AL HYDROX/SIMETH 30 ML UNIT-DOSE CUP PO PRN (22:24)
[2019-05-17] MEDS: IBUPROFEN 400 MG TABLET (FP) PO PRN (22:24)
--- NOTE | 2019-05-17 23:16 | PN ---
S Progress Note Note: C/o sharp chest pain (L) of mid-sternal area. Pain increases w/ palpation of muscular area and deep breath. Vital Signs - 24 hr 05/17/19 05/17/19 05/17/19 00:30 03:30 06:38 Temperature 98.1 F Pulse Rate 104 H Respiratory 18 18 18 Rate Blood Pressure 137/72 05/17/19 05/17/19 05/17/19 10:00 21:00 21:58 Temperature 97.6 F Pulse Rate 113 H 113 H 124 H Respiratory 18 18 Rate Blood Pressure 131/72 138/72 122/73 Alert and oriented. Lungs w/ mild wheeze at bases. Elicited cough quiet and non- productive. Stat EKG showed normal sinus Tachycardia (HR: 115) O2 Sat = 96 % Alert and oriented. Lungs w/insp wheeze upper lobes. Elicited cough is quiet and non-productive. O2 Sat = 98 % Stat EKG = Normal sinus tachycardia (HR: 113) Plan: Albuterol neb x 1. now and q4h prn Alternate ibuprofen and tylenol for fever Start on Robitussin 10 ml PO Q6H x 3 days. Encourage increased fluids. Monitor V/S Q4H and have Provider re-evaluate in a.m.
[2019-05-18] MEDS: CLOPIDOGREL BISULFATE 75 MG TABLET (FP) PO SCH (09:48)
[2019-05-18] MEDS: cloNIDine HCL 0.1 MG TABLET PO SCH ×2 (09:48→21:12)
[2019-05-18] MEDS: PRENATAL VITAMINS W/ FOLIC ACID TABLET (FP) PO SCH (09:48)
[2019-05-18] MEDS: BUDESONIDE/FORMETEROL FUMARATE 80/4.5 mcg INHALER IH SCH ×2 (09:48→21:12)
[2019-05-18] MEDS: ASPIRIN COATED 81 MG TABLET.EC PO SCH (09:48)
--- NOTE | 2019-05-18 10:34 | PN ---
[facility] Progress Note Note: Recieved pt this morning with no c/o of c/p, sob or dizziness. Pt was seen this morning standing by his room door awaiting to be called for medication. Pt has a hx of episode of chest discomfort/tightness in previous admission due to hx of COPD and asthma. Pt is s/p intubation on 10/21/18 at [facility] due to respiratory distress. Alert o x 3. nad Vital Signs - 24 hr 05/17/19 05/17/19 05/18/19 21:00 21:58 00:53 Temperature 97.6 F 98 F Pulse Rate 113 H 124 H 113 H Respiratory 18 18 18 Rate Blood Pressure 138/72 122/73 125/81 05/18/19 05/18/19 05/18/19 03:30 04:53 06:02 Temperature 98.3 F 98.3 F Pulse Rate 99 H 99 H Respiratory 18 20 20 Rate Blood Pressure 126/79 126/79 A:Medically Stable Plan:D/w pt to inform staff of any c/p or dizziness. Maintain safety
--- NOTE | 2019-05-18 13:30 | EKG ---
Test Reason : Blood Pressure : / mmHG Vent. Rate : 115 BPM Atrial Rate : 115 BPM P-R Int : 144 ms QRS Dur : 078 ms QT Int : 336 ms P-R-T Axes : 063 042 036 degrees QTc Int : 464 ms SINUS TACHYCARDIA OTHERWISE NORMAL ECG WHEN COMPARED WITH ECG OF 03-FEB-2019 00:09, NO SIGNIFICANT CHANGE WAS FOUND Confirmed by PERI SAMUELS MD ([id number]) on 05/18/2019 1:30:27 PM Referred By: Confirmed By:PERI SAMUELS MD
[2019-05-18] MEDS: QUEtiapine FUMARATE 300 MG TABLET PO SCH (21:12)
[2019-05-18] MEDS: THIAMINE HCL 100 MG TABLET (FP) PO SCH (21:12)
[2019-05-19] MEDS: PRENATAL VITAMINS W/ FOLIC ACID TABLET (FP) PO SCH (09:49)
[2019-05-19] MEDS: cloNIDine HCL 0.1 MG TABLET PO SCH ×2 (09:49→21:11)
[2019-05-19] MEDS: CLOPIDOGREL BISULFATE 75 MG TABLET (FP) PO SCH (09:50)
[2019-05-19] MEDS: ASPIRIN COATED 81 MG TABLET.EC PO SCH (09:50)
[2019-05-19] MEDS: BUDESONIDE/FORMETEROL FUMARATE 80/4.5 mcg INHALER IH SCH ×2 (09:50→21:11)
[2019-05-19] MEDS: THIAMINE HCL 100 MG TABLET (FP) PO SCH (21:11)
[2019-05-19] MEDS: QUEtiapine FUMARATE 300 MG TABLET PO SCH (21:11)
--- NOTE | 2019-05-20 07:05 | PN ---
[facility] Progress Note Note: Patient w/ hx sinus tachycardia. Is w/o chest pain or SOB. Vital Signs - 24 hr 05/19/19 05/19/19 05/19/19 10:00 14:00 18:04 Temperature 98 F Pulse Rate 114 H 92 H 103 H Respiratory Rate Blood Pressure 130/79 122/67 121/76 05/19/19 05/19/19 05/20/19 20:40 22:00 00:30 Temperature 98.0 F 97.4 F L Pulse Rate 108 H 122 H Respiratory 18 20 18 Rate Blood Pressure 125/78 122/71 05/20/19 03:30 Temperature Pulse Rate Respiratory 18 Rate Blood Pressure Plan: Decrease V/S to Q shift.
[2019-05-20] MEDS: ASPIRIN COATED 81 MG TABLET.EC PO SCH (10:01)
[2019-05-20] MEDS: BUDESONIDE/FORMETEROL FUMARATE 80/4.5 mcg INHALER IH SCH ×2 (10:01→22:09)
[2019-05-20] MEDS: cloNIDine HCL 0.1 MG TABLET PO SCH ×2 (10:01→22:09)
[2019-05-20] MEDS: PRENATAL VITAMINS W/ FOLIC ACID TABLET (FP) PO SCH (10:01)
[2019-05-20] MEDS: CLOPIDOGREL BISULFATE 75 MG TABLET (FP) PO SCH (10:01)
[2019-05-20] MEDS ORDERED: QUEtiapine FUMARATE 100 MG TABLET (FP) ONE (19:46)
[2019-05-20] MEDS: THIAMINE HCL 100 MG TABLET (FP) PO SCH (22:09)
[2019-05-20] MEDS: QUEtiapine FUMARATE 300 MG TABLET PO SCH (22:09)
[2019-05-21] MEDS: ASPIRIN COATED 81 MG TABLET.EC PO SCH (10:56)
[2019-05-21] MEDS: cloNIDine HCL 0.1 MG TABLET PO SCH ×2 (10:56→21:14)
[2019-05-21] MEDS: PRENATAL VITAMINS W/ FOLIC ACID TABLET (FP) PO SCH (10:56)
[2019-05-21] MEDS: CLOPIDOGREL BISULFATE 75 MG TABLET (FP) PO SCH (10:56)
[2019-05-21] MEDS: BUDESONIDE/FORMETEROL FUMARATE 80/4.5 mcg INHALER IH SCH ×2 (10:57→21:14)
[2019-05-21] MEDS ORDERED: QUEtiapine FUMARATE 100 MG TABLET (FP) ONE (20:41)
[2019-05-21] MEDS: THIAMINE HCL 100 MG TABLET (FP) PO SCH (21:14)
[2019-05-21] MEDS: QUEtiapine FUMARATE 300 MG TABLET PO SCH (21:15)
[2019-05-22] MEDS: CLOPIDOGREL BISULFATE 75 MG TABLET (FP) PO SCH (10:01)
[2019-05-22] MEDS: BUDESONIDE/FORMETEROL FUMARATE 80/4.5 mcg INHALER IH SCH ×2 (10:01→21:10)
[2019-05-22] MEDS: cloNIDine HCL 0.1 MG TABLET PO SCH ×2 (10:01→21:10)
[2019-05-22] MEDS: ASPIRIN COATED 81 MG TABLET.EC PO SCH (10:01)
[2019-05-22] MEDS: PRENATAL VITAMINS W/ FOLIC ACID TABLET (FP) PO SCH (10:01)
[2019-05-22] MEDS ORDERED: QUEtiapine FUMARATE 100 MG TABLET (FP) ONE (18:49)
[2019-05-22] MEDS: QUEtiapine FUMARATE 300 MG TABLET PO SCH (21:10)
[2019-05-22] MEDS: THIAMINE HCL 100 MG TABLET (FP) PO SCH (21:10)
[2019-05-23] MEDS: ALBUTEROL SO4 0.083% IH SOL 2.5 MG/3 ML VIAL.NEB. NEB PRN (04:35)
[2019-05-23] MEDS: IBUPROFEN 400 MG TABLET (FP) PO PRN (04:51)
[2019-05-23] MEDS: MAG HYDROX/AL HYDROX/SIMETH 30 ML UNIT-DOSE CUP PO PRN (04:51)
[2019-05-23] MEDS ORDERED: ALBUTEROL SO4 2.5/IPRATROPIUM 0.5 INH SOL 3 ML VIAL.NEB. NEB ONE (05:06)
--- NOTE | 2019-05-23 05:21 | PN ---
[facility] Progress Note Note: C/o SOB and (L) sided chest pain w/ deep breath and when touched. States uses CPAP machine when at home. Lungs w/ diminished breath sounds. O2 Sat = 98 %. Resp 26/min.. HR: 114 Tenderness upon palpation (L) chest muscular area. Obese abd w/ increased adiposity. Vital Signs 05/23/19 05/23/19 05/23/19 00:30 03:30 04:48 Temperature 97.7 F Pulse Rate 109 H Respiratory 18 18 20 Rate Blood Pressure 116/75 Plan: Albuterol neb now and q 4 h prn. Albuterol neb prior to going to sleep HS Instructed to avoid eating heavy w/in 3 - 4 hours of bedtime. Will order mechanical bed for elevation of head.
[2019-05-23] MEDS: PRENATAL VITAMINS W/ FOLIC ACID TABLET (FP) PO SCH (09:56)
[2019-05-23] MEDS: BUDESONIDE/FORMETEROL FUMARATE 80/4.5 mcg INHALER IH SCH ×2 (09:56→21:14)
[2019-05-23] MEDS: ASPIRIN COATED 81 MG TABLET.EC PO SCH (09:56)
[2019-05-23] MEDS: cloNIDine HCL 0.1 MG TABLET PO SCH ×2 (09:56→21:15)
[2019-05-23] MEDS: CLOPIDOGREL BISULFATE 75 MG TABLET (FP) PO SCH (09:56)
[2019-05-23] MEDS ORDERED: QUEtiapine FUMARATE 100 MG TABLET (FP) ONE (19:34)
[2019-05-23] MEDS: THIAMINE HCL 100 MG TABLET (FP) PO SCH (21:14)
[2019-05-23] MEDS: QUEtiapine FUMARATE 300 MG TABLET PO SCH (21:15)
[2019-05-24] MEDS: PRENATAL VITAMINS W/ FOLIC ACID TABLET (FP) PO SCH (09:48)
[2019-05-24] MEDS: cloNIDine HCL 0.1 MG TABLET PO SCH ×2 (09:48→21:57)
[2019-05-24] MEDS: ASPIRIN COATED 81 MG TABLET.EC PO SCH (09:48)
[2019-05-24] MEDS: BUDESONIDE/FORMETEROL FUMARATE 80/4.5 mcg INHALER IH SCH ×2 (09:48→21:58)
[2019-05-24] MEDS: CLOPIDOGREL BISULFATE 75 MG TABLET (FP) PO SCH (09:48)
[2019-05-24] MEDS: QUEtiapine FUMARATE 300 MG TABLET PO SCH (21:57)
[2019-05-24] MEDS: THIAMINE HCL 100 MG TABLET (FP) PO SCH (21:57)
[2019-05-25] MEDS: BUDESONIDE/FORMETEROL FUMARATE 80/4.5 mcg INHALER IH SCH ×2 (09:46→21:12)
[2019-05-25] MEDS: cloNIDine HCL 0.1 MG TABLET PO SCH ×2 (09:46→21:11)
[2019-05-25] MEDS: CLOPIDOGREL BISULFATE 75 MG TABLET (FP) PO SCH (09:47)
[2019-05-25] MEDS: ASPIRIN COATED 81 MG TABLET.EC PO SCH (09:47)
[2019-05-25] MEDS: PRENATAL VITAMINS W/ FOLIC ACID TABLET (FP) PO SCH (09:47)
[2019-05-25] MEDS: THIAMINE HCL 100 MG TABLET (FP) PO SCH (21:11)
[2019-05-25] MEDS: QUEtiapine FUMARATE 300 MG TABLET PO SCH (21:12)
[2019-05-26] MEDS: PRENATAL VITAMINS W/ FOLIC ACID TABLET (FP) PO SCH (10:36)
[2019-05-26] MEDS: cloNIDine HCL 0.1 MG TABLET PO SCH ×2 (10:36→21:10)
[2019-05-26] MEDS: ASPIRIN COATED 81 MG TABLET.EC PO SCH (10:36)
[2019-05-26] MEDS: CLOPIDOGREL BISULFATE 75 MG TABLET (FP) PO SCH (10:36)
[2019-05-26] MEDS: BUDESONIDE/FORMETEROL FUMARATE 80/4.5 mcg INHALER IH SCH ×2 (10:36→21:11)
[2019-05-26] MEDS: ALBUTEROL SO4 0.083% IH SOL 2.5 MG/3 ML VIAL.NEB. NEB PRN (10:37)
[2019-05-26] MEDS: QUEtiapine FUMARATE 300 MG TABLET PO SCH (21:10)
[2019-05-26] MEDS: THIAMINE HCL 100 MG TABLET (FP) PO SCH (21:11)
[2019-05-27] MEDS: PRENATAL VITAMINS W/ FOLIC ACID TABLET (FP) PO SCH (09:58)
[2019-05-27] MEDS: CLOPIDOGREL BISULFATE 75 MG TABLET (FP) PO SCH (09:58)
[2019-05-27] MEDS: ASPIRIN COATED 81 MG TABLET.EC PO SCH (09:58)
[2019-05-27] MEDS: BUDESONIDE/FORMETEROL FUMARATE 80/4.5 mcg INHALER IH SCH ×2 (09:59→21:06)
[2019-05-27] MEDS: cloNIDine HCL 0.1 MG TABLET PO SCH ×2 (09:59→21:06)
[2019-05-27] MEDS: QUEtiapine FUMARATE 300 MG TABLET PO SCH (21:06)
[2019-05-27] MEDS: THIAMINE HCL 100 MG TABLET (FP) PO SCH (21:06)
[2019-05-28] MEDS: CLOPIDOGREL BISULFATE 75 MG TABLET (FP) PO SCH (10:06)
[2019-05-28] MEDS: ASPIRIN COATED 81 MG TABLET.EC PO SCH (10:06)
[2019-05-28] MEDS: BUDESONIDE/FORMETEROL FUMARATE 80/4.5 mcg INHALER IH SCH ×2 (10:06→21:16)
[2019-05-28] MEDS: cloNIDine HCL 0.1 MG TABLET PO SCH ×2 (10:06→21:15)
[2019-05-28] MEDS: PRENATAL VITAMINS W/ FOLIC ACID TABLET (FP) PO SCH (10:06)
[2019-05-28 21:13] VITALS: PULSE 99
[2019-05-28] MEDS: QUEtiapine FUMARATE 300 MG TABLET PO SCH (21:15)
[2019-05-28] MEDS: THIAMINE HCL 100 MG TABLET (FP) PO SCH (21:15)
[2019-05-29 10:18] VITALS: BP 125/72; TEMP 98.2
[2019-05-29] MEDS: cloNIDine HCL 0.1 MG TABLET PO SCH ×2 (10:23→21:27)
[2019-05-29] MEDS: ASPIRIN COATED 81 MG TABLET.EC PO SCH (10:23)
[2019-05-29] MEDS: CLOPIDOGREL BISULFATE 75 MG TABLET (FP) PO SCH (10:23)
[2019-05-29] MEDS: PRENATAL VITAMINS W/ FOLIC ACID TABLET (FP) PO SCH (10:24)
[2019-05-29] MEDS: BUDESONIDE/FORMETEROL FUMARATE 80/4.5 mcg INHALER IH SCH ×2 (10:24→21:28)
--- NOTE | 2019-05-29 11:50 | PN ---
[facility] Progress Note Note: Patient is scheduled for discharge tomorrow. Script for 30 days supply of Seroquel 300 mg/hs will be electronically transmitted to [facility] at [address] [place] [id number]
[2019-05-29] MEDS: THIAMINE HCL 100 MG TABLET (FP) PO SCH (21:27)
[2019-05-29] MEDS: QUEtiapine FUMARATE 300 MG TABLET PO SCH (23:19)
[2019-05-30] MEDS: ASPIRIN COATED 81 MG TABLET.EC PO SCH (09:45)
[2019-05-30] MEDS: BUDESONIDE/FORMETEROL FUMARATE 80/4.5 mcg INHALER IH SCH (09:45)
[2019-05-30] MEDS: CLOPIDOGREL BISULFATE 75 MG TABLET (FP) PO SCH (09:45)
[2019-05-30] MEDS: PRENATAL VITAMINS W/ FOLIC ACID TABLET (FP) PO SCH (09:45)
[2019-05-30] MEDS: cloNIDine HCL 0.1 MG TABLET PO SCH (09:45)
--- NOTE | 2019-05-30 09:51 | PN ---
[facility] Progress Note (SOAP) Subjective: Pt is a 58 y/o male with a hx of alcohol and benzo dependence admitted to rehab after completing detox on . Pt was referred tp [facility] for CD aftercare. Pt reports pcp as Dr. Mcclain at [facility] and had appointment which he missed on the 05/04/19 "instaed i went and picked up a bottle". Pt reminded to call for rescheduling of medical appointment. Pt requested for courtesy Rx for blood thinner. Rx as below electronically sent to [facility] for picker and sorter load and unload. Pt denies s/h/i. Objective: 05/30/19 09:51 Vital Signs - 24 hr 05/30/19 05/30/19 05/30/19 00:30 03:30 06:56 Respiratory 18 18 18 Rate Home Medications Medication Instructions Recorded Fluticasone/Salmeterol [Advair 1 each IH BID 10/13/18 250-50 Diskus] Quetiapine Fumarate [Seroquel -] 300 mg PO HS 10/17/18 cloNIDine HCL [Catapres -] 0.1 mg PO BID #30 tablet 10/17/18 Thiamine HCl [Vitamin B1 -] 100 mg PO DAILY tablet 02/03/19 Quetiapine Fumarate [Seroquel -] 300 mg PO HS #30 tablet 05/29/19 Albuterol Sulfate Inhaler - 2 inh PO Q4H PRN #1 inhaler 05/30/19 [Ventolin HFA Inhaler -] Aspirin Coated [Ecotrin -] 81 mg PO DAILY #30 tablet.ec 05/30/19 Budesonide/Formeterol Fumarate 1 inh IH BID #1 inhaler 05/30/19 [SYMBICORT 80/4.5mcg -] Clopidogrel Bisulfate [Plavix -] 75 mg PO DAILY #30 tablet 05/30/19 General:Alert o x 3 Cardiac:s1 s2, rrr Lungs:cta,elizabeth, no sob Abdomen:+bs,nt,nd Extremities/Skin:No edema,cyanosis or rash;Full ROM, ambulates with steady gait. Assessment: 05/30/19 15:44 Medically stable [facility] Inpatient Services Medical - Diagnosis (1) Alcohol dependence Status: Chronic (2) Nicotine dependence Qualifiers: Nicotine product type: cigarettes Substance use status: uncomplicated Qualified Code(s): F17.210 - Nicotine dependence, cigarettes, uncomplicated Status: Chronic (3) COPD (chronic obstructive pulmonary disease) Qualifiers: COPD type: unspecified COPD Qualified Code(s): J44.9 - Chronic obstructive pulmonary disease, unspecified Status: Chronic (4) Gastroesophageal reflux disease Qualifiers: Esophagitis presence: esophagitis presence not specified Qualified Code(s) : K21.9 - Gastro-esophageal reflux disease without esophagitis Status: Suspected (5) Asthma Qualifiers: Asthma severity: mild Asthma persistence: intermittent Asthma complication type: uncomplicated Qualified Code(s): J45.20 - Mild intermittent asthma, uncomplicated Status: Chronic (6) Hypertension Qualifiers: Hypertension type: essential hypertension Qualified Code(s): I10 - Essential (primary) hypertension Status: Chronic Initialized on 05/30/19 09:51 - END OF NOTE Plan: D/C pt today follow up with CD Aftercare recommendation follow up with primary care within 1-2 weeks after discharge.
== END 2019-05-30 10:25 | disposition home or self-care (01) | DRG 772 ==
LOC: YASAS 17:19 → Y5N 17:20
PROVIDERS: ADMIT Neuromusculoskeletal Medicine & OMM; ATTEND Neuromusculoskeletal Medicine & OMM
PROC: HZ42ZZZ Group Counseling for Substance Abuse Treatment, Cognitive-Behavioral (ICD-10-PCS; principal; 2019-05-15)
DX: F10.20 Alcohol dependence, uncomplicated (principal); F13.20 Sedative, hypnotic or anxiolytic dependence, uncomplicated; F17.210 Nicotine dependence, cigarettes, uncomplicated; F43.10 Post-traumatic stress disorder, unspecified; F19.24 Other psychoactive substance dependence with psychoactive substance-induced mood disorder; G47.00 Insomnia, unspecified; I10 Essential (primary) hypertension; J45.20 Mild intermittent asthma, uncomplicated; J44.9 Chronic obstructive pulmonary disease, unspecified; K21.9 Gastro-esophageal reflux disease without esophagitis; R07.89 Other chest pain; R06.02 Shortness of breath; R00.0 Tachycardia, unspecified; E66.9 Obesity, unspecified; Z68.32 Body mass index [BMI] 32.0-32.9, adult; Z88.0 Allergy status to penicillin
CPT/HCPCS: 93005; 93010; 94640; J0735

== ENCOUNTER 2019-08-27 14:09 | Emergency (ER) | payer OTHER ==
[2019-08-27 14:38] VITALS: BP 136/83; PULSE 86; TEMP 97.6; BMI 33.6
--- NOTE | 2019-08-27 15:01 | PDOC ---
History of Present Illness - General Chief Complaint: Syncope/Near Syncope Stated Complaint: SYNCOPE - History of Present Illness Initial Comments: 08/27/19 15:11 58 yo M PMH alcohol and benzo dependence, nicotine use, HTN, GERD, asthma/COPD, sent from [facility] (found wandering parking lot) for decreased respiratory rate. Reportedly given 2 doses of Narcan without response, so sent to ED. Patient reports taking quaaludes earlier today. Reports last drink this morning as a nip of vodka. Denies ever injecting drugs and denies using opiates, heroin , marijuana, or cocaine today. Has no current complaints. Would like detox. Patient specifically denies CP, SOB, fevers/chills, constipation/diarrhea, FRANKS, N /V. Reports being intubated twice in the past, most recently October 2018 2/ COPD exacerbation. PCP reportedly Dr. Mcclain at [facility]. Past History - Past Medical History Allergies/Adverse Reactions: Allergies Allergy/AdvReac Type Severity Reaction Status Date / Time penicillin G Allergy Severe Hives Verified 08/27/19 14:34 pork derived (porcine) Allergy Severe Hives Verified 08/27/19 14:34 tomato Allergy Severe Hives Verified 08/27/19 14:34 liver Allergy Severe Hives Uncoded 08/27/19 14:34 Home Medications: Ambulatory Orders Fluticasone/Salmeterol [Advair 250-50 Diskus] 1 each IH BID 10/13/18 Quetiapine Fumarate [Seroquel -] 300 mg PO HS 10/17/18 cloNIDine HCL [Catapres -] 0.1 mg PO BID #30 tablet 10/17/18 Thiamine HCl [Vitamin B1 -] 100 mg PO DAILY tablet 02/03/19 Quetiapine Fumarate [Seroquel -] 300 mg PO HS #30 tablet 05/29/19 Albuterol Sulfate Inhaler - [Ventolin HFA Inhaler -] 2 inh PO Q4H PRN #1 inhaler 05/30/19 Aspirin Coated [Ecotrin -] 81 mg PO DAILY #30 tablet.ec 05/30/19 Budesonide/Formeterol Fumarate [SYMBICORT 80/4.5mcg -] 1 inh IH BID #1 inhaler 05/30/19 Clopidogrel Bisulfate [Plavix -] 75 mg PO DAILY #30 tablet 05/30/19 Anemia: No Asthma: Yes (Albuterol) Cancer: No Cardiac Disorders: No CVA: No COPD: Yes (Symbicort) CHF: No Dementia: No Diabetes: No GI Disorders: No Disorders: No HTN: No Hypercholesterolemia: No Kidney Stones: No Liver Disease: No Seizures: No Thyroid Disease: No - Surgical History Abdominal Surgery: No Appendectomy: No Cardiac Surgery: No Cholecystectomy: No Lung Surgery: No Neurologic Surgery: No Orthopedic Surgery: No - Reproductive History Testicular Surgery: No - Immunization History Immunization Up to Date: No - Psycho Social/Smoking Cessation Hx Smoking History: Former smoker Have you smoked in the past 12 months: No Number of Cigarettes Smoked Daily: 3 If you are a former smoker, when did you quit?: 2013 Cigars Per Day: 0 Information on smoking cessation initiated: No 'Breaking Loose' booklet given: 05/11/19 Hx Alcohol Use: Yes Drug/Substance Use Hx: Yes Substance Use Type: Alcohol Hx Substance Use Treatment: Yes (10/2018) Review of Systems - Review of Systems Comments:: 08/27/19 15:21 GENERAL/CONSTITUTIONAL: No fever or chills. No weakness. HEAD, EYES, EARS, NOSE AND THROAT: No change in vision. No ear pain or discharge. No sore throat. CARDIOVASCULAR: No chest pain or shortness of breath. RESPIRATORY: No cough, wheezing, or hemoptysis. GASTROINTESTINAL: No nausea, vomiting, diarrhea or constipation. GENITOURINARY: No dysuria, frequency, or change in urination. MUSCULOSKELETAL: No joint or muscle swelling or pain. No neck or back pain. SKIN: No rash NEUROLOGIC: No headache, vertigo, loss of consciousness, or change in strength/ sensation. ENDOCRINE: No increased thirst. No abnormal weight change. HEMATOLOGIC/LYMPHATIC: No anemia, easy bleeding, or history of blood clots. ALLERGIC/IMMUNOLOGIC: No hives or skin allergy *Physical Exam - Vital Signs Last Vital Signs Temp Pulse Resp BP Pulse Ox 97.6 F 86 16 136/83 98 08/27/19 14:28 08/27/19 14:28 08/27/19 14:28 08/27/19 14:28 08/27/19 14:28 - Physical Exam Comments: 08/27/19 15:21 Gen: well-developed, well-nourished, NAD Neuro: AAOX4, CN II-XII intact, FTN intact, EOMI, PERRLA, 5/5 strength, SILT HEENT: atraumatic, normocephalic Neck: trachea midline, supple CV: regular rate, regular rhythm, no murmurs, rubs, or gallops Pulm: CTA b/l, no wheezing, bradypnea Abd: soft, non-distended, non-tender MSK: full ROM, intact pulses Extr: swelling on dorsum of R hand, no deformities Skin: warm, dry ED Treatment Course - LABORATORY CBC & Chemistry Diagram: 08/27/19 16:00 08/27/19 16:00 Medical Decision Making - Medical Decision Making 08/27/19 15:22 Concern for substance use, potentially unobserved fall. - CT head and C-spine - CBC, CMP, Mag, Phos - EKG - CXR - likely dc to [facility] for detox 08/27/19 17:18 CBC, CMP unconcerning. Will f/u imaging. 08/27/19 17:29 CXR with no acute pathology. 08/27/19 19:00 CT head, C spine unconcerning, hand X rays without acute pathology. 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 Your imaging and labs were unconcerning for acute medical issues. We are discharging you straight to [facility] so that you may enter detox. Follow up with your primary care doctor within one week. Return to the ED if you develop worsening symptoms. - Post Discharge Activity
[2019-08-27 16:15] LABS: BASO % 0.8 % (0-2.0); EOS % 2.2 % (0-4.5); HEMATOCRIT 47.5 % (35.4-49); HEMOGLOBIN 15.6 GM/dL (11.7-16.9); LYMPH % 17.8 % (8-40); MCH 28.3 pg (25.7-33.7); MCHC 32.9 g/dl (32.0-35.9); MEAN PLT VOLUME 9.4 fl (7.5-11.1); MONO % 10.8 % (3.8-10.2); NEUT % 68.4 % (42.8-82.8); PLATELET COUNT 252 K/MM3 (134-434); RBC 5.52 M/mm3 (4.00-5.60); RDW 14.3 % (11.9-15.9); WHITE BLOOD COUNT 9.7 K/mm3 (4.0-10.0)
[2019-08-27 16:40] LABS: ALBUMIN 4.2 g/dl (3.4-5.0); BILIRUBIN,TOTAL 0.4 mg/dL (0.2-1); BLOOD UREA NITROGEN 15.4 mg/dL (7-18); CALCIUM 9.6 mg/dL (8.5-10.1); CREATININE 0.9 mg/dL (0.55-1.3); POTASSIUM 4.4 mmol/L (3.5-5.1); TOT PROT 7.2 g/dl (6.4-8.2)
--- NOTE | 2019-08-27 16:54 | PDOC ---
Documentation entered by Cecilia Callahan SCRIBE, acting as scribe for Keke Ornelas MD. Keke Ornelas MD: This documentation has been prepared by the [place] reed Adrianna, SCRIBE, under my direction and personally reviewed by me in its entirety. I confirm that the documentation accurately reflects all work, treatment, procedures, and medical decision making performed by me. Attending Attestation - Resident Resident Name: Ivonne Rodriguez - ED Attending Attestation I have performed the following: I have examined & evaluated the patient, The case was reviewed & discussed with the resident, I agree w/resident's findings & plan, Exceptions are as noted - HPI HPI: The patient is a 67 year old male, with a significant PMH of EtOH and benzo dependence, HTN, GERD, asthma/COPD, who presents to the ED for evaluation of a fall and poor responsiveness. Patient was found wandering the [facility] parking lot, and was out of it so he was given two Narcan without any response. Pt admitted initially to drinking etoh and taking quaaludes earlier today, but later states he thinks he used valium instead of quaaludes. He recalls coming to [facility] for detox, and remembers tripping and falling in the lot, then hitting his R hand on a pole. He remembers no other details at this time. Unknown headstrike or LOC. He c/o L facial pain and R dorsal hand pain. Patient is seeking detox at this time from etoh. Denies any acute complaints at this time. Allergies: Penicillin G, pork, tomato Surgical History: None reported Social History: EtOH and benzo dependence. Last took quaaludes today. Had vodka today. PCP: Dr. Mcclain - Physicial Exam PE: GENERAL: Awake, alert, and fully oriented, lethargic but arousble, in no acute distress HEAD: No signs of trauma, +L zygomatic bony ttp EYES: PERRLA, EOMI, sclera anicteric, conjunctiva clear ENT: Auricles normal inspection, hearing grossly normal, nares patent w/o hematoma, oropharynx clear without exudates. Moist mucosa NECK: Normal ROM, supple, no lymphadenopathy, JVD, or masses LUNGS: Breath sounds equal, clear to auscultation bilaterally. No wheezes, and no crackles HEART: Regular rate and rhythm, normal S1 and S2, no murmurs, rubs or gallops ABDOMEN: Soft, nontender, normoactive bowel sounds. No guarding, no rebound. No masses EXTREMITIES: R dorsal hand with large area of edema extending from 2nd to 5th metacarpal bones. +ttp. 2+ radial pulses. FROM in wrist, MCP, PIP, DIP, normal strength and sensation. Other extremities: Normal range of motion, no edema. No clubbing or cyanosis. No cords, erythema, or tenderness BACK: No midline spinal tenderness in cervical/thoracic/lumbar region NEUROLOGICAL: Normal speech, cranial nerves intact, 5/5 strength in all 4 extremities, normal sensation to light touch in all 4 extremities, normal cerebellar exam, normal gait, normal reflexes and tone SKIN: Warm, Dry, normal turgor, no rashes or lesions noted. - Medical Decision Making 08/27/19 17:19 58-year-old male with a history of polysubstance abuse presents to the emergency department with left facial pain and right hand pain after a fall while intoxicated today. Patient was at [facility] looking for detox from alcohol. Labs thus far within normal limits. Will obtain trauma work-up given fall, plan for CT head, C-spine, chest x-ray and right hand x-ray. Case has been signed out to evening attending Dr. Kramer for further management.
--- NOTE | 2019-08-28 17:03 | EKG ---
Test Reason : Blood Pressure : / mmHG Vent. Rate : 087 BPM Atrial Rate : 087 BPM P-R Int : 144 ms QRS Dur : 080 ms QT Int : 372 ms P-R-T Axes : 060 -64 041 degrees QTc Int : 447 ms NORMAL SINUS RHYTHM LEFT AXIS DEVIATION ABNORMAL ECG WHEN COMPARED WITH ECG OF 17-MAY-2019 21:55, QRS AXIS SHIFTED LEFT Confirmed by LOU EDMONDSON MD ([id number]) on 08/28/2019 5:03:17 PM Referred By: Confirmed By:LOU EDMONDSON MD
== END 2019-08-27 21:15 | disposition short-term general hospital (02) ==
LOC: JER 14:09
DX: S69.81XA Other specified injuries of right wrist, hand and finger(s), initial encounter (principal); W01.198A Fall on same level from slipping, tripping and stumbling with subsequent striking against other object, initial encounter; Y93.89 Activity, other specified; Y92.238 Other place in hospital as the place of occurrence of the external cause; Y99.8 Other external cause status; F10.20 Alcohol dependence, uncomplicated; F13.20 Sedative, hypnotic or anxiolytic dependence, uncomplicated; I10 Essential (primary) hypertension; J44.9 Chronic obstructive pulmonary disease, unspecified; J45.998 Other asthma; K21.9 Gastro-esophageal reflux disease without esophagitis; Z87.891 Personal history of nicotine dependence; Z91.018 Allergy to other foods; Z88.0 Allergy status to penicillin
CPT/HCPCS: 36415; 70450-TC; 70486-TC; 71045-TC-FY; 72125-TC; 73130-TC-RT-FY; 80053; 82962; 85025; 93005; 93010; 99284-25

== ENCOUNTER 2019-08-28 08:45 | Inpatient (IN) | payer OTHER ==
--- NOTE | 2019-08-28 09:56 | HP ---
CIWA Score Nausea/Vomitin Muscle Tremors: 2 Anxiety: 2 Agitation: 2 Paroxysmal Sweats: 2 Orientation: 0-Oriented Tacttile Disturbances: 1-Very Mild Itch/Numbness Auditory Disturbances: 0-None Visual Disturbances: 0-None Headache: 1-Very Mild CIWA-Ar Total Score: 13 - Admission Criteria OASAS Guidelines: Admission for Medically Managed Detox: Requires at least one of the followin. CIWA greater than 12 2. Seizures within the past 24 hours 3. Delirium tremens within the past 24 hours 4. Hallucinations within the past 24 hours 5. Acute intervention needed for co occurring medical disorder 6. Acute intervention needed for co occurring psychiatric disorder 7. Severe withdrawal that cannot be handled at a lower level of care (continued vomiting, continued diarrhea, abnormal vital signs) requiring intravenous medication and/or fluids 8. Patient presents the following: CIWA greater than 12 Admission Criteria Met: Admission criteria met Admitting History and Physical - Smoking History Smoking history: Former smoker Have you smoked in the past 12 months: No Aproximately how many cigarettes per day: 3 If you are a former smoker, when did you quit?: 2013 - Alcohol/Substance Use Hx Alcohol Use: Yes Admission ROS [facility] Chief Complaint: I need alcohol detox Allergies/Adverse Reactions: Allergies Allergy/AdvReac Type Severity Reaction Status Date / Time penicillin G Allergy Severe Hives Verified 08/27/19 14:34 pork derived (porcine) Allergy Severe Hives Verified 08/27/19 14:34 tomato Allergy Severe Hives Verified 08/27/19 14:34 liver Allergy Severe Hives Uncoded 08/27/19 14:34 History of Present Illness: 58 year old male with longstanding h/o alcoholism with multiple admissions to [facility] presents for detox. Patient initially came to [facility] on 08/27 but did not make it inside the waiting area; he was found unresponsive at the parking lot. He was subsequently transferred to the ED where he was stabilized. He reports several blackouts from alcohol (such as yesterday), denies seizures. Patient reports right leg DVT last year, stent placed and is on anticoagulation. He is admitted in no apparent distress. Exam Limitations: No Limitations - Ebola screening Have you traveled outside of the country in the last 21 days: No (N) Have you had contact with anyone from an Ebola affected area: No Have you been sick,other than usual withdrawal symptoms: No Do you have a fever: No - Review of Systems Constitutional: Chills, Loss of Appetite, Changes in sleep EENT: reports: Blurred Vision Respiratory: reports: SOB with Exertion Cardiac: reports: Syncope (with heavy intoxication) GI: reports: Nausea, Poor Appetite, Poor Fluid Intake, Vomiting, Abdominal cramping : reports: No Symptoms Reported Musculoskeletal: reports: Joint Pain, Muscle Pain, Muscle Weakness Integumentary: reports: Flushing Neuro: reports: Headache, Numbness, Tremors Endocrine: reports: No Symptoms Reported Hematology: reports: No Symptoms Reported Psychiatric: reports: Anxious, Depressed Other Systems: Reviewed and Negative Patient History - Patient Medical History Hx Anemia: No Hx Asthma: Yes (Albuterol) Hx Chronic Obstructive Pulmonary Disease (COPD): Yes (Symbicort) Hx Cancer: No Hx Cardiac Disorders: No Hx Congestive Heart Failure: No Hx Hypertension: Yes Hx Hypercholesterolemia: No Hx Pacemaker: No HX Cerebrovascular Accident: No Hx Seizures: No Hx Dementia: No Hx Diabetes: Yes Hx Gastrointestinal Disorders: No Hx Liver Disease: No Hx Genitourinary Disorders: No Hx Sexually Transmitted Disorders: No Hx Renal Disease (ESRD): No Hx Thyroid Disease: No Hx Human Immunodeficiency Virus (HIV): No Hx Hepatitis C: No Hx Depression: Yes Hx Suicide Attempt: No Hx Bipolar Disorder: No Hx Schizophrenia: No - Patient Surgical History Past Surgical History: Yes Hx Neurologic Surgery: No Hx Cataract Extraction: No Hx Cardiac Surgery: No Hx Lung Surgery: No Hx Breast Surgery: No Hx Breast Biopsy: No Hx Abdominal Surgery: No Hx Appendectomy: No Hx Cholecystectomy: No Hx Genitourinary Surgery: No Hx Section: No Hx Orthopedic Surgery: No Other Surgical History: pt. reported blood clot removed from right leg in Anesthesia Reaction: No - PPD History Previous Implant?: Yes Documented Results: Negative w/proof Implanted On Prior [facility] Admission?: Yes Date: 10/15/18 Results: 0 mm. PPD to be Administered?: No - Smoking Cessation Smoking history: Former smoker Have you smoked in the past 12 months: No If you are a former smoker, when did you quit?: 2013 Hx Chewing Tobacco Use: No Initiated information on smoking cessation: No - Substances abused Alcohol Other (specify): VODKA Substance route: Oral Frequency: Daily Amount used: A FIFTH Age of first use: 17 Date of last use: 05/09/19 Benzodiazepine (Klonopin) Substance route: Oral Frequency: 1-3 times last 30 days Amount used: 6 tablets Age of first use: 26 Date of last use: 04/11/19 Admission Physical Exam [facility] - Physical General Appearance: Yes: No Apparent Distress HEENTM: Yes: EOMI, Hearing grossly Normal, Normocephalic, Normal Voice Respiratory: Yes: Chest Non-Tender, Lungs Clear, Normal Breath Sounds, No Respiratory Distress Neck: Yes: No masses,lesions,Nodules, Supple Breast: Yes: Breast Exam Deferred Cardiology: Yes: Regular Rhythm, Regular Rate, S1, S2 Abdominal: Yes: Normal Bowel Sounds, Soft Genitourinary: Yes: Within Normal Limits Back: Yes: Normal Inspection Musculoskeletal: Yes: Joint Stiffness, Muscle Pain Extremities: Yes: Tremors, Coldness Neurological: Yes: Fully Oriented, Alert, Normal Mood/Affect, Normal Response Integumentary: Yes: Clammy Lymphatic: Yes: Within Normal Limits - Diagnostic (1) H/O deep venous thrombosis Current Visit: No Status: Resolved (2) Alcohol dependence with uncomplicated withdrawal Current Visit: Yes Status: Acute (3) Asthma Current Visit: No Status: Chronic Qualifiers: Asthma severity: mild Asthma persistence: intermittent Asthma complication type: uncomplicated Qualified Code(s): J45.20 - Mild intermittent asthma, uncomplicated (4) COPD (chronic obstructive pulmonary disease) Current Visit: No Status: Chronic Qualifiers: COPD type: chronic bronchitis (5) Hypertension Current Visit: Yes Status: Chronic Qualifiers: Hypertension type: essential hypertension Qualified Code(s): I10 - Essential (primary) hypertension (6) Sedative hypnotic or anxiolytic dependence Current Visit: Yes Status: Acute (7) Diabetes 1.5, managed as type 2 Current Visit: Yes Status: Chronic Cleared for Admission S - Detox or Rehab [facility] Level of Care: Medically Managed Detox Regimen/Protocol: Valium Claeared for Rehab Admission: No Breathalyzer - Breathalyzer Breathalyzer: 0 Urine Drug Screen - Test Device Lot number: [id number] Expiration date: 05/11/21 - Control Is test valid?: Yes - Results Drug screen NEGATIVE: No Urine drug screen results: BZO-Benzodiazepines Inpatient Rehab Admission - Rehab Decision to Admit Inpatient rehab admission?: No
[2019-08-28] MEDS ORDERED: MAGNESIUM CITRATE 300 ML BOTTLE PO PRN (10:08)
[2019-08-28] MEDS ORDERED: diazePAM 5 MG TABLET PO ONE (10:08)
[2019-08-28] MEDS ORDERED: BISMUTH SUBSALICYLATE 524 MG/30 ML UD PO PRN (10:08)
[2019-08-28] MEDS ORDERED: IBUPROFEN 400 MG TABLET (FP) PO PRN (10:08)
[2019-08-28] MEDS ORDERED: MAG HYDROX/AL HYDROX/SIMETH 30 ML UNIT-DOSE CUP PO PRN (10:08)
[2019-08-28] MEDS ORDERED: METHOCARBAMOL 500 MG TABLET PO PRN (10:08)
[2019-08-28] MEDS ORDERED: ACETAMINOPHEN 325 MG TABLET (FP) PO PRN ×2 (10:08)
[2019-08-28] MEDS ORDERED: MENTHOL/PHENOL 1 EACH UD MM PRN (10:08)
[2019-08-28] MEDS ORDERED: ONDANSETRON *ODT* 4 MG TABLET SL PRN (10:08)
[2019-08-28] MEDS ORDERED: MAGNESIUM HYDROX 2400MG/30ML ORAL SUSPENSION 30 ML CUP PO PRN (10:08)
[2019-08-28] MEDS ORDERED: P-EPHED 60MG/TRIPROLIDI 2.5MG TABLET PO PRN (10:08)
[2019-08-28] MEDS ORDERED: hydrOXYzine PAMOATE 50 MG CAPSULE (FP) PO PRN (10:08)
[2019-08-28] MEDS ORDERED: ALBUTEROL SO4 8 GM HFA INHALER IH PRN (10:11)
[2019-08-28] MEDS: CLOPIDOGREL BISULFATE 75 MG TABLET (FP) PO SCH (12:18)
[2019-08-28] MEDS: diazePAM 5 MG TABLET PO SCH ×2 (14:49→22:35)
[2019-08-28 14:59] VITALS: BMI 32.5
[2019-08-28] MEDS: metFORMIN HCL 500 MG TABLET (FP) PO SCH (17:47)
[2019-08-28] MEDS ORDERED: QUEtiapine FUMARATE 100 MG TABLET (FP) ONE (21:20)
[2019-08-28] MEDS ORDERED: QUEtiapine FUMARATE 300 MG TABLET PO ONE (22:00)
[2019-08-28] MEDS: BUDESONIDE/FORMETEROL FUMARATE 80/4.5 mcg INHALER IH SCH (22:33)
[2019-08-28] MEDS: THIAMINE HCL 100 MG TABLET (FP) PO SCH (22:34)
[2019-08-28] MEDS: MELATONIN 5 MG TABLETS PO PRN (22:35)
[2019-08-29] MEDS: metFORMIN HCL 500 MG TABLET (FP) PO SCH ×2 (06:25→17:20)
[2019-08-29] MEDS: diazePAM 5 MG TABLET PO SCH ×3 (06:25→22:22)
[2019-08-29] MEDS: diazePAM 5 MG TABLET PO PRN (08:34)
[2019-08-29] MEDS: PRENATAL VITAMINS W/ FOLIC ACID TABLET (FP) PO SCH (10:16)
[2019-08-29] MEDS: BUDESONIDE/FORMETEROL FUMARATE 80/4.5 mcg INHALER IH SCH ×2 (10:16→22:21)
[2019-08-29] MEDS: ASPIRIN COATED 81 MG TABLET.EC PO SCH (10:16)
[2019-08-29] MEDS: CLOPIDOGREL BISULFATE 75 MG TABLET (FP) PO SCH (10:17)
--- NOTE | 2019-08-29 13:56 | PN ---
S CIWA - CIWA Score Nausea/Vomitin-Mild Nausea/No Vomiting Muscle Tremors: 3 Anxiety: 3 Agitation: 2 Paroxysmal Sweats: 1-Minimal Palms Moist Orientation: 0-Oriented Tacttile Disturbances: 1-Very Mild Itch/Numbness Auditory Disturbances: 0-None Visual Disturbances: 0-None Headache: 1-Very Mild CIWA-Ar Total Score: 12 [facility] Progress Note (SOAP) Subjective: 58 YEARS OLD MALE ADMITTED ON 08/28/19 FOR ALCOHOL WITHDRAWAL SX MANAGEMENT TREATED WITH VALIUM DETOX REGIMEN RESTING ON BED FEELING TIRED WILLING TO DISCUSS AFTERCARE WITH STAFF PATIENT PREFERS TO GO TO [facility] FOR REHAB Objective: 08/29/19 13:57 Vital Signs Temperature 97.9 F 08/29/19 13:10 Pulse Rate 94 H 08/29/19 13:10 Respiratory Rate 20 08/29/19 13:10 Blood Pressure 127/87 08/29/19 13:10 O2 Sat by Pulse Oximetry (%) Laboratory Last Values POC Glucometer 121 UNITS (80-120) 08/29/19 06:27 08/29/19 13:58 SEE 08/27/19 ER LAB Assessment: 08/29/19 13:59 ALCOHOL WITHDRAWAL SX Plan: CONTINUE VALIUM DETOX REGIMEN
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
[2019-08-29] MEDS: THIAMINE HCL 100 MG TABLET (FP) PO SCH (22:22)
[2019-08-29] MEDS: MELATONIN 5 MG TABLETS PO PRN (22:22)
[2019-08-30] MEDS: diazePAM 5 MG TABLET PO SCH ×2 (06:04→17:22)
[2019-08-30] MEDS: metFORMIN HCL 500 MG TABLET (FP) PO SCH ×2 (06:04→17:22)
[2019-08-30] MEDS: BUDESONIDE/FORMETEROL FUMARATE 80/4.5 mcg INHALER IH SCH ×2 (10:19→22:04)
[2019-08-30] MEDS: ASPIRIN COATED 81 MG TABLET.EC PO SCH (10:19)
[2019-08-30] MEDS: PRENATAL VITAMINS W/ FOLIC ACID TABLET (FP) PO SCH (10:19)
[2019-08-30] MEDS: CLOPIDOGREL BISULFATE 75 MG TABLET (FP) PO SCH (10:19)
--- NOTE | 2019-08-30 13:06 | PN ---
S CIWA - CIWA Score Nausea/Vomitin-No Nausea/No Vomiting Muscle Tremors: 2 Anxiety: 2 Agitation: 2 Paroxysmal Sweats: 1-Minimal Palms Moist Orientation: 0-Oriented Tacttile Disturbances: 1-Very Mild Itch/Numbness Auditory Disturbances: 0-None Visual Disturbances: 0-None Headache: 0-None Present CIWA-Ar Total Score: 8 BHS Progress Note (SOAP) Subjective: 58 years old male admitted on 08/28/19 for alcohol withdrawal sx management treated with valium detox regimen feeling better today discuss aftercare with staff Objective: 08/30/19 13:08 Vital Signs Temperature 98.3 F 08/30/19 13:02 Pulse Rate 92 H 08/30/19 13:02 Respiratory Rate 18 08/30/19 13:02 Blood Pressure 138/82 08/30/19 13:02 O2 Sat by Pulse Oximetry (%) Laboratory Last Values POC Glucometer 97 UNITS (80-120) 08/30/19 06:03 08/30/19 13:08 lab see 08/27/19 ER report Assessment: 08/30/19 13:08 alcohol withdrawal sx Plan: continue valium detox regimen
[2019-08-30] MEDS: THIAMINE HCL 100 MG TABLET (FP) PO SCH (21:38)
[2019-08-30] MEDS: diazePAM 5 MG TABLET PO PRN (22:07)
[2019-08-31] MEDS ORDERED: diazePAM 5 MG TABLET PO ONE (06:00)
[2019-08-31] MEDS: metFORMIN HCL 500 MG TABLET (FP) PO SCH (07:21)
[2019-08-31 09:12] VITALS: BP 134/79; PULSE 97; TEMP 99.1
--- NOTE | 2019-08-31 09:57 | DS ---
[facility] Detox Discharge Summary Admission Date: 08/28/19 Discharge Date: 08/31/19 - History Present History: Alcohol Dependence Additional Comments: 58 years old male admitted on 08/28/19 for alcohol withdrawal sx management treated with valium detox regimen patient is alert oriented x 3 cardiac S1S2 regular rate rhythm respiratory clear lung bilaterally on auscultation abdomen soft round obese no rebound tenderness - Physical Exam Results Vital Signs: Vital Signs Temperature 99.1 F 08/31/19 09:11 Pulse Rate 97 H 08/31/19 09:11 Respiratory Rate 18 08/31/19 09:11 Blood Pressure 134/79 08/31/19 09:11 O2 Sat by Pulse Oximetry (%) Pertinent Admission Physical Exam Findings: alcohol withdrawal sx Laboratory Last Values POC Glucometer 104 UNITS (80-120) 08/31/19 05:55 lab see 08/27/19 ER report - Treatment Hospital Course: Detox Protocol Followed, Detoxed Safely, Responded well, Discharged Condition Good, Rehab Referral Accepted Patient has Accepted a Rehab Referral to: [facility] - Medication Discharge Medications: Ambulatory Orders Fluticasone/Salmeterol [Advair 250-50 Diskus] 1 each IH BID 10/13/18 Quetiapine Fumarate [Seroquel -] 300 mg PO HS 10/17/18 cloNIDine HCL [Catapres -] 0.1 mg PO BID #30 tablet 10/17/18 Thiamine HCl [Vitamin B1 -] 100 mg PO DAILY tablet 02/03/19 Quetiapine Fumarate [Seroquel -] 300 mg PO HS #30 tablet 05/29/19 Albuterol Sulfate Inhaler - [Ventolin HFA Inhaler -] 2 inh PO Q4H PRN #1 inhaler 05/30/19 Aspirin Coated [Ecotrin -] 81 mg PO DAILY #30 tablet.ec 05/30/19 Budesonide/Formeterol Fumarate [SYMBICORT 80/4.5mcg -] 1 inh IH BID #1 inhaler 05/30/19 Clopidogrel Bisulfate [Plavix -] 75 mg PO DAILY #30 tablet 05/30/19 - Diagnosis (1) Alcohol dependence with uncomplicated withdrawal Current Visit: Yes Status: Acute (2) Diabetes 1.5, managed as type 2 Current Visit: Yes Status: Chronic (3) Hypertension Current Visit: Yes Status: Chronic Qualifiers: Hypertension type: essential hypertension Qualified Code(s): I10 - Essential (primary) hypertension (4) Substance induced mood disorder Current Visit: Yes Status: Suspected (5) Asthma Current Visit: Yes Status: Chronic Qualifiers: Asthma severity: mild Asthma persistence: intermittent Asthma complication type: uncomplicated Qualified Code(s): J45.20 - Mild intermittent asthma, uncomplicated (6) COPD (chronic obstructive pulmonary disease) Current Visit: Yes Status: Chronic Qualifiers: COPD type: emphysema (7) Nicotine dependence Current Visit: Yes Status: Acute Qualifiers: Nicotine product type: cigarettes Substance use status: in withdrawal Qualified Code(s): F17.213 - Nicotine dependence, cigarettes, with withdrawal (8) Substance induced mood disorder Current Visit: Yes Status: Suspected (9) Gastroesophageal reflux disease Current Visit: Yes Status: Chronic Qualifiers: Esophagitis presence: esophagitis presence not specified Qualified Code(s) : K21.9 - Gastro-esophageal reflux disease without esophagitis - AMA Did Patient Leave Against Medical Advice: No CIWA Score - CIWA Score Nausea/Vomitin-No Nausea/No Vomiting Muscle Tremors: 1-None Visible, but [place] Anxiety: 1-Mildly Anxious Agitation: 1-Slight > Activity Paroxysmal Sweats: 1-Minimal Palms Moist Orientation: 0-Oriented Tacttile Disturbances: 0-None Auditory Disturbances: 0-None Visual Disturbances: 0-None Headache: 0-None Present CIWA-Ar Total Score: 4
[2019-08-31] MEDS: BUDESONIDE/FORMETEROL FUMARATE 80/4.5 mcg INHALER IH SCH (10:13)
[2019-08-31] MEDS: PRENATAL VITAMINS W/ FOLIC ACID TABLET (FP) PO SCH (10:13)
[2019-08-31] MEDS: CLOPIDOGREL BISULFATE 75 MG TABLET (FP) PO SCH (10:13)
[2019-08-31] MEDS: ASPIRIN COATED 81 MG TABLET.EC PO SCH (10:13)
== END 2019-08-31 11:40 | disposition other institution (70) | DRG 775 ==
LOC: YASAS 08:45 → Y3N 10:09
PROVIDERS: ADMIT Allergy & Immunology; ATTEND Allergy & Immunology
PROC: HZ2ZZZZ Detoxification Services for Substance Abuse Treatment (ICD-10-PCS; principal; 2019-08-28)
DX: F10.230 Alcohol dependence with withdrawal, uncomplicated (principal); F13.20 Sedative, hypnotic or anxiolytic dependence, uncomplicated; F19.24 Other psychoactive substance dependence with psychoactive substance-induced mood disorder; F43.10 Post-traumatic stress disorder, unspecified; I10 Essential (primary) hypertension; J45.20 Mild intermittent asthma, uncomplicated; J43.8 Other emphysema; K21.9 Gastro-esophageal reflux disease without esophagitis; Z86.718 Personal history of other venous thrombosis and embolism; Z79.02 Long term (current) use of antithrombotics/antiplatelets; Z87.891 Personal history of nicotine dependence; Z88.0 Allergy status to penicillin; Z91.018 Allergy to other foods
CPT/HCPCS: 82962

== ENCOUNTER 2019-08-31 11:42 | Inpatient (IN) | payer OTHER ==
[2019-08-31] MEDS ORDERED: guaiFENesin 200 MG/10 ML 10 ML UNIT-DOSE CUPS PO PRN (12:37)
[2019-08-31] MEDS ORDERED: MAGNESIUM CITRATE 300 ML BOTTLE PO PRN (12:37)
[2019-08-31] MEDS ORDERED: MAGNESIUM HYDROX 2400MG/30ML ORAL SUSPENSION 30 ML CUP PO PRN (12:37)
[2019-08-31] MEDS ORDERED: MAG HYDROX/AL HYDROX/SIMETH 30 ML UNIT-DOSE CUP PO PRN (12:37)
[2019-08-31] MEDS ORDERED: P-EPHED 60MG/TRIPROLIDI 2.5MG TABLET PO PRN (12:37)
[2019-08-31] MEDS ORDERED: MENTHOL/PHENOL 1 EACH UD MM PRN (12:37)
[2019-08-31] MEDS ORDERED: LOPERAMIDE HCL 2 MG CAPSULE PO PRN (12:37)
--- NOTE | 2019-08-31 12:37 | HP ---
[facility] Rehab Assess/Revision - Admission History Admitted to Rehab from: [facility] Date of Admission to Rehab: 08/31/19 - Findings Detox History & Physical reviewed: Yes Concur with findings: Yes Comments/Additional Findings: trasnferred from detox to rehab admission as per protocol Inpatient Rehab Admission - Rehab Decision to Admit Inpatient rehab admission?: Yes - Initial Determination Are CD services needed?: Yes Free of communicable disease: Yes Not in need of hospitalization: Yes - Rehab Admission Criteria Previous failed treatment: Yes Poor recovery environment: Yes Comorbidities: Yes Lacks judgement: Yes Patient is meeting Inpatient Rehab admission criteria:: Yes
[2019-08-31] MEDS: ACETAMINOPHEN 325 MG TABLET (FP) PO PRN (19:15)
[2019-08-31] MEDS: BUDESONIDE/FORMETEROL FUMARATE 80/4.5 mcg INHALER IH SCH (21:20)
[2019-08-31] MEDS: MELATONIN 5 MG TABLETS PO PRN (21:23)
[2019-08-31] MEDS: THIAMINE HCL 100 MG TABLET (FP) PO SCH (21:23)
[2019-09-01] MEDS: ACETAMINOPHEN 325 MG TABLET (FP) PO PRN (08:25)
[2019-09-01] MEDS: ASPIRIN COATED 81 MG TABLET.EC PO SCH (10:14)
[2019-09-01] MEDS: PRENATAL VITAMINS W/ FOLIC ACID TABLET (FP) PO SCH (10:14)
[2019-09-01] MEDS: CLOPIDOGREL BISULFATE 75 MG TABLET (FP) PO SCH (10:14)
[2019-09-01] MEDS: BUDESONIDE/FORMETEROL FUMARATE 80/4.5 mcg INHALER IH SCH ×2 (10:15→21:15)
--- NOTE | 2019-09-01 10:47 | PN ---
[facility] Progress Note Note: Pt is a 58 y/o male with a hx of GILA admitted to rehab after detoxing on . Pt c/o right hand swelling and pain reporting was from a fall because he overdosed in the parking lot while seeking admission on Thursday the 08/27/19 and was taken to the [facility] ER. Pt reports "I bought a pill thinking it 's benzos but it was fentanyl, you know I'm addicted to benzos". Pt reports he was seen,treated and cleared at the ER for detox and xray done with negative result for fracture of right hand. Ct scan and other radiology exams were negative for bleeds or fracture due to fall. Vital Signs - 24 hr 08/31/19 09/01/19 09/01/19 13:30 00:30 07:02 Temperature 98 F 97.2 F L Pulse Rate 100 H 89 Respiratory 18 18 18 Rate Blood Pressure 146/72 149/81 Alert o x 3 nad Seen oob ambulating with steady gait and purposeful exercising with peer by walking several around the unit. A/P S/P Detox Continue rehab restart Metformin as in detox. Monitor BGM for hypoglycemia/Hyperglycemia. Psych re-eval to restart Psych meds.
[2019-09-01] MEDS: METHYL SALICYLATE/MENTHOL OINT 30 GM TUBE TP SCH ×2 (12:06→21:16)
[2019-09-01] MEDS: metFORMIN HCL 500 MG TABLET (FP) PO SCH (16:39)
[2019-09-01] MEDS: THIAMINE HCL 100 MG TABLET (FP) PO SCH (21:15)
[2019-09-01] MEDS: MELATONIN 5 MG TABLETS PO PRN (21:15)
[2019-09-02] MEDS: metFORMIN HCL 500 MG TABLET (FP) PO SCH ×2 (06:18→17:36)
[2019-09-02] MEDS: CLOPIDOGREL BISULFATE 75 MG TABLET (FP) PO SCH (09:51)
[2019-09-02] MEDS: METHYL SALICYLATE/MENTHOL OINT 30 GM TUBE TP SCH ×2 (09:51→21:07)
[2019-09-02] MEDS: PRENATAL VITAMINS W/ FOLIC ACID TABLET (FP) PO SCH (09:51)
[2019-09-02] MEDS: ASPIRIN COATED 81 MG TABLET.EC PO SCH (09:51)
[2019-09-02] MEDS: BUDESONIDE/FORMETEROL FUMARATE 80/4.5 mcg INHALER IH SCH ×2 (09:53→21:07)
[2019-09-02] MEDS: ACETAMINOPHEN 325 MG TABLET (FP) PO PRN (15:51)
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
[2019-09-02] MEDS: THIAMINE HCL 100 MG TABLET (FP) PO SCH (21:07)
[2019-09-02] MEDS: QUEtiapine FUMARATE 100 MG TABLET (FP) PO SCH (21:07)
[2019-09-03] MEDS: metFORMIN HCL 500 MG TABLET (FP) PO SCH ×2 (06:23→16:30)
[2019-09-03] MEDS: BUDESONIDE/FORMETEROL FUMARATE 80/4.5 mcg INHALER IH SCH ×2 (09:29→21:09)
[2019-09-03] MEDS: ASPIRIN COATED 81 MG TABLET.EC PO SCH (09:29)
[2019-09-03] MEDS: CLOPIDOGREL BISULFATE 75 MG TABLET (FP) PO SCH (09:29)
[2019-09-03] MEDS: PRENATAL VITAMINS W/ FOLIC ACID TABLET (FP) PO SCH (09:29)
[2019-09-03] MEDS: METHYL SALICYLATE/MENTHOL OINT 30 GM TUBE TP SCH ×2 (09:30→21:10)
[2019-09-03] MEDS: ACETAMINOPHEN 325 MG TABLET (FP) PO PRN ×2 (10:59→16:59)
[2019-09-03] MEDS: QUEtiapine FUMARATE 100 MG TABLET (FP) PO SCH (21:09)
[2019-09-03] MEDS: THIAMINE HCL 100 MG TABLET (FP) PO SCH (21:10)
[2019-09-04] MEDS: metFORMIN HCL 500 MG TABLET (FP) PO SCH ×2 (06:38→16:44)
[2019-09-04] MEDS: ALBUTEROL SO4 8 GM HFA INHALER IH PRN (08:53)
--- NOTE | 2019-09-04 09:12 | PN ---
[facility] Progress Note Note: evaluate patient with history of copd alert,no respiratory difficulty just received albuterol inhaler and symbicort 5 minuted ago patient observed ambulation on the unit alert,oriented x 3 lung no expiratory wheezing at this time lung clear no abdominal pain,or tenderness no calf tenderness impression copd treatment continue albuterol inhaler 2 puffs q 4hrs prn symbicort 80/4.5mcg 2 puffs bid duoneb nebulizer 1 q 6 hrs prn close monitoring
[2019-09-04] MEDS ORDERED: ALBUTEROL SO4 2.5/IPRATROPIUM 0.5 INH SOL 3 ML VIAL.NEB. NEB PRN (09:26)
[2019-09-04] MEDS ORDERED: ALBUTEROL SO4 2.5/IPRATROPIUM 0.5 INH SOL 3 ML VIAL.NEB. NEB ONE (09:36)
[2019-09-04] MEDS: CLOPIDOGREL BISULFATE 75 MG TABLET (FP) PO SCH (10:03)
[2019-09-04] MEDS: PRENATAL VITAMINS W/ FOLIC ACID TABLET (FP) PO SCH (10:03)
[2019-09-04] MEDS: ASPIRIN COATED 81 MG TABLET.EC PO SCH (10:03)
[2019-09-04] MEDS: METHYL SALICYLATE/MENTHOL OINT 30 GM TUBE TP SCH ×2 (10:04→21:10)
[2019-09-04] MEDS: BUDESONIDE/FORMETEROL FUMARATE 80/4.5 mcg INHALER IH SCH ×2 (10:07→21:08)
[2019-09-04] MEDS: ACETAMINOPHEN 325 MG TABLET (FP) PO PRN (19:20)
[2019-09-04] MEDS: QUEtiapine FUMARATE 100 MG TABLET (FP) PO SCH (21:08)
[2019-09-04] MEDS: THIAMINE HCL 100 MG TABLET (FP) PO SCH (21:09)
[2019-09-04] MEDS: MELATONIN 5 MG TABLETS PO PRN (21:09)
[2019-09-05] MEDS: metFORMIN HCL 500 MG TABLET (FP) PO SCH ×2 (06:24→16:51)
[2019-09-05] MEDS: BUDESONIDE/FORMETEROL FUMARATE 80/4.5 mcg INHALER IH SCH ×2 (10:19→21:13)
[2019-09-05] MEDS: METHYL SALICYLATE/MENTHOL OINT 30 GM TUBE TP SCH ×2 (10:19→21:13)
[2019-09-05] MEDS: ASPIRIN COATED 81 MG TABLET.EC PO SCH (10:19)
[2019-09-05] MEDS: CLOPIDOGREL BISULFATE 75 MG TABLET (FP) PO SCH (10:19)
[2019-09-05] MEDS: PRENATAL VITAMINS W/ FOLIC ACID TABLET (FP) PO SCH (10:19)
[2019-09-05] MEDS: ACETAMINOPHEN 325 MG TABLET (FP) PO PRN (10:20)
--- NOTE | 2019-09-05 14:41 | PN ---
S Progress Note Note: Patient reports experiencing difficulty to sleep despite taking Seroquel 100 mg/ hs and Melatonin 5 mg/hs. Discussed with patient hypnotic properties of Belsomra and he agreed to try it
[2019-09-05] MEDS: QUEtiapine FUMARATE 100 MG TABLET (FP) PO SCH (21:13)
[2019-09-05] MEDS: THIAMINE HCL 100 MG TABLET (FP) PO SCH (21:13)
[2019-09-05] MEDS: SUVOREXANT 10 MG TABLET PO PRN (21:14)
[2019-09-06] MEDS: metFORMIN HCL 500 MG TABLET (FP) PO SCH ×2 (06:05→17:04)
[2019-09-06] MEDS: ASPIRIN COATED 81 MG TABLET.EC PO SCH (10:02)
[2019-09-06] MEDS: CLOPIDOGREL BISULFATE 75 MG TABLET (FP) PO SCH (10:02)
[2019-09-06] MEDS: BUDESONIDE/FORMETEROL FUMARATE 80/4.5 mcg INHALER IH SCH ×2 (10:02→21:16)
[2019-09-06] MEDS: PRENATAL VITAMINS W/ FOLIC ACID TABLET (FP) PO SCH (10:02)
[2019-09-06] MEDS: ALBUTEROL SO4 8 GM HFA INHALER IH PRN (10:04)
[2019-09-06] MEDS: METHYL SALICYLATE/MENTHOL OINT 30 GM TUBE TP SCH ×2 (11:15→22:36)
[2019-09-06] MEDS: ACETAMINOPHEN 325 MG TABLET (FP) PO PRN (14:58)
[2019-09-06] MEDS: QUEtiapine FUMARATE 100 MG TABLET (FP) PO SCH (21:16)
[2019-09-06] MEDS: THIAMINE HCL 100 MG TABLET (FP) PO SCH (21:16)
[2019-09-06] MEDS: SUVOREXANT 10 MG TABLET PO PRN (21:17)
[2019-09-06] MEDS: MELATONIN 5 MG TABLETS PO PRN (22:19)
[2019-09-07] MEDS: metFORMIN HCL 500 MG TABLET (FP) PO SCH ×2 (06:38→17:01)
[2019-09-07] MEDS: PRENATAL VITAMINS W/ FOLIC ACID TABLET (FP) PO SCH (09:45)
[2019-09-07] MEDS: ASPIRIN COATED 81 MG TABLET.EC PO SCH (09:45)
[2019-09-07] MEDS: CLOPIDOGREL BISULFATE 75 MG TABLET (FP) PO SCH (09:45)
[2019-09-07] MEDS: BUDESONIDE/FORMETEROL FUMARATE 80/4.5 mcg INHALER IH SCH ×2 (09:46→21:12)
[2019-09-07] MEDS: METHYL SALICYLATE/MENTHOL OINT 30 GM TUBE TP SCH ×2 (09:47→21:13)
[2019-09-07] MEDS: THIAMINE HCL 100 MG TABLET (FP) PO SCH (21:12)
[2019-09-07] MEDS: QUEtiapine FUMARATE 100 MG TABLET (FP) PO SCH (21:12)
[2019-09-07] MEDS: SUVOREXANT 10 MG TABLET PO PRN (21:14)
[2019-09-08] MEDS: metFORMIN HCL 500 MG TABLET (FP) PO SCH ×2 (07:00→16:35)
[2019-09-08] MEDS: BUDESONIDE/FORMETEROL FUMARATE 80/4.5 mcg INHALER IH SCH ×2 (09:24→21:10)
[2019-09-08] MEDS: ASPIRIN COATED 81 MG TABLET.EC PO SCH (09:24)
[2019-09-08] MEDS: CLOPIDOGREL BISULFATE 75 MG TABLET (FP) PO SCH (09:24)
[2019-09-08] MEDS: PRENATAL VITAMINS W/ FOLIC ACID TABLET (FP) PO SCH (09:24)
[2019-09-08] MEDS: METHYL SALICYLATE/MENTHOL OINT 30 GM TUBE TP SCH ×2 (09:35→21:12)
[2019-09-08] MEDS: THIAMINE HCL 100 MG TABLET (FP) PO SCH (21:11)
[2019-09-08] MEDS: SUVOREXANT 10 MG TABLET PO PRN (21:11)
[2019-09-08] MEDS: QUEtiapine FUMARATE 100 MG TABLET (FP) PO SCH (21:11)
[2019-09-09] MEDS: metFORMIN HCL 500 MG TABLET (FP) PO SCH ×2 (06:03→16:21)
[2019-09-09] MEDS: CLOPIDOGREL BISULFATE 75 MG TABLET (FP) PO SCH (10:09)
[2019-09-09] MEDS: ASPIRIN COATED 81 MG TABLET.EC PO SCH (10:09)
[2019-09-09] MEDS: PRENATAL VITAMINS W/ FOLIC ACID TABLET (FP) PO SCH (10:09)
[2019-09-09] MEDS: METHYL SALICYLATE/MENTHOL OINT 30 GM TUBE TP SCH ×2 (10:10→21:09)
[2019-09-09] MEDS: BUDESONIDE/FORMETEROL FUMARATE 80/4.5 mcg INHALER IH SCH ×2 (10:10→21:10)
[2019-09-09] MEDS: ALBUTEROL SO4 8 GM HFA INHALER IH PRN (10:11)
[2019-09-09] MEDS: ACETAMINOPHEN 325 MG TABLET (FP) PO PRN (15:52)
[2019-09-09] MEDS: QUEtiapine FUMARATE 100 MG TABLET (FP) PO SCH (21:06)
[2019-09-09] MEDS: MELATONIN 5 MG TABLETS PO PRN (21:09)
[2019-09-09] MEDS: THIAMINE HCL 100 MG TABLET (FP) PO SCH (21:11)
[2019-09-10] MEDS: metFORMIN HCL 500 MG TABLET (FP) PO SCH ×2 (07:17→16:43)
[2019-09-10] MEDS: BUDESONIDE/FORMETEROL FUMARATE 80/4.5 mcg INHALER IH SCH ×2 (09:43→21:11)
[2019-09-10] MEDS: METHYL SALICYLATE/MENTHOL OINT 30 GM TUBE TP SCH ×2 (09:43→21:12)
[2019-09-10] MEDS: CLOPIDOGREL BISULFATE 75 MG TABLET (FP) PO SCH (09:43)
[2019-09-10] MEDS: PRENATAL VITAMINS W/ FOLIC ACID TABLET (FP) PO SCH (09:43)
[2019-09-10] MEDS: ASPIRIN COATED 81 MG TABLET.EC PO SCH (09:43)
[2019-09-10] MEDS: ACETAMINOPHEN 325 MG TABLET (FP) PO PRN (11:29)
[2019-09-10] MEDS: hydrOXYzine PAMOATE 50 MG CAPSULE (FP) PO PRN (19:25)
[2019-09-10] MEDS: MELATONIN 5 MG TABLETS PO PRN (21:11)
[2019-09-10] MEDS: QUEtiapine FUMARATE 100 MG TABLET (FP) PO SCH (21:11)
[2019-09-10] MEDS: THIAMINE HCL 100 MG TABLET (FP) PO SCH (21:11)
[2019-09-10] MEDS: ALBUTEROL SO4 8 GM HFA INHALER IH PRN (21:13)
[2019-09-11] MEDS: metFORMIN HCL 500 MG TABLET (FP) PO SCH ×2 (06:35→16:46)
[2019-09-11] MEDS: ASPIRIN COATED 81 MG TABLET.EC PO SCH (09:42)
[2019-09-11] MEDS: CLOPIDOGREL BISULFATE 75 MG TABLET (FP) PO SCH (09:42)
[2019-09-11] MEDS: PRENATAL VITAMINS W/ FOLIC ACID TABLET (FP) PO SCH (09:42)
[2019-09-11] MEDS: hydrOXYzine PAMOATE 50 MG CAPSULE (FP) PO PRN ×2 (09:42→19:00)
[2019-09-11] MEDS: ACETAMINOPHEN 325 MG TABLET (FP) PO PRN (09:43)
[2019-09-11] MEDS: ALBUTEROL SO4 8 GM HFA INHALER IH PRN (09:44)
[2019-09-11] MEDS: BUDESONIDE/FORMETEROL FUMARATE 80/4.5 mcg INHALER IH SCH ×2 (09:44→21:05)
[2019-09-11] MEDS: METHYL SALICYLATE/MENTHOL OINT 30 GM TUBE TP SCH ×2 (09:45→21:05)
[2019-09-11] MEDS: QUEtiapine FUMARATE 100 MG TABLET (FP) PO SCH (21:04)
[2019-09-11] MEDS: THIAMINE HCL 100 MG TABLET (FP) PO SCH (21:04)
[2019-09-11] MEDS: MELATONIN 5 MG TABLETS PO PRN (21:04)
[2019-09-12] MEDS: metFORMIN HCL 500 MG TABLET (FP) PO SCH ×2 (07:08→16:50)
[2019-09-12] MEDS: BUDESONIDE/FORMETEROL FUMARATE 80/4.5 mcg INHALER IH SCH ×2 (10:31→21:15)
[2019-09-12] MEDS: METHYL SALICYLATE/MENTHOL OINT 30 GM TUBE TP SCH ×2 (10:32→21:15)
[2019-09-12] MEDS: ALBUTEROL SO4 8 GM HFA INHALER IH PRN (10:32)
[2019-09-12] MEDS: ASPIRIN COATED 81 MG TABLET.EC PO SCH (10:32)
[2019-09-12] MEDS: CLOPIDOGREL BISULFATE 75 MG TABLET (FP) PO SCH (10:32)
[2019-09-12] MEDS: PRENATAL VITAMINS W/ FOLIC ACID TABLET (FP) PO SCH (10:32)
--- NOTE | 2019-09-12 11:21 | PN ---
[facility] Progress Note Note: Patient is scheduled for discharge tomorrow. Script for 30 days supply of Seroquel 100 mg/hs will be electronically transmitted to [facility] at [address] [place] [address] [place] [address]
--- NOTE | 2019-09-12 13:55 | DS ---
[facility] Rehab Discharge Summary - [facility] Rehab Discharge Summary Admission Date: 08/31/19 Discharge Date: 09/13/19 - History Present History: Alcohol dependence, Sedative dependence Additional Comments: Pt is a 58 y/o male with a hx of GILA admitted to rehab and discharging today. Pt is homeless and was referred to [facility] on [address], [place] for skilled nursing and [address], [place] for aftercare follow up. Pt reports he has no PCP and has been unable to follow up with primary care due to unsteady living arrangement. Pertinent Past History: Asthma COPD DM HTN Hx DVT C/P PTSD Depression - Discharge Physical Exam Vital Signs: Vital Signs Temperature 97.4 F L 09/11/19 06:58 Pulse Rate 98 H 09/12/19 10:00 Respiratory Rate 18 09/12/19 06:56 Blood Pressure 118/74 09/12/19 10:00 O2 Sat by Pulse Oximetry (%) Alert o x 3 nad oob ambulating with steady gait cardiac:s1 s2,rrr lungs:cta,elizabeth. abdomen:+bs,++fatty,nt,soft extremities/skin:no edema,full ROM/weight bearing;skin intact. Pertinent Admission Physical Exam Findings: Laboratory Tests 08/31/19 09/01/19 09/01/19 16:53 06:10 16:37 POC Glucometer 144 148 124 HIV 1&2 Ag/Ab, 4th Gen 09/02/19 09/02/19 09/02/19 06:17 08:50 16:27 POC Glucometer 94 88 HIV 1&2 Ag/Ab, 4th Gen Non reactive 09/02/19 09/03/19 09/03/19 17:34 06:21 16:28 POC Glucometer 100 97 79 HIV 1&2 Ag/Ab, 4th Gen 09/04/19 09/04/19 09/05/19 06:37 16:43 06:23 POC Glucometer 91 125 87 HIV 1&2 Ag/Ab, 4th Gen 09/05/19 09/06/19 09/06/19 16:53 06:05 17:02 POC Glucometer 128 85 86 HIV 1&2 Ag/Ab, 4th Gen 09/07/19 09/07/19 09/08/19 06:37 17:00 06:59 POC Glucometer 102 104 81 HIV 1&2 Ag/Ab, 4th Gen 09/08/19 09/09/19 09/09/19 16:34 05:58 16:18 POC Glucometer 140 83 140 HIV 1&2 Ag/Ab, 4th Gen 09/10/19 09/11/19 09/11/19 16:41 06:35 16:45 POC Glucometer 149 97 200 HIV 1&2 Ag/Ab, 4th Gen 09/12/19 09/13/19 16:49 06:14 POC Glucometer 130 114 HIV 1&2 Ag/Ab, 4th Gen - Treatment Discharge Condition: Discharge condition good Hospital Course: rehabilitated safely responded well CD aftercare referral accepted - Medication Discharge Medications: Ambulatory Orders Albuterol Sulfate Inhaler - [Ventolin HFA Inhaler -] 2 inh PO Q4H PRN #1 inhaler 09/13/19 Aspirin Coated [Ecotrin -] 81 mg PO DAILY #30 tablet.ec 09/13/19 Budesonide/Formeterol Fumarate [SYMBICORT 80/4.5mcg -] 1 inh IH BID #1 inhaler 09/13/19 Clopidogrel Bisulfate [Plavix -] 75 mg PO DAILY #30 tablet 09/13/19 Metformin HCl [Glucophage] 500 mg PO BID #60 tablet 09/13/19 - Medication-Assisted Treatment (MAT) Medication-Assisted Treatment (MAT): No - Discharge Instructions Diet, activity, other medical instructions: Diet:WESLY/NCS Activity: oob ad dalia Other medical instructions:follow up with primary care/CD aftercare recommendations as scheduled. - Diagnosis (1) Alcohol dependence Status: Chronic Qualifiers: Substance use status: uncomplicated Qualified Code(s): F10.20 - Alcohol dependence, uncomplicated (2) Asthma Status: Chronic Qualifiers: Asthma severity: mild Asthma persistence: intermittent Asthma complication type: uncomplicated Qualified Code(s): J45.20 - Mild intermittent asthma, uncomplicated (3) COPD (chronic obstructive pulmonary disease) Status: Chronic Qualifiers: COPD type: emphysema (4) Gastroesophageal reflux disease Status: Chronic Qualifiers: Esophagitis presence: esophagitis presence not specified Qualified Code(s) : K21.9 - Gastro-esophageal reflux disease without esophagitis (5) Hypertension Status: Chronic Qualifiers: Hypertension type: essential hypertension Qualified Code(s): I10 - Essential (primary) hypertension (6) Seizure Status: Ruled-out Qualifiers: Convulsion type: unspecified Qualified Code(s): R56.9 - Unspecified convulsions - Follow-up Referral Minutes to complete discharge: 20 - AMA Did Patient Leave Against Medical Advice: No Additional Comments: Courtesy Rx electronically sent to [facility] [facility] at [address] [place] [address] for cook pickled meat after discharge.
[2019-09-12] MEDS: hydrOXYzine PAMOATE 50 MG CAPSULE (FP) PO PRN ×2 (14:47→21:12)
[2019-09-12] MEDS: THIAMINE HCL 100 MG TABLET (FP) PO SCH (21:12)
[2019-09-12] MEDS: MELATONIN 5 MG TABLETS PO PRN (21:12)
[2019-09-12] MEDS: QUEtiapine FUMARATE 100 MG TABLET (FP) PO SCH (21:12)
[2019-09-13] MEDS: metFORMIN HCL 500 MG TABLET (FP) PO SCH (06:15)
[2019-09-13 06:45] VITALS: BP 134/84; PULSE 93; TEMP 98.1
[2019-09-13] MEDS: PRENATAL VITAMINS W/ FOLIC ACID TABLET (FP) PO SCH (09:32)
[2019-09-13] MEDS: ASPIRIN COATED 81 MG TABLET.EC PO SCH (09:32)
[2019-09-13] MEDS: BUDESONIDE/FORMETEROL FUMARATE 80/4.5 mcg INHALER IH SCH (09:32)
[2019-09-13] MEDS: METHYL SALICYLATE/MENTHOL OINT 30 GM TUBE TP SCH (09:33)
[2019-09-13] MEDS: CLOPIDOGREL BISULFATE 75 MG TABLET (FP) PO SCH (09:33)
== END 2019-09-13 09:45 | disposition home or self-care (01) | DRG 772 ==
LOC: YASAS 11:42 → Y3W 11:43 → Y5N 16:00
PROVIDERS: ADMIT Neuromusculoskeletal Medicine & OMM; ATTEND Neuromusculoskeletal Medicine & OMM
PROC: HZ42ZZZ Group Counseling for Substance Abuse Treatment, Cognitive-Behavioral (ICD-10-PCS; principal; 2019-08-31)
DX: F10.20 Alcohol dependence, uncomplicated (principal); F13.20 Sedative, hypnotic or anxiolytic dependence, uncomplicated; F19.24 Other psychoactive substance dependence with psychoactive substance-induced mood disorder; F43.10 Post-traumatic stress disorder, unspecified; F32.9 Major depressive disorder, single episode, unspecified; G47.00 Insomnia, unspecified; I10 Essential (primary) hypertension; J44.9 Chronic obstructive pulmonary disease, unspecified; J45.998 Other asthma; E11.9 Type 2 diabetes mellitus without complications; Z79.84 Long term (current) use of oral hypoglycemic drugs; K21.9 Gastro-esophageal reflux disease without esophagitis; Z86.718 Personal history of other venous thrombosis and embolism; Z79.02 Long term (current) use of antithrombotics/antiplatelets; Z88.0 Allergy status to penicillin; Z91.018 Allergy to other foods; Z59.0 Homelessness; Z91.19 Patient's noncompliance with other medical treatment and regimen
CPT/HCPCS: 36415; 82962; 87389; 94640

== ENCOUNTER 2019-10-25 09:02 | Inpatient (IN) | payer OTHER ==
[2019-10-25 09:24] VITALS: BMI 30.9
--- NOTE | 2019-10-25 11:14 | HP ---
"CIWA Score Nausea/Vomitin Muscle Tremors: 1-None Visible, but [place] Anxiety: 4-Mod. Anxious/Guarded Agitation: 4-Moderately Restless Paroxysmal Sweats: No Perspiration Orientation: 0-Oriented Tacttile Disturbances: 0-None Auditory Disturbances: 1-Very Mild Visual Disturbances: 1-Very Mild Sensitivity Headache: 0-None Present CIWA-Ar Total Score: 13 - Admission Criteria OASAS Guidelines: Admission for Medically Managed Detox: Requires at least one of the followin. CIWA greater than 12 2. Seizures within the past 24 hours 3. Delirium tremens within the past 24 hours 4. Hallucinations within the past 24 hours 5. Acute intervention needed for co occurring medical disorder 6. Acute intervention needed for co occurring psychiatric disorder 7. Severe withdrawal that cannot be handled at a lower level of care (continued vomiting, continued diarrhea, abnormal vital signs) requiring intravenous medication and/or fluids 8. Admitting History and Physical - Smoking History Smoking history: Former smoker Have you smoked in the past 12 months: No Aproximately how many cigarettes per day: 3 If you are a former smoker, when did you quit?: 2013 - Alcohol/Substance Use Hx Alcohol Use: Yes Admission [facility] Allergies/Adverse Reactions: Allergies Allergy/AdvReac Type Severity Reaction Status Date / Time penicillin G Allergy Severe Hives Verified 10/25/19 09:18 pork derived (porcine) Allergy Severe Hives Verified 10/25/19 09:18 tomato Allergy Severe Hives Verified 10/25/19 09:18 liver Allergy Severe Hives Uncoded 10/25/19 09:18 History of Present Illness: pt here requesting detox from etoh use, reports 1/5 liquor /day latest use 1 am , reports tremors tremors if not drinking starts drinking in the mornings , denies seizures , + blackouts. klonopin : 10 /day illicit use , no rx tobacco : 2 cigs/day pmhx : dm, asthma, copd , dvt r le w/ stenting pshx : stenting psych : denies social hx : lives w/ others . denies legal isues Search Terms: dylan shannon, 1960 Search Date: 10/25/2019 11:18:33 AM The Drug Utilization Report below displays all of the controlled substance prescriptions, if any, that your patient has filled in the last twelve months. The information displayed on this report is compiled from pharmacy submissions to the Department, and accurately reflects the information as submitted by the pharmacies. This report was requested by: Sofia Barraza | Reference #: [id number] There are no results for the search terms that you entered. Exam Limitations: Clinical Condition - Ebola screening Have you traveled outside of the country in the last 21 days: No Have you had contact with anyone from an Ebola affected area: No - Review of Systems Constitutional: Loss of Appetite EENT: reports: Other (glasses - myopia denies dysphagia) Respiratory: reports: No Symptoms reported Cardiac: reports: No Symptoms Reported GI: reports: See HPI, Diarrhea, Nausea : reports: No Symptoms Reported Musculoskeletal: reports: Joint Pain (right hand , fell on the back of the rigth hand this morning while intoxicated) Integumentary: reports: No Symptoms Reported Neuro: reports: Tremors Endocrine: reports: See HPI Psychiatric: reports: Orientated x3, Agitated, Anxious Patient History - Patient Medical History Hx Anemia: No Hx Asthma: Yes (Albuterol) Hx Chronic Obstructive Pulmonary Disease (COPD): Yes (Symbicort) Hx Cancer: No Hx Cardiac Disorders: No Hx Congestive Heart Failure: No Hx Hypertension: Yes Hx Hypercholesterolemia: No Hx Pacemaker: No HX Cerebrovascular Accident: No Hx Seizures: No Hx Dementia: No Hx Diabetes: Yes Hx Gastrointestinal Disorders: No Hx Liver Disease: No Hx Genitourinary Disorders: No Hx Sexually Transmitted Disorders: No Hx Renal Disease (ESRD): No Hx Thyroid Disease: No Hx Human Immunodeficiency Virus (HIV): No Hx Hepatitis C: No Hx Depression: Yes Hx Suicide Attempt: No Hx Bipolar Disorder: No Hx Schizophrenia: No - Patient Surgical History Past Surgical History: Yes Hx Neurologic Surgery: No Hx Cataract Extraction: No Hx Cardiac Surgery: No Hx Lung Surgery: No Hx Breast Surgery: No Hx Breast Biopsy: No Hx Abdominal Surgery: No Hx Appendectomy: No Hx Cholecystectomy: No Hx Genitourinary Surgery: No Hx Section: No Hx Orthopedic Surgery: No Other Surgical History: pt. reported blood clot removed from right leg in Anesthesia Reaction: No - PPD History Date: 10/15/18 Results: 0 mm. - Smoking Cessation Smoking history: Former smoker Have you smoked in the past 12 months: No Aproximately how many cigarettes per day: 3 If you are a former smoker, when did you quit?: 2013 Cigars Per Day: 0 Hx Chewing Tobacco Use: No Initiated information on smoking cessation: Yes 'Breaking Loose' booklet given: 10/25/19 - Substances abused Alcohol Other (specify): VODKA Substance route: Oral Frequency: Daily Amount used: fifth of vodka Age of first use: 17 Date of last use: 10/25/19 Benzodiazepine (Klonopin) Substance route: Oral Frequency: Daily Amount used: 4 tablets Age of first use: 26 Date of last use: 10/18/19 Admission Physical Exam S - Vital Signs Vital Signs: Vital Signs - 24 hr 10/25/19 09:20 Temperature 96.8 F L Pulse Rate 102 H Respiratory 18 Rate Blood Pressure 131/77 - Physical General Appearance: Yes: Mild Distress, Moderate Distress, Tremorous, Anxious HEENTM: Yes: EOMI, Hearing grossly Normal, Normocephalic, Normal Voice Respiratory: Yes: Chest Non-Tender, Lungs Clear, Normal Breath Sounds, No Respiratory Distress, No Accessory Muscle Use Neck: Yes: No masses,lesions,Nodules, Trachea in good position Cardiology: Yes: Regular Rhythm, Regular Rate, S1, S2, Tachycardia Abdominal: Yes: Non Tender, Soft Musculoskeletal: Yes: Gait Steady, Other (minimal tenderenss left dorsum of hand 3rd MC , superficial excoriations IVth and Vth fingers drosum, no edema, full ROM .) Neurological: Yes: Fully Oriented, Alert, Motor Strength 5/5 Integumentary: Yes: Warm - Diagnostic (1) Alcohol dependence with uncomplicated withdrawal Current Visit: Yes Status: Chronic (2) Benzodiazepine dependence Current Visit: Yes Status: Chronic Breathalyzer - Breathalyzer Breathalyzer: 0 Urine Drug Screen - Test Device Lot number: [id number] Expiration date: 05/11/21 - Control Is test valid?: Yes - Results Drug screen NEGATIVE: No Urine drug screen results: BZO-Benzodiazepines Inpatient Rehab Admission - Rehab Decision to Admit Inpatient rehab admission?: No"
[2019-10-25] MEDS ORDERED: ONDANSETRON *ODT* 4 MG TABLET SL PRN (11:20)
[2019-10-25] MEDS ORDERED: MELATONIN 5 MG TABLETS PO PRN (11:20)
[2019-10-25] MEDS ORDERED: MAGNESIUM CITRATE 300 ML BOTTLE PO PRN (11:20)
[2019-10-25] MEDS ORDERED: MAG HYDROX/AL HYDROX/SIMETH 30 ML UNIT-DOSE CUP PO PRN (11:20)
[2019-10-25] MEDS ORDERED: BISMUTH SUBSALICYLATE 262 MG/15 ML BTL PO PRN (11:20)
[2019-10-25] MEDS ORDERED: MAGNESIUM HYDROX 2400MG/30ML ORAL SUSPENSION 30 ML CUP PO PRN (11:20)
[2019-10-25] MEDS ORDERED: ACETAMINOPHEN 325 MG TABLET (FP) PO PRN (11:20)
[2019-10-25] MEDS ORDERED: MENTHOL/PHENOL 1 EACH UD MM PRN (11:20)
[2019-10-25] MEDS ORDERED: chlordiazePOXIDE HCL 25 MG CAPSULE PO PRN (11:23)
[2019-10-25] MEDS: ALBUTEROL SO4 HFA INHALER IH PRN (12:51)
[2019-10-25] MEDS: ASPIRIN COATED 81 MG TABLET.EC PO SCH (12:52)
[2019-10-25] MEDS: chlordiazePOXIDE HCL 25 MG CAPSULE PO SCH ×3 (12:52→22:24)
[2019-10-25] MEDS: metFORMIN HCL 500 MG TABLET (FP) PO SCH ×2 (12:52→16:43)
[2019-10-25] MEDS: CLOPIDOGREL BISULFATE 75 MG TABLET (FP) PO SCH (12:52)
[2019-10-25] MEDS: THIAMINE HCL 100 MG TABLET (FP) PO SCH (22:23)
[2019-10-25] MEDS: BUDESONIDE/FORMETEROL FUMARATE 80/4.5 mcg INHALER IH SCH (22:23)
[2019-10-26] MEDS: chlordiazePOXIDE HCL 25 MG CAPSULE PO SCH ×3 (05:56→17:42)
[2019-10-26] MEDS: metFORMIN HCL 500 MG TABLET (FP) PO SCH ×2 (06:17→17:42)
[2019-10-26 09:37] LABS: HEMATOCRIT 41.7 % (35.4-49); HEMOGLOBIN 13.8 GM/dL (11.7-16.9); MEAN CELL VOLUME 84.9 fl (80-96); MEAN PLT VOLUME 9.8 fl (7.5-11.1); PLATELET COUNT 227 K/MM3 (134-434); RBC 4.91 M/mm3 (4.00-5.60); RDW 15.1 % (11.9-15.9); WHITE BLOOD COUNT 6.8 K/mm3 (4.0-10.0)
[2019-10-26 09:56] LABS: ALBUMIN 3.2 g/dl (3.4-5.0); BILIRUBIN,TOTAL 0.5 mg/dL (0.2-1); BLOOD UREA NITROGEN 15.3 mg/dL (7-18); CALCIUM 7.8 mg/dL (8.5-10.1); CREATININE 0.9 mg/dL (0.55-1.3); POTASSIUM 4.1 mmol/L (3.5-5.1); TOT PROT 5.8 g/dl (6.4-8.2)
[2019-10-26] MEDS: BUDESONIDE/FORMETEROL FUMARATE 80/4.5 mcg INHALER IH SCH (10:15)
[2019-10-26] MEDS: ALBUTEROL SO4 HFA INHALER IH PRN (10:15)
[2019-10-26] MEDS: PRENATAL VITAMINS W/ FOLIC ACID TABLET (FP) PO SCH (10:16)
[2019-10-26] MEDS: ASPIRIN COATED 81 MG TABLET.EC PO SCH (10:16)
[2019-10-26] MEDS: CLOPIDOGREL BISULFATE 75 MG TABLET (FP) PO SCH (10:16)
--- NOTE | 2019-10-26 11:38 | PN ---
S CIWA - CIWA Score Nausea/Vomitin-Mild Nausea/No Vomiting Muscle Tremors: 1-None Visible, but [place] Anxiety: 2 Agitation: 1-Slight > Activity Paroxysmal Sweats: 2 Orientation: 0-Oriented Tacttile Disturbances: 2-Mild Itch/Numbness/Burn Auditory Disturbances: 0-None Visual Disturbances: 0-None Headache: 0-None Present CIWA-Ar Total Score: 9 BHS Progress Note (SOAP) Subjective: interrupted sleep, sweats, rt calf pain Objective: 10/26/19 11:32 Vital Signs Temperature 96.7 F L 10/26/19 09:16 Pulse Rate 91 H 10/26/19 09:16 Respiratory Rate 18 10/26/19 09:16 Blood Pressure 131/80 10/26/19 09:16 O2 Sat by Pulse Oximetry (%) Laboratory Tests 10/25/19 10/25/19 10/26/19 11:55 16:28 05:57 WBC RBC Hgb Hct MCV MCH MCHC RDW Plt Count MPV Sodium Potassium Chloride Carbon Dioxide Anion Gap BUN Creatinine Est GFR (CKD-EPI)AfAm Est GFR (CKD-EPI)NonAf POC Glucometer 112 184 101 Random Glucose Calcium Total Bilirubin AST ALT Alkaline Phosphatase Total Protein Albumin 10/26/19 10/26/19 08:10 08:10 WBC 6.8 RBC 4.91 Hgb 13.8 Hct 41.7 MCV 84.9 MCH 28.0 MCHC 33.0 RDW 15.1 Plt Count 227 MPV 9.8 Sodium 142 Potassium 4.1 Chloride 109 H Carbon Dioxide 29 Anion Gap 3 L BUN 15.3 Creatinine 0.9 Est GFR (CKD-EPI)AfAm 110.27 Est GFR (CKD-EPI)NonAf 95.14 POC Glucometer Random Glucose 83 Calcium 7.8 L Total Bilirubin 0.5 AST 10 L ALT 17 Alkaline Phosphatase 68 Total Protein 5.8 L Albumin 3.2 L pt aox3 in nad ambulating well rt calf more atrophy than left pulses on rt LE +1, LLE +@ no calf tenderness , no rubor or calor Assessment: 10/26/19 11:35 withdrawal sx's h/o PVD/DVT s/p stent on RT LE now c/o intermittent pain x 3 days. Discussed further evaluation in ED , but pt refused states he will taker tylenol and see if pain resolves. the pt did agree to go to ED if pain persist. Plan: cont detox increase fluids cont plavix and asa ERd if no improvement.
[2019-10-26] MEDS: ACETAMINOPHEN 325 MG TABLET (FP) PO PRN (15:55)
[2019-10-26] MEDS: hydrOXYzine PAMOATE 25 MG CAPSULE (FP) PO PRN (15:55)
--- NOTE | 2019-10-26 18:07 | PN ---
[facility] Progress Note Note: Pt states that he has mid chest pain rated 7/10, worse with deep breaths. Pain radiates to shoulder. h/o PAD of lower extr with stent palcement, h/o DM. No h/ o LA. PE: Vital Signs - 24 hr 10/25/19 10/26/19 10/26/19 20:16 00:30 03:30 Temperature 97.0 F L Pulse Rate 103 H Respiratory 16 18 18 Rate Blood Pressure 104/71 10/26/19 10/26/19 10/26/19 07:32 09:16 13:07 Temperature 96.3 F L 96.7 F L 98.3 F Pulse Rate 81 91 H 97 H Respiratory 18 18 20 Rate Blood Pressure 118/79 131/80 123/77 10/26/19 17:39 Temperature 99.0 F Pulse Rate 92 H Respiratory 18 Rate Blood Pressure 116/76 Laboratory Tests 10/25/19 10/25/19 10/26/19 11:55 16:28 05:57 WBC RBC Hgb Hct MCV MCH MCHC RDW Plt Count MPV Sodium Potassium Chloride Carbon Dioxide Anion Gap BUN Creatinine Est GFR (CKD-EPI)AfAm Est GFR (CKD-EPI)NonAf POC Glucometer 112 184 101 Random Glucose Calcium Total Bilirubin AST ALT Alkaline Phosphatase Total Protein Albumin 10/26/19 10/26/19 10/26/19 08:10 08:10 16:43 WBC 6.8 RBC 4.91 Hgb 13.8 Hct 41.7 MCV 84.9 MCH 28.0 MCHC 33.0 RDW 15.1 Plt Count 227 MPV 9.8 Sodium 142 Potassium 4.1 Chloride 109 H Carbon Dioxide 29 Anion Gap 3 L BUN 15.3 Creatinine 0.9 Est GFR (CKD-EPI)AfAm 110.27 Est GFR (CKD-EPI)NonAf 95.14 POC Glucometer 185 Random Glucose 83 Calcium 7.8 L Total Bilirubin 0.5 AST 10 L ALT 17 Alkaline Phosphatase 68 Total Protein 5.8 L Albumin 3.2 L a/p: pt has multiple risk factors for CAD- DM, PAD with stent placement. EKG- is unremarkable- but may have had a prior inf wall LA. Called the ER and was placed on hold for more than 30 mins- was not able to give report pt was taken by [employer] [facility] to [facility] ER
[2019-10-27] MEDS: chlordiazePOXIDE HCL 25 MG CAPSULE PO SCH ×5 (00:32→22:10)
[2019-10-27] MEDS: BUDESONIDE/FORMETEROL FUMARATE 80/4.5 mcg INHALER IH SCH ×3 (00:32→22:12)
[2019-10-27] MEDS: THIAMINE HCL 100 MG TABLET (FP) PO SCH ×2 (00:32→22:11)
[2019-10-27] MEDS: metFORMIN HCL 500 MG TABLET (FP) PO SCH ×2 (08:21→17:26)
[2019-10-27] MEDS: CLOPIDOGREL BISULFATE 75 MG TABLET (FP) PO SCH (10:29)
[2019-10-27] MEDS: ASPIRIN COATED 81 MG TABLET.EC PO SCH (10:29)
[2019-10-27] MEDS: PRENATAL VITAMINS W/ FOLIC ACID TABLET (FP) PO SCH (10:29)
[2019-10-27] MEDS: ALBUTEROL SO4 HFA INHALER IH PRN (10:33)
[2019-10-27] MEDS: ACETAMINOPHEN 325 MG TABLET (FP) PO PRN ×2 (11:44→18:14)
--- NOTE | 2019-10-27 12:01 | EKG ---
Test Reason : Blood Pressure : / mmHG Vent. Rate : 093 BPM Atrial Rate : 093 BPM P-R Int : 142 ms QRS Dur : 080 ms QT Int : 344 ms P-R-T Axes : 062 022 034 degrees QTc Int : 427 ms NORMAL SINUS RHYTHM NORMAL ECG WHEN COMPARED WITH ECG OF 27-AUG-2019 15:34, NO SIGNIFICANT CHANGE WAS FOUND Confirmed by MESSI ARGUELLES MD ([id number]) on 10/27/2019 12:01:30 PM Referred By: Confirmed By:MESSI ARGUELLES MD
--- NOTE | 2019-10-27 13:22 | PN ---
[facility] CIWA - CIWA Score Nausea/Vomitin-Mild Nausea/No Vomiting Muscle Tremors: 2 Anxiety: 3 Agitation: 1-Slight > Activity Paroxysmal Sweats: 2 Orientation: 0-Oriented Tacttile Disturbances: 0-None Auditory Disturbances: 0-None Visual Disturbances: 1-Very Mild Sensitivity Headache: 1-Very Mild CIWA-Ar Total Score: 11 S Progress Note (SOAP) Subjective: 58 years old male admitted on 10/25/19 for alcohol and benzo withdrawal sx management treating with librium regimen feeling ok to day ate breakfast and lunch in day room social with peers less tremor but anxious Objective: 10/27/19 13:21 Vital Signs Temperature 96.7 F L 10/27/19 06:16 Pulse Rate 78 10/27/19 06:16 Respiratory Rate 18 10/27/19 06:16 Blood Pressure 120/69 10/27/19 06:16 O2 Sat by Pulse Oximetry (%) Laboratory Last Values WBC 6.8 K/mm3 (4.0-10.0) 10/26/19 08:10 RBC 4.91 M/mm3 (4.00-5.60) 10/26/19 08:10 Hgb 13.8 GM/dL (11.7-16.9) 10/26/19 08:10 Hct 41.7 % (35.4-49) 10/26/19 08:10 MCV 84.9 fl (80-96) 10/26/19 08:10 MCH 28.0 pg (25.7-33.7) 10/26/19 08:10 MCHC 33.0 g/dl (32.0-35.9) 10/26/19 08:10 RDW 15.1 % (11.9-15.9) 10/26/19 08:10 Plt Count 227 K/MM3 (134-434) 10/26/19 08:10 MPV 9.8 fl (7.5-11.1) 10/26/19 08:10 Sodium 142 mmol/L (136-145) 10/26/19 08:10 Potassium 4.1 mmol/L (3.5-5.1) 10/26/19 08:10 Chloride 109 mmol/L (98-107) H 10/26/19 08:10 Carbon Dioxide 29 mmol/L (21-32) 10/26/19 08:10 Anion Gap 3 MMOL/L (8-16) L 10/26/19 08:10 BUN 15.3 mg/dL (7-18) 10/26/19 08:10 Creatinine 0.9 mg/dL (0.55-1.3) 10/26/19 08:10 Est GFR (CKD-EPI)AfAm 110.27 10/26/19 08:10 Est GFR (CKD-EPI)NonAf 95.14 10/26/19 08:10 POC Glucometer 105 UNITS (80-120) 10/27/19 05:25 Random Glucose 83 mg/dL (74-106) 10/26/19 08:10 Calcium 7.8 mg/dL (8.5-10.1) L 10/26/19 08:10 Total Bilirubin 0.5 mg/dL (0.2-1) 10/26/19 08:10 AST 10 U/L (15-37) L 10/26/19 08:10 ALT 17 U/L (13-61) 10/26/19 08:10 Alkaline Phosphatase 68 U/L (45-117) 10/26/19 08:10 Total Protein 5.8 g/dl (6.4-8.2) L 10/26/19 08:10 Albumin 3.2 g/dl (3.4-5.0) L 10/26/19 08:10 lab noted [place]++ oscal supplement 10/27/19 13:22 Assessment: 10/27/19 13:22 alcohol and benzo withdrawal Plan: librium regimen
[2019-10-27] MEDS: CALCIUM 250MG/VIT-D 125 UNITS 1 COMBO TABLET PO SCH ×2 (15:09→22:10)
[2019-10-27] MEDS ORDERED: IBUPROFEN 400 MG TABLET (FP) PO ONE (19:02)
[2019-10-27] MEDS: hydrOXYzine PAMOATE 25 MG CAPSULE (FP) PO PRN (20:18)
[2019-10-28] MEDS ORDERED: chlordiazePOXIDE HCL 10 MG CAPSULE PO PRN
[2019-10-28] MEDS: chlordiazePOXIDE HCL 10 MG CAPSULE PO SCH ×4 (05:52→22:22)
[2019-10-28] MEDS: metFORMIN HCL 500 MG TABLET (FP) PO SCH ×2 (07:35→16:48)
[2019-10-28] MEDS: CALCIUM 250MG/VIT-D 125 UNITS 1 COMBO TABLET PO SCH ×2 (10:12→22:21)
[2019-10-28] MEDS: BUDESONIDE/FORMETEROL FUMARATE 80/4.5 mcg INHALER IH SCH ×2 (10:12→22:31)
[2019-10-28] MEDS: CLOPIDOGREL BISULFATE 75 MG TABLET (FP) PO SCH (10:12)
[2019-10-28] MEDS: PRENATAL VITAMINS W/ FOLIC ACID TABLET (FP) PO SCH (10:12)
[2019-10-28] MEDS: ASPIRIN COATED 81 MG TABLET.EC PO SCH (10:12)
[2019-10-28] MEDS: ACETAMINOPHEN 325 MG TABLET (FP) PO PRN (10:13)
--- NOTE | 2019-10-28 11:18 | PN ---
S CIWA - CIWA Score Nausea/Vomitin Muscle Tremors: 1-None Visible, but [place] Anxiety: 1-Mildly Anxious Agitation: 1-Slight > Activity Paroxysmal Sweats: 2 Orientation: 0-Oriented Tacttile Disturbances: 1-Very Mild Itch/Numbness Auditory Disturbances: 0-None Visual Disturbances: 0-None Headache: 0-None Present CIWA-Ar Total Score: 9 B[facility] Progress Note (SOAP) Subjective: interrupted sleep, sweats, diarrhea Objective: 10/28/19 11:19 Vital Signs Temperature 97.2 F L 10/28/19 09:42 Pulse Rate 76 10/28/19 09:42 Respiratory Rate 18 10/28/19 09:42 Blood Pressure 117/65 10/28/19 09:42 O2 Sat by Pulse Oximetry (%) Laboratory Tests 10/25/19 10/25/19 10/26/19 11:55 16:28 05:57 WBC RBC Hgb Hct MCV MCH MCHC RDW Plt Count MPV Sodium Potassium Chloride Carbon Dioxide Anion Gap BUN Creatinine Est GFR (CKD-EPI)AfAm Est GFR (CKD-EPI)NonAf POC Glucometer 112 184 101 Random Glucose Calcium Total Bilirubin AST ALT Alkaline Phosphatase Total Protein Albumin 10/26/19 10/26/19 10/26/19 08:10 08:10 16:43 WBC 6.8 RBC 4.91 Hgb 13.8 Hct 41.7 MCV 84.9 MCH 28.0 MCHC 33.0 RDW 15.1 Plt Count 227 MPV 9.8 Sodium 142 Potassium 4.1 Chloride 109 H Carbon Dioxide 29 Anion Gap 3 L BUN 15.3 Creatinine 0.9 Est GFR (CKD-EPI)AfAm 110.27 Est GFR (CKD-EPI)NonAf 95.14 POC Glucometer 185 Random Glucose 83 Calcium 7.8 L Total Bilirubin 0.5 AST 10 L ALT 17 Alkaline Phosphatase 68 Total Protein 5.8 L Albumin 3.2 L 10/27/19 10/27/19 10/28/19 05:25 16:28 05:56 WBC RBC Hgb Hct MCV MCH MCHC RDW Plt Count MPV Sodium Potassium Chloride Carbon Dioxide Anion Gap BUN Creatinine Est GFR (CKD-EPI)AfAm Est GFR (CKD-EPI)NonAf POC Glucometer 105 112 105 Random Glucose Calcium Total Bilirubin AST ALT Alkaline Phosphatase Total Protein Albumin pt aox3 in nad , ambulating Assessment: 10/28/19 11:20 withdrawal sx's Plan: cont. detox increase fluids peptobismol bid
--- NOTE | 2019-10-28 18:24 | PN ---
S Progress Note Note: Patient requesting ibuprofen. States takes at home even though on Plavix. Denies and past or present bleeding episodes.
[2019-10-28] MEDS ORDERED: IBUPROFEN 600 MG TABLET (FP) PO ONE (19:00)
[2019-10-28] MEDS: THIAMINE HCL 100 MG TABLET (FP) PO SCH (22:21)
[2019-10-29] MEDS: ACETAMINOPHEN 325 MG TABLET (FP) PO PRN ×2 (02:34→20:36)
[2019-10-29] MEDS: chlordiazePOXIDE HCL 10 MG CAPSULE PO SCH ×2 (06:00→17:23)
[2019-10-29] MEDS: metFORMIN HCL 500 MG TABLET (FP) PO SCH ×2 (06:52→17:23)
--- NOTE | 2019-10-29 11:03 | PN ---
[facility] CIWA - CIWA Score Nausea/Vomitin-No Nausea/No Vomiting Muscle Tremors: None Anxiety: 3 Agitation: 0-Normal Activity Paroxysmal Sweats: 3 Orientation: 0-Oriented Tacttile Disturbances: 0-None Auditory Disturbances: 0-None Visual Disturbances: 0-None Headache: 1-Very Mild CIWA-Ar Total Score: 7 S Progress Note (SOAP) Subjective: c/o sweats, headache, anxiety, and muscle aches. Objective: 10/29/19 11:02 Vital Signs 10/29/19 10/29/19 03:30 06:25 Temperature 97.6 F Pulse Rate 82 Respiratory 18 18 Rate Blood Pressure 134/84 Laboratory Last Values WBC 6.8 K/mm3 (4.0-10.0) 10/26/19 08:10 RBC 4.91 M/mm3 (4.00-5.60) 10/26/19 08:10 Hgb 13.8 GM/dL (11.7-16.9) 10/26/19 08:10 Hct 41.7 % (35.4-49) 10/26/19 08:10 MCV 84.9 fl (80-96) 10/26/19 08:10 MCH 28.0 pg (25.7-33.7) 10/26/19 08:10 MCHC 33.0 g/dl (32.0-35.9) 10/26/19 08:10 RDW 15.1 % (11.9-15.9) 10/26/19 08:10 Plt Count 227 K/MM3 (134-434) 10/26/19 08:10 MPV 9.8 fl (7.5-11.1) 10/26/19 08:10 Sodium 142 mmol/L (136-145) 10/26/19 08:10 Potassium 4.1 mmol/L (3.5-5.1) 10/26/19 08:10 Chloride 109 mmol/L (98-107) H 10/26/19 08:10 Carbon Dioxide 29 mmol/L (21-32) 10/26/19 08:10 Anion Gap 3 MMOL/L (8-16) L 10/26/19 08:10 BUN 15.3 mg/dL (7-18) 10/26/19 08:10 Creatinine 0.9 mg/dL (0.55-1.3) 10/26/19 08:10 Est GFR (CKD-EPI)AfAm 110.27 10/26/19 08:10 Est GFR (CKD-EPI)NonAf 95.14 10/26/19 08:10 POC Glucometer 102 UNITS (80-120) 10/28/19 16:46 Random Glucose 83 mg/dL (74-106) 10/26/19 08:10 Calcium 7.8 mg/dL (8.5-10.1) L 10/26/19 08:10 Total Bilirubin 0.5 mg/dL (0.2-1) 10/26/19 08:10 AST 10 U/L (15-37) L 10/26/19 08:10 ALT 17 U/L (13-61) 10/26/19 08:10 Alkaline Phosphatase 68 U/L (45-117) 10/26/19 08:10 Total Protein 5.8 g/dl (6.4-8.2) L 10/26/19 08:10 Albumin 3.2 g/dl (3.4-5.0) L 10/26/19 08:10 Labs noted. Assessment: 10/29/19 11:02 AOX3, in no acute respiratory distress. Full ROM, ambulating in the unit. Withdrawal symptoms. Plan: continue detox.
[2019-10-29] MEDS: ASPIRIN COATED 81 MG TABLET.EC PO SCH (11:18)
[2019-10-29] MEDS: CLOPIDOGREL BISULFATE 75 MG TABLET (FP) PO SCH (11:18)
[2019-10-29] MEDS: PRENATAL VITAMINS W/ FOLIC ACID TABLET (FP) PO SCH (11:18)
[2019-10-29] MEDS: BUDESONIDE/FORMETEROL FUMARATE 80/4.5 mcg INHALER IH SCH ×2 (11:20→22:30)
[2019-10-29] MEDS: CALCIUM 250MG/VIT-D 125 UNITS 1 COMBO TABLET PO SCH ×2 (11:20→22:31)
[2019-10-29] MEDS: THIAMINE HCL 100 MG TABLET (FP) PO SCH (23:10)
[2019-10-30] MEDS ORDERED: chlordiazePOXIDE HCL 10 MG CAPSULE PO ONE (05:00)
[2019-10-30] MEDS: metFORMIN HCL 500 MG TABLET (FP) PO SCH (08:19)
[2019-10-30 09:51] VITALS: BP 142/85; PULSE 88; TEMP 98.4
[2019-10-30] MEDS: CLOPIDOGREL BISULFATE 75 MG TABLET (FP) PO SCH (10:00)
[2019-10-30] MEDS: PRENATAL VITAMINS W/ FOLIC ACID TABLET (FP) PO SCH (10:00)
[2019-10-30] MEDS: ASPIRIN COATED 81 MG TABLET.EC PO SCH (10:00)
[2019-10-30] MEDS: ALBUTEROL SO4 HFA INHALER IH PRN (10:01)
[2019-10-30] MEDS: CALCIUM 250MG/VIT-D 125 UNITS 1 COMBO TABLET PO SCH (10:01)
[2019-10-30] MEDS: BUDESONIDE/FORMETEROL FUMARATE 80/4.5 mcg INHALER IH SCH (10:01)
--- NOTE | 2019-10-30 10:27 | DS ---
[facility] Detox Discharge Summary Admission Date: 10/25/19 Discharge Date: 10/30/19 - History Present History: Alcohol Dependence, Sedative Dependence Additional Comments: 58 years old male admitted on 10/25/19 for alcohol and benzo withdrawal sx management transferred to ER for chest pain none cardiac and pulmonary origin returned to [facility] treated with librium detox regimen patient completed the librium regimen and tolerated well alert oriented x 3 cardiac s1s2 regular rate rhythm respiratory clear lungs bilaterally on auscultation skin warm and dry Pertinent Past History: transportation arranged by the counselor from detox facility to home strong recommend the patient 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 - Physical Exam Results Vital Signs: Vital Signs Temperature 98.4 F 10/30/19 09:50 Pulse Rate 88 10/30/19 09:50 Respiratory Rate 18 10/30/19 09:50 Blood Pressure 142/85 10/30/19 09:50 O2 Sat by Pulse Oximetry (%) Pertinent Admission Physical Exam Findings: alcohol and benzo withdrawal Laboratory Last Values WBC 6.8 K/mm3 (4.0-10.0) 10/26/19 08:10 RBC 4.91 M/mm3 (4.00-5.60) 10/26/19 08:10 Hgb 13.8 GM/dL (11.7-16.9) 10/26/19 08:10 Hct 41.7 % (35.4-49) 10/26/19 08:10 MCV 84.9 fl (80-96) 10/26/19 08:10 MCH 28.0 pg (25.7-33.7) 10/26/19 08:10 MCHC 33.0 g/dl (32.0-35.9) 10/26/19 08:10 RDW 15.1 % (11.9-15.9) 10/26/19 08:10 Plt Count 227 K/MM3 (134-434) 10/26/19 08:10 MPV 9.8 fl (7.5-11.1) 10/26/19 08:10 Sodium 142 mmol/L (136-145) 10/26/19 08:10 Potassium 4.1 mmol/L (3.5-5.1) 10/26/19 08:10 Chloride 109 mmol/L (98-107) H 10/26/19 08:10 Carbon Dioxide 29 mmol/L (21-32) 10/26/19 08:10 Anion Gap 3 MMOL/L (8-16) L 10/26/19 08:10 BUN 15.3 mg/dL (7-18) 10/26/19 08:10 Creatinine 0.9 mg/dL (0.55-1.3) 10/26/19 08:10 Est GFR (CKD-EPI)AfAm 110.27 10/26/19 08:10 Est GFR (CKD-EPI)NonAf 95.14 10/26/19 08:10 POC Glucometer 143 UNITS (80-120) 10/29/19 21:40 Random Glucose 83 mg/dL (74-106) 10/26/19 08:10 Calcium 7.8 mg/dL (8.5-10.1) L 10/26/19 08:10 Total Bilirubin 0.5 mg/dL (0.2-1) 10/26/19 08:10 AST 10 U/L (15-37) L 10/26/19 08:10 ALT 17 U/L (13-61) 10/26/19 08:10 Alkaline Phosphatase 68 U/L (45-117) 10/26/19 08:10 Total Protein 5.8 g/dl (6.4-8.2) L 10/26/19 08:10 Albumin 3.2 g/dl (3.4-5.0) L 10/26/19 08:10 lab noted encourage to take over the counter calcium supplement - Treatment Hospital Course: Detox Protocol Followed, Detoxed Safely, Responded well, Discharged Condition Good, Rehab Referral Accepted Patient has Accepted a Re[facility] Referral to: [facility] - Medication Discharge Medications: Ambulatory Orders Aspirin Coated [Ecotrin -] 81 mg PO DAILY #30 tablet.ec 09/13/19 Budesonide/Formeterol Fumarate [SYMBICORT 80/4.5mcg -] 1 inh IH BID #1 inhaler 09/13/19 Albuterol Sulfate Inhaler - [Ventolin HFA Inhaler -] 2 inh PO Q4H PRN #1 inhaler 10/29/19 Clopidogrel Bisulfate [Plavix -] 75 mg PO DAILY 14 Days #14 tablet 10/29/19 Metformin HCl [Glucophage] 500 mg PO BID 14 Days #28 tablet 01/18/20 - Diagnosis (1) Alcohol withdrawal Status: Acute Qualifiers: Complication of substance-induced condition: uncomplicated Qualified Code(s ): F10.230 - Alcohol dependence with withdrawal, uncomplicated (2) Hyperglycemia Status: Chronic (3) Sedative hypnotic or anxiolytic dependence Status: Acute (4) Alcohol dependence with uncomplicated withdrawal Status: Acute (5) Asthma Status: Chronic Qualifiers: Asthma severity: mild Asthma persistence: intermittent Asthma complication type: uncomplicated Qualified Code(s): J45.20 - Mild intermittent asthma, uncomplicated (6) COPD (chronic obstructive pulmonary disease) Status: Chronic Qualifiers: COPD type: emphysema Emphysema type: unspecified Qualified Code(s): J43.9 - Emphysema, unspecified (7) Chronic obstructive pulmonary disease Status: Chronic Qualifiers: COPD type: emphysema Emphysema type: unilateral Qualified Code(s): 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, managed as type 2 Status: Chronic (9) Gastroesophageal reflux disease Status: Chronic Qualifiers: Esophagitis presence: esophagitis presence not specified Qualified Code(s) : K21.9 - Gastro-esophageal reflux disease without esophagitis (10) Hypertension Status: Chronic Qualifiers: Hypertension type: essential hypertension Qualified Code(s): I10 - Essential (primary) hypertension (11) Nicotine dependence Status: Acute Qualifiers: Nicotine product type: cigarettes Substance use status: in withdrawal Qualified Code(s): F17.213 - Nicotine dependence, cigarettes, with withdrawal (12) Substance induced mood disorder Status: Suspected (13) H/O deep venous thrombosis Status: Chronic - AMA Did Patient Leave Against Medical Advice: No CIWA Score - CIWA Score Nausea/Vomitin-No Nausea/No Vomiting Muscle Tremors: None Anxiety: 1-Mildly Anxious Agitation: 0-Normal Activity Paroxysmal Sweats: 1-Minimal Palms Moist Orientation: 0-Oriented Tacttile Disturbances: 0-None Auditory Disturbances: 0-None Visual Disturbances: 0-None Headache: 0-None Present CIWA-Ar Total Score: 2
== END 2019-10-30 11:15 | disposition home or self-care (01) | DRG 775 ==
LOC: YASAS 09:02 → Y3N 11:36
PROVIDERS: ADMIT Allergy & Immunology; ATTEND Allergy & Immunology
PROC: HZ2ZZZZ Detoxification Services for Substance Abuse Treatment (ICD-10-PCS; principal; 2019-10-25)
DX: F10.230 Alcohol dependence with withdrawal, uncomplicated (principal); F13.230 Sedative, hypnotic or anxiolytic dependence with withdrawal, uncomplicated; F17.213 Nicotine dependence, cigarettes, with withdrawal; F19.24 Other psychoactive substance dependence with psychoactive substance-induced mood disorder; I10 Essential (primary) hypertension; E11.65 Type 2 diabetes mellitus with hyperglycemia; Z79.84 Long term (current) use of oral hypoglycemic drugs; J43.0 Unilateral pulmonary emphysema [MacLeod's syndrome]; J45.20 Mild intermittent asthma, uncomplicated; K21.9 Gastro-esophageal reflux disease without esophagitis; Z86.718 Personal history of other venous thrombosis and embolism; Z79.02 Long term (current) use of antithrombotics/antiplatelets; Z88.0 Allergy status to penicillin; Z91.018 Allergy to other foods; E83.51 Hypocalcemia; Z95.828 Presence of other vascular implants and grafts
CPT/HCPCS: 36415; 80053; 82962; 85027; 93005; 93010

== ENCOUNTER 2019-10-26 18:44 | Emergency (ER) | payer OTHER ==
[2019-10-26 18:54] VITALS: TEMP 98.6; BMI 31.1
--- NOTE | 2019-10-26 19:05 | PDOC ---
History of Present Illness - General Chief Complaint: Chest Pain Stated Complaint: CHEST PAIN Time Seen by Provider: 10/26/19 19:01 History Source: Patient Exam Limitations: No Limitations - History of Present Illness Initial Comments: 10/26/19 19:05 Claudio Davison is a 58M withh H NIDDM, asthma, COPD, alcohol use disorder PAD s/ p stenting on ASA/plavix presenting from [facility] with chest pain and left thigh pain. Patient reports 6 months ago got 2x stenting into arteries of right leg for PAD with numbness/tingling in R foot at [facility]. Recently admitted to [facility] for alcohol detox, reports daily 1 pint vodka use and no other drugs, denies withdrawal seizures, getting Librium daily, last alcohol yesterday morning. Recent fall 3 days ago onto chest and R hand, denies LOC. For last 3 days has had pain in chest and R thigh. Chest pain a sharp pain inside his chest from sternum to L shoulder, constant, unaffected by movement for diet. Denies history of LA, CVA. Thigh pain similar to pain prior to stenting but without N/T. Past History - Past Medical History Allergies/Adverse Reactions: Allergies Allergy/AdvReac Type Severity Reaction Status Date / Time penicillin G Allergy Severe Hives Verified 10/26/19 18:54 pork derived (porcine) Allergy Severe Hives Verified 10/26/19 18:54 tomato Allergy Severe Hives Verified 10/26/19 18:54 liver Allergy Severe Hives Uncoded 10/26/19 18:54 Home Medications: Ambulatory Orders Albuterol Sulfate Inhaler - [Ventolin HFA Inhaler -] 2 inh PO Q4H PRN #1 inhaler 09/13/19 Aspirin Coated [Ecotrin -] 81 mg PO DAILY #30 tablet.ec 09/13/19 Budesonide/Formeterol Fumarate [SYMBICORT 80/4.5mcg -] 1 inh IH BID #1 inhaler 09/13/19 Clopidogrel Bisulfate [Plavix -] 75 mg PO DAILY #30 tablet 09/13/19 Metformin HCl [Glucophage] 500 mg PO BID #60 tablet 09/13/19 Anemia: No Asthma: Yes (Albuterol) Cancer: No Cardiac Disorders: No CVA: No COPD: Yes (Symbicort) CHF: No Dementia: No Diabetes: Yes GI Disorders: No Disorders: No HTN: Yes Hypercholesterolemia: No Kidney Stones: No Liver Disease: No Seizures: No Thyroid Disease: No - Surgical History Abdominal Surgery: No Appendectomy: No Cardiac Surgery: No Cholecystectomy: No Lung Surgery: No Neurologic Surgery: No Orthopedic Surgery: No - Reproductive History Testicular Surgery: No - Immunization History Immunization Up to Date: No - Psycho Social/Smoking Cessation Hx Smoking History: Current every day smoker Have you smoked in the past 12 months: Yes Number of Cigarettes Smoked Daily: 1 If you are a former smoker, when did you quit?: 2013 Cigars Per Day: 0 Information on smoking cessation initiated: No 'Breaking Loose' booklet given: 10/25/19 Hx Alcohol Use: Yes Drug/Substance Use Hx: Yes Substance Use Type: Alcohol Hx Substance Use Treatment: Yes Cardiac Specific PMH - Complaint Specific PMHX Pacemaker: No Review of Systems - Review of Systems Constitutional: No: Chills, Fever HEENTM: No: Symptoms Reported Respiratory: No: Cough, Shortness of Breath, Wheezing, Hemoptysis Cardiac (ROS): Yes: Chest Pain. No: Edema, Irregular Heart Rate, Lightheadedness, Palpitations, Syncope ABD/GI: No: Constipated, Diarrhea, Nausea, Poor Appetite, Poor Fluid Intake, Vomiting : No: Symptoms Reported Musculoskeletal: Yes: Other (L leg pain) Integumentary: No: Symptoms Reported Neurological: No: Symptoms reported Endocrine: No: Symptoms Reported Hematologic/Lymphatic: No: Symptoms Reported All Other Systems: Reviewed and Negative *Physical Exam - Vital Signs Last Vital Signs Temp Pulse Resp BP Pulse Ox 98.6 F 90 18 122/75 90 L 10/26/19 18:48 10/26/19 18:48 10/26/19 18:48 10/26/19 18:48 10/26/19 18:48 - Physical Exam General Appearance: Yes: Nourished, Appropriately Dressed. No: Apparent Distress HEENT: positive: EOMI, RUBEN, Normal Voice, Symmetrical, Pharynx Normal, Hearing Grossly Normal. negative: Scleral Icterus (R), Scleral Icterus (L) Neck: positive: Supple. negative: Tender, Lymphadenopathy (R), Lymphadenopathy (L) Respiratory/Chest: positive: Chest Tender (tender to palpation sternum to L shoulder, none to back), Lungs Clear, Normal Breath Sounds. negative: Respiratory Distress, Accessory Muscle Use, Crackles, Rales, Rhonchi, Stridor, Wheezing Cardiovascular: positive: Regular Rhythm, Regular Rate. negative: Edema, Murmur Gastrointestinal/Abdominal: positive: Normal Bowel Sounds, Flat, Soft. negative : Tender, Organomegaly, Pulsatile Mass, Guarding, Rebound Musculoskeletal: positive: Normal Inspection. negative: CVA Tenderness, Vertebral Tenderness Extremity: positive: Normal Capillary Refill, Normal Inspection, Normal Range of Motion, Pelvis Stable, Other (RLE: DP pulse present and strong, skin warm, full sensation to LT, full ROM and strength to all groups). negative: Tender Integumentary: positive: Normal Color, Dry, Warm, Bruising (dorsal L hand) Neurologic: positive: development and planning engineer II-XII NML intact, Fully Oriented, Alert, Normal Mood/ Affect, Normal Response, Motor Strength / ED Treatment Course - LABORATORY CBC & Chemistry Diagram: 10/26/19 19:50 10/26/19 19:50 - ADDITIONAL ORDERS Additional order review: Laboratory Results 10/26/19 10/26/19 19:50 19:50 Sodium 140 Potassium 4.4 Chloride 109 H Carbon Dioxide 27 Anion Gap 4 L BUN 20.4 H Creatinine 1.1 Est GFR (CKD-EPI)AfAm 86.52 Est GFR (CKD-EPI)NonAf 74.65 Random Glucose 93 Calcium 8.5 Total Bilirubin < 0.1 L AST 15 ALT 22 Alkaline Phosphatase 73 Creatine Kinase 142 Troponin I < 0.02 Total Protein 6.1 L Albumin 3.3 L 10/26/19 19:50 RBC 4.88 MCV 85.1 MCHC 33.0 RDW 15.0 MPV 9.7 Neutrophils % 55.9 Lymphocytes % 26.2 D Monocytes % 12.7 H Eosinophils % 4.6 H D Basophils % 0.6 - RADIOLOGY Radiology Studies Ordered: Category Date Time Status CHEST PA & LAT [RAD] Stat Radiology 10/26/19 19:26 Completed - Medications Given in the ED: ED Medications Discontinued Medications Generic Name Dose Route Start Last Admin Trade Name Freq PRN Reason Stop Dose Admin Ketorolac Tromethamine 30 mg 10/26/19 21:30 10/26/19 21:52 Toradol Injection - IVPUSH 10/26/19 21:31 30 mg ONCE ONE Administration Ketorolac Tromethamine 30 mg 10/26/19 21:30 10/26/19 21:52 Toradol Injection - IVPUSH 10/26/19 21:31 Not Given ONCE ONE Medical Decision Making - Medical Decision Making 10/26/19 21:38 Patient presents from alcohol detox at [facility] with R leg pain with known PAD s/p stent on ASA/plavix as well as with reproducible chest pain s/p fall. Chest pain concerning for LA, PNA, traumatic injury to chest, given that chest pain is reproducible. No obvious PE risk factors, non-tachycardic, no SOB. R thigh pain concerning for partial stent obstruction vs. traumatic injury after fall, has no N/T and good pulses to leg. - Getting CMP/CBC/CP/CXR/ECG/Mag for evaluation of chest pain, with repeat troponin at 3 hours. - BLE Duplex for evaluation of R thigh pain and stent. - no need for more Librium, given today, no active withdrawal ECG shows NSR with no ischemic changes or TWI. CXR shows no acute chest pathology. 10/26/19 22:35 Patient feeling unwell, has mild tremors on exam. Giving 25mg Librium. Still pending BLE US. Signed out to Dr. Bowman with night team. Discharge - Discharge Information Problems reviewed: Yes Clinical Impression/Diagnosis: Alcohol withdrawal Qualifiers: Complication of substance-induced condition: uncomplicated Qualified Code(s): F10.230 - Alcohol dependence with withdrawal, uncomplicated Chest pain Qualifiers: Chest pain type: unspecified Qualified Code(s): R07.9 - Chest pain, unspecified - Follow up/Referral Referrals: ON STAFF,NOT [Primary Care Provider] - - Patient Discharge Instructions - Post Discharge Activity
--- NOTE | 2019-10-26 20:00 | PDOC ---
Documentation entered by Brayden Evans SCRIBE, acting as scribe for Shagufta Jones DO. Shagufta Jones DO: This documentation has been prepared by the Cristina reed Nirvannie, SCRIBE, under my direction and personally reviewed by me in its entirety. I confirm that the documentation accurately reflects all work, treatment, procedures, and medical decision making performed by me. Attending Attestation - Resident Resident Name: Devin Lama - ED Attending Attestation I have performed the following: I have examined & evaluated the patient, The case was reviewed & discussed with the resident, I agree w/resident's findings & plan, Exceptions are as noted - HPI HPI: 10/26/19 20:07 The patient is a 58 year old male, with a significant past medical history of PAD (s/p 6mo ago stenting at [facility]), EtOH dependence, HTN, GERD, asthma/COPD, who presents to the emergency department with 3 days of constant, 8/10 left-sided chest pain with radiation to the left shoulder after a fall. As per patient, he fell three days ago at which time he broke the fall with his right hand subsequently pushing it into the anterior chest wall. Patient notes associated right calf pain, shortness of breath, nonproductive cough, and rhinorrhea. Patient is up to date with his influenza vaccination. He denies any recent fevers, chills, headache or dizziness. He denies any recent nausea, vomit, diarrhea or constipation. He denies any recent chest pain or shortness of breath. He denies any recent dysuria, frequency, urgency or hematuria. Allergies: Penicillin G, pork, tomato. Primary Care Physician: Dr. Mcclain Last drink: 10/25 Last Librium: At [facility] just prior to arrival - Physicial Exam PE: 10/26/19 20:07 Constitutional: Awake, alert, oriented. No acute distress. Head: Normocephalic. Atraumatic Eyes: PERRL. EOMI. Conjunctivae are not pale. ENT: Mucous membranes are moist and intact. Posterior pharynx without exudates or erythema. Uvula midline. Neck: Supple. Full ROM. No lymphadenopathy. Cardiovascular: Regular rate. Regular rhythm. S1, S2 regular. Distal pulses are 2+ and symmetric. Pulmonary/Chest: +Reproducible chest wall tenderness. No evidence of respiratory distress. Clear to auscultation bilaterally No wheezing, rales or rhonchi. Abdominal: Soft and non-distended. There is no tenderness. No rebound, guarding or rigidity. No organomegaly. No palpable masses. Good bowel sounds. Back: No CVA tenderness. Musculoskeletal: +Right calf tenderness. No edema. No cyanosis. No clubbing. Full range of motion in all extremities. Radial/pedal pulses are intact and 2 + bilaterally Skin:+Right hand bruising and abrasion to the knuckle, DIP. Skin is warm and dry. No petechiae. No purpura. Neurological: Alert and oriented to person, place, and time. Cranial nerves II -XII are grossly intact. Normal speech. Strength is grossly symmetric. No sensory deficits. Psychiatric: Good eye contact. Normal interaction, affect and behavior. - Medical Decision Making 10/26/19 19:57 I, Dr. Shagufta Jones, DO, attest that this document has been prepared under my direction and personally reviewed by me in its entirety. I further attest, that it accurately reflects all work, treatment, procedures and medical decision -making performed by me. a/p: 58yo male with anterior chest wall pain and R leg pain -pt went to detox today for etoh use -pt admits to fall 3 days ago where his hand broke his fall but he hit the chest on the hand -states pain started after the fall and has been constant -pt c/o R leg pain and calf pain -pt with hx of stents to R leg - PAD and stents to heart CAD -will send labs, trop, ekg, cxr -duplex u/s legs -will check mag level -will monitor and reassess -pt with anterior chest wall pain on exam that reproduces the pain 10/26/19 20:00 pt currently in [facility] for etoh detox-last librium given today 10/26/19 23:06 dvt study neg 10/27/19 00:17 repeat trop neg stable for dc back to [facility] 10/27/19 00:17 resident called [facility] to re-endorse the patient back to [facility] 10/27/19 00:28 repeat vss pulse ox 100% stable for dc to home Heart Score/ECG Review - ECG Intrepretation Comment:: 10/26/19 19:55 sinus at 91, L axis, nl interval, no acute st/t wave findings
[2019-10-26 20:13] LABS: BASO % 0.6 % (0-2.0); EOS % 4.6 % (0-4.5); HEMATOCRIT 41.6 % (35.4-49); HEMOGLOBIN 13.7 GM/dL (11.7-16.9); LYMPH % 26.2 % (8-40); MCH 28.1 pg (25.7-33.7); MEAN CELL VOLUME 85.1 fl (80-96); MEAN PLT VOLUME 9.7 fl (7.5-11.1); MONO % 12.7 % (3.8-10.2); NEUT % 55.9 % (42.8-82.8); PLATELET COUNT 232 K/MM3 (134-434); RBC 4.88 M/mm3 (4.00-5.60)
[2019-10-26 21:01] LABS: ALBUMIN 3.3 g/dl (3.4-5.0); ALK PHOS 73 U/L (45-117); ANION GAP 4 MMOL/L (8-16); BILIRUBIN,TOTAL < 0.1 mg/dL (0.2-1); BLOOD UREA NITROGEN 20.4 mg/dL (7-18); CALCIUM 8.5 mg/dL (8.5-10.1); CHLORIDE 109 mmol/L (98-107); CO2 27 mmol/L (21-32); CREATININE 1.1 mg/dL (0.55-1.3); GLUCOSE,RANDOM 93 mg/dL (74-106); POTASSIUM 4.4 mmol/L (3.5-5.1); SGOT/AST 15 U/L (15-37); SGPT/ALT 22 U/L (13-61); SODIUM 140 mmol/L (136-145); TOT PROT 6.1 g/dl (6.4-8.2)
[2019-10-26] MEDS ORDERED: KETOROLAC TROMETHAMINE 30 MG/1 ML VIAL IVPUSH ONE ×2 (21:30)
[2019-10-26] MEDS ORDERED: KETOROLAC TROMETHAMINE 30 MG/1 ML VIAL ONE (21:47)
[2019-10-26] MEDS ORDERED: chlordiazePOXIDE HCL 25 MG CAPSULE PO ONE (22:48)
[2019-10-26] MEDS ORDERED: chlordiazePOXIDE HCL 25 MG CAPSULE ONE (23:02)
--- NOTE | 2019-10-27 00:28 | PDOC ---
*Physical Exam - Vital Signs Last Vital Signs Temp Pulse Resp BP Pulse Ox 98.6 F 90 18 122/75 90 L 10/26/19 18:48 10/26/19 18:48 10/26/19 18:48 10/26/19 18:48 10/26/19 18:48 ED Treatment Course - LABORATORY CBC & Chemistry Diagram: 10/26/19 19:50 10/26/19 19:50 - ADDITIONAL ORDERS Additional order review: Laboratory Results 10/26/19 10/26/19 10/26/19 23:15 19:50 19:50 Sodium 140 Potassium 4.4 Chloride 109 H Carbon Dioxide 27 Anion Gap 4 L BUN 20.4 H Creatinine 1.1 Est GFR (CKD-EPI)AfAm 86.52 Est GFR (CKD-EPI)NonAf 74.65 Random Glucose 93 Calcium 8.5 Magnesium 2.0 Total Bilirubin < 0.1 L AST 15 ALT 22 Alkaline Phosphatase 73 Creatine Kinase 141 142 Troponin I < 0.02 < 0.02 Total Protein 6.1 L Albumin 3.3 L 10/26/19 19:50 RBC 4.88 MCV 85.1 MCHC 33.0 RDW 15.0 MPV 9.7 Neutrophils % 55.9 Lymphocytes % 26.2 D Monocytes % 12.7 H Eosinophils % 4.6 H D Basophils % 0.6 - Medications Given in the ED: ED Medications Discontinued Medications Generic Name Dose Route Start Last Admin Trade Name Freq PRN Reason Stop Dose Admin Chlordiazepoxide HCl 25 mg 10/26/19 22:48 10/26/19 23:20 Librium - PO 10/26/19 22:49 25 mg ONCE ONE Administration Ketorolac Tromethamine 30 mg 10/26/19 21:30 10/26/19 21:52 Toradol Injection - IVPUSH 10/26/19 21:31 30 mg ONCE ONE Administration Ketorolac Tromethamine 30 mg 10/26/19 21:30 10/26/19 21:52 Toradol Injection - IVPUSH 10/26/19 21:31 Not Given ONCE ONE Medical Decision Making - Medical Decision Making 10/27/19 00:19 signed out from AM team Patient presents from alcohol detox at [facility] with R leg pain with known PAD s/p stent on ASA/plavix as well as with reproducible chest pain s/p fall. Chest pain concerning for MD, PNA, traumatic injury to chest, given that chest pain is reproducible. No obvious PE risk factors, non-tachycardic, no SOB. R thigh pain concerning for partial stent obstruction vs. traumatic injury after fall, has no N/T and good pulses to leg. signed out to followup US and trop 10/27/19 00:22 2nd trip negative US with no evidence of DVT Will DC back to [facility] discussed with patient and he feels well and is ready for DC will repeat vitals prior to DC 10/27/19 00:31 repeat vitals wnl Discharge - Discharge Information Problems reviewed: Yes Clinical Impression/Diagnosis: Alcohol withdrawal Qualifiers: Complication of substance-induced condition: uncomplicated Qualified Code(s): F10.230 - Alcohol dependence with withdrawal, uncomplicated Chest pain Qualifiers: Chest pain type: unspecified Qualified Code(s): R07.9 - Chest pain, unspecified - Follow up/Referral Referrals: ON STAFF,NOT [Primary Care Provider] - - Patient Discharge Instructions - Post Discharge Activity
[2019-10-27 00:29] VITALS: BP 133/93; PULSE 82
--- NOTE | 2019-10-27 11:57 | EKG ---
Test Reason : Blood Pressure : / mmHG Vent. Rate : 091 BPM Atrial Rate : 091 BPM P-R Int : 144 ms QRS Dur : 078 ms QT Int : 372 ms P-R-T Axes : 066 -42 044 degrees QTc Int : 457 ms NORMAL SINUS RHYTHM LEFT AXIS DEVIATION ABNORMAL ECG WHEN COMPARED WITH ECG OF 26-OCT-2019 17:36, NO SIGNIFICANT CHANGE WAS FOUND Confirmed by MESSI ARGUELLES MD ([id number]) on 10/27/2019 11:57:45 AM Referred By: Confirmed By:MESSI ARGUELLES MD
== END 2019-10-27 01:00 | disposition short-term general hospital (02) ==
LOC: JER 18:44 → SUPCPDRO 18:44 → JER 10-27 01:00
PROC: 3E0333Z Introduction of Anti-inflammatory into Peripheral Vein, Percutaneous Approach (ICD-10-PCS; principal; 2019-10-26)
DX: F10.230 Alcohol dependence with withdrawal, uncomplicated (principal); Z88.0 Allergy status to penicillin; Z91.018 Allergy to other foods; J44.9 Chronic obstructive pulmonary disease, unspecified; E11.9 Type 2 diabetes mellitus without complications; J45.909 Unspecified asthma, uncomplicated
CPT/HCPCS: 36415; 71046-TC-FY; 80053; 82550; 83735; 84484; 85025; 93005; 93010; 93970-TC; 99283-25

== ENCOUNTER 2020-06-21 10:21 | Inpatient (IN) | payer OTHER ==
--- NOTE | 2020-06-21 10:43 | BHS.RME ---
Substance Use & Tx History - Substance Use History Alcohol Substance amount: 2 PINTS VODKA + SIX PACK BEERS Frequency of use: Daily Substance route: Oral Date of Last Use: 06/20/20 (STARTED AGE 17) Heroin Substance amount: 2-10 BAGS Frequency of use: Daily Substance route: Inhalation (ex: sniffing or snorting) Date of Last Use: 06/21/20 ( STARTED AGE 44) Nicotine Substance amount: 4-5 CIGGS Frequency of use: Daily Substance route: Smoking Date of Last Use: 06/21/20 (STARTED AT AGE17) - Last Treatment Date of last treatment: 10/25-10/30/19 Treatment type: Substance Use Disorder (GILA) Where was last treatment: Detox Physical/Psych/Mental Status - Behavior General Behavior: Increased activity (restlessness, agitation) Eye Contact: Normal - Cooperativeness Cooperativeness: Cooperative - Thinking Thought Processes: Tight, Logical, Goal Directed - Physical Health Problems Is patient presently having any pain?: No Does patient presently have any injuries (include location): No Does patient currently have a fever: No Is patient : No COWS - Scale Resting Pulse: 1= [place] 81-100 Sweatin= Beads of Sweat on Face Restless Observation: 1= Difficult to Sit Still Pupil Size: 1= Pupils >than Normal Bone or Joint Aches: 1= Mild Discomfort Runny Nose/ Eye Tearin= None GI Upset > 30mins: 2= Nausea/Diarrhea Tremor Observation: 1= Tremor Herreid, Not Seen Yawning Observation: 2= >3x During Session Anxiety or Irritability: 2=Irritable/Anxious Goose Flesh Skin: 0=Smooth Skin COWS Score: 14 CIWA Nausea/Vomitin Muscle Tremors: 4-Moderate,w/Arms Extend Anxiety: 4-Mod. Anxious/Guarded Agitation: 3 Paroxysmal Sweats: 4-Forehead w/Sweat Beads Orientation: 0-Oriented Tacttile Disturbances: 1-Very Mild Itch/Numbness Auditory Disturbances: 0-None Visual Disturbances: 1-Very Mild Sensitivity Headache: 1-Very Mild CIWA-Ar Total Score: 21
--- NOTE | 2020-06-21 12:26 | HP ---
COWS - Scale Resting Pulse: 1= [place] 81-100 Sweatin= Beads of Sweat on Face Restless Observation: 1= Difficult to Sit Still Pupil Size: 1= Pupils >than Normal Bone or Joint Aches: 1= Mild Discomfort Runny Nose/ Eye Tearin= None GI Upset > 30mins: 2= Nausea/Diarrhea Tremor Observation: 1= Tremor Rush, Not Seen Yawning Observation: 2= >3x During Session Anxiety or Irritability: 2=Irritable/Anxious Goose Flesh Skin: 0=Smooth Skin COWS Score: 14 CIWA Score Nausea/Vomitin Muscle Tremors: 4-Moderate,w/Arms Extend Anxiety: 4-Mod. Anxious/Guarded Agitation: 3 Paroxysmal Sweats: 4-Forehead w/Sweat Beads Orientation: 0-Oriented Tacttile Disturbances: 1-Very Mild Itch/Numbness Auditory Disturbances: 0-None Visual Disturbances: 1-Very Mild Sensitivity Headache: 1-Very Mild CIWA-Ar Total Score: 21 - Admission Criteria OASAS Guidelines: Admission for Medically Managed Detox: Requires at least one of the followin. CIWA greater than 12 2. Seizures within the past 24 hours 3. Delirium tremens within the past 24 hours 4. Hallucinations within the past 24 hours 5. Acute intervention needed for co occurring medical disorder 6. Acute intervention needed for co occurring psychiatric disorder 7. Severe withdrawal that cannot be handled at a lower level of care (continued vomiting, continued diarrhea, abnormal vital signs) requiring intravenous medication and/or fluids 8. Admitting History and Physical - Admission Chief Complaint: Mr. Davison is a 59 yo man who presents to [facility] requesting detox from alcohol and heroin. History of Present Illness: Mr. Davison is a 59 yo man who presents to [facility] requesting detox from alcohol and heroin. 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 Heroin Substance amount: 2-10 BAGS Frequency of use: Daily Substance route: Inhalation (ex: sniffing or snorting) Date of Last Use: 06/21/20 ( STARTED AGE 44) No OD NO Narcan at home Nicotine Substance amount: 4-5 CIGGS Frequency of use: Daily Substance route: Smoking Date of Last Use: 06/21/20 (STARTED AT AGE17) - Last Treatment Date of last treatment: 10/25-10/30/19 Treatment type: Substance Use Disorder (GILA) Where was last treatment: Detox Went to [facility] for eval of chest pain, then returned to [facility] to complete det ox History Source: Patient Limitations to Obtaining History: No Limitations - Smoking History Smoking history: Current every day smoker Have you smoked in the past 12 months: Yes Aproximately how many cigarettes per day: 1 If you are a former smoker, when did you quit?: 2013 - Alcohol/Substance Use Hx Alcohol Use: Yes Admission ROS [facility] Allergies/Adverse Reactions: Allergies Allergy/AdvReac Type Severity Reaction Status Date / Time penicillin G Allergy Severe Hives Verified 06/21/20 12:48 pork derived (porcine) Allergy Severe Hives Verified 06/21/20 12:48 tomato Allergy Severe Hives Verified 06/21/20 12:48 liver Allergy Severe Hives Uncoded 06/21/20 12:48 Exam Limitations: No Limitations - Ebola screening Have you traveled outside of the country in the last 21 days: No Have you been sick,other than usual withdrawal symptoms: No Do you have a fever: No - Review of Systems Constitutional: No Symptoms Reported EENT: reports: No Symptoms Reported Respiratory: reports: No Symptoms reported Cardiac: reports: No Symptoms Reported GI: reports: No Symptoms Reported : reports: No Symptoms Reported Musculoskeletal: reports: No Symptoms Reported Integumentary: reports: No Symptoms Reported Neuro: reports: No Symptoms reported Endocrine: reports: No Symptoms Reported Hematology: reports: No Symptoms Reported Psychiatric: reports: Anxious Patient History - Patient Medical History Hx Anemia: No Hx Asthma: Yes (Albuterol) Hx Chronic Obstructive Pulmonary Disease (COPD): Yes (Symbicort) Hx Cancer: No Hx Cardiac Disorders: No Hx Congestive Heart Failure: No Hx Hypertension: Yes Hx Hypercholesterolemia: No Hx Pacemaker: No HX Cerebrovascular Accident: No Hx Seizures: No Hx Dementia: No Hx Diabetes: Yes Hx Gastrointestinal Disorders: No Hx Liver Disease: No Hx Genitourinary Disorders: No Hx Sexually Transmitted Disorders: No Hx Renal Disease (ESRD): No Hx Thyroid Disease: No Hx Human Immunodeficiency Virus (HIV): No Hx Hepatitis C: No Hx Depression: Yes Hx Suicide Attempt: No Hx Bipolar Disorder: No Hx Schizophrenia: No - Patient Surgical History Past Surgical History: Yes Hx Neurologic Surgery: No Hx Cataract Extraction: No Hx Cardiac Surgery: No Hx Lung Surgery: No Hx Breast Surgery: No Hx Breast Biopsy: No Hx Abdominal Surgery: No Hx Appendectomy: No Hx Cholecystectomy: No Hx Genitourinary Surgery: No Hx Section: No Hx Orthopedic Surgery: No Other Surgical History: pt. reported blood clot removed from right leg in 08/20/18 Anesthesia Reaction: No - PPD History Date: 10/15/18 Results: 0 mm. - Smoking Cessation Smoking history: Current every day smoker Have you smoked in the past 12 months: Yes Aproximately how many cigarettes per day: 1 If you are a former smoker, when did you quit?: 2013 Cigars Per Day: 0 Hx Chewing Tobacco Use: No Initiated information on smoking cessation: Yes 'Breaking Loose' booklet given: 06/21/20 - Substances abused Alcohol Substance route: Oral Frequency: Daily Amount used: 2 pint Age of first use: 17 Date of last use: 06/21/20 Heroin Substance route: Inhalation Frequency: Daily Amount used: 2 bags Age of first use: 17 Date of last use: 06/20/20 Admission Physical Exam S - Physical General Appearance: Yes: No Apparent Distress, Nourished, Appropriately Dressed HEENTM: Yes: EOMI, Hearing grossly Normal, Normocephalic, Normal Voice Respiratory: Yes: Lungs Clear, No Respiratory Distress, No Accessory Muscle Use Neck: Yes: Within Normal Limits, Supple Breast: Yes: Breast Exam Deferred Cardiology: Yes: Regular Rhythm, Regular Rate Abdominal: Yes: Normal Bowel Sounds, Non Tender, Soft, Protuberent Genitourinary: Yes: Other (deferred) Musculoskeletal: Yes: Gait Steady Extremities: Yes: Normal Inspection, Other (right calf tender, no erythema no swelling, intact pedal pulse) Neurological: Yes: Alert, Normal Response Integumentary: Yes: Normal Color, Dry, Warm - Diagnostic (1) Alcohol dependence with uncomplicated withdrawal Current Visit: No Status: Acute Comment: 1. Admit, detox order set 2. Librium 3. check LFTs 4. comfort medication (2) Nicotine dependence Current Visit: No Status: Acute Qualifiers: Nicotine product type: cigarettes Substance use status: in withdrawal Qualified Code(s): F17.213 - Nicotine dependence, cigarettes, with withdrawal Comment: 1. Pt teaching/brochure on smoking cessation given to pt 2. nicoderm patch (3) Asthma Current Visit: No Status: Chronic Qualifiers: Asthma severity: mild Asthma persistence: intermittent Asthma complication type: uncomplicated Qualified Code(s): J45.20 - Mild intermittent asthma, uncomplicated Comment: 1. monitor clinical (4) COPD (chronic obstructive pulmonary disease) Current Visit: No Status: Chronic Qualifiers: COPD type: emphysema Emphysema type: unspecified Qualified Code(s): J43.9 - Emphysema, unspecified (5) Depression Current Visit: No Status: Chronic Comment: 1. Psychiatry consultation, prior medication/unclear last use. 2. pt stated he had been hospitalized 6 mos ago Cleared for Admission S - Detox or Rehab [facility] Level of Care: Medically Managed Detox Regimen/Protocol: Librium Breathalyzer - Breathalyzer Breathalyzer: 0 Urine Drug Screen - Test Device Lot number: [id number] Expiration date: 01/17/22 - Control Is test valid?: Yes - Results Drug screen NEGATIVE: Yes Inpatient Rehab Admission - Rehab Decision to Admit Inpatient rehab admission?: No
[2020-06-21] MEDS ORDERED: cloNIDine HCL 0.1 MG TABLET PO PRN (12:37)
[2020-06-21] MEDS ORDERED: ACETAMINOPHEN 325 MG TABLET (FP) PO PRN ×2 (12:37)
[2020-06-21] MEDS ORDERED: MAG HYDROX/AL HYDROX/SIMETH 30 ML UNIT-DOSE CUP PO PRN (12:37)
[2020-06-21] MEDS ORDERED: MAGNESIUM HYDROX 2400MG/30ML ORAL SUSPENSION 30 ML CUP PO PRN (12:37)
[2020-06-21] MEDS ORDERED: NICOTINE POLACRILEX 2 MG GUM BUC PRN (12:37)
[2020-06-21] MEDS ORDERED: IBUPROFEN 400 MG TABLET (FP) PO PRN (12:37)
[2020-06-21] MEDS ORDERED: MENTHOL/PHENOL 1 EACH UD MM PRN (12:37)
[2020-06-21] MEDS ORDERED: chlordiazePOXIDE HCL 25 MG CAPSULE PO PRN (12:37)
[2020-06-21] MEDS ORDERED: ONDANSETRON *ODT* 4 MG TABLET SL PRN (12:37)
[2020-06-21] MEDS ORDERED: BISMUTH SUBSALICYLATE 524 MG/30 ML UD PO PRN (12:37)
[2020-06-21] MEDS ORDERED: MAGNESIUM CITRATE 300 ML BOTTLE PO PRN (12:37)
[2020-06-21 12:53] VITALS: BMI 33.3
[2020-06-21] MEDS ORDERED: METHADONE HCL 10 MG TABLET (FOR DETOX USE ONLY) PO ONE (13:30)
[2020-06-21] MEDS: METHOCARBAMOL 500 MG TABLET PO PRN (14:00)
[2020-06-21] MEDS ORDERED: hydrOXYzine PAMOATE 25 MG CAPSULE (FP) PO SCH (14:00)
[2020-06-21] MEDS ORDERED: ALBUTEROL SO4 HFA INHALER IH PRN (14:34)
[2020-06-21 17:35] LABS: HEMOGLOBIN 14.3 GM/dL (11.7-16.9); MCH 29.1 pg (25.7-33.7); MCHC 33.4 g/dl (32.0-35.9); MEAN CELL VOLUME 87.1 fl (80-96); MEAN PLT VOLUME 9.7 fl (7.5-11.1); PLATELET COUNT 209 K/MM3 (134-434); RBC 4.93 M/mm3 (4.00-5.60); RDW 15.2 % (11.9-15.9); WHITE BLOOD COUNT 12.2 K/mm3 (4.0-10.0)
[2020-06-21 17:41] LABS: ALBUMIN 3.5 g/dl (3.4-5.0); BILIRUBIN,TOTAL 0.7 mg/dL (0.2-1); CALCIUM 8.7 mg/dL (8.5-10.1); POTASSIUM 4.2 mmol/L (3.5-5.1); TOT PROT 6.6 g/dl (6.4-8.2)
[2020-06-21] MEDS: chlordiazePOXIDE HCL 25 MG CAPSULE PO SCH ×2 (17:56→22:46)
[2020-06-21] MEDS: BUDESONIDE/FORMETEROL FUMARATE 80/4.5 mcg INHALER IH SCH (22:46)
[2020-06-21] MEDS: THIAMINE HCL 100 MG TABLET (FP) PO SCH (22:46)
[2020-06-21] MEDS: MELATONIN 5 MG TABLETS PO SCH (22:50)
[2020-06-22] MEDS: metFORMIN HCL 500 MG TABLET (FP) PO SCH (06:54)
[2020-06-22] MEDS: chlordiazePOXIDE HCL 25 MG CAPSULE PO SCH ×3 (06:54→18:27)
--- NOTE | 2020-06-22 09:04 | EKG ---
Test Reason : Blood Pressure : / mmHG Vent. Rate : 098 BPM Atrial Rate : 098 BPM P-R Int : 136 ms QRS Dur : 074 ms QT Int : 368 ms P-R-T Axes : 071 -10 049 degrees QTc Int : 469 ms NORMAL SINUS RHYTHM PROLONGED QT Confirmed by LOU EDMONDSON MD ([id number]) on 06/22/2020 9:04:08 AM Referred By: DIANE ASHFORD Confirmed By:LOU EDMONDSON MD
[2020-06-22] MEDS ORDERED: METHADONE (DETOX) 20 MG, METHADONE (DETOX) 5 MG PO ONE (10:00)
--- NOTE | 2020-06-22 10:01 | PN ---
[facility] CIWA - CIWA Score Nausea/Vomitin-No Nausea/No Vomiting Muscle Tremors: 3 Anxiety: 2 Agitation: 3 Paroxysmal Sweats: 2 Orientation: 0-Oriented Tacttile Disturbances: 0-None Auditory Disturbances: 0-None Visual Disturbances: 0-None Headache: 0-None Present CIWA-Ar Total Score: 10 S Progress Note (SOAP) Subjective: sweats chills tired interrupted sleep Objective: 06/22/20 10:00 Vital Signs Temperature 98.4 F 06/22/20 05:29 Pulse Rate 85 06/22/20 05:29 Respiratory Rate 16 06/22/20 05:29 Blood Pressure 120/84 06/22/20 05:29 O2 Sat by Pulse Oximetry (%) 98 06/22/20 05:29 Laboratory Tests 06/21/20 06/21/20 06/21/20 13:17 13:40 13:40 WBC 12.2 H RBC 4.93 Hgb 14.3 Hct 43.0 MCV 87.1 MCH 29.1 MCHC 33.4 RDW 15.2 Plt Count 209 MPV 9.7 Sodium 142 Potassium 4.2 Chloride 105 Carbon Dioxide 34 H Anion Gap 3 L BUN 24.0 H Creatinine 1.0 Est GFR (CKD-EPI)AfAm 96.40 Est GFR (CKD-EPI)NonAf 83.18 POC Glucometer 100 Random Glucose 75 Calcium 8.7 Total Bilirubin 0.7 AST 15 ALT 30 Alkaline Phosphatase 99 Total Protein 6.6 Albumin 3.5 Syphilis Serology 06/21/20 06/21/20 06/22/20 13:40 16:34 06:52 WBC RBC Hgb Hct MCV MCH MCHC RDW Plt Count MPV Sodium Potassium Chloride Carbon Dioxide Anion Gap BUN Creatinine Est GFR (CKD-EPI)AfAm Est GFR (CKD-EPI)NonAf POC Glucometer 151 112 Random Glucose Calcium Total Bilirubin AST ALT Alkaline Phosphatase Total Protein Albumin Syphilis Serology Non-reactive labs noted elevated BUN noted encourage water/fluids as needed aaox3 lying in bed no acute distress Assessment: 06/22/20 10:01 withdrawals Plan: continue detox
--- NOTE | 2020-06-22 11:50 | CONSULT ---
Анна Psychiatric Consult - Data Date of interview: 06/22/20 Identifying data: Clinical Appeals Reviewer approached patient for psychiatric consultation. Patient stated, " I don't need to see you." Psychiatric consultation refused.
[2020-06-22] MEDS: ASPIRIN COATED 81 MG TABLET.EC PO SCH (12:48)
[2020-06-22] MEDS: NICOTINE 7 MG/24 HOURS TOPICAL PATCH TD SCH (12:48)
[2020-06-22] MEDS: CLOPIDOGREL BISULFATE 75 MG TABLET (FP) PO SCH (12:48)
[2020-06-22] MEDS: BUDESONIDE/FORMETEROL FUMARATE 80/4.5 mcg INHALER IH SCH (12:49)
[2020-06-22] MEDS: PRENATAL VITAMINS W/ FOLIC ACID TABLET (FP) PO SCH (12:49)
[2020-06-23] MEDS: THIAMINE HCL 100 MG TABLET (FP) PO SCH ×2 (00:31→22:35)
[2020-06-23] MEDS: BUDESONIDE/FORMETEROL FUMARATE 80/4.5 mcg INHALER IH SCH ×3 (00:31→22:36)
[2020-06-23] MEDS: MELATONIN 5 MG TABLETS PO SCH ×2 (00:31→22:37)
[2020-06-23] MEDS: chlordiazePOXIDE HCL 25 MG CAPSULE PO SCH ×5 (00:32→22:35)
[2020-06-23] MEDS: metFORMIN HCL 500 MG TABLET (FP) PO SCH (07:29)
[2020-06-23] MEDS ORDERED: METHADONE HCL 10 MG TABLET (FOR DETOX USE ONLY) PO ONE (10:00)
[2020-06-23] MEDS: ASPIRIN COATED 81 MG TABLET.EC PO SCH (11:07)
[2020-06-23] MEDS: CLOPIDOGREL BISULFATE 75 MG TABLET (FP) PO SCH (11:07)
[2020-06-23] MEDS: PRENATAL VITAMINS W/ FOLIC ACID TABLET (FP) PO SCH (11:07)
[2020-06-23] MEDS: hydrOXYzine PAMOATE 25 MG CAPSULE (FP) PO PRN (11:08)
[2020-06-23] MEDS: NICOTINE 7 MG/24 HOURS TOPICAL PATCH TD SCH (11:08)
--- NOTE | 2020-06-23 17:13 | PN ---
S CIWA - CIWA Score Nausea/Vomitin-No Nausea/No Vomiting Muscle Tremors: 2 Anxiety: 2 Agitation: 0-Normal Activity Paroxysmal Sweats: 2 Orientation: 0-Oriented Tacttile Disturbances: 0-None Auditory Disturbances: 1-Very Mild Visual Disturbances: 2-Mild Sensitivity Headache: 0-None Present CIWA-Ar Total Score: 9 BHS Progress Note (SOAP) Subjective: Sweating, Fatigue, Body Aches, Interrupted Sleep. Objective: Patient A & O X 3; In No Acute Distress. 06/23/20 17:09 Vital Signs Temperature 96.9 F L 06/23/20 12:31 Pulse Rate 92 H 06/23/20 12:31 Respiratory Rate 18 06/23/20 12:31 Blood Pressure 136/79 06/23/20 12:31 O2 Sat by Pulse Oximetry (%) 100 06/23/20 12:31 Laboratory Tests 06/21/20 06/21/20 06/21/20 13:17 13:40 13:40 WBC 12.2 H RBC 4.93 Hgb 14.3 Hct 43.0 MCV 87.1 MCH 29.1 MCHC 33.4 RDW 15.2 Plt Count 209 MPV 9.7 Sodium 142 Potassium 4.2 Chloride 105 Carbon Dioxide 34 H Anion Gap 3 L BUN 24.0 H Creatinine 1.0 Est GFR (CKD-EPI)AfAm 96.40 Est GFR (CKD-EPI)NonAf 83.18 POC Glucometer 100 Random Glucose 75 Calcium 8.7 Total Bilirubin 0.7 AST 15 ALT 30 Alkaline Phosphatase 99 Total Protein 6.6 Albumin 3.5 Syphilis Serology COVID-19 (RAHUL) 06/21/20 06/21/20 06/21/20 13:40 14:00 16:34 WBC RBC Hgb Hct MCV MCH MCHC RDW Plt Count MPV Sodium Potassium Chloride Carbon Dioxide Anion Gap BUN Creatinine Est GFR (CKD-EPI)AfAm Est GFR (CKD-EPI)NonAf POC Glucometer 151 Random Glucose Calcium Total Bilirubin AST ALT Alkaline Phosphatase Total Protein Albumin Syphilis Serology Non-reactive COVID-19 (RAHUL) Not detected 06/22/20 06/22/20 06/23/20 06:52 16:57 16:57 WBC RBC Hgb Hct MCV MCH MCHC RDW Plt Count MPV Sodium Potassium Chloride Carbon Dioxide Anion Gap BUN Creatinine Est GFR (CKD-EPI)AfAm Est GFR (CKD-EPI)NonAf POC Glucometer 112 102 92 Random Glucose Calcium Total Bilirubin AST ALT Alkaline Phosphatase Total Protein Albumin Syphilis Serology COVID-19 (RAHUL) Lab Results noted. WBC level noted to be elevated (12.2). Patient reports that he recently evaluated in ER for Acute Asthma exacerbation. However, he denies cough, SOB, and chest pain a this time. Patient also denies any unusual urinary complaints (burning, pain, frequency, urgency, hesitancy, visualization of blood in urine). Patient afebrile. 06/23/20 17:10 Assessment: 06/23/20 17:10 WITHDRAWAL SYMPTOMS. LEUKOCYTOSIS. Plan: Continue Detox. Increase Daily Oral Water Intake. UA ordered to R/O possibility of UTI.
[2020-06-24] MEDS ORDERED: chlordiazePOXIDE HCL 10 MG CAPSULE PO PRN
[2020-06-24] MEDS: chlordiazePOXIDE HCL 10 MG CAPSULE PO SCH ×4 (07:18→22:23)
[2020-06-24] MEDS: metFORMIN HCL 500 MG TABLET (FP) PO SCH (07:18)
[2020-06-24] MEDS ORDERED: METHADONE (DETOX) 10 MG, METHADONE (DETOX) 5 MG PO ONE (10:00)
[2020-06-24] MEDS: NICOTINE 7 MG/24 HOURS TOPICAL PATCH TD SCH (10:15)
[2020-06-24] MEDS: CLOPIDOGREL BISULFATE 75 MG TABLET (FP) PO SCH (10:15)
[2020-06-24] MEDS: PRENATAL VITAMINS W/ FOLIC ACID TABLET (FP) PO SCH (10:15)
[2020-06-24] MEDS: BUDESONIDE/FORMETEROL FUMARATE 80/4.5 mcg INHALER IH SCH ×2 (10:15→22:23)
[2020-06-24] MEDS: ASPIRIN COATED 81 MG TABLET.EC PO SCH (10:15)
--- NOTE | 2020-06-24 18:25 | PN ---
S CIWA - CIWA Score Nausea/Vomitin-No Nausea/No Vomiting Muscle Tremors: 2 Anxiety: 1-Mildly Anxious Agitation: 1-Slight > Activity Paroxysmal Sweats: 2 Orientation: 0-Oriented Tacttile Disturbances: 0-None Auditory Disturbances: 0-None Visual Disturbances: 0-None Headache: 0-None Present CIWA-Ar Total Score: 6 BHS Progress Note (SOAP) Subjective: Irritable, agitated, nausea (doesn't want med), interrupted sleep Objective: 06/24/20 18:21 Last Vital Signs Temp Pulse Resp BP Pulse Ox 97.8 F 98 H 19 141/76 98 06/24/20 17:19 06/24/20 17:19 06/24/20 17:19 06/24/20 17:19 06/24/20 17:19 Elevated b/p: Laboratory Tests 06/21/20 06/21/20 06/21/20 13:17 13:40 13:40 WBC 12.2 H RBC 4.93 Hgb 14.3 Hct 43.0 MCV 87.1 MCH 29.1 MCHC 33.4 RDW 15.2 Plt Count 209 MPV 9.7 Sodium 142 Potassium 4.2 Chloride 105 Carbon Dioxide 34 H Anion Gap 3 L BUN 24.0 H Creatinine 1.0 Est GFR (CKD-EPI)AfAm 96.40 Est GFR (CKD-EPI)NonAf 83.18 POC Glucometer 100 Random Glucose 75 Calcium 8.7 Total Bilirubin 0.7 AST 15 ALT 30 Alkaline Phosphatase 99 Total Protein 6.6 Albumin 3.5 Syphilis Serology COVID-19 (RAHUL) 06/21/20 06/21/20 06/21/20 13:40 14:00 16:34 WBC RBC Hgb Hct MCV MCH MCHC RDW Plt Count MPV Sodium Potassium Chloride Carbon Dioxide Anion Gap BUN Creatinine Est GFR (CKD-EPI)AfAm Est GFR (CKD-EPI)NonAf POC Glucometer 151 Random Glucose Calcium Total Bilirubin AST ALT Alkaline Phosphatase Total Protein Albumin Syphilis Serology Non-reactive COVID-19 (RAHUL) Not detected 06/22/20 06/22/20 06/23/20 06:52 16:57 16:57 WBC RBC Hgb Hct MCV MCH MCHC RDW Plt Count MPV Sodium Potassium Chloride Carbon Dioxide Anion Gap BUN Creatinine Est GFR (CKD-EPI)AfAm Est GFR (CKD-EPI)NonAf POC Glucometer 112 102 92 Random Glucose Calcium Total Bilirubin AST ALT Alkaline Phosphatase Total Protein Albumin Syphilis Serology COVID-19 (RAHUL) 06/24/20 06/24/20 07:07 16:27 WBC RBC Hgb Hct MCV MCH MCHC RDW Plt Count MPV Sodium Potassium Chloride Carbon Dioxide Anion Gap BUN Creatinine Est GFR (CKD-EPI)AfAm Est GFR (CKD-EPI)NonAf POC Glucometer 114 86 Random Glucose Calcium Total Bilirubin AST ALT Alkaline Phosphatase Total Protein Albumin Syphilis Serology COVID-19 (RAHUL) Labs reviewed: wbc 12.2 (high), bun 24 (high) Assessment: 06/24/20 18:25 Withdrawal sxs Noted with elevated b/p, leukocytosis, azotemia Plan: Continue detox HTN: (h/o htn), monitor b/p, start lisinopril 5mg PO daily, follow up with PCP post discharge for management Leukocytosis: asymptomatic, repeat CBC, obtain UA Azotemia: encourage PO water intake
[2020-06-24] MEDS: LISINOPRIL 5 MG TABLET (FP) PO SCH (19:00)
[2020-06-24] MEDS: THIAMINE HCL 100 MG TABLET (FP) PO SCH (22:22)
[2020-06-24] MEDS: MELATONIN 5 MG TABLETS PO SCH (22:23)
[2020-06-25] MEDS: chlordiazePOXIDE HCL 10 MG CAPSULE PO SCH ×2 (07:17→18:11)
[2020-06-25] MEDS: metFORMIN HCL 500 MG TABLET (FP) PO SCH (07:17)
[2020-06-25] MEDS ORDERED: METHADONE HCL 10 MG TABLET (FOR DETOX USE ONLY) PO ONE (10:00)
[2020-06-25 10:59] LABS: BASO % 0.4 % (0-2.0); EOS % 1.8 % (0-4.5); HEMOGLOBIN 13.9 GM/dL (11.7-16.9); LYMPH % 15.8 % (8-40); MCH 28.4 pg (25.7-33.7); MEAN PLT VOLUME 9.4 fl (7.5-11.1); MONO % 9.9 % (3.8-10.2); NEUT % 72.1 % (42.8-82.8); PLATELET COUNT 207 K/MM3 (134-434); RBC 4.88 M/mm3 (4.00-5.60); RDW 15.2 % (11.9-15.9); WHITE BLOOD COUNT 11.2 K/mm3 (4.0-10.0)
[2020-06-25] MEDS: BUDESONIDE/FORMETEROL FUMARATE 80/4.5 mcg INHALER IH SCH ×2 (11:12→22:20)
[2020-06-25] MEDS: ASPIRIN COATED 81 MG TABLET.EC PO SCH (11:12)
[2020-06-25] MEDS: PRENATAL VITAMINS W/ FOLIC ACID TABLET (FP) PO SCH (11:12)
[2020-06-25] MEDS: NICOTINE 7 MG/24 HOURS TOPICAL PATCH TD SCH (11:12)
[2020-06-25] MEDS: CLOPIDOGREL BISULFATE 75 MG TABLET (FP) PO SCH (11:12)
[2020-06-25] MEDS: LISINOPRIL 5 MG TABLET (FP) PO SCH (12:08)
[2020-06-25 12:43] LABS: PLATELET ESTIMATE ADEQUATE
[2020-06-25] MEDS: hydrOXYzine PAMOATE 25 MG CAPSULE (FP) PO PRN (22:18)
[2020-06-25] MEDS: THIAMINE HCL 100 MG TABLET (FP) PO SCH (22:19)
[2020-06-25] MEDS: MELATONIN 5 MG TABLETS PO SCH (22:20)
[2020-06-25] MEDS: METHOCARBAMOL 500 MG TABLET PO PRN (22:20)
[2020-06-26] MEDS ORDERED: chlordiazePOXIDE HCL 10 MG CAPSULE PO ONE (05:00)
[2020-06-26] MEDS ORDERED: METHADONE HCL 5 MG TABLET (FOR DETOX USE ONLY) PO ONE (06:00)
[2020-06-26] MEDS: metFORMIN HCL 500 MG TABLET (FP) PO SCH ×2 (08:01→08:04)
--- NOTE | 2020-06-26 08:04 | PN ---
S CIWA - CIWA Score Nausea/Vomitin Muscle Tremors: 2 Anxiety: 2 Agitation: 2 Paroxysmal Sweats: No Perspiration Orientation: 0-Oriented Tacttile Disturbances: 1-Very Mild Itch/Numbness Auditory Disturbances: 0-None Visual Disturbances: 0-None Headache: 1-Very Mild CIWA-Ar Total Score: 10 S Progress Note (SOAP) Subjective: alert,irritable,anxious,interrupted sleep,aching pain Objective: 06/26/20 08:02 t98.2,p89,r18,bp 125/76 Assessment: 06/26/20 08:02 withdrawal symptom Plan: continue detox librium regimen,discharge in am
--- NOTE | 2020-06-26 09:45 | PN ---
[facility] CIWA - CIWA Score Nausea/Vomitin-No Nausea/No Vomiting Muscle Tremors: None Anxiety: 1-Mildly Anxious Agitation: 0-Normal Activity Paroxysmal Sweats: No Perspiration Orientation: 0-Oriented Tacttile Disturbances: 0-None Auditory Disturbances: 0-None Visual Disturbances: 0-None Headache: 0-None Present CIWA-Ar Total Score: 1 S Progress Note (SOAP) Subjective: alert,no complaint Objective: 06/26/20 09:42 Vital Signs Temperature 98.2 F 06/26/20 06:16 Pulse Rate 84 06/26/20 06:16 Respiratory Rate 18 06/26/20 06:16 Blood Pressure 119/69 06/26/20 06:16 O2 Sat by Pulse Oximetry (%) 97 06/26/20 06:16 Assessment: 06/26/20 09:43 detox completed,no withdrawal symptom Plan: detox completed no withdrawal symptom,follow up with [facility] care [facility]
--- NOTE | 2020-06-26 09:48 | DS ---
[facility] Detox Discharge Summary Admission Date: 06/21/20 Discharge Date: 06/26/20 - History Present History: Alcohol Dependence, Sedative Dependence Additional Comments: alert,oriented x 3 lung clear on auscultation abdomen soft,no pain,no tenderness ambulation on the unit stable for discharge no withdrawal symptom follow up with after care program [facility] total time spending on discharge 35 minutes left the unit in stable condition Pertinent Past History: asthma copd gerd history of vascular surgery of right leg peripheral artery disease dm2 - Physical Exam Results Vital Signs: Vital Signs Temperature 98.2 F 06/26/20 06:16 Pulse Rate 84 06/26/20 06:16 Respiratory Rate 18 06/26/20 06:16 Blood Pressure 119/69 06/26/20 06:16 O2 Sat by Pulse Oximetry (%) 97 06/26/20 06:16 Pertinent Admission Physical Exam Findings: withdrawal sing and symptom Laboratory Last Values WBC 11.2 K/mm3 (4.0-10.0) H 06/25/20 08:05 RBC 4.88 M/mm3 (4.00-5.60) 06/25/20 08:05 Hgb 13.9 GM/dL (11.7-16.9) 06/25/20 08:05 Hct 42.0 % (35.4-49) 06/25/20 08:05 MCV 86.0 fl (80-96) 06/25/20 08:05 MCH 28.4 pg (25.7-33.7) 06/25/20 08:05 MCHC 33.0 g/dl (32.0-35.9) 06/25/20 08:05 RDW 15.2 % (11.9-15.9) 06/25/20 08:05 Plt Count 207 K/MM3 (134-434) 06/25/20 08:05 MPV 9.4 fl (7.5-11.1) 06/25/20 08:05 Absolute Neuts (auto) 8.1 K/mm3 (1.5-8.0) H 06/25/20 08:05 Total Counted 100 06/25/20 08:05 Neutrophils % 72.1 % (42.8-82.8) D 06/25/20 08:05 Neutrophils % (Manual) 76.0 % (42.8-82.8) D 06/25/20 08:05 Band Neutrophils % 1.0 % 06/25/20 08:05 Lymphocytes % 15.8 % (8-40) D 06/25/20 08:05 Lymphocytes % (Manual) 13.0 % (8-40) D 06/25/20 08:05 Monocytes % 9.9 % (3.8-10.2) 06/25/20 08:05 Monocytes % (Manual) 6 % (3.8-10.2) 06/25/20 08:05 Eosinophils % 1.8 % (0-4.5) 06/25/20 08:05 Eosinophils % (Manual) 2.0 % (0-4.5) D 06/25/20 08:05 Basophils % 0.4 % (0-2.0) 06/25/20 08:05 Basophils % (Manual) 0.0 % (0-2.0) 06/25/20 08:05 Myelocytes % (Man) 1 % (0-2) D 06/25/20 08:05 Nucleated RBC % 0 % (0-0) 06/25/20 08:05 Metamyelocytes 1 % (0-2) D 06/25/20 08:05 Platelet Estimate Adequate 06/25/20 08:05 Platelet Comment No clumping noted 06/25/20 08:05 Platelet Comment Rare giant plts 06/25/20 08:05 Polychromasia 1+ 06/25/20 08:05 Sodium 142 mmol/L (136-145) 06/21/20 13:40 Potassium 4.2 mmol/L (3.5-5.1) 06/21/20 13:40 Chloride 105 mmol/L (98-107) 06/21/20 13:40 Carbon Dioxide 34 mmol/L (21-32) H 06/21/20 13:40 Anion Gap 3 MMOL/L (8-16) L 06/21/20 13:40 BUN 24.0 mg/dL (7-18) H 06/21/20 13:40 Creatinine 1.0 mg/dL (0.55-1.3) 06/21/20 13:40 Est GFR (CKD-EPI)AfAm 96.40 06/21/20 13:40 Est GFR (CKD-EPI)NonAf 83.18 06/21/20 13:40 POC Glucometer 121 UNITS (80-120) 06/26/20 07:59 Random Glucose 75 mg/dL (74-106) 06/21/20 13:40 Calcium 8.7 mg/dL (8.5-10.1) 06/21/20 13:40 Total Bilirubin 0.7 mg/dL (0.2-1) 06/21/20 13:40 AST 15 U/L (15-37) 06/21/20 13:40 ALT 30 U/L (13-61) 06/21/20 13:40 Alkaline Phosphatase 99 U/L (45-117) 06/21/20 13:40 Total Protein 6.6 g/dl (6.4-8.2) 06/21/20 13:40 Albumin 3.5 g/dl (3.4-5.0) 06/21/20 13:40 Syphilis Serology Non-reactive (NONREACTIVE) 06/21/20 13:40 COVID-19 (RAHUL) Not detected (Not Detected) 06/21/20 14:00 Vital Signs Temperature 97.4 F L 06/26/20 09:08 Pulse Rate 93 H 06/26/20 09:08 Respiratory Rate 18 06/26/20 09:08 Blood Pressure 113/72 06/26/20 09:08 O2 Sat by Pulse Oximetry (%) 95 06/26/20 09:08 - Treatment Hospital Course: Detox Protocol Followed, Detoxed Safely, Responded well, Discharged Condition Good, Rehab Referral Accepted Patient has Accepted a Rehab Referral to: [facility] - Medication Discharge Medications: Ambulatory Orders Aspirin Coated [Ecotrin -] 81 mg PO DAILY #30 tablet.ec 09/13/19 Budesonide/Formeterol Fumarate [SYMBICORT 80/4.5mcg -] 1 inh IH BID #1 inhaler 09/13/19 Albuterol Sulfate Inhaler - [Ventolin HFA Inhaler -] 2 inh PO Q4H PRN #1 inhaler 10/29/19 Clopidogrel Bisulfate [Plavix -] 75 mg PO DAILY 14 Days #14 tablet 10/29/19 Metformin HCl [Glucophage] 500 mg PO DAILY 06/21/20 - Diagnosis (1) Alcohol dependence with uncomplicated withdrawal Current Visit: No Status: Acute (2) Nicotine dependence Current Visit: No Status: Acute Qualifiers: Nicotine product type: cigarettes Substance use status: in withdrawal Qualified Code(s): F17.213 - Nicotine dependence, cigarettes, with withdrawal (3) Asthma Current Visit: No Status: Chronic Qualifiers: Asthma severity: mild Asthma persistence: intermittent Asthma complication type: uncomplicated Qualified Code(s): J45.20 - Mild intermittent asthma, uncomplicated (4) COPD (chronic obstructive pulmonary disease) Current Visit: No Status: Chronic Qualifiers: COPD type: emphysema Emphysema type: unspecified Qualified Code(s): J43.9 - Emphysema, unspecified (5) History of vascular surgery Current Visit: No Status: Chronic (6) DM2 (diabetes mellitus, type 2) Current Visit: Yes Status: Acute - AMA Did Patient Leave Against Medical Advice: No
[2020-06-26 09:49] VITALS: BP 113/72; PULSE 93; TEMP 97.4
[2020-06-26] MEDS: BUDESONIDE/FORMETEROL FUMARATE 80/4.5 mcg INHALER IH SCH (09:59)
[2020-06-26] MEDS: CLOPIDOGREL BISULFATE 75 MG TABLET (FP) PO SCH (10:00)
[2020-06-26] MEDS: LISINOPRIL 5 MG TABLET (FP) PO SCH (10:00)
[2020-06-26] MEDS: ASPIRIN COATED 81 MG TABLET.EC PO SCH (10:00)
[2020-06-26] MEDS: PRENATAL VITAMINS W/ FOLIC ACID TABLET (FP) PO SCH (10:00)
[2020-06-26] MEDS: NICOTINE 7 MG/24 HOURS TOPICAL PATCH TD SCH (10:00)
== END 2020-06-26 12:28 | disposition other institution (70) | DRG 773 ==
LOC: YASAS 10:21 → Y6N 13:14
PROVIDERS: ADMIT Allergy & Immunology; ATTEND Allergy & Immunology
PROC: HZ2ZZZZ Detoxification Services for Substance Abuse Treatment (ICD-10-PCS; principal; 2020-06-21)
DX: F10.230 Alcohol dependence with withdrawal, uncomplicated (principal); F11.23 Opioid dependence with withdrawal; F13.20 Sedative, hypnotic or anxiolytic dependence, uncomplicated; F17.210 Nicotine dependence, cigarettes, uncomplicated; D72.829 Elevated white blood cell count, unspecified; I10 Essential (primary) hypertension; J44.9 Chronic obstructive pulmonary disease, unspecified; J45.20 Mild intermittent asthma, uncomplicated; K21.9 Gastro-esophageal reflux disease without esophagitis; E11.9 Type 2 diabetes mellitus without complications; R79.89 Other specified abnormal findings of blood chemistry; I73.89 Other specified peripheral vascular diseases; Z95.828 Presence of other vascular implants and grafts; Z98.890 Other specified postprocedural states; Z88.0 Allergy status to penicillin; Z91.018 Allergy to other foods; Z79.82 Long term (current) use of aspirin; Z79.02 Long term (current) use of antithrombotics/antiplatelets
CPT/HCPCS: 36415; 80053; 82962; 85025; 85027; 86780; 93005; 93010; Q0162; U0003

== ENCOUNTER 2020-06-26 12:44 | Inpatient (IN) | payer OTHER ==
--- OUTSIDE RECORDS SUMMARY | 2020-06-26 13:22 | XMS ---
:1960 Author Organization [facility] Support Name Relationship Address Phone UE Unavailable Unavailable Unavailable HEAVEN SHRESTHA SISTER [address] [facility] [place] [address] Re-disclosure Warning The records that you are about to access may contain information from federally- assisted alcohol or drug abuse programs. If such information is present, then the following federally mandated warning applies: This information has been disclosed to you from records protected by federal confidentiality rules (42 CFR part 2). The federal rules prohibit you from making any further disclosure of this information unless further disclosure is expressly permitted by the written consent of the person to whom it pertains or as otherwise permitted by 42 CFR part 2. A general authorization for the release of medical or other information is NOT sufficient for this purpose. The Federal rules restrict any use of the information to criminally investigate or prosecute any alcohol or drug abuse patient.The records that you are about to access may contain highly sensitive health information, the redisclosure of which is protected by Article 27-F of the [facility] Public Health law. If you continue you may haveaccess to information: Regarding HIV / AIDS; Provided by facilities licensed or operated by the [facility] Office of Mental Health; or Provided by the [facility] Office for People With Developmental Disabilities. If such information is present, then the following [facility] mandated warning applies: This information has been disclosed to you from confidential records which are protected by state law. State law prohibits you from making any further disclosure of this information without the specific written consent of the person to whom it pertains, or as otherwise permitted by law. Any unauthorized further disclosure in violation of state law may result in a fine or fci sentence or both. A general authorization for the release of medical or other information is NOT sufficient authorization for further disclosure. Allergies and Adverse Reactions Type Description Substance Reaction Status Data Source(s ) Drug allergy penicillin G penicillin G Unknown Active [facility] seizures Medications Medication Brand Start Product Dose Route Administrative Pharmacy St atus Indications Reaction Description Data Name Date Form Instructions Instructions Source(s) Plavix 0 ORAL complet [facility] Symbicort 0 RESPIR complet [facility]) Prednisone predni 30 ORAL complet [facility] 200 ACTUAT [place] AEROSOL 0 RESPIR complet [facility] Albuterol rol 90 ATOR [facility] 0.09 mcg/in (INHAL System MG/ACTUAT h ATION) Metered inhala Dose tion Inhaler aeroso albuterol l 90 mcg/inh inhalation aerosol Insurance Providers Payer name Policy type Policy ID Covered Covered republican's Policy P varun / Coverage republican ID relationship to Rasheed Inf ormation type rasheed HEALTH FIRST [id number] SP [id number] X [place] [id number] SP [id number] [employer] [place] PLUS [id number] SP [id number] HEALTH PLAN MEDICAID [id number] SP [id number] Results ID Date Data Source [id number] 06/21/2020 02:00:00 PM EDT [facility] Name Value Range Interpretation Description Data Sup porting Code Source(s) Document(s ) SARS [facility] coronavirus 2 RNA This lab was ordered by [facility] Ac ct Bill Inter and reported by [facility]. ID Date Data Source [id number] 06/20/2020 05:29:00 AM EDT [facility] Name Value Range Interpretation Code Description Data Danay rce(s) Supporting Document(s ) SARS-CoV-2 [facility] RNA Resp Ql RAHUL+probe This lab was ordered by [place] and melissa rted by [facility]. ID Date Data Source [id number] 06/13/2020 08:59:00 AM EDT [facility] Name Value Range Interpretation Description Data Sup porting Code Source(s) Document(s ) SARS [facility] CORONAVIRUS 2 RNA:PRTHR:PT:RE SPIRATORY:ORD:P ROBE.AMP.TAR This lab was ordered by [facility] nter and reported by [facility]. ID Date Data Source [id number] 05/04/2020 10:41:00 AM EDT [facility] Name Value Range Interpretation Description Data Sup porting Code Source(s) Document(s ) SARS [facility] CORONAVIRUS 2 RNA:PRTHR:PT:RE SPIRATORY:ORD:P ROBE.AMP.TAR This lab was ordered by [facility] nter and reported by [facility]. ID Date Data Source [id number] 04/11/2020 01:56:00 PM EDT [facility] Name Value Range Interpretation Description Data Sup porting Code Source(s) Document(s ) SARS [facility] CORONAVIRUS 2 RNA:PRTHR:PT:RE SPIRATORY:ORD:P ROBE.AMP.TAR This lab was ordered by [facility] nter and reported by [facility]. Procedure Vital Signs ID Date Data Source UNK Name Value Range Interpretation Code Description Data Source(s) Body temperature 36.6 Holley 0 - 99.9 Normal (applies to 36.6 Holley [facility] non-numeric results) [facility] Body temperature 97.9 [degF] 0 - 200 Normal (applies to 97.9 [degF ] [facility] non-numeric results) [facility] Diastolic blood 88 mm[Hg] 0 - 999 Above high normal 88 mm[Hg] [facility] Systolic blood 135 mm[Hg] 0 - 999 Normal (applies to 135 mm[Hg] [facility] pressure non-numeric results) [facility] Deprecated Oxygen 97 % 0 - 999 Normal (applies to 97 % [facility] non-numeric results) H ealt System Capillary blood by Oximetry Respiratory rate 20 0 - 999 Above high normal [facility] Heart rate 89 0 - 999 Normal (applies to 89 [facility] non-numeric results) [facility] Body surface area 2 m2 2 m2 [facility] Derived from Health Syste m formula Body mass index 33.6 kg/m2 33.6 kg/m2 [facility] (BMI) [Ratio] [facility] em Body weight 97.52 kg 97.52 kg [facility] Body height 170.18 cm 170.18 cm [facility] Patient Treatment Plan of Care Planned Activity Planned Date Details Description Data Source (s) [facility] 200 ACTUAT [facility] 0.09 [facility] MG/ACTUAT Metered Dose Inhaler Symbicort [facility] Prednisone [facility]
--- OUTSIDE RECORDS SUMMARY | 2020-06-26 13:23 | XMS ---
:1960 Author Organization [facility] Support Name Relationship Address Phone UE Unavailable Unavailable Unavailable HEAVEN SHRESTHA [address] [place] [address] [place] [address] Re-disclosure Warning The records that you are [...] by Article 27-F of the [facility] Public Health law. If you continue you may haveaccess to information: Regarding HIV / AIDS; Provided by facilities licensed or operated by the [facility] Office of Mental Health; or Provided by the [facility] Office for People With Developmental Disabilities. If such information is present, then the following [facility] mandated warning applies: This information [...] penicillin G penicillin G Unknown Active [facility] potassium potassium System seizures Medications Medication Brand Start Product Dose Route Administrative Pharmacy [facility] Indications Reaction Description Data Name Date Form Instructions Instructions Source(s) Plavix 0 ORAL complet [facility] Symbicort 0 RESPIR complet Rony karli [facility] (INHAL System ATION) Prednisone predni 30 ORAL complet [facility] predniSONE [facility] 200 ACTUAT [place] AEROSOL 0 RESPIR complet [facility] Albuterol rol 90 [facility] 0.09 mcg/in (INHAL System MG/ACTUAT h ATION) Metered inhala Dose tion Inhaler aeroso albuterol l 90 mcg/inh inhalation aerosol Insurance Providers Payer name Policy type Policy ID Covered Covered alliance party's Policy P varun / Coverage alliance party ID relationship to Rasheed Inf ormation type rasheed HEALTH FIRST [id number] SP [id number] X [place] [id number] SP [id number] [employer] PLUS [id number] SP [id number] HEALTH PLAN MEDICAID [id number] SP [id number] Results ID Date Data Source [id number] 06/21/2020 02:00:00 PM EDT [facility] Name Value Range Interpretation Description Data Sup porting Code Source(s) Document(s ) SARS [facility] coronavirus 2 RNA This lab was ordered by [facility] Nadia Hoff and reported by [facility]. ID Date Data Source [id number] 06/20/2020 05:29:00 AM EDT [facility] Name Value Range Interpretation Code Description Data Danay rce(s) Supporting Document(s ) SARS-CoV-2 [facility] RNA Resp Ql RAHUL+probe This lab was ordered by [place] and o rted by [facility]. ID Date Data Source [id number] 06/13/2020 08:59:00 AM EDT [facility] Name Value Range Interpretation Description Data Sup porting Code Source(s) Document(s ) SARS [facility] CORONAVIRUS 2 RNA:PRTHR:PT:RE SPIRATORY:ORD:P ROBE.AMP.TAR This lab was ordered by [facility] ntilan and reported by [facility]. ID Date Data Source [id number] 05/04/2020 10:41:00 AM EDT [facility] Name Value Range Interpretation Description Data Sup porting Code Source(s) Document(s ) SARS [facility] CORONAVIRUS 2 RNA:PRTHR:PT:RE SPIRATORY:ORD:P ROBE.AMP.TAR This lab was ordered by [facility] nter and reported by [facility]. ID Date Data Source [id number] 04/11/2020 01:56:00 PM EDT [facility] Name Value Range Interpretation Description Data Sup porting Code Source(s) Document(s ) SARS [facility] CORONAVIRUS 2 RNA:PRTHR:PT:RE SPIRATORY:ORD:P ROBE.AMP.TAR This lab was ordered by [facility] nter and reported by [facility]. Procedure Vital Signs ID Date Data Source UNK Name Value Range Interpretation Code Description Data Source(s) Body temperature 36.6 Holley 0 - 99.9 Normal (applies to 36.6 [place]ley [facility] non-numeric results) [facility] Body temperature 97.9 [degF] 0 - 200 Normal (applies to 97.9 [degF ] [facility] non-numeric results) [facility] Diastolic blood 88 mm[Hg] 0 - 999 Above high normal 88 mm[Hg] [facility] Systolic blood 135 mm[Hg] 0 - 999 Normal (applies to 135 mm[Hg] [facility] pressure non-numeric results) [facility] Deprecated Oxygen 97 % 0 - 999 Normal (applies to 97 % [facility] saturation in non-numeric results) H ealt System Capillary blood by Oximetry Respiratory rate 20 0 - 999 [facility] rate 89 0 - 999 Normal (applies to 89 [facility] non-numeric results) [facility] Body surface area 2 m2 2 m2 [facility] from [facility] formula Body mass index 33.6 kg/m2 33.6 kg/m2 [facility] (BMI) [Ratio] [facility] Body weight 97.52 kg 97.52 kg [facility] Measured [facility] Body height 170.18 cm 170.18 cm [facility] System Patient Treatment Plan of Care Planned Activity Planned Date Details Description Data Source (s) Plavix [facility] 200 ACTUAT Albuterol 0.09 Mo [facility] MG/ACTUAT Metered Dose Inhaler [facility] Pred[facility]one [facility]
[2020-06-26] MEDS ORDERED: guaiFENesin 200 MG/10 ML 10 ML UNIT-DOSE CUPS PO PRN (13:49)
[2020-06-26] MEDS ORDERED: IBUPROFEN 400 MG TABLET (FP) PO PRN (13:49)
[2020-06-26] MEDS ORDERED: hydrOXYzine PAMOATE 25 MG CAPSULE (FP) PO PRN (13:49)
[2020-06-26] MEDS ORDERED: MAGNESIUM CITRATE 300 ML BOTTLE PO PRN (13:49)
[2020-06-26] MEDS ORDERED: MENTHOL/PHENOL 1 EACH UD MM PRN (13:49)
[2020-06-26] MEDS ORDERED: ACETAMINOPHEN 325 MG TABLET (FP) PO PRN (13:49)
[2020-06-26] MEDS ORDERED: NICOTINE POLACRILEX 2 MG GUM BUC PRN (13:49)
[2020-06-26] MEDS ORDERED: MAG HYDROX/AL HYDROX/SIMETH 30 ML UNIT-DOSE CUP PO PRN (13:49)
[2020-06-26] MEDS ORDERED: MAGNESIUM HYDROX 2400MG/30ML ORAL SUSPENSION 30 ML CUP PO PRN (13:49)
[2020-06-26] MEDS ORDERED: P-EPHED 60MG/TRIPROLIDI 2.5MG TABLET PO PRN (13:49)
[2020-06-26] MEDS ORDERED: LOPERAMIDE HCL 2 MG CAPSULE PO PRN (13:49)
--- NOTE | 2020-06-26 13:49 | HP ---
[facility] Rehab Assess/Revision - Admission History Admitted to Rehab from: [facility] Date of Admission to Rehab: 06/26/20 - Findings Detox History & Physical reviewed: Yes Concur with findings: Yes Inpatient Rehab Admission - Rehab Decision to Admit Inpatient rehab admission?: Yes - Initial Determination Are CD services needed?: Yes Free of communicable disease: Yes Not in need of hospitalization: Yes - Rehab Admission Criteria Previous failed treatment: Yes Poor recovery environment: Yes Comorbidities: Yes Lacks judgement: No Patient is meeting Inpatient Rehab admission criteria:: Yes
[2020-06-26] MEDS ORDERED: ALBUTEROL SO4 HFA INHALER IH PRN (13:50)
--- NOTE | 2020-06-26 14:01 | PN ---
S Progress Note Note: Pt admitted to unit this morning from [address] [place] [address]. Reports he has PCP, Dr. Adryan Alvarado in [place], [place]. Alert o x 3 nad oob ambulating with steady gait
[2020-06-26 15:05] VITALS: BP 115/75; PULSE 93; TEMP 97.8
[2020-06-26] MEDS: BUDESONIDE/FORMETEROL FUMARATE 80/4.5 mcg INHALER IH SCH (21:37)
[2020-06-26] MEDS ORDERED: THIAMINE HCL 100 MG TABLET (FP) PO SCH (22:00)
[2020-06-26] MEDS ORDERED: MELATONIN 5 MG TABLETS PO SCH (22:00)
[2020-06-27] MEDS ORDERED: metFORMIN HCL 500 MG TABLET (FP) PO SCH (07:00)
[2020-06-27] MEDS ORDERED: NICOTINE 7 MG/24 HOURS TOPICAL PATCH TD SCH (10:00)
[2020-06-27] MEDS ORDERED: PRENATAL VITAMINS W/ FOLIC ACID TABLET (FP) PO SCH (10:00)
[2020-06-27] MEDS ORDERED: ASPIRIN COATED 81 MG TABLET.EC PO SCH (10:00)
[2020-06-27] MEDS ORDERED: CLOPIDOGREL BISULFATE 75 MG TABLET (FP) PO SCH (10:00)
[2020-06-27] MEDS: BUDESONIDE/FORMETEROL FUMARATE 80/4.5 mcg INHALER IH SCH (10:30)
--- NOTE | 2020-06-27 11:34 | DS ---
[facility] Rehab Discharge Summary - [facility] Rehab Discharge Summary Admission Date: 06/26/20 Discharge Date: 06/27/20 - History Present History: Alcohol dependence, Opioid dependence ((-)toxicology for opiates on detox admission though claims use of Heroin) Pertinent Past History: Asthma HTN COPD GERD Seizure Hx DM Hx Depression - Discharge Physical Exam Vital Signs: Vital Signs Temperature 97.8 F 06/26/20 15:04 Pulse Rate 93 H 06/26/20 15:04 Respiratory Rate 18 06/26/20 15:04 Blood Pressure 115/75 06/26/20 15:04 O2 Sat by Pulse Oximetry (%) 97 06/27/20 07:18 Alert o x 3 nad cardiac:s1 s2 lungs:ctab extremities:no edema Skin intact Pertinent Admission Physical Exam Findings: s/p detox Laboratory Tests 06/26/20 17:22 POC Glucometer 174 - Treatment Discharge Condition: Discharge condition good Hospital Course: Pt is a 59 y/o male who was referred to rehab but declined to continue treatment stating "my brother was murdered last week and i cannot focus on treatment right now, I'm leaving to go to [place]". Pt reports he will go to [facility] for medical care. However, pt stated he PCP, Dr. Adryan Alvarado in [place], [place] who ordered his medications. Pt refused aftercare program stating to counselor "I'm not going, don't waste the paper". Pt reports he is going to stay with his son's mother in [place] and does not want aftercare referral. - Medication Discharge Medications: Ambulatory Orders Aspirin Coated [Ecotrin -] 81 mg PO DAILY #30 tablet.ec 09/13/19 Budesonide/Formeterol Fumarate [SYMBICORT 80/4.5mcg -] 1 inh IH BID #1 inhaler 09/13/19 Albuterol Sulfate Inhaler - [Ventolin HFA Inhaler -] 2 inh PO Q4H PRN #1 inhaler 10/29/19 Clopidogrel Bisulfate [Plavix -] 75 mg PO DAILY 14 Days #14 tablet 10/29/19 Metformin HCl [Glucophage] 500 mg PO DAILY 06/21/20 - Medication-Assisted Treatment (MAT) Medication-Assisted Treatment (MAT): No - Discharge Instructions Diet, activity, other medical instructions: Diet:WESLY Activity:oob ad dalia Other medical instructions:follow up with PCP for medical management when needed. - Diagnosis (1) Alcohol dependence Status: Chronic Qualifiers: Substance use status: uncomplicated Qualified Code(s): F10.20 - Alcohol dependence, uncomplicated (2) Nicotine dependence Status: Acute Qualifiers: Nicotine product type: cigarettes Substance use status: in withdrawal Qualified Code(s): F17.213 - Nicotine dependence, cigarettes, with withdrawal (3) Asthma Status: Chronic Qualifiers: Asthma severity: mild Asthma persistence: intermittent Asthma complication type: uncomplicated Qualified Code(s): J45.20 - Mild intermittent asthma, uncomplicated (4) COPD (chronic obstructive pulmonary disease) Status: Chronic Qualifiers: COPD type: emphysema Emphysema type: unspecified Qualified Code(s): J43.9 - Emphysema, unspecified (5) Gastroesophageal reflux disease Status: Chronic Qualifiers: Esophagitis presence: esophagitis presence not specified Qualified Code(s): K21.9 - Gastro-esophageal reflux disease without esophagitis (6) H/O deep venous thrombosis Status: Chronic - Follow-up Referral Minutes to complete discharge: 20 - AMA Did Patient Leave Against Medical Advice: Yes
== END 2020-06-27 11:50 | disposition left against medical advice (07) | DRG 770 ==
LOC: YASAS 12:44 → Y5N 12:45
PROVIDERS: ADMIT Allergy & Immunology; ATTEND Allergy & Immunology
DX: F10.20 Alcohol dependence, uncomplicated (principal); F17.210 Nicotine dependence, cigarettes, uncomplicated; F32.9 Major depressive disorder, single episode, unspecified; I10 Essential (primary) hypertension; J43.9 Emphysema, unspecified; J45.20 Mild intermittent asthma, uncomplicated; K21.9 Gastro-esophageal reflux disease without esophagitis; E11.9 Type 2 diabetes mellitus without complications; Z79.84 Long term (current) use of oral hypoglycemic drugs; Z86.718 Personal history of other venous thrombosis and embolism; Z86.69 Personal history of other diseases of the nervous system and sense organs; Z88.0 Allergy status to penicillin; Z91.018 Allergy to other foods; Z79.02 Long term (current) use of antithrombotics/antiplatelets
CPT/HCPCS: 82962